=== PATIENT | female | born 1940 | race Caucasian/White ===

== ENCOUNTER 2016-05-24 09:59 | Inpatient (IN) | payer BC, OTHER ==
[2016-05-24] MEDS ORDERED: ceFAZolin 2 GM/DEXTROSE 100 ML IV ONE (10:05)
--- NOTE | 2016-05-24 10:15 | EDPHY ---
H & P Constitutional: Initial Vital Signs Heart Rate 88 05/24/16 10:09 Respiratory Rate 14 05/24/16 10:09 Blood Pressure 112/68 05/24/16 10:09 O2 Sat (%) 92 05/24/16 10:09 Allergies/Adverse Reactions: No Known Allergies Allergy (Unverified 05/24/16 10:13) Home Medications: Medication Instructions Recorded Aspirin EC [Aspirin EC 81 mg (*)] 81 mg PO DAILY 05/24/16 Lisinopril [Zestril 5 mg (*)] 5 mg PO DAILY 05/24/16 METOPROLOL/HYDROCHLOROTHIAZIDE 1 each PO DAILY 05/24/16 [METOPROLOL-HCTZ 100-25 MG TAB] Multivitamins [Multivitamin (*)] 1 each PO DAILY 05/24/16 Pravastatin Sodium 20 mg PO HS 05/24/16 Medical Decision Making ED Course/Re-evaluation: CHIEF COMPLAINT: Bilateral leg swelling and redness HISTORY OF PRESENT ILLNESS: 75-year-old female who is visiting from [place] for the holidays. She states that her legs began swelling several weeks ago and they turned red several weeks ago also but she cannot specify the exact timing. She ignored them because she was anxious to travel here to [place] to see her family for the holidays. She denies any shortness of breath. She denies any chest pain chest pressure. She states that she takes blood pressure medicine and another type medicine for cholesterol but she cannot remember what. She has not had this problem in the past according to her. REVIEW OF SYSTEMS: A 10 point review of systems was performed and is negative with the exception of the elements mentioned in the history of present illness. PHYSICAL EXAM: HR, BP, O2 Sat, RR. Temp noted General Appearance: Alert, well hydrated, appropriate, and non-toxic appearing. Head: Atraumatic without scalp tenderness or obvious injury Eyes: Pupils equal, round, reactive to light and accommodation, EOMI, no trauma , no injection. Ears: Clear bilaterally, no perforation, normal landmarks Nose: Atraumatic, no rhinorrhea, clear. Throat: There is no erythema or exudates, no lesions, normal tonsils, mucus membranes moist. Neck: Supple, 2+ carotid upstroke, nontender, no lymphadenopathy. Respiratory: No retractions, no distress, no wheezes, and no accessory muscle use. Lungs are clear to auscultation bilaterally. Cardiovascular: Regular rate and rhythm, no murmurs, rubs, or gallops. Bilateral carotid, radial, dorsalis pedis, and posterior tibial pulses intact. Good capillary refill all extremities. Gastrointestinal: Abdomen is soft, nontender, non-distended, no masses, no rebound, no guarding, no peritoneal signs. Musculoskeletal: Normal active ROM of all extremities, atraumatic. Neurological: Alert, appropriate, and interactive. The patient has normal DTRs and non-focal cranial nerves, motor, sensory, and cerebellar exam. Skin: Bilateral lower extremities that are extremely swollen which began before she traveled here by plane from [place]. They are significantly erythematous with weeping ulcerations and blisters. No rashes, good turgor, no nodules on palpation. Past medical history: Hypertension, hypercholesterolemia Past surgical history: Noncontributory Family history: Noncontributory Social history: , retired, does not abuse tobacco drugs or alcohol traveled here from [place] for the holidays DIAGNOSTICS/PROCEDURES/CRITICAL CARE TIME: Study: Ultrasound of the: Indication: Bilateral leg swelling and cellulitis Results: US scan of the body parts was obtained. The results of the study are no evidence of DVT. The study was read by the radiologist, Dr. Yunier Hurley. The lower extremity ultrasound is unremarkable . I viewed the images myself on the PACS system. DIFFERENTIAL DIAGNOSIS: The differential diagnosis for the patient's leg swelling included but was not limited to hypoalbuminemia, congestive heart failure, cor pulmonale, venous stasis, cellulitis, trauma, and DVT. MEDICAL DECISION MAKING: This patient has severe cellulitis with weeping and blisters of both lower extremities below the knees. This started weeks ago according to her and has been on treated. I have drawn laboratory studies and blood cultures. I do not believe this is Staph this looks like a strep cellulitis and therefore I am giving her 2 g of Ancef to start. I have discussed the case with the hospitalist who will admit the patient. I will also obtain bilateral lower extremity ultrasound. The ultrasound is unremarkable. - Data Points Laboratory Results: Laboratory Results 05/24/16 10:08 05/24/16 10:08 05/24/16 10:08 WBC 10.60 H 10^3/uL (3.80-9.50) RBC 3.59 L 10^6/uL (4.18-5.33) Hgb 10.5 L g/dL (12.6-16.3) Hct 32.1 L % (38.0-47.0) MCV 89.4 fL (81.5-99.8) MCH 29.2 pg (27.9-34.1) MCHC 32.7 g/dL (32.4-36.7) RDW 13.7 % (11.5-15.2) Plt Count 278 10^3/uL (150-400) MPV 9.7 fL (8.7-11.7) Neut % (Auto) 81.0 H % (39.3-74.2) Lymph % (Auto) 13.6 L % (15.0-45.0) [place] % (Auto) 4.3 L % (4.5-13.0) Eos % (Auto) 0.4 L % (0.6-7.6) Baso % (Auto) 0.3 % (0.3-1.7) Nucleat RBC Rel Count 0.0 % (0.0-0.2) Absolute Neuts (auto) 8.59 H 10^3/uL (1.70-6.50) Absolute Lymphs (auto) 1.44 10^3/uL (1.00-3.00) Absolute Monos (auto) 0.46 10^3/uL (0.30-0.80) Absolute Eos (auto) 0.04 10^3/uL (0.03-0.40) Absolute Basos (auto) 0.03 10^3/uL (0.02-0.10) Absolute Nucleated RBC 0.00 10^3/uL (0-0.01) Immature Gran % 0.4 % (0.0-1.1) Immature Gran # 0.04 10^3/uL (0.00-0.10) PT 13.6 SEC (12.0-15.0) INR 1.05 (0.83-1.16) APTT 41.8 H SEC (23.0-38.0) VBG Lactic Acid 0.8 mmol/L (0.7-2.1) Sodium 135 mEq/L (134-144) Potassium 3.3 L mEq/L (3.5-5.2) Chloride 97 mEq/L (97-110) Carbon Dioxide 27 mEq/l (22-31) Anion Gap 11 mEq/L (8-16) BUN 49 H mg/dL (7-23) Creatinine 1.2 H mg/dL (0.6-1.0) Estimated GFR 44 Glucose 96 mg/dL (70-100) Calcium 9.0 mg/dL (8.5-10.4) Total Bilirubin 0.5 mg/dL (0.1-1.4) Medications Given: Discontinued Medications Hydromorphone HCl (Dilaudid) 0.5 mg IVP EDNOW ONE Stop: 05/24/16 11:03 Last Admin: 05/24/16 11:10 Dose: 0.5 mg Cefazolin Sodium/Dextrose (Ancef 2 Gm (Premix)) 100 mls @ 200 mls/hr IV EDNOW ONE PRN Reason: Protocol Stop: 05/24/16 10:34 Last Admin: 05/24/16 10:25 Dose: 100 mls Departure - Departure Disposition: [facility] Acute Condition: Fair
[2016-05-24 10:27] LABS: % IMMATURE GRANULYOCYTES 0.4 % (0.0-1.1); ABSOLUTE IMMATURE GRANULOCYTES 0.04 10^3/uL (0.00-0.10); ADD DIFF? NO; ADD MORPH? NO; ADD SCAN? NO; ATYPICAL LYMPHOCYTE FLAG 10 (0-99); FRAGMENT RBC FLAG 0 (0-99); HEMATOCRIT 32.1 % (38.0-47.0); HEMOGLOBIN 10.5 g/dL (12.6-16.3); LEFT SHIFT FLG 40 (0-99); LIPEMIA HEMOLYSIS FLAG 80 (0-99); MEAN CELL HEMOGLOBIN 29.2 pg (27.9-34.1); MEAN CELL HEMOGLOBIN CONCENTR. 32.7 g/dL (32.4-36.7); MEAN CELL VOLUME 89.4 fL (81.5-99.8); MEAN PLATELET VOLUME 9.7 fL (8.7-11.7); PLATELET CLUMPS FLAG 0 (0-99); PLATELET COUNT 278 10^3/uL (150-400); RED BLOOD CELL COUNT 3.59 10^6/uL (4.18-5.33); RED CELL DISTRIBUTION WIDTH 13.7 % (11.5-15.2)
[2016-05-24 10:31] LABS: INR 1.05 (0.83-1.16); PROTIME(PATIENT) 13.6 SEC (12.0-15.0)
[2016-05-24 10:32] LABS: APTT 41.8 SEC (23.0-38.0)
[2016-05-24 10:37] LABS: ANION GAP 11 mEq/L (8-16); BILIRUBIN,TOTAL 0.5 mg/dL (0.1-1.4); CARBON DIOXIDE 27 mEq/l (22-31); CHLORIDE 97 mEq/L (97-110); CREATININE 1.2 mg/dL (0.6-1.0); GLOMERULAR FILTRATION RATE 44; GLUCOSE 96 mg/dL (70-100); POTASSIUM 3.3 mEq/L (3.5-5.2); SODIUM 135 mEq/L (134-144)
[2016-05-24] MEDS ORDERED: HYDROmorphONE/DILAUDID 1 MG/ML SYR IVP ONE (11:02)
[2016-05-24] MEDS ORDERED: PROTOCOL MAGNESIUM 1 DOSE IV PRN (11:37)
[2016-05-24] MEDS ORDERED: ONDANSETRON 4 MG/2 ML VIAL IVP PRN (11:37)
[2016-05-24] MEDS ORDERED: PROTOCOL POTASSIUM 1 DOSE MISC PRN (11:37)
[2016-05-24] MEDS ORDERED: ONDANSETRON DISINTEGRATING 4 MG TAB PO PRN (11:37)
[2016-05-24] MEDS ORDERED: PROMETHAZINE HCL 25 MG/ML VIAL IVP PRN (11:37)
--- NOTE | 2016-05-24 11:39 | US ---
Bilateral Lower Extremity Venous Doppler Study Clinical Indications: Bilateral leg pain. Bilateral oozing sores. Rule out DVT. Technique: High-frequency transducer was used for compression imaging and Doppler study of the deep veins of both legs from the upper calves to the groins. Pulsed Doppler and color Doppler were utilize d, along with various maneuvers to assess flow in the deep veins. Findings: Right Leg: The deep veins of the groin, proximal thigh, and popliteal region are well displayed and normally compressible. There is suboptimal visualization of the distal femoral vein and calf veins bi laterally although the visualized portions all appear to be normal without thrombus. Doppler flow pa tterns are unremarkable. There is no evidence of deep venous thrombosis. Left Leg: The deep veins of the groin, proximal thigh, and popliteal region are well displayed and n ormally compressible. There is suboptimal visualization of the distal femoral vein and calf veins aracelis aterally although the visualized portions all appear to be normal without thrombus. Doppler flow pat terns are unremarkable. There is no evidence of deep venous thrombosis. There is normal compression of the greater saphenous veins without superficial thrombosis on the left and proximally on the right. Impression: 1. No evidence of DVT both lower extremities. 2. Suboptimal visualization of a portion of the distal femoral vein bilaterally as well as calf veins secondary to the patient's underlying medical condition and tenderness. These findings were discussed by telephone with Dr. Omlan Laguerre at 1137 hrs.
[2016-05-24] MEDS ORDERED: POTASSIUM CL 10 MEQ TAB PO ONE ×2 (12:00→20:04)
[2016-05-24] MEDS: NS 1,000 ML IV SCH ×2 (12:03→18:01)
--- NOTE | 2016-05-24 12:51 | WOCRNPDOC ---
TRI Advanced Assessment Note - Skin Integrity Problem, Advanced Assess Right Heel Dressing Type: Open to Air Dressing Description: Clean/Dry, Intact Exudate Amount: None Integumentary Issue Intervention: Dressing Applied Denise Wound Tissue: Macerated, Calloused Wound Bed Color: Black Wound Bed Constitution: Unstable Eschar Wound Edges: Scarred, Thick Site Odor: Strong, Foul Site Measurement - Head-to-Toe Length X Width X Depth (cm): 3x4x1 Pressure Injury Stage: Unstageable Pressure Injury Present on Admit: Yes Skin Integrity Problem Comment: Loose unstable eschar. May be from pressure. Patient denies diabetic history and glucose was 96 today on admission. No A1C drawn. Per patient report she sits for extensive periods of time in a recliner but was unaware she has any wounds on her feet/heels. The tissue surrounding this long standing wound is compromised as well. Soaked wound in Vashe solution moist to dry. Will ask for surgical consultation yessica. Toe nails need trimming and patient would greatly benefit from podiatry consultation as well. Discussed plan of care at length with Maureen MOSS. Also discussed with Dr. Whiting who is in accord with wound RN managing wounds. Gisela Wound RN will round Friday 05/25 to assess heel wounds post debridment. Right Lower Leg Venous Stasis Ulcer Dressing Type: Open to Air Exudate Amount: Minimal Exudate Characteristic(s): Serosanguinous Integumentary Issue Intervention: Dressing Applied Denise Wound Tissue: Erythema, Venous Dermatitis Denise Wound Swelling: Mild Wound Bed Color: Red, Yellow Wound Bed Constitution: Granulation Tissue, Adhered Slough, Loose Slough (80% slough) Wound Edges: Irregular Site Odor: Strong, Foul, Pungent Site Measurement - Head-to-Toe Length X Width X Depth (cm): 18x25.5x0.5 Pulse Location & Description: Could not palpate DP today. Extremity Temperature: Warm Skin Integrity Problem Comment: Consistent with venous stasis ulcers. Wounds soaked in Vashe solution moist to dry. Left Heel Pressure Injury Dressing Type: Open to Air Exudate Amount: None Integumentary Issue Intervention: Dressing Applied Site Odor: Moderate, Pungent Site Measurement - Head-to-Toe Length X Width X Depth (cm): 2.5x2.3x1 Pressure Injury Stage: Unstageable Pulse Location & Description: 1+ DP Extremity Temperature: Warm Skin Integrity Problem Comment: Mirror image wound to the left heel. This wound is somewhat smaller but also consists of unstable eschar. Surgical consultation requested with Dr. Vang. Left Lower Leg Venous Stasis Ulcer Dressing Type: Open to Air Exudate Amount: Minimal Exudate Characteristic(s): Serosanguinous Integumentary Issue Intervention: Dressing Applied Denise Wound Tissue: Erythema, Venous Dermatitis Wound Bed Color: Red, Yellow Wound Bed Constitution: Granulation Tissue (20%), Adhered Slough, Loose Slough Wound Edges: Irregular, Thick Site Measurement - Head-to-Toe Length X Width X Depth (cm): 14h73x2.5 Skin Integrity Problem Comment: Long standing venous stasis wounds. Vashe soaked moist to dry gauze dressings applied. Bilateral Groin Moisture Associated Dermatitis Dressing Type: Open to Air Skin Integrity Problem Comment: Open parital thickness slits in bilateral groin folds. Small area of satellite lesions noted. Interdry sheets will be provided. Sacral Skin Integrity Problem Comment: Scarred areas from previous breakdown. Currently intact and non erythematic.
--- NOTE | 2016-05-24 13:02 | PDGENHP ---
History and Physical - Chief Complaint lower extremity swelling/drainage - History of Present Illness 75 yo F with PMH of CAD currently visiting from [place] presenting with lower extremity swelling/drainage and pain. Her family who accompanies her are not sure how long this has been going on but they suspect much longer than they realized. Patient herself really cannot say how long her legs have looked like this, she says initially "days" but then admits it may be longer. She says otherwise she has felt well recently. Her son noticed that she really was unable to walk and seemed more somnolent than usual and became concerned when he saw her legs. He thought initially it was due to altitude sickness. She has not had fever or chills that she is aware of. She denies any chest pain or sob. History Information - Allergies/Home Medication List Allergies/Adverse Reactions: No Known Allergies Allergy (Unverified 05/24/16 10:13) Home Medications: Aspirin EC [Aspirin EC 81 mg (*)] 81 mg PO DAILY 05/24/16 [Last Taken 05/23/16] Lisinopril [Zestril 5 mg (*)] 5 mg PO DAILY 05/24/16 [Last Taken 05/23/16] METOPROLOL/HYDROCHLOROTHIAZIDE [METOPROLOL-HCTZ 100-25 MG TAB] 1 each PO DAILY 05/24/16 [Last Taken 05/23/16] Multivitamins [Multivitamin (*)] 1 each PO DAILY 05/24/16 [Last Taken 05/23/16] Pravastatin Sodium 20 mg PO HS 05/24/16 [Last Taken 05/23/16] I have personally reviewed and updated: family history, medical history, social history, surgical history - Past Medical History coronary artery disease, hypertension, hyperlipidemia, myocardial infarction - Surgical History Additional surgical history: tubal ligation - Family History Positive for: non-pertinent - Social History Smoking Status: Current every day smoker (60+ pack year smoking hx) Alcohol Use: Rarely Drug Use: None Additional social history: , 2 children both accompany her here, lives in [place] Review of Systems ROS: 10pt was reviewed & negative except for what was stated in HPI & below Physical Exam Temp Pulse Resp BP Pulse Ox 35.5 C L 71 16 92/48 L 94 05/24/16 11:42 05/24/16 11:42 05/24/16 11:42 05/24/16 11:42 05/24/16 11:42 O2 (L/minute) 2 Constitutional: no apparent distress, appears nourished Eyes: PERRL, anicteric sclera Ears, Nose, Mouth, Throat: moist mucous membranes, hearing normal Cardiovascular: regular rate and rhythym, systolic murmur, edema Respiratory: no respiratory distress, no rales or rhonchi Gastrointestinal: normoactive bowel sounds, soft, non-tender abdomen Genitourinary: no bladder tenderness Skin: warm, erythema, other (weeping wounds) Musculoskeletal: full muscle strength, asymmetric calves Neurologic: AAOx3, sensation intact bilaterally Lab Data & Imaging Review 05/24/16 10:08 05/24/16 10:08 WBC 10.60 10^3/uL (3.80-9.50) H 05/24/16 10:08 RBC 3.59 10^6/uL (4.18-5.33) L 05/24/16 10:08 Hgb 10.5 g/dL (12.6-16.3) L 05/24/16 10:08 Hct 32.1 % (38.0-47.0) L 05/24/16 10:08 MCV 89.4 fL (81.5-99.8) 05/24/16 10:08 MCH 29.2 pg (27.9-34.1) 05/24/16 10:08 MCHC 32.7 g/dL (32.4-36.7) 05/24/16 10:08 RDW 13.7 % (11.5-15.2) 05/24/16 10:08 Plt Count 278 10^3/uL (150-400) 05/24/16 10:08 MPV 9.7 fL (8.7-11.7) 05/24/16 10:08 Neut % (Auto) 81.0 % (39.3-74.2) H 05/24/16 10:08 Lymph % (Auto) 13.6 % (15.0-45.0) L 05/24/16 10:08 [place] % (Auto) 4.3 % (4.5-13.0) L 05/24/16 10:08 Eos % (Auto) 0.4 % (0.6-7.6) L 05/24/16 10:08 Baso % (Auto) 0.3 % (0.3-1.7) 05/24/16 10:08 Nucleat RBC Rel Count 0.0 % (0.0-0.2) 05/24/16 10:08 Absolute Neuts (auto) 8.59 10^3/uL (1.70-6.50) H 05/24/16 10:08 Absolute Lymphs (auto) 1.44 10^3/uL (1.00-3.00) 05/24/16 10:08 Absolute Monos (auto) 0.46 10^3/uL (0.30-0.80) 05/24/16 10:08 Absolute Eos (auto) 0.04 10^3/uL (0.03-0.40) 05/24/16 10:08 Absolute Basos (auto) 0.03 10^3/uL (0.02-0.10) 05/24/16 10:08 Absolute Nucleated RBC 0.00 10^3/uL (0-0.01) 05/24/16 10:08 Immature Gran % 0.4 % (0.0-1.1) 05/24/16 10:08 Immature Gran # 0.04 10^3/uL (0.00-0.10) 05/24/16 10:08 PT 13.6 SEC (12.0-15.0) 05/24/16 10:08 INR 1.05 (0.83-1.16) 05/24/16 10:08 APTT 41.8 SEC (23.0-38.0) H 05/24/16 10:08 VBG Lactic Acid 0.8 mmol/L (0.7-2.1) 05/24/16 10:08 Sodium 135 mEq/L (134-144) 05/24/16 10:08 Potassium 3.3 mEq/L (3.5-5.2) L 05/24/16 10:08 Chloride 97 mEq/L (97-110) 05/24/16 10:08 Carbon Dioxide 27 mEq/l (22-31) 05/24/16 10:08 Anion Gap 11 mEq/L (8-16) 05/24/16 10:08 BUN 49 mg/dL (7-23) H 05/24/16 10:08 Creatinine 1.2 mg/dL (0.6-1.0) H 05/24/16 10:08 Estimated GFR 44 05/24/16 10:08 Glucose 96 mg/dL (70-100) 05/24/16 10:08 Calcium 9.0 mg/dL (8.5-10.4) 05/24/16 10:08 Magnesium 2.5 mg/dL (1.6-2.3) H 05/24/16 10:08 Total Bilirubin 0.5 mg/dL (0.1-1.4) 05/24/16 10:08 Visualized and Interpreted imaging results: Yes Interpretation: BLE US: no dvt Assessment & Plan Assessment: 75 yo F with hx of CAD and longstanding tobacco use admitted with ble venous stasis wounds # venous stasis wounds with surrounding cellulitis: wound care consulted, appear to be longstanding with associated cellulitis. Have asked for surgical evaluation, will continue abx with vanc/zosyn for now and ask for ID to evaluate. Blood cultures pending. Does not appear septic currently. # virgil: unknown baseline renal function, will get UA, urine na/creat to calculate Fena and run IVF overnight. Will hold lisinopril/hctz # CAD: without issues for > 10 years per her report, continue op medications # COPD: undiagnosed but with wheezing on exam and 60+ pack year smoking history undoubtedly present. Will start nebs and get CXR. Does not seem severely decompensated and O2 sats have been good so far. # Htn: currently bp a bit on the low end, again holding lisinopril/hctz for now and will monitor # DNR: discussed with patient, her children would be her decision maker if she could not make decisions # dispo: IP status, will need > 48 hours for eval/mgmt of above Patient new to my care. Care plan reviewed with wound care nurse, general surgeon. Further hx obtained from patients son/daughter present at bedside.
[2016-05-24] MEDS ORDERED: ALBUTEROL 3 ML DEYVIAL IH PRN (13:06)
[2016-05-24] MEDS ORDERED: NICOTINE POLACRILEX 2 MG GUM B PRN (13:07)
[2016-05-24] MEDS ORDERED: NICOTINE 21 MG/24 HR PATCH TD ONE (13:07)
[2016-05-24] MEDS ORDERED: LIDOCAINE 1% 30 ML SDV MISC ONE (13:30)
[2016-05-24] MEDS: oxyCODONE IR 5 MG TAB PO PRN ×2 (14:17→18:36)
[2016-05-24] MEDS: VANCOMYCIN HCL/NORMAL SALINE 250 ML IV SCH (14:19)
--- NOTE | 2016-05-24 14:54 | DX ---
Portable chest x-ray 1318 hours. History: Wheezing. Possible pneumonia. Findings: Heart size is mildly enlarged. Pulmonary vasculature is not significant engorged. There is prominence of the aortic arch with tortuosity of the descending thoracic aorta and arteriosclerotic c alcifications. The lungs are relatively clear without consolidation, effusion, or pneumothorax. [place] us structures appear to be intact. Impression: 1. Mild cardiomegaly. 2. Mild prominence of the aortic arch with moderate tortuosity of the descending thoracic aorta.
--- NOTE | 2016-05-24 15:16 | GCON ---
[f rep st] CONSULTATION REQUESTING PHYSICIAN: Tim Rayo MD HISTORY OF PRESENT ILLNESS: The patient is a 75-year-old woman with a history of coronary artery dis ease, who is here visiting her family from [place], who presented to the emergency department wi th lower extremity swelling and pain preventing her from standing. She is unsure about how long this has been going on. On arrival to the emergency department, she was found to have pressure ulcers of bilateral heels with necrotic eschar, associated with superficial ulceration of bilateral lower legs , associated with cellulitis. On presentation, her white blood cell count was 11 with a left shift t o 81% neutrophils. On bilateral Doppler ultrasound, she was noted to have no evidence of DVT. She w as admitted to the hospitalist service for soft tissue infection and edema of bilateral lower extremi ties. PAST MEDICAL HISTORY: Coronary artery disease, hypercholesterolemia, hypertension, history of myocar dial infarction. PAST SURGICAL HISTORY: She has had a tubal ligation. MEDICATIONS: She takes a multivitamin, metoprolol hydrochlorothiazide 100/25 mg daily, aspirin 81 mg daily, pravastatin 20 mg nightly, and lisinopril 5 mg daily. ALLERGIES: She has no known drug allergies. SOCIAL HISTORY: She is here from [place], visiting her son, and is accompanied by her daughter. She has a 60+ pack-year history of smoking tobacco. REVIEW OF SYSTEMS: She denied chest pain, shortness of breath. She complained of pain and swelling in bilateral lower extremities but is unable to articulate how long this has been going on. PHYSICAL EXAM: VITAL SIGNS: Her temperature is 35.5, pulse 71, blood pressure 92/48. Respiratory r ate is 16. She is satting 94% on 2 L per nasal cannula. GENERAL: She is alert, in no acute distres s, nonjaundiced appearing. LUNGS: Have diffuse wheezes bilaterally. HEART: Has a regular rate and rhythm. EXTREMITIES: There 3-4 cm in diameter pressure ulcers of bilateral heels with eschars. Th ere are multiple superficial ulcerations of bilateral lower extremities to the proximal lower leg, an d there is cellulitis to the proximal lower legs bilaterally. There is sloughing skin, and fibrinous over the intact skin of the lower leg and sloughing fibrinous exudate over the superficial ulceratio ns. LABS: Again, on labs the white count is 11 with a left shift to 81% neutrophils, hematocrit 32, plat elets 278. INR is 1.1. Creatinine is 1.2. ASSESSMENT AND PLAN: Chronic wounds of the bilateral lower extremities, of unknown etiology, now ass ociated with wet gangrene of bilateral heel heals, and cellulitis to the proximal lower leg. PLAN: She has been admitted to the medicine service. Antibiotic therapy will be begun. Necrotic ti ssue on bilateral heels, as well as fibrinous exudate from superficial ulcerations of bilateral legs will be debrided at the bedside. She may require further debridement in the future. She also will b e seen by the wound care team. /[id number]/MODL
[2016-05-24] MEDS ORDERED: IPRATROPIUM/ALBUTEROL 3 ML DEYVIAL ONE (15:52)
[2016-05-24] MEDS: IPRATROPIUM/ALBUTEROL 3 ML DEYVIAL IH SCH ×2 (15:57→22:08)
[2016-05-24] MEDS ORDERED: NS 500 ML IV ONE (16:33)
--- NOTE | 2016-05-24 17:07 | GOP ---
[f rep st] OPERATIVE REPORT DATE OF OPERATION: SURGEON: Bushra Whiting MD PREOPERATIVE DIAGNOSIS: Wet gangrene of bilateral heels with superficial ulcerations and cellulitis of bilateral lower legs. POSTOPERATIVE DIAGNOSIS: Wet gangrene of bilateral heels with superficial ulcerations and cellulitis of bilateral lower legs. PROCEDURE PERFORMED: Incision and drainage of bilateral heels and bilateral lower legs. FINDINGS: Necrotic eschar and necrotic tissue bilateral heels, sloughing, fibrinous exudate overlyin g many of the superficial ulcerations of bilateral lower legs and associated cellulitis to the proxim al lower legs bilaterally. SPECIMENS: Necrotic tissue sent for Gram stain and culture. ESTIMATED BLOOD LOSS: 100 mL. INDICATIONS: The patient is a 75-year-old woman with chronic wounds of bilateral lower extremities c omplicated by wet gangrene of bilateral heels and superficial ulcerations of bilateral lower legs wit h cellulitis to the proximal lower legs bilaterally. She presented to the emergency department unabl e to walk due to pain and swelling, and was found to have an elevated white blood cell count with lef t shift and evidence of wet gangrene of bilateral heels. DESCRIPTION OF PROCEDURE: Sharp debridement of necrotic tissue from bilateral heels was performed us ing local anesthetic at the bedside. Sloughing, fibrinous exudate overlying superficial ulcers were removed sharply as well. The bilateral heels were packed with gauze and bilateral lower legs were wr apped with Kerlix and Tay wraps to provide pressure dressing for hemostasis. /[id number]/MODL
[2016-05-24] MEDS: PIPERACILLIN/TAZO 3.375 GM/DEX 50 ML IV SCH (18:04)
[2016-05-24 18:28] LABS: COLOR YELLOW; LEUKOCYTE ESTERASE,URINE 2+ (NEGATIVE); NITRITE,URINE POSITIVE (NEGATIVE)
[2016-05-24 18:44] LABS: BACTERIA 3+ /hpf (NONE SEEN); MUCUS TRACE /lpf (NONE-1+); WBC,URINE 50-182 /hpf (0-3)
[2016-05-24 18:52] LABS: POTASSIUM 3.1 mEq/L (3.5-5.2)
[2016-05-24] MEDS: PRAVASTATIN SODIUM 20 MG TAB PO SCH (19:57)
[2016-05-24] MEDS: METOPROLOL TARTRATE 50 MG TAB PO SCH (22:37)
[2016-05-25] MEDS: oxyCODONE IR 5 MG TAB PO PRN ×3 (00:13→20:32)
[2016-05-25] MEDS: PIPERACILLIN/TAZO 3.375 GM/DEX 50 ML IV SCH ×3 (00:30→11:30)
[2016-05-25 04:01] LABS: HEMOGLOBIN A1C 6.3 % (4.0-6.0)
[2016-05-25] MEDS: NS 1,000 ML IV SCH ×2 (05:44→18:22)
[2016-05-25] MEDS: ACETAMINOPHEN 325 MG TAB PO PRN ×2 (05:50→16:13)
[2016-05-25] MEDS: IPRATROPIUM/ALBUTEROL 3 ML DEYVIAL IH SCH ×4 (06:20→22:16)
[2016-05-25] MEDS: ASPIRIN EC 81 MG TAB PO SCH (08:35)
[2016-05-25] MEDS: MULTIVITAMINS 1 EACH TAB PO SCH (08:35)
[2016-05-25] MEDS: ENOXAPARIN 40 MG/0.4 ML SYR SC SCH (08:35)
--- NOTE | 2016-05-25 09:07 | SOAPPROG ---
SOAP Progress Note Assessment/Plan: Assessment: s/p I&D of bilateral heel pressure ulcers Plan: clinically improving, continue broad spectrum antibiotics await culture results to tailor antibiotics 05/25/16 09:04 Subjective: some confusion overnight Objective: Vital Signs Temp Pulse Resp BP Pulse Ox 36.3 C 107 H 20 95/53 L 93 05/25/16 03:12 05/25/16 03:12 05/25/16 03:12 05/25/16 03:12 05/25/16 03:12 Microbiology 05/24/16 14:00 Gram Stain - Final Foot - Tissue Laboratory Results 05/24/16 18:31 05/24/16 05/25/16 05/26/16 05:59 05:59 05:59 Intake Total 3000 Output Total 1400 Balance 1600 PT 13.6 SEC (12.0-15.0) 05/24/16 10:08 INR 1.05 (0.83-1.16) 05/24/16 10:08 Physical Exam - Physical Exam Extremities: other (markedly decreased edema and mildly increased erythema of BLE, heel wounds clean based and hemostatic) ICD10 Worksheet Patient Problems: Problems Problem Status Diagnosed Venous stasis dermatitis of both lower extremities Acute
[2016-05-25 09:24] LABS: % IMMATURE GRANULYOCYTES 0.5 % (0.0-1.1); ABSOLUTE IMMATURE GRANULOCYTES 0.04 10^3/uL (0.00-0.10); ADD DIFF? NO; ADD MORPH? NO; ADD SCAN? NO; ATYPICAL LYMPHOCYTE FLAG 20 (0-99); FRAGMENT RBC FLAG 0 (0-99); HEMATOCRIT 26.8 % (38.0-47.0); HEMOGLOBIN 8.9 g/dL (12.6-16.3); LEFT SHIFT FLG 20 (0-99); LIPEMIA HEMOLYSIS FLAG 80 (0-99); MEAN CELL HEMOGLOBIN 29.3 pg (27.9-34.1); MEAN CELL HEMOGLOBIN CONCENTR. 33.2 g/dL (32.4-36.7); MEAN CELL VOLUME 88.2 fL (81.5-99.8); MEAN PLATELET VOLUME 9.5 fL (8.7-11.7); PLATELET CLUMPS FLAG 0 (0-99); PLATELET COUNT 216 10^3/uL (150-400); RED BLOOD CELL COUNT 3.04 10^6/uL (4.18-5.33); RED CELL DISTRIBUTION WIDTH 13.9 % (11.5-15.2)
[2016-05-25 09:50] LABS: ALANINE AMINOTRANSFERASE 54 IU/L (9-52); ALBUMIN 2.3 g/dL (3.5-5.0); ALKALINE PHOSPHATASE 114 IU/L (38-126); ANION GAP 6 mEq/L (8-16); ASPARTATE AMINOTRANSFERASE 118 IU/L (14-46); BILIRUBIN,TOTAL 0.4 mg/dL (0.1-1.4); BILIRUBIN-CONJUGATED 0.3 mg/dL (0.0-0.5); BILIRUBIN-UNCONJUGATED 0.1 mg/dL (0.0-1.1); CALCIUM 8.1 mg/dL (8.5-10.4); CARBON DIOXIDE 25 mEq/l (22-31); CHLORIDE 104 mEq/L (97-110); CREATININE 0.9 mg/dL (0.6-1.0); GLOMERULAR FILTRATION RATE > 60; GLUCOSE 87 mg/dL (70-100); MAGNESIUM 1.9 mg/dL (1.6-2.3); POTASSIUM 3.6 mEq/L (3.5-5.2); SODIUM 135 mEq/L (134-144); TOTAL PROTEIN 5.3 g/dL (6.3-8.2)
[2016-05-25] MEDS: METOPROLOL TARTRATE 50 MG TAB PO SCH ×2 (10:16→20:32)
[2016-05-25 10:24] LABS: C-REACTIVE PROTEIN 139.3 mg/L (<10.0)
[2016-05-25] MEDS ORDERED: POTASSIUM CL 10 MEQ TAB PO ONE ×3 (11:18→20:15)
--- NOTE | 2016-05-25 11:30 | WOCRNPDOC ---
TRI Advanced Assessment Note - Skin Integrity Problem, Advanced Assess Right Heel Dressing Type: Gauze, Kerlix Dressing Description: Saturated Exudate Amount: Moderate Exudate Color: Red Exudate Characteristic(s): Bloody, Serosanguinous Integumentary Issue Intervention: Dressing Applied Denise Wound Tissue: Calloused Denise Wound Swelling: Mild Wound Bed Color: Red Wound Bed Constitution: Smooth Tissue, Bone Wound Edges: Well Defined Site Odor: None Site Measurement - Head-to-Toe Length X Width X Depth (cm): 3.7ppo7soq6.8cm Pressure Injury Stage: Stage 4 Pressure Injury Present on Admit: Yes Skin Integrity Problem Comment: This wound is a pressure injury, previous eschar -filled and unstageable. Dr. Whiting debrided wound yesterday, and now the wound appearance is consistent w/ a stage IV pressure injury. There is exposed, palpable bone in the distal aspect of the wound, w/ the remainder of the wound copious, bloody smooth tissue. Denise-wound tissue is calloused, w/ mild swelling. Wound vac applied, w/ 1 piece of white foam covering the wound bed, followed by 1 piece of black foam bridged to the distal dorsum of R foot. Vac set at 125mmHg, low, continuous suction. neurological physiotherapist Shiela present and assisting. Right Lower Leg Venous Stasis Ulcer Dressing Type: Kerlix Dressing Description: Saturated Exudate Amount: Excessive Exudate Color: Reddish/Yellow Exudate Characteristic(s): Serosanguinous Integumentary Issue Intervention: Dressing Changed, Lotion/Cream Applied, Silver Gel Applied Denise Wound Tissue: Erythema, Raw, Weeping, Venous Dermatitis Denise Wound Swelling: Moderate Wound Bed Color: Red, Yellow Wound Bed Constitution: Smooth Tissue, Mixed Loose & Adhered Slough/Eschar Site Odor: Strong, Foul Site Measurement - Head-to-Toe Length X Width X Depth (cm): 54wjs60.5cmx0.5cm Skin Integrity Problem Comment: Extensive wounds throughout RLE, consistent in appearance w/ venous stasis. Assessed wound w/ ID physician Dr. Carrera, and agree that the erythema is consistent w/ this diagnosis. Wound has irregular margins, w/ a mixture of loose/adhered slougna nd smooth tissue throughout. ManukaHD Lite absorbent honey dressing applied to slough-filled, exudative areas, and Silvasorb wound gel applied to dry areas. Covered w/ Mepilex Transfer to help manage exudate and pull it to the secondary ABD/Kerlix dressing. Patient was in a significant amount of pain during wound care, despite the administration of IV pain meds. Will discuss pain management w/ hospitalist. Ongoing this patient wound benefit from compression therapy to heal these wounds. Left Heel Pressure Injury Dressing Type: Gauze, Kerlix Dressing Description: Saturated Exudate Amount: Moderate Exudate Color: Red Exudate Characteristic(s): Bloody Integumentary Issue Intervention: Dressing Applied Denise Wound Tissue: Calloused Denise Wound Swelling: Mild Wound Bed Color: Black (eschar along wound margins, and scattered throughout.), Red Wound Bed Constitution: Smooth Tissue, Mixed Loose & Adhered Slough/Eschar Wound Edges: Well Defined Site Odor: None Site Measurement - Head-to-Toe Length X Width X Depth (cm): 2.5cmx2.3cmx0.4cm Pressure Injury Stage: Unstageable Pressure Injury Present on Admit: Yes Skin Integrity Problem Comment: This wound was debrided yesterday by Dr. Whiting. Presently there remain areas of adhered eschar along the margins, as well as a small area medially. As a result, it remains an unstageable pressure injury until all the necrotic tissue is removed and the depth of the wound can be fully assessed. Denise-wound tissue is calloused and mildly swollen. Placed piece of Iodofoam into wound bed to facilitate debridement, secured w/ steri- strip, followed by an Allevyn Life dressing. neurological physiotherapistAJAY Kuo present and assisting. Left Lower Leg Venous Stasis Ulcer Dressing Type: Kerlix Dressing Description: Saturated Exudate Amount: Excessive Exudate Color: Reddish/Yellow Exudate Characteristic(s): Serosanguinous Integumentary Issue Intervention: Dressing Applied, Lotion/Cream Applied, Silver Gel Applied Denise Wound Tissue: Erythema, Raw, Swollen, Venous Dermatitis Denise Wound Swelling: Moderate Wound Bed Color: Red, Yellow Wound Bed Constitution: Smooth Tissue, Mixed Loose & Adhered Slough/Eschar Wound Edges: Irregular Site Odor: Strong, Foul Site Measurement - Head-to-Toe Length X Width X Depth (cm): 11.5lbp16xhc1.4cm Skin Integrity Problem Comment: Extensive venous stasis wounds to LLE, w/ slough -filled areas noted. Wounds are highly exudative, and outer dressing was saturated. Applied ManukaHD honey sheet to slough-filled areas to help enzymatically debride necrotic tissue and manage exudate, and Silvasorb gel to dry areas. Covered w/ Mepilex Transfer, ABD, and Kerlix. Patient wound benefit from compression therapy ongoing after DC.
--- NOTE | 2016-05-25 11:43 | GCON ---
[f rep st] CONSULTATION INFECTIOUS DISEASE CONSULTATION DATE OF CONSULTATION: 05/25/2016 REFERRING PHYSICIAN: Tim Rayo MD REASON FOR CONSULTATION: Lower extremity necrotic wounds, with wet gangrene and cellulitis, for furt her evaluation and management. CHIEF COMPLAINT: Painful legs. HISTORY OF PRESENT ILLNESS: This is a 75-year-old female with a past medical history signi ficant for coronary artery disease, hypertension, dyslipidemia and myocardial infarction who was visi ting her family from [place]. She had been here for a couple of days but on jeffery was n oted by her family to be dizzy and more disoriented, and then they noticed that her wounds were prese nt and they were weeping. This brought her in yesterday. According to the patient, she did not know how long her legs had looked like this, although she is intermittently confused at this point. Acco rding to her family, she is normally pretty oriented. Her legs are quite sensitive to even mild touc h. Yesterday, Dr. Whiting evaluated her and debrided her bilateral necrotic heel wounds. Cultures we re taken and those are pending. She was in the ER. She had blood cultures sent down and those are p ending as well. She was placed on vancomycin and Zosyn empirically. Currently evaluating the wounds with wound care as well as hospitalist team this morning. Apparently, she had redness extending up to her knees yesterday but those have markedly improved, and now it mostly looks like venous stasis-l shadi changes. She has deep wound to the right heel, which probes to bone. The left heel also has wou nd that has been debrided, with mild residual necrotic changes but it is not as deep as the right wou nd and does not probe to bone. She has extensive venous stasis changes, with some superficial breakd own with sloughing overlying, especially in the posterior aspects of her legs, and these are quite we epy. REVIEW OF SYSTEMS: The patient is a poor historian. At present, she is intermittently going in and out of sleep but otherwise denies headaches, fevers, chills, shortness of breath, cough or sputum pro duction, abdominal pain, diarrhea, dysuria, back pain. The rest of 10-point review of systems essentially negative except for above. PAST MEDICAL HISTORY: Significant for coronary artery disease, [place], hypertension, dyslipidemia. PAST SURGICAL HISTORY: Significant for tubal ligation. ALLERGIES: No known drug allergies. SOCIAL HISTORY: She is a current smoker, 60 pack year, uses alcohol occasionally. She is . She lives in [place]. She is visiting her family, her son and daughter, here in [place]. FAMILY HISTORY: Could not be obtained at this time. PHYSICAL EXAMINATION: VITAL SIGNS: Temperature current 36.3, pulse 107, blood pressure 195/53, resp iratory rate is 20, saturation is 92% on 3 L O2 nasal cannula. GENERAL: The patient is resting in b ed, in no acute respiratory distress, drifts in and out of her sleep. At this point in time, she is somewhat disoriented when awakened and she does not really give a real accurate history at this time. HEENT: Head is normocephalic, atraumatic. Pupils are equal, round and reactive to light. There i s no conjunctival injection or petechiae noted. Oropharynx not well visualized but no obvious oral l esions. CARDIOVASCULAR: S1 and S2 regular rate and rhythm. RESPIRATORY: Clear to auscultation ant eriorly. No rhonchi appreciated. This is a limited exam. ABDOMEN: Bowel sounds in all 4 quadrants . Soft, nontender, nondistended. No obvious organomegaly. EXTREMITIES: Lower extremity swelling b ut this appears to be markedly improved from yesterday as there is significant wrinkling on the bilat eral lower extremities. MUSCULOSKELETAL: No obvious joint effusions. SKIN: Venous stasis changes bilateral lower extremities. She has superficial breakdown, especially on the posterior aspects of h er legs, with slough and weepy drainage. She has bilateral heel wounds, the right is deeper than the left. The right wound probes to bone. There are some minimal residual necrotic changes on the left heel wound. Minimal, if any, residual cellulitis at this point. LABORATORY DATA: No labs today so labs from yesterday: White blood cell count 10.6, hemoglobin 10.5 , platelets 278. Neutrophil count is 81%. INR 1.0. Venous lactic acid 0.8. Sodium 145, potassium 3.3, chloride 97, bicarb 27, BUN 49, creatinine 1.2. Glucose 96, hemoglobin A1c 6.3. Urinalysis: 2+ blood, positive nitrites, 2+ leukocyte esterase, WBC 50-182. Urine bacteria 3+. Blood cultures x2 sets done yesterday are pending. Foot culture from yesterday: 4+ gram-positive co cci, 4+ gram-negative coccobacillus, rare polys. Cultures pending. She had an ultrasound of the lower extremities done which showed no evidence of DVT in the bilateral lower extremities. Chest x-ray done yesterday showed some mild cardiomegaly but no consolidation, ef fusions or pneumothorax. ASSESSMENT: 1. Bilateral necrotic heel wounds of wet gangrene and overlying cellulitis. 2. Pyuria, evaluate for urinary tract infection. PLAN: The patient is currently on vancomycin and Zosyn therapy. Recheck labs today to ensure that d osing is appropriate. Wound cultures have been done and are pending. Blood cultures x2 sets have al ready been done and are pending. Will add a urine culture to further evaluate as well. I appreciate wound care nurse's assistance as well as surgery, Dr. Whiting's assistance in the debridement and anders oing wound care for this patient. Likely to have a wound VAC to the right heel wound and other wound dressings for the left heel as well as the venous stasis breakdown on the bilateral lower extremitie s. Given right heel wound probes to bone, she has likely underlying osteomyelitis. Will add LFT and CRP to today's labs as well. She may need further imaging at some point but probably will likely re quire prolonged course of antibiotics. Care was coordinated with the nurse, the hospitalist team, the wound care nurse as well as Dr. Whtiing today. Plan of care was discussed with the family and lab results and culture results were reviewed with them as well. I thank you very much for providing me with this opportunity to care for your patient in consultation . /[id number]/MODL
[2016-05-25] MEDS: VANCOMYCIN HCL/NORMAL SALINE 250 ML IV SCH (14:39)
--- NOTE | 2016-05-25 15:37 | HOSPPROG ---
Hospitalist Progress Note Assessment/Plan: 75 yo F pw ble ulcers/wet gangrene/cellulitis # wet gangrene/cellultitis/osteomyelitis/venous stasis ulcers: s/p surgical debridement, right heel wound probes to bone. Currently on vanc/zosyn with cultures pending. Wound care involved and plans for wound vac on right heel, as well as mild compression wraps. # virgil: improved, holding bradley/hctz # CAD: without issues for > 10 years per her report, continue op medications # COPD: undiagnosed but with wheezing on exam and 60+ pack year smoking history undoubtedly present. Will start nebs and get CXR. Does not seem severely decompensated and O2 sats have been good so far. # Htn: currently bp a bit on the low end, again holding lisinopril/hctz for now and will monitor # DNR: discussed with patient, her children would be her decision maker if she could not make decisions Reviewed care plan with ID, gen surg, wound care and patients children present at bedside. Subjective: this am patient having pain related to changing her dressings Objective: Vital Signs Temp Pulse Resp BP Pulse Ox 36.6 C 107 H 16 112/64 93 05/25/16 15:32 05/25/16 15:32 05/25/16 15:32 05/25/16 15:32 05/25/16 15:32 Microbiology 05/24/16 14:00 Gram Stain - Final Foot - Tissue Laboratory Results 05/25/16 09:10 05/25/16 09:10 05/24/16 05/25/16 05/26/16 05:59 05:59 05:59 Intake Total 3000 Output Total 1400 Balance 1600 PT 13.6 SEC (12.0-15.0) 05/24/16 10:08 INR 1.05 (0.83-1.16) 05/24/16 10:08 awake alert in some pain anicteric op clear rrr no mrg cta b soft nt nd ble with hyperpigmentation, skin thickening, oozing wounds on posterior shins, bilateral heels with deep necrotic wounds, right probes to bone oriented and appropriate - Time Spent With Patient Time Spent with Patient: greater than 35 minutes Time Spent with Patient: Greater than 35 minutes spent on this patients care, greater than 50% of time spent counseling, educating, and coordinating care regarding the above mentioned plan. ICD10 Worksheet Patient Problems: Problems Problem Status Diagnosed Venous stasis dermatitis of both lower extremities Acute
[2016-05-25] MEDS: PIPERACILLIN/TAZO 4.5 GM/DEX 100 ML IV SCH ×2 (18:19→23:29)
[2016-05-25 19:08] LABS: POTASSIUM 3.8 mEq/L (3.5-5.2)
[2016-05-25] MEDS: PRAVASTATIN SODIUM 20 MG TAB PO SCH (20:32)
[2016-05-26] MEDS: VANCOMYCIN HCL/NORMAL SALINE 250 ML IV SCH ×2 (02:02→15:30)
[2016-05-26 05:32] LABS: % IMMATURE GRANULYOCYTES 0.9 % (0.0-1.1); ABSOLUTE IMMATURE GRANULOCYTES 0.08 10^3/uL (0.00-0.10); ADD DIFF? NO; ADD MORPH? NO; ADD SCAN? NO; ATYPICAL LYMPHOCYTE FLAG 0 (0-99); FRAGMENT RBC FLAG 0 (0-99); HEMOGLOBIN 8.5 g/dL (12.6-16.3); LEFT SHIFT FLG 10 (0-99); LIPEMIA HEMOLYSIS FLAG 80 (0-99); MEAN CELL HEMOGLOBIN 29.1 pg (27.9-34.1); MEAN CELL HEMOGLOBIN CONCENTR. 32.7 g/dL (32.4-36.7); MEAN PLATELET VOLUME 9.6 fL (8.7-11.7); PLATELET CLUMPS FLAG 0 (0-99); PLATELET COUNT 202 10^3/uL (150-400); RED BLOOD CELL COUNT 2.92 10^6/uL (4.18-5.33); RED CELL DISTRIBUTION WIDTH 14.1 % (11.5-15.2)
[2016-05-26 05:48] LABS: ANION GAP 7 mEq/L (8-16); CARBON DIOXIDE 24 mEq/l (22-31); CHLORIDE 102 mEq/L (97-110); CREATININE 0.9 mg/dL (0.6-1.0); GLOMERULAR FILTRATION RATE > 60; GLUCOSE 78 mg/dL (70-100); MAGNESIUM 1.7 mg/dL (1.6-2.3); POTASSIUM 3.8 mEq/L (3.5-5.2); SODIUM 133 mEq/L (134-144)
[2016-05-26] MEDS: PIPERACILLIN/TAZO 4.5 GM/DEX 100 ML IV SCH ×4 (05:53→23:28)
[2016-05-26] MEDS: IPRATROPIUM/ALBUTEROL 3 ML DEYVIAL IH SCH ×3 (06:21→17:55)
[2016-05-26] MEDS: oxyCODONE IR 5 MG TAB PO PRN ×2 (08:00→21:56)
[2016-05-26] MEDS: ACETAMINOPHEN 325 MG TAB PO PRN ×3 (08:00→17:39)
--- NOTE | 2016-05-26 08:18 | PCMIDPN ---
Assessment/Plan: Assessment/Plan: 1. Bilateral necrotic heels ulcers with Lower ext cellulitis - cellulitis component has improved. -Appreciate wound care and surgery's assistance -wound Cx thus far with Chaitanya. Await further maturation of cultures and then will consider tailoring down antibiotics - blood cx ngtd -On vanco and zosyn for now. -s/p another debridement of left heel today. -wounds evaluated with surgery today. care coordinated. -renal fx improved. - vanco trough for tomorrow tentatively scheduled. care coordinated with pharmacy meds vanco 1g q12- zosysn 4.5gm q6 Subjective: intermittent low grade temps. Still a bit confused. pain in LE when touched or moved. Objective: Vital Signs Temp Pulse Resp BP Pulse Ox 37.3 C 102 H 16 97/40 L 94 05/26/16 04:00 05/26/16 04:00 05/26/16 04:00 05/26/16 04:00 05/26/16 04:00 Microbiology 05/24/16 14:00 Gram Stain - Final Foot - Tissue Laboratory Results 05/26/16 04:55 05/26/16 04:55 05/25/16 05/26/16 05/27/16 05:59 05:59 05:59 Intake Total 3000 2325 Output Total 1400 1550 Balance 1600 775 C-Reactive Protein 139.3 mg/L (<10.0) H 05/25/16 09:10 - Physical Exam General Appearance: alert, no apparent distress Respiratory: lungs clear Cardiac/Chest: regular rate, rhythm Extremities: swelling Abdomen: normal bowel sounds, non-tender, soft, No distended Skin: other (b/l venous stasis dermatitis. fibrinous slough on bilateral legs. right heel with wound vac. left heel with minimal residual necrotic changes. swelling improved. ) ICD10 Worksheet Patient Problems: Problems Problem Status Diagnosed Venous stasis dermatitis of both lower extremities Acute
[2016-05-26] MEDS: MULTIVITAMINS 1 EACH TAB PO SCH (08:22)
[2016-05-26] MEDS: ASPIRIN EC 81 MG TAB PO SCH (08:22)
[2016-05-26] MEDS: ENOXAPARIN 40 MG/0.4 ML SYR SC SCH (08:22)
--- NOTE | 2016-05-26 08:25 | SOAPPROG ---
SOAP Progress Note Assessment/Plan: Assessment: s/p I&D of bilateral heel pressure ulcers Plan: debrided more necrotic tissue from left heal today sent tissue for gram stain and culture continue antibiotic therapy per ID wound care per wound RN (will change wound vac on right heal and place wound vac on left heal tomorrow) 05/26/16 08:22 Subjective: c/o left hip pain, particularly when LLE lifted for dressing changes Objective: Vital Signs Temp Pulse Resp BP Pulse Ox 37.3 C 102 H 16 97/40 L 94 05/26/16 04:00 05/26/16 04:00 05/26/16 04:00 05/26/16 04:00 05/26/16 04:00 Microbiology 05/24/16 14:00 Gram Stain - Final Foot - Tissue Laboratory Results 05/26/16 04:55 05/26/16 04:55 05/25/16 05/26/16 05/27/16 05:59 05:59 05:59 Intake Total 3000 2325 Output Total 1400 1550 Balance 1600 775 PT 13.6 SEC (12.0-15.0) 05/24/16 10:08 INR 1.05 (0.83-1.16) 05/24/16 10:08 Physical Exam - Physical Exam General Appearance: alert Extremities: other (necrotic tissue at base and circumference of left heal wound , fibrinous slough from left lower leg, new ecchymotic area of dorsum of right foot without purulent fluid on unroofing a small area) ICD10 Worksheet Patient Problems: Problems Problem Status Diagnosed Venous stasis dermatitis of both lower extremities Acute
[2016-05-26] MEDS: METOPROLOL TARTRATE 50 MG TAB PO SCH (09:12)
--- NOTE | 2016-05-26 09:12 | WOCRNPDOC ---
WOCRN Advanced Assessment Note - Skin Integrity Problem, Advanced Assess Left Heel Pressure Injury Dressing Type: Open to Air (Dr. Whiting debriding site when I arrived) Exudate Amount: Minimal Exudate Color: Red Exudate Characteristic(s): Bloody Integumentary Issue Intervention: Dressing Applied Denise Wound Tissue: Calloused Denise Wound Swelling: Mild Wound Bed Color: Red Wound Bed Constitution: Smooth Tissue Wound Edges: Well Defined Site Odor: None Site Measurement - Head-to-Toe Length X Width X Depth (cm): 5.1cmx3.9cmx0.6cm Skin Integrity Problem Comment: Site debrided by Dr. Whiting at the bedside. Necrotic tissue previously along the wound margins removed. This is a full- thickness wound with no palpable or visible bone. Orders written for Hydrofera Blue foam dressing and Allevyn. Brianda CWON will assess site tomorrow (05/27) to determine if wound vac should be placed.
[2016-05-26] MEDS ORDERED: POTASSIUM CL 10 MEQ TAB PO ONE (12:33)
[2016-05-26] MEDS ORDERED: LACTULOSE 20 GM/30 ML UDCUP PO PRN (12:49)
[2016-05-26] MEDS ORDERED: MAGNESIUM HYDROXIDE 30 ML UDCUP PO PRN (12:49)
[2016-05-26] MEDS ORDERED: POLYETHYLENE GLYCOL 3350 17 GM PKT PO PRN (12:49)
[2016-05-26] MEDS ORDERED: BISACODYL 10 MG SUPP PR PRN (12:49)
--- NOTE | 2016-05-26 13:08 | HOSPPROG ---
Hospitalist Progress Note Assessment/Plan: 75 yo F pw ble ulcers/wet gangrene/cellulitis # wet gangrene/cellultitis/osteomyelitis/venous stasis ulcers: s/p surgical debridement, right heel wound probes to bone. Currently on vanc/zosyn with cultures pending. Wound care involved and plans for wound vac on right heel, as well as mild compression wraps. -MRI today per ID -Cont Vanc/Zosyn, tailor as indicated per ID # virgil: improved, holding bradley/hctz # CAD: without issues for > 10 years per her report, continue op medications # COPD: undiagnosed but with wheezing on exam and 60+ pack year smoking history , COPD undoubtedly present. Cont nebs, O2. # Htn: currently bp a bit on the low end, again holding lisinopril/hctz for now and will monitor # Onychomycosis: discussed terbinafine tx with ID, but will defer given her elevated LFT's. could reconsider this as outpt when acute infectious issues improved. Also recommend outpt podiatry consultation. # DNR: discussed with patient, her children would be her decision maker if she could not make decisions Subjective: Pt doing ok. She has pain with any manipulation of her extremities. No fevers. Poor oral intake. Objective: Vital Signs Temp Pulse Resp BP Pulse Ox 37.9 C 94 14 97/40 L 92 05/26/16 08:00 05/26/16 12:15 05/26/16 12:15 05/26/16 09:12 05/26/16 12:15 Microbiology 05/24/16 14:00 Gram Stain - Final Foot - Tissue 05/26/16 08:35 Gram Stain - Final Foot - Tissue Laboratory Results 05/26/16 04:55 05/26/16 04:55 05/25/16 05/26/16 05/27/16 05:59 05:59 05:59 Intake Total 3000 2325 Output Total 1400 1550 Balance 1600 775 PT 13.6 SEC (12.0-15.0) 05/24/16 10:08 INR 1.05 (0.83-1.16) 05/24/16 10:08 - Physical Exam Constitutional: no apparent distress Eyes: PERRL Ears, Nose, Mouth, Throat: moist mucous membranes Cardiovascular: regular rate and rhythym Respiratory: no respiratory distress Gastrointestinal: normoactive bowel sounds Skin: warm Musculoskeletal: other (LE dressings c/d/i) Psychiatric: poor memory ICD10 Worksheet Patient Problems: Problems Problem Status Diagnosed Venous stasis dermatitis of both lower extremities Acute
[2016-05-26] MEDS ORDERED: NS 1,000 ML IV ONE (14:15)
[2016-05-26] MEDS: D5W NS W/ 20 KCl/L 1,000 ML IV SCH (14:30)
--- NOTE | 2016-05-26 16:41 | DX ---
Left hip 2 views History: Fall, left hip pain. Comparison: None available. Findings: No fracture is identified. Alignment is normal. Mild osteoarthritis is present in both hips . There is moderate degenerative change in the lumbar spine and mild degenerative change in the sacro iliac joints. Moderate atherosclerosis is noted. Soft tissue swelling is noted at the lateral aspect of the left hip. Impression: 1. Soft tissue swelling with no fracture identified. If pain persists and clinical suspicion warrants , consider CT or MRI. 2. Atherosclerosis. 3. Additional findings as above.
[2016-05-26] MEDS: SENNOSIDES/DOCUSATE SODIUM TAB PO SCH (21:56)
[2016-05-26] MEDS: PRAVASTATIN SODIUM 20 MG TAB PO SCH (21:56)
[2016-05-27] MEDS: IPRATROPIUM/ALBUTEROL 3 ML DEYVIAL IH SCH ×5 (00:27→23:51)
[2016-05-27] MEDS: VANCOMYCIN HCL/NORMAL SALINE 250 ML IV SCH ×2 (01:54→16:25)
[2016-05-27] MEDS: D5W NS W/ 20 KCl/L 1,000 ML IV SCH ×3 (01:57→23:47)
[2016-05-27] MEDS: PIPERACILLIN/TAZO 4.5 GM/DEX 100 ML IV SCH ×4 (05:25→23:47)
[2016-05-27 05:40] LABS: % IMMATURE GRANULYOCYTES 1.1 % (0.0-1.1); ADD DIFF? NO; ADD MORPH? NO; ADD SCAN? NO; ATYPICAL LYMPHOCYTE FLAG 0 (0-99); FRAGMENT RBC FLAG 0 (0-99); HEMATOCRIT 25.2 % (38.0-47.0); LEFT SHIFT FLG 50 (0-99); LIPEMIA HEMOLYSIS FLAG 80 (0-99); MEAN CELL HEMOGLOBIN 28.9 pg (27.9-34.1); MEAN CELL HEMOGLOBIN CONCENTR. 31.7 g/dL (32.4-36.7); MEAN PLATELET VOLUME 9.6 fL (8.7-11.7); PLATELET CLUMPS FLAG 0 (0-99); PLATELET COUNT 204 10^3/uL (150-400); RED BLOOD CELL COUNT 2.77 10^6/uL (4.18-5.33); RED CELL DISTRIBUTION WIDTH 14.2 % (11.5-15.2)
[2016-05-27 06:04] LABS: ALANINE AMINOTRANSFERASE 94 IU/L (9-52); ALBUMIN 1.9 g/dL (3.5-5.0); ALKALINE PHOSPHATASE 131 IU/L (38-126); ANION GAP 4 mEq/L (8-16); ASPARTATE AMINOTRANSFERASE 237 IU/L (14-46); BILIRUBIN,TOTAL 0.4 mg/dL (0.1-1.4); CALCIUM 7.8 mg/dL (8.5-10.4); CARBON DIOXIDE 25 mEq/l (22-31); CHLORIDE 105 mEq/L (97-110); CREATININE 0.8 mg/dL (0.6-1.0); GLOMERULAR FILTRATION RATE > 60; GLUCOSE 113 mg/dL (70-100); MAGNESIUM 1.6 mg/dL (1.6-2.3); SODIUM 134 mEq/L (134-144); TOTAL PROTEIN 4.7 g/dL (6.3-8.2)
[2016-05-27] MEDS: ASPIRIN EC 81 MG TAB PO SCH (09:44)
[2016-05-27] MEDS: ENOXAPARIN 40 MG/0.4 ML SYR SC SCH (09:44)
[2016-05-27] MEDS: SENNOSIDES/DOCUSATE SODIUM TAB PO SCH ×2 (09:44→19:44)
[2016-05-27] MEDS: ACETAMINOPHEN 325 MG TAB PO PRN (09:44)
[2016-05-27] MEDS: MULTIVITAMINS 1 EACH TAB PO SCH (09:44)
[2016-05-27] MEDS: oxyCODONE IR 5 MG TAB PO PRN ×3 (12:35→23:47)
--- NOTE | 2016-05-27 13:33 | SOAPPROG ---
SOAP Progress Note Assessment/Plan: Assessment: s/p I&D of bilateral heel pressure ulcers Plan: heel wounds clean based, wound vac will be placed bilaterally continue local wound care to superficial lower leg wounds bilaterally continue antibiotics per ID 05/27/16 13:31 Objective: Vital Signs Temp Pulse Resp BP Pulse Ox 37.6 C 104 H 16 91/46 L 94 05/27/16 12:00 05/27/16 12:00 05/27/16 12:00 05/27/16 12:00 05/27/16 12:00 Microbiology 05/24/16 14:00 Gram Stain - Final Foot - Tissue 05/26/16 08:35 Gram Stain - Final Foot - Tissue Laboratory Results 05/27/16 05:02 05/27/16 05:02 05/26/16 05/27/16 05/28/16 05:59 05:59 05:59 Intake Total 2325 2600 Output Total 1550 1150 Balance 775 1450 PT 13.6 SEC (12.0-15.0) 05/24/16 10:08 INR 1.05 (0.83-1.16) 05/24/16 10:08 Physical Exam - Physical Exam General Appearance: alert Extremities: other (wound bases clean bilateral heels, decreased erythema and edema of bilateral lower legs) ICD10 Worksheet Patient Problems: Problems Problem Status Diagnosed Venous stasis dermatitis of both lower extremities Acute
--- NOTE | 2016-05-27 13:41 | HOSPPROG ---
Hospitalist Progress Note Assessment/Plan: 75 yo F pw ble ulcers/wet gangrene/cellulitis # wet gangrene/cellulitis/osteomyelitis/venous stasis ulcers: s/p surgical debridement, right heel wound probes to bone. Currently on vanc/zosyn with multiple organisms on culture. Wound care involved and plans for wound vac on right heel, as well as mild compression wraps. Discussed case with ID and gen surg, who notes lots of bleeding with debridement, suggesting adequate arterial flow. -MRI ordered per ID -Cont Vanc/Zosyn, tailor as indicated per ID # virgil: improved, holding bradley/hctz # CAD: without issues for > 10 years per her report, continue op medications # COPD: undiagnosed but with wheezing on exam and 60+ pack year smoking history , COPD undoubtedly present. Cont nebs, O2. # Htn: currently bp a bit on the low end, again holding lisinopril/hctz and beta kalin for now and will monitor. She has poor oral intake and was started on maintenance IVF's yesterday. NS bolus today given for MAP <60, seems bolus responsive. # Onychomycosis: discussed terbinafine tx with ID, but will defer given her elevated LFT's. could reconsider this as outpt when acute infectious issues improved. Also recommend outpt podiatry consultation. # DNR: her children would be her decision maker if she could not make decisions Subjective: Pt having quite a bit of pain with wound care. Sounds like these heel wounds are long-term and chronic, though she just considered them to be "blisters". No fevers. Poor oral intake. Objective: Vital Signs Temp Pulse Resp BP Pulse Ox 37.6 C 104 H 16 91/46 L 94 05/27/16 12:00 05/27/16 12:00 05/27/16 12:00 05/27/16 12:00 05/27/16 12:00 Microbiology 05/24/16 14:00 Gram Stain - Final Foot - Tissue 05/26/16 08:35 Gram Stain - Final Foot - Tissue Laboratory Results 05/27/16 05:02 05/27/16 05:02 05/26/16 05/27/16 05/28/16 05:59 05:59 05:59 Intake Total 2325 2600 Output Total 1550 1150 Balance 775 1450 PT 13.6 SEC (12.0-15.0) 05/24/16 10:08 INR 1.05 (0.83-1.16) 05/24/16 10:08 - Physical Exam Constitutional: no apparent distress Eyes: PERRL Ears, Nose, Mouth, Throat: moist mucous membranes Cardiovascular: regular rate and rhythym Respiratory: no respiratory distress Skin: warm Musculoskeletal: other (b/l LE venous stasis with posterior ulcerations / denuded skin and b/l heel ulcers. LLE with 2+ DP, unable to palpate RLE pulses though extremities warm) Neurologic: AAOx3 Psychiatric: interacting appropriately ICD10 Worksheet Patient Problems: Problems Problem Status Diagnosed Venous stasis dermatitis of both lower extremities Acute
--- NOTE | 2016-05-27 14:34 | WOCRNPDOC ---
WOCRN Advanced Assessment Note - Skin Integrity Problem, Advanced Assess Right Heel Dressing Type: Black Vac Foam (x1), White Vac Foam (x1), Wound Vac Dressing Description: Clean/Dry, Intact Exudate Amount: Scant Exudate Characteristic(s): Serosanguinous Integumentary Issue Intervention: Dressing Changed Denise Wound Tissue: Macerated, Calloused Denise Wound Swelling: None Wound Bed Color: [place], Red, Yellow Wound Bed Constitution: Smooth Tissue, Bone (palpable at base), Subcutaneous Fat Wound Edges: Thick Site Odor: Strong, Pungent Pressure Injury Stage: Stage 4 Skin Integrity Problem Comment: Removed vac dressing and soaked wound in Vashe for 20 min. Skin prep and mastisol applied denise wound. One piece of white foam placed in wound bed and it was covered by a second piece of black foam. Denise wound skin was draped and bridged to distal dorsal foot. Vac restarted at -125 mm Hg continous suction with no leaks. Reinaldo WONG and Shiela RN in room for all care. Dr. Whiting, Dr. Zhu and Dr. Marquez all examined patient during dressing changes. Right Lower Leg Venous Stasis Ulcer Dressing Type: ABD Pad, Honey Gauze, Kerlix Dressing Description: Intact, Shadowed Exudate Amount: Moderate Exudate Color: Yellow Exudate Characteristic(s): Serous Integumentary Issue Intervention: Dressing Changed (outer ABD and kerlix. Honey was left intact. ), Visualized Under Dressing Denise Wound Tissue: Erythema, Venous Dermatitis Wound Bed Constitution: Granulation Tissue (80%), Loose Slough (20%) Wound Edges: Attached, Irregular Site Odor: Moderate, Pungent Skin Integrity Problem Comment: Large wounds on lateral and medial lower leg much improved wound since initial assessment on Wednesday. Removed slough manually with gauze. Re wrapped over mepilex transfer with ABD and shai. Dorsal foot necrosis superficial and partial thickness. Unable to extract any drainage. Left Lower Leg Venous Stasis Ulcer Dressing Type: ABD Pad, Honey Gauze, Kerlix Dressing Description: Intact, Shadowed Exudate Amount: Moderate Exudate Color: Yellow Integumentary Issue Intervention: Dressing Changed (outer ABD and kerlix), Visualized Under Dressing Denise Wound Tissue: Erythema, Venous Dermatitis Wound Bed Constitution: Granulation Tissue (90%) Site Odor: Moderate, Pungent Skin Integrity Problem Comment: Much improved wound since assessment on Wednesday. Removed loose slough manually with gauze. Re wrapped over mepilex transfer with ABD and shai. Left Heel Pressure Injury Dressing Type: Hydrofera Blue Ready Dressing Description: Clean/Dry, Intact Exudate Amount: Minimal Exudate Characteristic(s): Bloody Integumentary Issue Intervention: Dressing Changed Denise Wound Tissue: Macerated Wound Bed Constitution: Subcutaneous Fat Wound Edges: Attached Site Odor: Moderate, Pungent Site Measurement - Head-to-Toe Length X Width X Depth (cm): 3x4x1.2 Pressure Injury Stage: Stage 3 Skin Integrity Problem Comment: Removed hydrofera blue dressing and soaked wound in Vashe for 20 min. No bone palpable in wound bed. Small area of tissue under the skin at 2 oclock, approx 1.5x1, is discolored and may evolve. Will watch the area. Skin prep and mastisol applied denise wound. One piece of black foam in wound bed. Denise wound skin was draped and bridged to distal dorsal foot. Vac restarted at -125 mm Hg continous suction with no leaks. Reinaldo WONG and Shiela MOSS in room for all care.
[2016-05-27] MEDS ORDERED: MAGNESIUM SULF 1 GM/DEXTROSE 100 ML IV ONE (15:32)
--- NOTE | 2016-05-27 16:22 | PCMIDPN ---
Assessment/Plan: Assessment: Bilateral lower extremity wounds with lower extremity cellulitis and bilateral necrotic heel ulcers. At least 1 ulcer probes to bone at the calcaneus. Polymicrobial cultures from these wounds. Currently being managed on vancomycin and Zosyn. The blood cultures have remained negative. It is unclear from the patient whether she was aware of these wounds developing over time. She denies awareness of the situation prior to visiting her children here in [place]. The plan would be to treat her infections locally and perhaps investigate the venous system of both legs to find any superficial reflux and vessels that may be ablated. There does not appear to be any arterial insufficiency on examination. Plan: 1. Continue both vancomycin and Zosyn. 2. Follow the appearance of her lower extremities. 3. Continue wound care. Subjective: Patient is resting comfortably in her hospital bed. She has no particular complaint. The wounds on her posterior legs are painful when they are manipulated. Objective: Vancomycin #2 Zosyn #2 Vital Signs Temp Pulse Resp BP Pulse Ox 37.0 C 95 16 95/47 L 97 05/27/16 15:55 05/27/16 15:55 05/27/16 15:55 05/27/16 15:55 05/27/16 15:55 Microbiology 05/24/16 14:00 Gram Stain - Final Foot - Tissue 05/26/16 08:35 Gram Stain - Final Foot - Tissue Laboratory Results 05/27/16 05:02 05/27/16 05:02 05/26/16 05/27/16 05/28/16 05:59 05:59 05:59 Intake Total 2325 2600 250 Output Total 1550 1150 800 Balance 775 1450 -550 C-Reactive Protein 139.3 mg/L (<10.0) H 05/25/16 09:10 - Physical Exam General Appearance: WD/WN, alert, no apparent distress Respiratory: lungs clear, normal breath sounds, No respiratory distress Cardiac/Chest: regular rate, rhythm, No tachycardia Extremities: No non-tender, No normal inspection (Chronic ulcerations on the heels.) Skin: normal color, warm/dry, No rash Neuro/Psych: alert, normal mood/affect, oriented x 3 ICD10 Worksheet Patient Problems: Problems Problem Status Diagnosed Venous stasis dermatitis of both lower extremities Acute
[2016-05-27] MEDS ORDERED: ALTEPLASE 2 MG VIAL IVP PRN (16:58)
[2016-05-27] MEDS: PRAVASTATIN SODIUM 20 MG TAB PO SCH (19:44)
[2016-05-27 20:20] LABS: POTASSIUM 3.7 mEq/L (3.5-5.2)
[2016-05-27] MEDS ORDERED: POTASSIUM CL 10 MEQ TAB PO ONE (23:10)
[2016-05-28] MEDS: VANCOMYCIN HCL/NORMAL SALINE 250 ML IV SCH ×2 (03:00→14:37)
[2016-05-28 05:29] LABS: % IMMATURE GRANULYOCYTES 1.6 % (0.0-1.1); ABSOLUTE IMMATURE GRANULOCYTES 0.13 10^3/uL (0.00-0.10); ADD DIFF? NO; ADD MORPH? YES; ADD SCAN? NO; ATYPICAL LYMPHOCYTE FLAG 40 (0-99); FRAGMENT RBC FLAG 0 (0-99); HEMATOCRIT 21.1 % (38.0-47.0); LEFT SHIFT FLG 30 (0-99); LIPEMIA HEMOLYSIS FLAG 80 (0-99); MEAN CELL HEMOGLOBIN 29.7 pg (27.9-34.1); MEAN CELL HEMOGLOBIN CONCENTR. 32.7 g/dL (32.4-36.7); MEAN CELL VOLUME 90.9 fL (81.5-99.8); MEAN PLATELET VOLUME 9.3 fL (8.7-11.7); PLATELET CLUMPS FLAG 0 (0-99); PLATELET COUNT 193 10^3/uL (150-400); RED BLOOD CELL COUNT 2.32 10^6/uL (4.18-5.33); RED CELL DISTRIBUTION WIDTH 14.5 % (11.5-15.2)
[2016-05-28 05:35] LABS: HEMOGLOBIN 6.9 g/dL (12.6-16.3)
[2016-05-28] MEDS: IPRATROPIUM/ALBUTEROL 3 ML DEYVIAL IH SCH ×3 (05:56→17:26)
[2016-05-28 06:00] LABS: ALANINE AMINOTRANSFERASE 109 IU/L (9-52); ALBUMIN 1.7 g/dL (3.5-5.0); ALKALINE PHOSPHATASE 121 IU/L (38-126); ANION GAP 3 mEq/L (8-16); ASPARTATE AMINOTRANSFERASE 192 IU/L (14-46); BILIRUBIN,TOTAL 0.2 mg/dL (0.1-1.4); CALCIUM 7.4 mg/dL (8.5-10.4); CARBON DIOXIDE 26 mEq/l (22-31); CHLORIDE 108 mEq/L (97-110); CREATININE 0.7 mg/dL (0.6-1.0); GLOMERULAR FILTRATION RATE > 60; GLUCOSE 122 mg/dL (70-100); MAGNESIUM 1.8 mg/dL (1.6-2.3); POTASSIUM 4.3 mEq/L (3.5-5.2); SODIUM 137 mEq/L (134-144); TOTAL PROTEIN 4.2 g/dL (6.3-8.2)
[2016-05-28] MEDS: oxyCODONE IR 5 MG TAB PO PRN ×2 (06:04→08:49)
[2016-05-28] MEDS: PIPERACILLIN/TAZO 4.5 GM/DEX 100 ML IV SCH ×3 (06:06→17:20)
[2016-05-28 06:10] LABS: HYPOCHROMIA 1+; MACROCYTES 1+; PLATELET ESTIMATE ADEQUATE (ADEQ); POLYCHROMASIA 1+; ROULEAUX PRESENT
[2016-05-28] MEDS: ENOXAPARIN 40 MG/0.4 ML SYR SC SCH (08:39)
[2016-05-28] MEDS: MULTIVITAMINS 1 EACH TAB PO SCH (08:40)
[2016-05-28] MEDS: SENNOSIDES/DOCUSATE SODIUM TAB PO SCH ×2 (08:40→20:01)
[2016-05-28] MEDS: ASPIRIN EC 81 MG TAB PO SCH (08:40)
--- NOTE | 2016-05-28 12:29 | SOAPPROG ---
SOAP Progress Note Assessment/Plan: Assessment: s/p I&D of bilateral heel pressure ulcers Plan: continue wound vac therapy to bilateral heel wounds continue local wound care to superficial lower leg wounds bilaterally continue antibiotics per ID 05/28/16 12:28 Subjective: pain controlled with tylenol Objective: Vital Signs Temp Pulse Resp BP Pulse Ox 36.9 C 104 H 16 90/54 L 95 05/28/16 08:00 05/28/16 08:00 05/28/16 08:00 05/28/16 08:00 05/28/16 08:00 Microbiology 05/26/16 08:35 Gram Stain - Final Foot - Tissue 05/25/16 09:30 Urine Culture - Final Urine,Clean Catch Escherichia Coli Gram Neg Aristeo Lactose Electric Bath Attendant#2 05/24/16 14:00 Gram Stain - Final Foot - Tissue Laboratory Results 05/28/16 05:10 05/28/16 05:10 05/27/16 05/28/16 05/29/16 05:59 05:59 05:59 Intake Total 2600 900 1700 Output Total 1150 1750 Balance 1450 -850 1700 PT 13.6 SEC (12.0-15.0) 05/24/16 10:08 INR 1.05 (0.83-1.16) 05/24/16 10:08 Physical Exam - Physical Exam General Appearance: alert Extremities: other (wound vacs in place without leaks) ICD10 Worksheet Patient Problems: Problems Problem Status Diagnosed Venous stasis dermatitis of both lower extremities Acute
[2016-05-28] MEDS ORDERED: MAGNESIUM SULF 1 GM/DEXTROSE 100 ML IV ONE (14:20)
[2016-05-28 16:16] LABS: % IMMATURE GRANULYOCYTES 1.7 % (0.0-1.1); ABSOLUTE IMMATURE GRANULOCYTES 0.17 10^3/uL (0.00-0.10); ADD DIFF? NO; ADD MORPH? NO; ADD SCAN? NO; ATYPICAL LYMPHOCYTE FLAG 20 (0-99); FRAGMENT RBC FLAG 0 (0-99); HEMATOCRIT 23.9 % (38.0-47.0); HEMOGLOBIN 7.9 g/dL (12.6-16.3); LEFT SHIFT FLG 20 (0-99); LIPEMIA HEMOLYSIS FLAG 80 (0-99); MEAN CELL HEMOGLOBIN 30.3 pg (27.9-34.1); MEAN CELL HEMOGLOBIN CONCENTR. 33.1 g/dL (32.4-36.7); MEAN CELL VOLUME 91.6 fL (81.5-99.8); MEAN PLATELET VOLUME 9.2 fL (8.7-11.7); PLATELET CLUMPS FLAG 0 (0-99); PLATELET COUNT 202 10^3/uL (150-400); RED BLOOD CELL COUNT 2.61 10^6/uL (4.18-5.33); RED CELL DISTRIBUTION WIDTH 14.4 % (11.5-15.2)
--- NOTE | 2016-05-28 16:29 | HOSPPROG ---
Hospitalist Progress Note Assessment/Plan: 75 yo F pw ble ulcers/wet gangrene/cellulitis # wet gangrene/cellulitis/osteomyelitis/venous stasis ulcers: s/p surgical debridement, right heel wound probes to bone. Currently on vanc/zosyn with multiple organisms on culture. Wound care involved and plans for wound vac on right heel, as well as mild compression wraps. Discussed case with ID and gen surg, who notes lots of bleeding with debridement, suggesting adequate arterial flow. -MRI ordered per ID, plan to do tomorrow at time of wound vac exchange -tailor atbx today per ID # virgil: improved, holding bradley/hctz # anemia: hgb 6.9 this am, s/p 1 u prbc's, now hgb 7.9, follow. # CAD: without issues for > 10 years per her report, continue op medications # COPD: undiagnosed but with wheezing on exam and 60+ pack year smoking history , COPD undoubtedly present. Cont nebs, O2. # Htn: BP has been low, holding lisinopril/hctz and beta kalin for now. She has poor oral intake and has required NS boluses and received prbc's today. SBP now 100's. # Onychomycosis: discussed terbinafine tx with ID, but will defer given her elevated LFT's. could reconsider this as outpt when acute infectious issues improved. Also recommend outpt podiatry consultation. # DNR: her children would be her decision maker if she could not make decisions Subjective: Pt feels okay today, no complaints. Pain controlled. Appetite improving. Objective: Vital Signs Temp Pulse Resp BP Pulse Ox 36.9 C 106 H 16 102/63 97 05/28/16 12:00 05/28/16 12:00 05/28/16 12:00 05/28/16 12:00 05/28/16 12:00 Microbiology 05/24/16 14:00 Gram Stain - Final Foot - Tissue 05/26/16 08:35 Gram Stain - Final Foot - Tissue 05/25/16 09:30 Urine Culture - Final Urine,Clean Catch Escherichia Coli Gram Neg Aristeo Lactose Machine Operator Assistant#2 Laboratory Results 05/28/16 16:10 05/28/16 05:10 05/27/16 05/28/16 05/29/16 05:59 05:59 05:59 Intake Total 2600 900 1700 Output Total 1150 1750 Balance 1450 -850 1700 PT 13.6 SEC (12.0-15.0) 05/24/16 10:08 INR 1.05 (0.83-1.16) 05/24/16 10:08 - Physical Exam Constitutional: no apparent distress Eyes: PERRL Ears, Nose, Mouth, Throat: moist mucous membranes Cardiovascular: regular rate and rhythym Respiratory: no respiratory distress, clear to auscultation Gastrointestinal: normoactive bowel sounds, soft, non-tender abdomen Musculoskeletal: other (b/l LE heel and posterior distal LE ulcerations dressings with some saturation, wound vac in place) Neurologic: AAOx3 Psychiatric: interacting appropriately ICD10 Worksheet Patient Problems: Problems Problem Status Diagnosed Venous stasis dermatitis of both lower extremities Acute
[2016-05-28] MEDS ORDERED: FLU VACC TS 2016-17(65YR+)/PF 0.5 ML SYR (FLUZONE HIGH DOSE) IM ONE (16:51)
[2016-05-28] MEDS: ACETAMINOPHEN 325 MG TAB PO PRN (16:52)
--- NOTE | 2016-05-28 17:30 | DX ---
AP Portable Chest May 28, 2016 Indication: Bedside central line placement. Findings: Right-sided PICC terminates in SVC. Lungs remain clear. Heart and mediastinum are unchanged . There is a very small amount of pleural effusion on the left. Impression: Right-sided PICC in good position.
--- NOTE | 2016-05-28 17:47 | PCMIDPN ---
Assessment/Plan: B heal ulcers, combo of wet gangrene/cellulitis/osteomyelitis/venous stasis ulcers, s/p surgical debridement, right heel wound probes to bone. Polymicrobial cultures. Difficult to examine today as wound vacs are still in place. No obvious cellulitis on exposed skin. Obvious extensive drainage associated with right lower extremity --MRI tomorrow when wound vac off --likely need surgery re-oeval when imaging available --discontinue vancomycin and decrease dose of Zosyn based on culture results ( no MRSA or Pseudomonas) Microbiology 05/24/2016: Foot tissue: Morganella, Providencia and Bacteroides 05/24/2016 blood cultures 2 sets no growth 05/26/2016 foot tissue: Morganella Medication , antibiotic day 3 vancomycin 1 g IV Q 12 Zosyn 4.5 g IV Q 6 Plan of care was reviewed with patient, and her family at bedside. Coordination of care with Dr. Marquez Subjective: Patient denies diarrhea, significant pain in the right greater than left leg. No rash or itching Objective: Vital Signs Temp Pulse Resp BP Pulse Ox 37.1 C 95 20 101/73 96 05/28/16 16:00 05/28/16 17:27 05/28/16 17:27 05/28/16 16:00 05/28/16 17:27 Microbiology 05/24/16 14:00 Gram Stain - Final Foot - Tissue 05/26/16 08:35 Gram Stain - Final Foot - Tissue 05/25/16 09:30 Urine Culture - Final Urine,Clean Catch Escherichia Coli Gram Neg Aristeo Lactose Head Field Hockey Coach#2 Laboratory Results 05/28/16 16:10 05/28/16 05:10 05/27/16 05/28/16 05/29/16 05:59 05:59 05:59 Intake Total 2600 900 1700 Output Total 1150 1750 1000 Balance 1450 -850 700 C-Reactive Protein 139.3 mg/L (<10.0) H 05/25/16 09:10 - Physical Exam General Appearance: alert, no apparent distress, obese EENT: pale conjunctiva, dry mucous membranes, poor dentition Respiratory: lungs clear Neck: supple Cardiac/Chest: regular rate, rhythm Extremities: pedal edema (3 to 4+) Skin: other (Multiple skin lesions of the lower extremities difficult to characterize due to dressings in place), No rash Neuro/Psych: alert, normal mood/affect, oriented x 3 - Line/s RUE PICC Lines: No drainage, No erythema - Time Spent With Patient Time Spent with Patient: greater than 25 minutes Time Spent with Patient: Greater than 25 minutes spent on this patients care, greater than 50% of time spent counseling, educating, and coordinating care regarding the above mentioned plan. ICD10 Worksheet Patient Problems: Problems Problem Status Diagnosed Venous stasis dermatitis of both lower extremities Acute
--- NOTE | 2016-05-28 18:09 | IR ---
Imaging Guided Peripherally Inserted Central Catheter History: Suspected osteomyelitis. Prophylactic Antibiotic: Cefazolin was not ordered and administered for antimicrobial prophylaxis be cause it was not medically necessary for this procedure. VTE Prophylaxis: There is not an order for VTE prophylaxis to be given within 24 hours after procedu re end time because it was not medically necessary for this procedure. Crosscutting Measure: Patient's current list of medications including all known prescriptions, over- the-counters, herbals, and vitamin/mineral/dietary supplements are reviewed. Medications' name, dosa ge, frequency, and route of administration are confirmed. patient is a non-smoker. Technique: This procedure is performed at patient's bedside. No fluoroscopy was utilized. Following i nformed consent, the right arm was prepped and draped in sterile fashion. 1% Xylocaine was used for l ocal anesthetic. All elements of maximal sterile barrier technique including cap, mask, sterile yary n, sterile gloves, large sterile sheet, hand hygiene, and 2% chlorhexidine for cutaneous antisepsis, followed. Ultrasound evaluation of potential access site was performed. After successfully identifying a patent vessel, ultrasound guidance was used to puncture the vein. A permanent recording was created for the patient's record. Ultrasound transducer was placed in sterile sleeve and used for real-time imaging guidance over steri le gel to enter the basilic vein. 0.018 measuring wire was passed centrally. A skin neel with scalpel blade was followed by removing the access needle. A 5 Liberian peel-away sheath was followed by a 5 F rench double-lumen central catheter, trimmed to 41 cm length. The tip of the catheter was positioned centrally and the guidewire removed. The hub of the catheter was fixed to the skin using a sterile S tatLock adhesive device, and a sterile dressing was applied. The catheter was irrigated. Fluoroscopy: 0 min Dose: 0 mGy Exposures: 0 images Impression: 5 [place]ian double lumen peripherally inserted central catheter. Chest x-ray to follow to e valuate tip placement.
[2016-05-28 18:39] LABS: POTASSIUM 4.1 mEq/L (3.5-5.2)
[2016-05-28] MEDS: PRAVASTATIN SODIUM 20 MG TAB PO SCH (20:00)
[2016-05-29] MEDS: PIPERACILLIN/TAZO 3.375 GM/DEX 50 ML IV SCH ×4 (00:35→17:27)
[2016-05-29] MEDS: oxyCODONE IR 5 MG TAB PO PRN ×2 (00:40→15:12)
--- NOTE | 2016-05-29 01:31 | CPEKG ---
Heart Rate: 143 RR Interval: 420 P-R Interval: 132 QRSD Interval: 78 QT Interval: 276 QTC Interval: 426 P [place]: 59 QRS [place]: -41 T Wave [place]: 105 EKG Severity - ABNORMAL ECG - EKG Impression: SINUS TACHYCARDIA EKG Impression: LEFT AXIS DEVIATION EKG Impression: REPOLARIZATION ABNORMALITY, PROB RATE RELATED Preliminary Awaiting MD Review
[2016-05-29] MEDS: IPRATROPIUM/ALBUTEROL 3 ML DEYVIAL IH SCH ×5 (01:45→22:47)
[2016-05-29] MEDS ORDERED: DILTIAZEM 125 MG in D5W 125 ML IV SCH (02:00)
[2016-05-29 06:33] LABS: ADD DIFF? YES; ADD SCAN? NO; ATYPICAL LYMPHOCYTE FLAG 20 (0-99); FRAGMENT RBC FLAG 0 (0-99); LEFT SHIFT FLG 40 (0-99); LIPEMIA HEMOLYSIS FLAG 80 (0-99); MEAN CELL HEMOGLOBIN 29.9 pg (27.9-34.1); MEAN CELL HEMOGLOBIN CONCENTR. 32.3 g/dL (32.4-36.7); MEAN CELL VOLUME 92.5 fL (81.5-99.8); MEAN PLATELET VOLUME 9.6 fL (8.7-11.7); PLATELET CLUMPS FLAG 10 (0-99); PLATELET COUNT 225 10^3/uL (150-400); RED BLOOD CELL COUNT 1.74 10^6/uL (4.18-5.33); RED CELL DISTRIBUTION WIDTH 14.5 % (11.5-15.2)
[2016-05-29 06:44] LABS: HEMOGLOBIN 5.2 g/dL (12.6-16.3)
[2016-05-29 06:45] LABS: ADD MORPH? NO; HEMATOCRIT 16.1 % (38.0-47.0)
[2016-05-29 07:12] LABS: PLATELET ESTIMATE ADEQUATE (ADEQ); POLYCHROMASIA 1+
[2016-05-29 07:13] LABS: ALANINE AMINOTRANSFERASE 103 IU/L (9-52); ALBUMIN 1.6 g/dL (3.5-5.0); ALKALINE PHOSPHATASE 118 IU/L (38-126); ANION GAP 5 mEq/L (8-16); ASPARTATE AMINOTRANSFERASE 142 IU/L (14-46); BILIRUBIN,TOTAL 0.3 mg/dL (0.1-1.4); CALCIUM 7.4 mg/dL (8.5-10.4); CARBON DIOXIDE 26 mEq/l (22-31); CHLORIDE 107 mEq/L (97-110); CREATININE 0.8 mg/dL (0.6-1.0); GIANT PLATELETS PRESENT; GLOMERULAR FILTRATION RATE > 60; GLUCOSE 126 mg/dL (70-100); MAGNESIUM 1.8 mg/dL (1.6-2.3); POTASSIUM 4.4 mEq/L (3.5-5.2); SODIUM 138 mEq/L (134-144); TOXIC GRANULATION PRESENT
[2016-05-29 07:22] LABS: % SATURATION 12 % (20-55); TOTAL IRON BINDING CAPACITY 179 ug/dL (260-490)
[2016-05-29] MEDS ORDERED: PANTOPRAZOLE SODIUM 40 MG in NS 100 ML IV SCH (07:30)
[2016-05-29] MEDS ORDERED: MAGNESIUM SULF 1 GM/DEXTROSE 100 ML IV ONE (07:54)
[2016-05-29] MEDS ORDERED: PANTOPRAZOLE SODIUM 80 MG in NS 100 ML IV SCH (08:00)
--- NOTE | 2016-05-29 09:01 | HOSPPROG ---
Hospitalist Progress Note Assessment/Plan: 75 yo F admitted with ble ulcers/wet gangrene/cellulitis developed GI bleed overnight with possible A flutter # wet gangrene/cellulitis/osteomyelitis/venous stasis ulcers: s/p surgical debridement, right heel wound probes to bone. Mult orgs on Cx, sensitive to Zosyn. Wound care involved and now has wound vac. Discussed case with ID and gen surg, who noted lots of bleeding with debridement, suggesting adequate arterial flow. -MRI ordered per ID, planned to do at time of wound vac exchange today, may need to defer today given below issues -cont zosyn, vanc d/c'd per ID # GI bleed - hgb dropped to 5.2, guaiac positive. Likely UGIB with elevated BUN and ?melena last night. She has received 1 u prbc's and will receive 2 more units. -NPO -q6h h&h -GI to scope today -hold asa, lovenox # acute blood loss anemia: transfusion as above # sinus tachycardia - possible flutter overnight, dilt drip started. Looks to be in sinus tac this am. -wean dilt drip to off -repeat EKG -needs volume expansion with blood products as above # virgil: improved, holding bradley/hctz # CAD: without issues for > 10 years per her report, continue op medications # COPD: undiagnosed but with wheezing on exam and 60+ pack year smoking history , COPD undoubtedly present. Cont nebs, O2. # Htn: BP has been low, holding lisinopril/hctz and beta kalin for now. She has poor oral intake and has required NS boluses and received prbc's today. SBP now 100's. # Onychomycosis: discussed terbinafine tx with ID, but will defer given her elevated LFT's. could reconsider this as outpt when acute infectious issues improved. Also recommend outpt podiatry consultation. # DNR: her children would be her decision maker if she could not make decisions # Dispo: cont inpt Subjective: Pt feels okay. Denies melanotic stools, N/V/D. No fevers/chills. No abdominal pain. Objective: Vital Signs Temp Pulse Resp BP Pulse Ox 36.9 C 113 H 22 H 100/52 L 96 12/30/16 08:00 05/29/16 08:00 05/29/16 08:00 05/29/16 08:00 05/29/16 08:00 Microbiology 05/24/16 14:00 Gram Stain - Final Foot - Tissue 05/26/16 08:35 Gram Stain - Final Foot - Tissue 05/25/16 09:30 Urine Culture - Final Urine,Clean Catch Escherichia Coli Gram Neg Aristeo Lactose Health Aide#2 Laboratory Results 05/29/16 06:15 05/29/16 06:15 05/28/16 05/29/16 05/30/16 05:59 05:59 05:59 Intake Total 900 2523.0 Output Total 1750 1550 Balance -850 973.0 PT 13.6 SEC (12.0-15.0) 05/24/16 10:08 INR 1.05 (0.83-1.16) 05/24/16 10:08 - Physical Exam Constitutional: no apparent distress Eyes: PERRL Ears, Nose, Mouth, Throat: moist mucous membranes Cardiovascular: tachycardia Respiratory: no respiratory distress Gastrointestinal: normoactive bowel sounds, other (mild epigastric tenderness without r/r/g) Skin: warm Neurologic: AAOx3 Psychiatric: interacting appropriately ICD10 Worksheet Patient Problems: Problems Problem Status Diagnosed Venous stasis dermatitis of both lower extremities Acute
--- NOTE | 2016-05-29 09:30 | CPEKG ---
Heart Rate: 105 RR Interval: 571 P-R Interval: 160 QRSD Interval: 80 QT Interval: 336 QTC Interval: 445 P [place]: 58 QRS [place]: -40 T Wave [place]: 84 EKG Severity - OTHERWISE NORMAL ECG - EKG Impression: SINUS TACHYCARDIA EKG Impression: LEFT AXIS DEVIATION Preliminary Awaiting MD Review
--- NOTE | 2016-05-29 09:55 | ECHO ---
[id number] + + [address] : : [place] [address] : : [phone] + + Adult Echocardiographic Report + ----+ :Name: Quang SINHAhi Date: 05/29/2016 07:32 AM : : Hospital Admission Number: [id number] Location: 245: :: 1940 Gender: Female Height: 67 in : :Age: 75 yrs Race: WH Weight: 160 lb : :Reason For Study: aflutter : : BSA: 1.8 meters2 : :History: No previous : + ----+ MMode/2D Measurements & Calculations IVSd: 1.4 cm RVDd: 2.9 cm EDV(Teich): LVOT diam: 1.9 cm LVPWd: 1.3 cm LVIDd: 3.4 cm 48.4 ml LVOT area: 2.8 cm2 LVLd ap4: 6.7 cm SV(MOD-sp4): EDV(MOD-sp4): 47.0 ml 68.0 ml LVLs ap4: 5.2 cm ESV(MOD-sp4): 21.0 ml EF(MOD-sp4): 69.1 % Normal Measurement Values: + + :LVIDd (3.5-5.7cm) IVSd (0.6-1.1cm) LVPWd (0.6-1.1cm) Aortic Root (2.0-3.7cm)Left Atrium (1.5-4.0cm): :LV Vol(d) (76-115ml) LV Vol(s) (29-48ml) Ejec Fraction (50-65%)PV Yifan (0.6- 1.2m/s) TV Yifan (0.4-1.0m/s) : :MV E Yifan (0.8-1.0m/s)MV A Yifan (0.3-1.0m/s)LVOT Yifan (0.7-1.2m/s) Asc Ao Yifan ( 0.9-1.8m/s) : + + Doppler Measurements & Calculations MV E max yifan: MV V2 max: Ao mean PG: AI max yifan: 84.9 cm/sec 128.6 cm/sec 8.7 mmHg 449.6 cm/sec MV A max yifan: MV max PG: Ao V2 mean: AI max P.8 mmHg 115.5 cm/sec 6.6 mmHg 134.2 cm/sec AI dec slope: MV E/A: 0.74 MV V2 mean: Ao V2 VTI: 34.4 cm MV dec time: 81.6 cm/sec 350.0 cm/sec2 0.16 sec MV mean PG: ADRIAN(I,D): 2.6 cm2 AI P1/2t: 376.3 msec 3.0 mmHg MV V2 VTI: 18.3 cm MVA(VTI): 4.9 cm2 LV V1 mean PG: SV(LVOT): 90.4 ml PA V2 max: TR max yifan: 6.6 mmHg 138.8 cm/sec 255.3 cm/sec LV V1 mean: PA max PG: TR max P.1 mmHg 118.0 cm/sec 7.7 mmHg LV V1 VTI: 31.8 cm Left Ventricle The left ventricle is normal in size. There is mild concentric left ventricular hypertrophy. Ejection Fraction = 70%. The left ventricle is hyperdynamic. There is Doppler evidence for diastolic dysfunction. No regional wall motion abnormalities noted. Right Ventricle The right ventricle is normal in size and function. Atria The left atrial size is normal. Right atrial size is normal. Lipomatous Hypertrophy of intra atrial septum. The interatrial septum is intact with no evidence for an atrial septal defect. Mitral Valve There is mild mitral annular calcification. There is no mitral valve stenosis. There is trace to mild mitral regurgitation. Tricuspid Valve The tricuspid valve is normal in structure and function. There is no tricuspid stenosis. There is trace tricuspid regurgitation. Right ventricular systolic pressure is normal. Aortic Valve The aortic valve is not well visualized. Mild Aortic Valve Calcification. There is no aortic stenosis. Mild to moderate aortic regurgitation. Pulmonic Valve The pulmonic valve is not well visualized. There is no pulmonic valvular stenosis. There is no pulmonic valvular regurgitation. Great Vessels The aortic root is not well visualized. Pericardium/Pleural There is a fat pad seen. trivial pericardial effusion. Conclusion A complete two-dimensional transthoracic echocardiogram was performed (2D, M-mode, Doppler and color flow Doppler). The study was technically difficult. Patient supine for duration of exam. The left ventricle is normal in size. There is mild concentric left ventricular hypertrophy. Ejection Fraction = 70%. The left ventricle is hyperdynamic. There is Doppler evidence for diastolic dysfunction. There is mild mitral annular calcification. There is trace to mild mitral regurgitation. There is trace tricuspid regurgitation. The aortic valve is not well visualized. Mild Aortic Valve Calcification Mild to moderate aortic regurgitation. The aortic root is not well visualized. Right ventricular systolic pressure is normal. trivial pericardial effusion. Lipomatous Hypertrophy of intra atrial septum Final Reading Physician: Cesilia Velasco signed on 05/29/2016 09:54 AM Ordering Physician: León Alfred Performed By: Kimberlyn Balderrama
--- NOTE | 2016-05-29 11:38 | SOAPPROG ---
SOAP Progress Note Assessment/Plan: Assessment: s/p I&D of bilateral heel pressure ulcers Plan: continue wound vacs to heels and local wound care to bilateral lower extremities 05/29/16 11:37 Subjective: pain with dressing changes, otherwise no pain thirsty Objective: Vital Signs Temp Pulse Resp BP Pulse Ox 36.9 C 113 H 22 H 100/52 L 96 05/29/16 08:00 05/29/16 08:00 05/29/16 08:00 05/29/16 08:00 05/29/16 08:00 Microbiology 05/24/16 10:25 Blood Culture - Final Blood 05/24/16 10:15 Blood Culture - Final Blood 05/26/16 08:35 Gram Stain - Final Foot - Tissue 05/24/16 14:00 Gram Stain - Final Foot - Tissue 05/25/16 09:30 Urine Culture - Final Urine,Clean Catch Escherichia Coli Gram Neg Aristeo Lactose Certified Alcohol Counselor#2 Laboratory Results 05/29/16 06:15 05/29/16 06:15 05/28/16 05/29/16 05/30/16 05:59 05:59 05:59 Intake Total 900 2523.0 Output Total 1750 1550 Balance -850 973.0 PT 13.6 SEC (12.0-15.0) 05/24/16 10:08 INR 1.05 (0.83-1.16) 05/24/16 10:08 Physical Exam - Physical Exam General Appearance: alert Respiratory: lungs clear Cardiac/Chest: regular rate, rhythm Extremities: other (wound vacs in place without leaking) ICD10 Worksheet Patient Problems: Problems Problem Status Diagnosed Venous stasis dermatitis of both lower extremities Acute
[2016-05-29 11:43] LABS: HEMATOCRIT 24.3 % (38.0-47.0); HEMOGLOBIN 8.3 g/dL (12.6-16.3)
--- NOTE | 2016-05-29 11:49 | PCMIDPN ---
Assessment/Plan: Assessment: Bilateral lower extremity wounds with lower extremity cellulitis and bilateral necrotic heel ulcers. At least 1 ulcer probes to bone at the calcaneus. Polymicrobial cultures from these wounds. Currently being managed on Zosyn. The blood cultures have remained negative. Plan: 1. Continue Zosyn. 2. Follow the appearance of her lower extremities. 3. Continue wound care. 05/29/16 22:43 05/29/16 22:44 Subjective: Patient resting in bed. No significant change in complaint from two days ago. No fevers. Objective: Zosyn #4 Vital Signs Temp Pulse Resp BP Pulse Ox 36.8 C 102 H 22 H 102/48 L 97 05/29/16 11:35 05/29/16 11:35 05/29/16 11:35 05/29/16 11:35 05/29/16 11:35 Microbiology 05/24/16 10:25 Blood Culture - Final Blood 05/24/16 10:15 Blood Culture - Final Blood 05/26/16 08:35 Gram Stain - Final Foot - Tissue 05/24/16 14:00 Gram Stain - Final Foot - Tissue 05/25/16 09:30 Urine Culture - Final Urine,Clean Catch Escherichia Coli Gram Neg Aristeo Lactose Whiskey Regauger#2 Laboratory Results 05/29/16 11:34 05/29/16 06:15 05/28/16 05/29/16 05/30/16 05:59 05:59 05:59 Intake Total 900 2523.0 Output Total 1750 1550 Balance -850 973.0 C-Reactive Protein 139.3 mg/L (<10.0) H 05/25/16 09:10 - Physical Exam General Appearance: WD/WN, alert, no apparent distress, non-toxic Respiratory: lungs clear, normal breath sounds, No respiratory distress Cardiac/Chest: regular rate, rhythm, No tachycardia Extremities: No non-tender, No normal inspection Skin: normal color, warm/dry, No rash ICD10 Worksheet Patient Problems: Problems Problem Status Diagnosed Venous stasis dermatitis of both lower extremities Acute
[2016-05-29] MEDS: SENNOSIDES/DOCUSATE SODIUM TAB PO SCH ×2 (11:57→19:13)
[2016-05-29] MEDS: MULTIVITAMINS 1 EACH TAB PO SCH (11:57)
[2016-05-29] MEDS ORDERED: PROPOFOL 200 MG/20 ML VIAL ONE ×3 (12:58→13:29)
--- NOTE | 2016-05-29 13:46 | SOAPPROG ---
SOAP Progress Note Assessment/Plan: Assessment: Plan: 05/29/16 13:44 GI note S/p EGD with biopsy. + duodenal ulcers x 2. Clean based and suspect cause of bleed. + Melanotic material in fundus s/p suction. + esophagitis and gastritis. Biopsies taken to r/o H. pylori and Barretts. Recommend full dose PPI BID and monitor H/H. No NSAIDs. Dr. Mojica is taking over the service tomorrow. Please call him if needed. GI will sign off. Thank you for the consultation! Objective: Vital Signs Temp Pulse Resp BP Pulse Ox 36.8 C 102 H 22 H 102/48 L 97 05/29/16 11:35 05/29/16 11:35 05/29/16 11:35 05/29/16 11:35 05/29/16 11:35 Microbiology 05/26/16 08:35 Gram Stain - Final Foot - Tissue 05/24/16 14:00 Gram Stain - Final Foot - Tissue 05/24/16 10:25 Blood Culture - Final Blood 05/24/16 10:15 Blood Culture - Final Blood 05/25/16 09:30 Urine Culture - Final Urine,Clean Catch Escherichia Coli Gram Neg Aristeo Lactose [employer] Pilot#2 Laboratory Results 05/29/16 11:34 05/29/16 06:15 05/28/16 05/29/16 05/30/16 05:59 05:59 05:59 Intake Total 900 2523.0 Output Total 1750 1550 Balance -850 973.0 PT 13.6 SEC (12.0-15.0) 05/24/16 10:08 INR 1.05 (0.83-1.16) 05/24/16 10:08 ICD10 Worksheet Patient Problems: Problems Problem Status Diagnosed Venous stasis dermatitis of both lower extremities Acute
--- NOTE | 2016-05-29 14:06 | GPN ---
[f rep st] PROCEDURE NOTE DATE OF PROCEDURE: 05/29/2016 PROCEDURE: Esophagogastroduodenoscopy with biopsy. INDICATION: The patient is a 75-year-old female with multiple comorbidities who on blood work was noted to have progressive iron deficiency anemia. According to nursing staff, she had a melanotic bowel movement today. She was referred for further evaluation. CONSENT: Risks, benefits, and alternatives of the procedure were discussed in great detail with the patient. Risk of infection, bleeding, perforation, and sedation were discussed. All questions answered. Informed obtained. MEDICATIONS: Propofol. Please see Anesthesia record for details. ESTIMATED BLOOD LOSS: Insignificant. ESOPHAGOGASTRODUODENOSCOPY EXAMINATION: The Olympus upper endoscope was introduced into the mouth and advanced to esophagus. The proximal, mid, and distal esophagus were normal in appearance. In the distal esophagus, several tongues of columnar-appearing epithelium extending at least 1 cm into the tubular esophagus were visualized. Biopsies were taken. The stomach was entered and closely examined, including retroflexed views of angularis, cardia, and fundus. The patient was noted to have a hiatal hernia. In the fundus of the stomach, some melanotic material was noted and was washed and suctioned. No mass lesion or ulcer was seen. The mucosa on the whole exam of the stomach was mildly erythematous in a patchy distribution. Biopsies were taken. The duodenal bulb was entered, and at the junction of the duodenal bulb and second portion of the duodenum, two ulcers of approximately 9 mm and 7 mm were seen. They were clean based with no visible vessel or adherent clot seen. IMPRESSION: 1. Duodenal ulcers- suspected source of anemia/melanotic stools. 2. Gastritis, status post biopsies. 3. 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 RECOMMENDATIONS: 1. Follow up on biopsy results. 2. Full-dose PPI twice a day. 3. Monitor H and H. 4 GI will sign off. Thank you for the consultation! /[id number]/MODL MTDD
[2016-05-29] MEDS ORDERED: fentaNYL 100 MCG/2 ML INJ ONE (14:13)
--- NOTE | 2016-05-29 14:31 | GCON ---
[f rep st] CONSULTATION DATE OF CONSULTATION: 05/29/2016 REFERRING PHYSICIAN: León Alfred MD REASON FOR CONSULTATION: Melanotic stools. CHIEF COMPLAINT: Melanotic stools. HISTORY OF PRESENT ILLNESS: The patient is a 75-year-old female with a history of coronary artery disease, hypertension, hyperlipidemia, who presented to [facility] on 05/24/2016 with lower extremity swelling/drainage. She was found to have bilateral heel ulcers with wet gangrene/cellulitis/ osteomyelitis. She underwent surgical debridement and has been on significant antibiotics during her stay. On presentation, she was noted to have a hematocrit of 32.5 and hemoglobin of 10.5. Over the last several days, this has decreased significantly and her last hemoglobin was 5.2 with hematocrit of 16.1. According to the nurse, she had a melanotic stool. The patient denies having any prior episodes of GI bleeding. She denies having a recent upper endoscopy. She has had complaints of heartburn intermittently. She believes her heartburn is exacerbated by eating with no alleviating factors. She does take a 81mg aspirin daily. I am being asked by Dr. Alfred to see Rachel in consultation regarding her melanotic stools with decrease in hemoglobin.. PAST MEDICAL HISTORY: Coronary artery disease, COPD, hypertension, hyperlipidemia, myocardial infarction. PAST SURGICAL HISTORY: Tubal ligation. MEDICATIONS: Aspirin 81 mg a day, lisinopril 5 mg a day, metoprolol/ hydrochlorothiazide, multivitamin, pravastatin 20 mg a day. ALLERGIES: NKDA. SOCIAL HISTORY: Sixty pack year history of smoking. No significant alcohol use. FAMILY HISTORY: No history of colon cancer. REVIEW OF SYSTEMS: A 14-point comprehensive review of systems was asked. Pertinent positives and negative per HPI. PHYSICAL EXAM: VITAL SIGNS: Blood pressure 102/48, pulse 102, respiratory rate 16, temperature 36.8. GENERAL: Awake, alert, and oriented x3. No distress. HEENT: Moist mucosa. NECK: No JVD. CARDIOVASCULAR: Regular rate and rhythm. Positive S1, S2. No gallops appreciated. LUNGS: Clear to auscultation bilaterally. No rales, rhonchi. ABDOMEN: Soft, nontender, nondistended. Positive bowel sounds. No guarding. No rebound. EXTREMITIES: Positive edema. SKIN: Multiple positive dressings. NEURO: 2 through 12 grossly intact. PSYCH: Normal affect. MUSCULOSKELETAL: No obvious muscle deficits. No joint effusions noted. LYMPH: No lymphadenopathy. LABORATORY DATA: Blood work: WBC is 12.58, hemoglobin 5.2, hematocrit 16.1. INR 1.05. Sodium 138, potassium 4.4, chloride 107, bicarb 26, BUN 30, creatinine 0.8. Iron 22, TIBC 179, iron saturation 12. AST 142, ALT 103. ASSESSMENT/PLAN: 1. Anemia- progressive. Iron deficient. She was on aspirin products previously. According to the nurse, may have had a melanotic stool. At this time, I recommend to proceed with upper endoscopy to delineate the cause of her symptoms. The risks, benefits, and alternatives of the procedure were discussed in great detail with the patient. The risks of infection, bleeding, perforation, and sedation were discussed. Due to her multiple comorbidities, including chronic obstructive pulmonary disease seen on imaging, as well as coronary artery disease, she is at increased risk of sedation. This was discussed with her. Due to this, we will consult anesthesiology for support. 2. History of chronic obstructive pulmonary disease. 3. History of coronary artery disease. 4. History of hypertension. Thank you very much for this consultation. /[id number]/MODL MTDD
--- NOTE | 2016-05-29 16:12 | WOCRNPDOC ---
WOCRN Advanced Assessment Note - Skin Integrity Problem, Advanced Assess Right Heel Dressing Type: Black Vac Foam, White Vac Foam, Wound Vac Dressing Description: Intact Exudate Amount: Scant Exudate Color: Reddish/Yellow Exudate Characteristic(s): Serosanguinous Integumentary Issue Intervention: Dressing Changed Fran Wound Tissue: Macerated, Calloused Fran Wound Swelling: Mild Wound Bed Color: Red Wound Bed Constitution: Granulation Tissue, Smooth Tissue, Bone (palpable in distal aspect of wound bed.) Wound Edges: Well Defined Site Odor: Slight, Musky Pressure Injury Stage: Stage 4 Pressure Injury Present on Admit: Yes Skin Integrity Problem Comment: Wound bed continues to have palpable bone along distal aspect, remaining wound bed a mix of smooth tissues (80%), w/ some granulation scattered throughout. Fran-wound tissue severely macerated, possibly r/t edematous lower extremities. No leak noted in vac alarm history. Applied Mastisol fran-wound to facilitate more cohesive seal to protect fran- wound skin. Placed 1 piece of white foam in wound bed, followed by 1 piece of black foam bridged to dorsum of R foot. Set at 125mmHg, low, continuous, no leaks. rail signal designerAJAY Walls present and assisting. Wound care considering placing an Amniofill graft in wound bed on Wednesday after MRI studies completed. Left Heel Pressure Injury Dressing Type: Black Vac Foam, Wound Vac Dressing Description: Intact Exudate Amount: Scant Exudate Color: Reddish/Yellow Exudate Characteristic(s): Serosanguinous Integumentary Issue Intervention: Dressing Changed Fran Wound Tissue: Macerated, Calloused Fran Wound Swelling: Mild Wound Bed Color: Red Wound Bed Constitution: Smooth Tissue (90%), Adhered Slough (10%) Wound Edges: Well Defined Site Odor: Slight, Musky Pressure Injury Stage: Stage 3 Skin Integrity Problem Comment: Full-thickness wound on L heel, predominantly smooth tissue w/ scattered adhered slough noted. Fran-wound tissue is mildly macerated. Applied Mastisol fran-wound to facilitate better adherence of vac drape. Applied 1 piece of black foam to wound bed, and bridged to dorsum of L foot. Vac settings continue at 125mmHg, low continuous suction. No leak detected. rail signal designerAJAY Walls present and assisting.
--- NOTE | 2016-05-29 16:40 | WOCRNPDOC ---
WOCRN Advanced Assessment Note - Skin Integrity Problem, Advanced Assess Left Sacrum Pressure Injury Dressing Type: Allevyn Life, Interdry Dressing Description: Soiled Exudate Amount: None Exudate Characteristic(s): None Integumentary Issue Intervention: Dressing Changed Fran Wound Tissue: Blanching, Erythema Fran Wound Swelling: Mild Wound Bed Color: Purple Site Measurement - Head-to-Toe Length X Width X Depth (cm): [id number] Pressure Injury Stage: Deep Tissue Injury (DTI) Pressure Injury Present on Admit: No Skin Integrity Problem Comment: Small area of dark, purple ecchymosis-like tissue noted to L sacrum/upper buttock, consistent in appearance w/ a suspected deep tissue injury. Erythema noted throughout fran-wound tissue, skin presently intact. Sacral dressing applied and patient repositioned on her L side using pillows. Coccyx Pressure Injury Dressing Type: Allevyn Life Dressing Description: Soiled Exudate Amount: None Exudate Characteristic(s): None Integumentary Issue Intervention: Dressing Changed Fran Wound Tissue: Blanching, Erythema Fran Wound Swelling: Mild Wound Bed Color: Purple Site Measurement - Head-to-Toe Length X Width X Depth (cm): 0.9cmx0.7mgg9xm Pressure Injury Stage: Deep Tissue Injury (DTI) Pressure Injury Present on Admit: No Skin Integrity Problem Comment: Small area of ecchymotic tissue noted directly over coccyx, consistent in appearance w/ suspected deep tissue injury. Erythema noted throughout fran-wound tissue, presently intact. Allevyn Life Sacral dressing applied, and patient positioned on L side.
--- NOTE | 2016-05-29 16:52 | WOCRNPDOC ---
WOCRN Advanced Assessment Note - Skin Integrity Problem, Advanced Assess Right Buttock Pressure Injury Dressing Type: Allevyn Life Dressing Description: Intact Exudate Amount: None Exudate Characteristic(s): None Integumentary Issue Intervention: Dressing Changed Denise Wound Tissue: Blanching Denise Wound Swelling: None Wound Bed Color: Red Site Odor: None Site Measurement - Head-to-Toe Length X Width X Depth (cm): Distal: [id number]; proximal: 0.4cmx0.0xyi6jp Pressure Injury Stage: Stage 1 Pressure Injury Present on Admit: No Skin Integrity Problem Comment: Two small, discrete areas of non-blanching erythema noted on R buttock, consistent in appearance w/ stage I pressure injury. Denise-wound skin presently intact and blanching. Allevyn Life dressing applied, and patient repositioned on L side, off-loading sacrum.
[2016-05-29 18:01] LABS: HEMATOCRIT 22.7 % (38.0-47.0); HEMOGLOBIN 7.7 g/dL (12.6-16.3)
[2016-05-29 18:15] LABS: POTASSIUM 3.9 mEq/L (3.5-5.2)
[2016-05-29] MEDS ORDERED: POTASSIUM Cl (KCl) 50 ML IV ONE (18:22)
[2016-05-29] MEDS: PRAVASTATIN SODIUM 20 MG TAB PO SCH (19:12)
[2016-05-29] MEDS: PANTOPRAZOLE SODIUM 40 MG in NS 100 ML IV SCH (20:09)
[2016-05-30] MEDS: PIPERACILLIN/TAZO 3.375 GM/DEX 50 ML IV SCH ×5 (00:11→23:48)
[2016-05-30 00:56] LABS: HEMATOCRIT 21.4 % (38.0-47.0); HEMOGLOBIN 7.3 g/dL (12.6-16.3)
[2016-05-30 06:34] LABS: ABSOLUTE NRBC COUNT 0.06 10^3/uL (0-0.01); ADD DIFF? YES; ADD SCAN? NO; ATYPICAL LYMPHOCYTE FLAG 30 (0-99); FRAGMENT RBC FLAG 0 (0-99); HEMATOCRIT 18.5 % (38.0-47.0); LEFT SHIFT FLG 40 (0-99); LIPEMIA HEMOLYSIS FLAG 80 (0-99); MEAN CELL HEMOGLOBIN 30.8 pg (27.9-34.1); MEAN CELL HEMOGLOBIN CONCENTR. 33.5 g/dL (32.4-36.7); MEAN PLATELET VOLUME 9.6 fL (8.7-11.7); NRBC-AUTO% 0.5 % (0.0-0.2); PLATELET CLUMPS FLAG 0 (0-99); PLATELET COUNT 220 10^3/uL (150-400); RED BLOOD CELL COUNT 2.01 10^6/uL (4.18-5.33); RED CELL DISTRIBUTION WIDTH 14.6 % (11.5-15.2)
[2016-05-30] MEDS: IPRATROPIUM/ALBUTEROL 3 ML DEYVIAL IH SCH ×4 (06:38→21:49)
[2016-05-30 06:43] LABS: ADD MORPH? NO; HEMOGLOBIN 6.2 g/dL (12.6-16.3)
[2016-05-30 06:51] LABS: ALANINE AMINOTRANSFERASE 112 IU/L (9-52); ALBUMIN 1.6 g/dL (3.5-5.0); ALKALINE PHOSPHATASE 103 IU/L (38-126); ANION GAP 5 mEq/L (8-16); ASPARTATE AMINOTRANSFERASE 140 IU/L (14-46); BILIRUBIN,TOTAL 0.5 mg/dL (0.1-1.4); CALCIUM 7.2 mg/dL (8.5-10.4); CARBON DIOXIDE 26 mEq/l (22-31); CHLORIDE 106 mEq/L (97-110); CREATININE 0.8 mg/dL (0.6-1.0); GLOMERULAR FILTRATION RATE > 60; GLUCOSE 111 mg/dL (70-100); MAGNESIUM 1.7 mg/dL (1.6-2.3); POTASSIUM 4.7 mEq/L (3.5-5.2); SODIUM 137 mEq/L (134-144); TOTAL PROTEIN 3.8 g/dL (6.3-8.2)
[2016-05-30 07:37] LABS: MACROCYTES 1+; PLATELET ESTIMATE ADEQUATE (ADEQ); TOXIC GRANULATION PRESENT
[2016-05-30] MEDS ORDERED: MAGNESIUM SULF 1 GM/DEXTROSE 100 ML IV ONE (08:48)
[2016-05-30] MEDS: PANTOPRAZOLE SODIUM 40 MG in NS 100 ML IV SCH (08:56)
--- NOTE | 2016-05-30 09:39 | HOSPPROG ---
Hospitalist Progress Note Assessment/Plan: 75 yo F admitted with ble ulcers/wet gangrene/cellulitis developed GI bleed overnight with possible A flutter # wet gangrene of b/l heel ulcers with associated cellulitis, presumed osteomyelitis and chronic venous stasis ulcers: s/p surgical debridement, right heel wound probes to bone. Mult orgs on Cx, sensitive to Zosyn. Wound care involved and now has wound vac. Discussed case with ID and gen surg, who noted lots of bleeding with debridement, suggesting adequate arterial flow. -MRI ordered per ID, planned to do at time of wound vac exchange, cont to defer for now given below issue -cont zosyn, vanc d/c'd per ID # GI bleed - hgb dropped to 5.2 05/29, received 3 units prbc's. hgb down again to 6.2 this am with ongoing ?melena vs BRBPR, unclear hx. Receiving another 2 u prbc's this am. GI notified of e/o ongoing bleeding. Will re-consult today. -clear liquids -q6h h&h -Protonix drip -hold asa, lovenox -may need re-scope if e/o persistent bleeding or h&h continue to trend down # acute blood loss anemia: transfusion as above # sinus tachycardia - possible flutter 05/29, dilt drip started briefly, but d/c 'd when rhythm appeared more c/w sinus tachycardia, which improved with transfusion. -volume expansion with blood products as above, to which she is responding # virgil: improved, holding bradley/hctz. Azotemia likely secondary to UGIB. # CAD: without issues for > 10 years per her report, continue op medications # COPD: undiagnosed but with wheezing on exam and 60+ pack year smoking history , COPD undoubtedly present. Cont nebs, O2. # Htn: BP has been low, holding lisinopril/hctz and beta kalin for now. She has poor oral intake and has required NS boluses and received prbc's today. SBP now 100's. # Onychomycosis: discussed terbinafine tx with ID, but will defer given her elevated LFT's. could reconsider this as outpt when acute infectious issues improved. Also recommend outpt podiatry consultation. # DNR: her children would be her decision maker if she could not make decisions # Dispo: cont inpt Subjective: PT feels very tired. She wants to "cool it", wishes to avoid further procedures today, appears to be wearing down, frustrated with ongoing hospitalization and interventions. No fevers/chills. No CP or SOB. No abdominal pain, N/V. SHe is not sure if she is having melena or BRBPR. A bit detached from symptoms. Objective: Vital Signs Temp Pulse Resp BP Pulse Ox 36.6 C 108 H 20 112/47 L 97 05/30/16 08:00 05/30/16 08:00 05/30/16 08:00 05/30/16 08:00 05/30/16 08:00 Microbiology 05/26/16 08:35 Gram Stain - Final Foot - Tissue 05/24/16 14:00 Gram Stain - Final Foot - Tissue 05/24/16 10:25 Blood Culture - Final Blood 05/24/16 10:15 Blood Culture - Final Blood Laboratory Results 05/30/16 06:05 05/30/16 06:05 05/29/16 05/30/16 05/31/16 05:59 05:59 05:59 Intake Total 2523.0 1004 Output Total 1550 1725 Balance 973.0 -721 PT 13.6 SEC (12.0-15.0) 05/24/16 10:08 INR 1.05 (0.83-1.16) 05/24/16 10:08 - Physical Exam Constitutional: no apparent distress Eyes: PERRL Ears, Nose, Mouth, Throat: moist mucous membranes Cardiovascular: regular rate and rhythym Respiratory: no respiratory distress Gastrointestinal: normoactive bowel sounds, soft, non-tender abdomen Skin: warm Musculoskeletal: other (b/l LE ulcers dressed with prevalon boots, extremities warm) Neurologic: AAOx3 ICD10 Worksheet Patient Problems: Problems Problem Status Diagnosed Venous stasis dermatitis of both lower extremities Acute
[2016-05-30] MEDS: SENNOSIDES/DOCUSATE SODIUM TAB PO SCH ×2 (09:41→20:04)
[2016-05-30] MEDS: MULTIVITAMINS 1 EACH TAB PO SCH (09:42)
[2016-05-30] MEDS: PANTOPRAZOLE SODIUM 80 MG in NS 100 ML IV SCH ×2 (10:40→19:51)
--- NOTE | 2016-05-30 11:15 | SOAPPROG ---
SOAP Progress Note Assessment/Plan: Assessment: 1. Melena 2. Anemia secondary to blood loss 3. Duodenal ulceration Plan: 1. I would continue medical management for bleeding at this time. 2. Continue IV PPI 3. If ongoing melena then EGD/Colonoscopy 4. Monitor H/H q 6 5. Clears only for now 05/30/16 10:59 Subjective: CC: melena Feels week. 1 large melena with some reports of more fresh blood in stool today. No further. No abdominal pain. No N/V. Hct lower this AM. Getting transfusion. Objective: Vital Signs Temp Pulse Resp BP Pulse Ox 36.6 C 108 H 20 112/47 L 97 05/30/16 08:00 05/30/16 08:00 05/30/16 08:00 05/30/16 08:00 05/30/16 08:00 Microbiology 05/26/16 08:35 Gram Stain - Final Foot - Tissue 05/24/16 14:00 Gram Stain - Final Foot - Tissue 05/24/16 10:25 Blood Culture - Final Blood 05/24/16 10:15 Blood Culture - Final Blood Laboratory Results 05/30/16 06:05 05/30/16 06:05 05/29/16 05/30/16 05/31/16 05:59 05:59 05:59 Intake Total 2523.0 1004 Output Total 1550 1725 Balance 973.0 -721 PT 13.6 SEC (12.0-15.0) 05/24/16 10:08 INR 1.05 (0.83-1.16) 05/24/16 10:08 Physical Exam - Physical Exam General Appearance: no apparent distress EENT: normal ENT inspection Neck: supple Respiratory: decreased breath sounds Cardiac/Chest: regular rate, rhythm Abdomen: normal bowel sounds, non-tender, soft, No distended, No guarding, No rebound Rectal: deferred ICD10 Worksheet Patient Problems: Problems Problem Status Diagnosed Venous stasis dermatitis of both lower extremities Acute
--- NOTE | 2016-05-30 13:53 | GCON ---
[f rep st] CONSULTATION CRITICAL CARE CONSULTATION DATE OF CONSULTATION: 05/30/2016 REFERRING PHYSICIAN: Tim Rayo MD CHIEF COMPLAINT: GI bleed. HISTORY OF PRESENT ILLNESS: This 75-year-old female has a past history of coronary artery disease. She developed swelling and pain in her legs with redness of her legs and was admitted on May 24. She was found to have bilateral heel ulcers, and these were debrided by Dr. Whiting, and she has bee n followed by the wound nurse for those. She has significant edema in both legs but is a very poor h istorian, and I cannot tell how long that edema has been present. There is a history of coronary art eren disease, and congestive heart failure. An echocardiogram here, however, showed a normal EF. The re has been no chest pain. She denies shortness of breath but has been not moving very well. While she was here having her heels worked on, she had a decrease in her hematocrit, but then it became a s udden decrease. She was seen in GI consultation by Dr. Sommer, and upper endoscopy was done which show ed duodenal ulcers. She has been treated for that. At this point, she denies chest pain or any abdo calvin pain. She has apparently still been having small melanotic stools. There has been no hematoch ezia. She denies hematemesis. PAST MEDICAL HISTORY: 1. Coronary artery disease. 2. Hypertension. 3. Hyperlipidemia. 4. Remote history of myocardial infarction. SURGICAL HISTORY: She had a bilateral tubal ligation. FAMILY HISTORY: Without diabetes mellitus or early arteriosclerotic vascular disease. SOCIAL HISTORY: She continues to smoke and has a [id number] history of smoking tobacco. The patie nt rarely uses alcohol and has no drug use. The patient is and has 2 children. She lives in [place], [place], and was traveling here. REVIEW OF SYSTEMS: Review of systems x10 points is otherwise noncontributory except as included abov e. PHYSICAL EXAMINATION: GENERAL: She is quite sleepy and possibly slightly confused. VITAL SIGNS: B lood pressure is 115/53 with a pulse of 89, respiratory rate of 19, oxygen saturation of 97% on 1 L. She is afebrile. SKIN: Normal. HEAD: Without external evidence of trauma. EYES: Fundi not visu alized. EARS: Canals clear. NOSE: Without septal deviation or polyps. MOUTH AND PHARYNX: Clear without lesions. NECK: Supple without adenopathy. CHEST: Decreased breath sounds without rales, w heezes, rhonchi, or rubs. HEART: PMI 5th intercostal space, midclavicular line. S1 and S2 normal. There is no S3, S4, or murmur. ABDOMEN: Soft. There is no tenderness. The abdomen is obese. Medina el sounds are present. EXTREMITIES: There is very significant 3+ edema present in both lower extrem ities with some areas of redness. Her heels are bandaged. DATABASE: The white blood count is 12,230 with the last hematocrit 18 at 0600 this morning. INR is normal. Chemistry panel shows normal electrolytes and renal function but with slightly high liver fu nction tests with an AST of 140. IMPRESSION: 1. Gastrointestinal bleed, probably secondary to duodenal ulcers. Lower gastrointestinal lesion jorje l be ruled out if the patient continues to bleed. 2. Lower extremity cellulitis and heel ulcerations that are severe. 3. Significant edema. This may be contributing to her skin problems of her lower extremities. PLAN: GI is seeing the patient and will decide whether to do a colonoscopy. She is presently on Pro tonix 80 mg. She is on updraft nebulizers for her chronic obstructive pulmonary disease. Aspirin 81 mg is being given each day, and enoxaparin 40 mg subcutaneously has been given daily for DVT prophyl axis. I will speak with her doctors and ask them whether they think diuretics would be appropriate a t this point to try and decrease the significant edema in her legs and therefore the cellulitis. I w ill also ask them about the current use of Lovenox in the setting of an acute GI bleed as the patient is also on aspirin. /[id number]/MODL
[2016-05-30] MEDS ORDERED: FUROSEMIDE 20 MG/2 ML VIAL IVP ONE (17:00)
[2016-05-30] MEDS: PRAVASTATIN SODIUM 20 MG TAB PO SCH (19:43)
[2016-05-30 21:14] LABS: HEMATOCRIT 23.5 % (38.0-47.0); HEMOGLOBIN 7.9 g/dL (12.6-16.3)
[2016-05-31] MEDS ORDERED: NS 500 ML IV ONE (00:13)
[2016-05-31 02:02] LABS: HEMATOCRIT 19.8 % (38.0-47.0)
[2016-05-31 02:05] LABS: HEMOGLOBIN 6.9 g/dL (12.6-16.3)
[2016-05-31] MEDS: PANTOPRAZOLE SODIUM 80 MG in NS 100 ML IV SCH (05:13)
[2016-05-31] MEDS: PIPERACILLIN/TAZO 3.375 GM/DEX 50 ML IV SCH ×4 (05:13→23:06)
[2016-05-31 05:21] LABS: ABSOLUTE NRBC COUNT 0.07 10^3/uL (0-0.01); ADD DIFF? YES; ADD MORPH? NO; ADD SCAN? NO; ATYPICAL LYMPHOCYTE FLAG 20 (0-99); FRAGMENT RBC FLAG 0 (0-99); HEMOGLOBIN 7.8 g/dL (12.6-16.3); LEFT SHIFT FLG 30 (0-99); LIPEMIA HEMOLYSIS FLAG 90 (0-99); MEAN CELL HEMOGLOBIN 30.6 pg (27.9-34.1); MEAN CELL HEMOGLOBIN CONCENTR. 33.9 g/dL (32.4-36.7); MEAN CELL VOLUME 90.2 fL (81.5-99.8); MEAN PLATELET VOLUME 9.4 fL (8.7-11.7); NRBC-AUTO% 0.6 % (0.0-0.2); PLATELET CLUMPS FLAG 0 (0-99); PLATELET COUNT 185 10^3/uL (150-400); RED BLOOD CELL COUNT 2.55 10^6/uL (4.18-5.33); RED CELL DISTRIBUTION WIDTH 14.8 % (11.5-15.2)
[2016-05-31 05:34] LABS: MAGNESIUM 1.8 mg/dL (1.6-2.3); POTASSIUM 3.7 mEq/L (3.5-5.2)
[2016-05-31] MEDS ORDERED: POTASSIUM Cl (KCl) 50 ML IV ONE (05:40)
[2016-05-31] MEDS: IPRATROPIUM/ALBUTEROL 3 ML DEYVIAL IH SCH ×3 (06:07→17:23)
[2016-05-31 06:40] LABS: PLATELET ESTIMATE ADEQUATE (ADEQ)
[2016-05-31 06:41] LABS: TOXIC GRANULATION PRESENT
[2016-05-31 06:42] LABS: POLYCHROMASIA 1+
[2016-05-31 06:43] LABS: HYPOCHROMIA 1+
--- NOTE | 2016-05-31 08:25 | HOSPPROG ---
Hospitalist Progress Note Assessment/Plan: #acute blood loss anemia: 2/2 #Duodenal ulcer -conservative management per GI -IV PPI, serial H/H. Endoscopy if further bleeding #Bilateral heel wet gangrene/cellulitis/suspected osteo -s/p debridement. Right heel ulcer probes to bone -multiple organisms on culture. Cont IV Zosyn #CIERRA: resolved #CAD: cont statin. Hold BB, ACEI, ASA with GIB #COPD: no signs of exacerbation #Hypotension: -due to GIB. Resolved #Sinus tachycardia -briefly on dilt gtt. Due to blood loss; resolved with IVFs, blood #Deconditioning: per daughter, pt ambulating on own day prior to admission. She uses cane in parking lots. Daughter states pt very private and never spoke of wounds on heels or other issues -PT/OT #Diet: clears #goals: I spoke with daughter today. Her brother that lives here is looking into SNFs already; one of interest is [facility]. Daughter plans to go back to [place] later this week Disp: warrants inpatient admission with concern of GIB, serial H/H, blood PRN Subjective: leg cramps Objective: Vital Signs Temp Pulse Resp BP Pulse Ox 36.6 C 87 16 87/41 L 97 05/31/16 03:56 05/31/16 06:07 05/31/16 06:07 05/31/16 03:56 05/31/16 06:07 Microbiology 05/26/16 08:35 Gram Stain - Final Foot - Tissue Laboratory Results 05/31/16 05:00 05/31/16 05:00 05/30/16 05/31/16 06/01/16 05:59 05:59 05:59 Intake Total 1004 785 Output Total 1725 2800 Balance -72 PT 13.6 SEC (12.0-15.0) 05/24/16 10:08 INR 1.05 (0.83-1.16) 05/24/16 10:08 - Physical Exam Constitutional: chronically ill appearing, obese Eyes: PERRL, pale conjunctiva Ears, Nose, Mouth, Throat: moist mucous membranes, hearing normal Cardiovascular: regular rate and rhythym, edema (+2-3 LE edema. Anasarca of UEs L>R) Respiratory: no respiratory distress Gastrointestinal: normoactive bowel sounds, other (melanic stool in bed) Genitourinary: walls in urethra Skin: warm Musculoskeletal: other (bilateral wound vacs on feet. Very sensitive to touch over LEs) Neurologic: AAOx3 Psychiatric: interacting appropriately ICD10 Worksheet Patient Problems: Problems Problem Status Diagnosed Venous stasis dermatitis of both lower extremities Acute
[2016-05-31] MEDS: MULTIVITAMINS 1 EACH TAB PO SCH (09:35)
[2016-05-31] MEDS: SENNOSIDES/DOCUSATE SODIUM TAB PO SCH ×2 (11:48→19:46)
--- NOTE | 2016-05-31 12:06 | SOAPPROG ---
SOAP Progress Note Assessment/Plan: Assessment: 1. Melena 2. Anemia secondary to blood loss 3. Duodenal ulceration Plan: 1. I would continue medical management for bleeding at this time. 2. Ok to advance diet today. 3. Monitor Hct q8hr 4. Type and hold PRBCs in case further bleeding and need for transfusion 5. Switch to BID PO PPI and add carafate qAC/HS 05/31/16 12:03 Subjective: CC: One small bowel movement today with what patient reports is "a little blood " but much improved from yesterday. No recurrent large volume melena or hematochezia. Hct improved to 24 after transfusion. No abdominal pain or N/V. Reports lower leg cramps. Objective: Vital Signs Temp Pulse Resp BP Pulse Ox 36.7 C 83 12 91/38 L 95 05/31/16 08:00 05/31/16 11:14 05/31/16 11:14 05/31/16 08:00 05/31/16 11:14 Microbiology 05/26/16 08:35 Gram Stain - Final Foot - Tissue Tissue Culture - Final Myroides Odoratus/Odoratimimus Morganella Morganii#2 Laboratory Results 05/31/16 05:00 05/31/16 05:00 05/30/16 05/31/16 06/01/16 05:59 05:59 05:59 Intake Total 1004 785 Output Total 1725 2800 Balance -72 -2014 PT 13.6 SEC (12.0-15.0) 05/24/16 10:08 INR 1.05 (0.83-1.16) 05/24/16 10:08 Physical Exam - Physical Exam General Appearance: WD/WN, no apparent distress EENT: normal ENT inspection Neck: supple Respiratory: lungs clear Cardiac/Chest: tachycardia, systolic murmur Abdomen: normal bowel sounds, non-tender, soft, No distended, No guarding, No rebound, No ascites ICD10 Worksheet Patient Problems: Problems Problem Status Diagnosed Venous stasis dermatitis of both lower extremities Acute
[2016-05-31] MEDS: oxyCODONE IR 5 MG TAB PO PRN (12:30)
[2016-05-31] MEDS ORDERED: FUROSEMIDE 20 MG/2 ML VIAL IVP ONE (13:03)
--- NOTE | 2016-05-31 13:10 | PDINTPN ---
Hydrator Operator Progress Note Assessment/Plan: Assessment: #Cellulitis and heel ulcers with possible osteomyelitis #Fluid overload #CIERRA resolved #CAD #COPD #GIB due to duodenal ulcer Plan: She had a transfusion Dose of lasix PPI and repeat HCT's 05/31/16 13:09 Objective: Vital Signs Temp Pulse Resp BP Pulse Ox 36.8 C 85 15 92/45 L 97 05/31/16 12:00 05/31/16 12:00 05/31/16 12:00 05/31/16 12:00 05/31/16 12:00 Microbiology 05/24/16 14:00 Gram Stain - Final Foot - Tissue Anaerobic Culture - Final Morganella Morganii Providencia Rettgeri Bacteroides Fragilis 05/26/16 08:35 Gram Stain - Final Foot - Tissue Tissue Culture - Final Myroides Odoratus/Odoratimimus Morganella Morganii#2 Laboratory Results 05/31/16 05:00 05/31/16 05:00 05/30/16 05/31/16 06/01/16 05:59 05:59 05:59 Intake Total 1004 785 Output Total 1725 2800 Balance -721 -2014 PT 13.6 SEC (12.0-15.0) 05/24/16 10:08 INR 1.05 (0.83-1.16) 05/24/16 10:08 Physical Exam - Physical Exam General Appearance: alert, no apparent distress EENT: normal ENT inspection Neck: non-tender Respiratory: lungs clear Cardiac/Chest: regular rate, rhythm Abdomen: non-tender, soft Back: Normal inspection Skin: warm/dry Lymphatic: no adenopathy Extremities: non-tender, pedal edema Neuro/Psych: alert ICD10 Worksheet Patient Problems: Problems Problem Status Diagnosed Venous stasis dermatitis of both lower extremities Acute
[2016-05-31] MEDS ORDERED: MAGNESIUM SULF 1 GM/DEXTROSE 100 ML IV ONE (14:41)
--- NOTE | 2016-05-31 16:28 | PCMIDPN ---
Assessment/Plan: Assessment: Bilateral lower extremity wounds with lower extremity cellulitis and bilateral necrotic heel ulcers. At least 1 ulcer probes to bone at the calcaneus. Polymicrobial cultures from these wounds. Currently being managed on Zosyn. The blood cultures have remained negative. Patient is currently dealing with persistent gastrointestinal bleed. This workup and management is taking priority at present. Plan: 1. Continue Zosyn. 2. Follow the appearance of her lower extremities. 3. Continue wound care. Subjective: Patient is resting comfortably in her hospital bed. She is in good spirits. No particular complaints. Had 1 unit of packed red cell transfusion this morning due to low hematocrit from gastrointestinal bleed. Objective: Zosyn # 6 Vital Signs Temp Pulse Resp BP Pulse Ox 36.8 C 85 15 92/45 L 97 05/31/16 12:00 05/31/16 12:00 05/31/16 12:00 05/31/16 12:00 05/31/16 12:00 Microbiology 05/24/16 14:00 Gram Stain - Final Foot - Tissue Anaerobic Culture - Final Morganella Morganii Providencia Rettgeri Bacteroides Fragilis 05/26/16 08:35 Gram Stain - Final Foot - Tissue Tissue Culture - Final Myroides Odoratus/Odoratimimus Morganella Morganii#2 Laboratory Results 05/31/16 05:00 05/31/16 05:00 05/30/16 05/31/16 06/01/16 05:59 05:59 05:59 Intake Total 1004 785 Output Total 1725 2800 -72 C-Reactive Protein 139.3 mg/L (<10.0) H 05/25/16 09:10 - Physical Exam General Appearance: WD/WN, alert, no apparent distress, non-toxic Respiratory: lungs clear, normal breath sounds, No respiratory distress Cardiac/Chest: regular rate, rhythm, No tachycardia Extremities: No non-tender, No normal inspection (Multiple small skin ulcerations bilateral lower extremities. Deep calcaneal ulcerations bilaterally.) Skin: normal color, warm/dry, No rash Neuro/Psych: alert, normal mood/affect, oriented x 3 ICD10 Worksheet Patient Problems: Problems Problem Status Diagnosed Venous stasis dermatitis of both lower extremities Acute
[2016-05-31] MEDS: SUCRALFATE 1 GM TAB PO SCH ×2 (18:45→19:44)
[2016-05-31 19:36] LABS: HEMATOCRIT 23.6 % (38.0-47.0); HEMOGLOBIN 7.9 g/dL (12.6-16.3)
[2016-05-31] MEDS: PRAVASTATIN SODIUM 20 MG TAB PO SCH (19:44)
[2016-05-31] MEDS: PANTOPRAZOLE SODIUM 40 MG TAB PO SCH (19:44)
[2016-05-31 19:51] LABS: POTASSIUM 3.3 mEq/L (3.5-5.2)
[2016-05-31] MEDS ORDERED: POTASSIUM CL 10 MEQ TAB PO ONE ×2 (20:10→20:30)
[2016-06-01] MEDS: IPRATROPIUM/ALBUTEROL 3 ML DEYVIAL IH SCH ×4 (00:04→16:05)
[2016-06-01] MEDS: oxyCODONE IR 5 MG TAB PO PRN ×2 (00:47→21:56)
[2016-06-01 01:37] LABS: HEMATOCRIT 22.5 % (38.0-47.0); HEMOGLOBIN 7.5 g/dL (12.6-16.3)
[2016-06-01 05:14] LABS: ANION GAP 4 mEq/L (8-16); CALCIUM 7.5 mg/dL (8.5-10.4); CARBON DIOXIDE 28 mEq/l (22-31); CHLORIDE 103 mEq/L (97-110); CREATININE 0.8 mg/dL (0.6-1.0); GLOMERULAR FILTRATION RATE > 60; GLUCOSE 80 mg/dL (70-100); MAGNESIUM 1.8 mg/dL (1.6-2.3); POTASSIUM 3.8 mEq/L (3.5-5.2); SODIUM 135 mEq/L (134-144)
[2016-06-01] MEDS ORDERED: POTASSIUM CL 10 MEQ TAB PO ONE (05:31)
[2016-06-01] MEDS: PIPERACILLIN/TAZO 3.375 GM/DEX 50 ML IV SCH ×4 (06:15→23:12)
[2016-06-01] MEDS: SUCRALFATE 1 GM TAB PO SCH ×4 (08:08→20:26)
[2016-06-01 08:37] LABS: HEMATOCRIT 22.8 % (38.0-47.0); HEMOGLOBIN 7.6 g/dL (12.6-16.3)
[2016-06-01] MEDS: SENNOSIDES/DOCUSATE SODIUM TAB PO SCH (10:06)
[2016-06-01] MEDS: PANTOPRAZOLE SODIUM 40 MG TAB PO SCH ×2 (10:06→20:26)
[2016-06-01] MEDS: MULTIVITAMINS 1 EACH TAB PO SCH (10:06)
--- NOTE | 2016-06-01 10:48 | SOAPPROG ---
SOAP Progress Note Assessment/Plan: Assessment: 1. Melena 2. Anemia secondary to blood loss 3. Duodenal ulceration Plan: 1. I would continue medical management for bleeding at this time. 2. Ok to advance diet today. 3. Switched to BID PO PPI and add carafate qAC/HS which I would continue for 4 wks. Then ok to stop carafate and lower to daily PPI fdc 4. Minimize NSAIDs 5. Will sign off for now. Please call if more evidence of ongoing GI bleeding. 06/01/16 10:46 Subjective: CC: diarrhea. Patient unaware of any ongoing melena or hematochezia. Some loose BMs. No abdominal pain. Hct low but stable and BUN improving. tolerating po intake. Objective: Vital Signs Temp Pulse Resp BP Pulse Ox 36.6 C 77 14 95/38 L 100 06/01/16 07:27 06/01/16 07:27 06/01/16 07:27 06/01/16 07:27 06/01/16 07:27 Microbiology 05/24/16 14:00 Gram Stain - Final Foot - Tissue Anaerobic Culture - Final Morganella Morganii Providencia Rettgeri Bacteroides Fragilis 05/26/16 08:35 Gram Stain - Final Foot - Tissue Tissue Culture - Final Myroides Odoratus/Odoratimimus Morganella Morganii#2 Laboratory Results 06/01/16 08:15 06/01/16 04:50 05/31/16 06/01/16 06/02/16 05:59 05:59 05:59 Intake Total 785 350 Output Total 2800 2750 Balance -2014 -2399 PT 13.6 SEC (12.0-15.0) 05/24/16 10:08 INR 1.05 (0.83-1.16) 05/24/16 10:08 Physical Exam - Physical Exam General Appearance: no apparent distress EENT: normal ENT inspection Neck: supple Respiratory: decreased breath sounds, No rales, No rhonchi, No stridor Cardiac/Chest: regular rate, rhythm, systolic murmur Abdomen: non-tender, soft, No distended, No guarding, No rebound, No ascites ICD10 Worksheet Patient Problems: Problems Problem Status Diagnosed Venous stasis dermatitis of both lower extremities Acute
--- NOTE | 2016-06-01 14:39 | HOSPPROG ---
Hospitalist Progress Note Assessment/Plan: Assessment: 75-year-old female presents with suspected osteomyelitis and polymicrobial gangrene in the setting of acute upper gastrointestinal hemorrhage and acute blood loss anemia Plan: #Acute blood loss anemia: 2/2 upper gastrointestinal hemorrhage, evidenced by hemoglobin level less than 8 with positive fecal occult blood #Duodenal ulcer: Resulting in acute upper gastrointestinal hemorrhage, hold on EGD -discussed with Dr. 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 LTAC -will likely need LTAC for intense wound care -get A1c -get ABIs to screen for PAD #CIERRA: Most likely secondary to hypovolemia, resolved status post IV fluids #CAD. Cont statin. Hold ASA with GIB -given relative hypotension, continue to hold beta-kalin and DEMETRIO-inhibitor #COPD. Chronic, no signs of exacerbation #Deconditioning: per daughter, pt ambulating on own day prior to admission. She uses cane in parking lots. Daughter states pt very private and never spoke of wounds on heels or other issues -PT/OT Diet: Regular Prophylaxis: High risk patient, Lovenox 40 Code: Do not resuscitate Despite: Anticipated discharge uncertain, pending stabilization of above, discussed with case management on team rounds today, LTAC versus group home facility Subjective: Ongoing pain in her heels, having ongoing diarrhea, once Sierra catheter remain in place Objective: Vital Signs Temp Pulse Resp BP Pulse Ox 36.6 C 96 18 98/44 L 95 06/01/16 11:40 06/01/16 11:40 06/01/16 11:40 06/01/16 11:40 06/01/16 11:40 Microbiology 05/24/16 14:00 Gram Stain - Final Foot - Tissue Anaerobic Culture - Final Morganella Morganii Providencia Rettgeri Bacteroides Fragilis 05/26/16 08:35 Gram Stain - Final Foot - Tissue Tissue Culture - Final Myroides Odoratus/Odoratimimus Morganella Morganii#2 Laboratory Results 06/01/16 08:15 06/01/16 04:50 0106/01/16 06/02/16 05:59 05:59 05:59 Intake Total 785 350 Output Total 2800 2750 Balance -2014 -240 PT 13.6 SEC (12.0-15.0) 05/24/16 10:08 INR 1.05 (0.83-1.16) 05/24/16 10:08 - Time Spent With Patient Time Spent with Patient: greater than 35 minutes Time Spent with Patient: Greater than 35 minutes spent on this patients care, greater than 50% of time spent counseling, educating, and coordinating care regarding the above mentioned plan. - Physical Exam Constitutional: chronically ill appearing, obese, uncomfortable Cardiovascular: systolic murmur (2/6 at apex), edema (1+ bilateral), No tachycardia Respiratory: reduced air movement (On inspiration and expiration, worse in bilateral bases), No expiratory wheeze, No inspiratory crackles, No bronchial breath sounds Gastrointestinal: normoactive bowel sounds, soft, non-tender abdomen, no palpable masses Skin: other (Bilateral lower extremities dressed) Neurologic: AAOx3, sensation intact bilaterally Psychiatric: interacting appropriately, not anxious, not encephalopathic, thought process linear, flat affect ICD10 Worksheet Patient Problems: Problems Problem Status Diagnosed Venous stasis dermatitis of both lower extremities Acute
[2016-06-01] MEDS ORDERED: FUROSEMIDE 20 MG/2 ML VIAL IVP ONE (15:07)
--- NOTE | 2016-06-01 15:07 | PDINTPN ---
Academic Support Coordinator Progress Note Assessment/Plan: Assessment: #Cellulitis and heel ulcers with possible osteomyelitis #Fluid overload better by exam and with - I/O #CIERRA resolved #CAD #COPD #GIB due to duodenal ulcer Plan: She had a transfusion Dose of lasix PPI and repeat HCT's 06/01/16 15:05 Subjective: the boots on her legs are causing some pain Objective: Vital Signs Temp Pulse Resp BP Pulse Ox 36.6 C 96 18 98/44 L 95 06/01/16 11:40 06/01/16 11:40 06/01/16 11:40 06/01/16 11:40 06/01/16 11:40 Microbiology 05/24/16 14:00 Gram Stain - Final Foot - Tissue Anaerobic Culture - Final Morganella Morganii Providencia Rettgeri Bacteroides Fragilis 05/26/16 08:35 Gram Stain - Final Foot - Tissue Tissue Culture - Final Myroides Odoratus/Odoratimimus Morganella Morganii#2 Laboratory Results 06/01/16 08:15 06/01/16 04:50 05/31/16 06/01/16 06/02/16 05:59 05:59 05:59 Intake Total 785 350 Output Total 2800 2750 Balance -2015 -2400 PT 13.6 SEC (12.0-15.0) 05/24/16 10:08 INR 1.05 (0.83-1.16) 05/24/16 10:08 Physical Exam - Physical Exam General Appearance: mild distress EENT: normal ENT inspection Neck: non-tender Respiratory: lungs clear Cardiac/Chest: regular rate, rhythm Abdomen: non-tender, soft Back: Normal inspection Skin: warm/dry Lymphatic: no adenopathy Extremities: non-tender, pedal edema Neuro/Psych: alert ICD10 Worksheet Patient Problems: Problems Problem Status Diagnosed Venous stasis dermatitis of both lower extremities Acute
[2016-06-01] MEDS: DIAZEPAM 2 MG TAB PO PRN (16:25)
--- NOTE | 2016-06-01 16:50 | WOCRNPDOC ---
TRI Advanced Assessment Note - Skin Integrity Problem, Advanced Assess Right Heel Dressing Type: Black Vac Foam (x1), White Vac Foam (x1), Wound Vac Dressing Description: Clean/Dry, Intact Exudate Amount: Scant Exudate Characteristic(s): Bloody Integumentary Issue Intervention: Dressing Changed Fran Wound Tissue: Macerated (to 1 cm circumferential; skin from 1-2 oclock sloughed off revealing a partial thickness wound) Fran Wound Swelling: None Wound Bed Color: Brown, Yellow Wound Bed Constitution: Smooth Tissue (10%), Undermining (4-9 oclock 1 cm), Mixed Loose & Adhered Slough/Eschar (90%) Wound Edges: Well Defined, Thick Site Odor: Strong, Pungent Site Measurement - Head-to-Toe Length X Width X Depth (cm): 3x3.5x1.5 Pressure Injury Stage: Stage 4 Pressure Injury Present on Admit: Yes Skin Integrity Problem Comment: Wound bed without signs of improvement. Was unable to palpate bone so white foam was D/C'd. Cleaned and soaked wound with vashe. Fran wound was draped with hydrocolloid after applying mastisol. One piece of small black foam to wound bed. Drape extended over dorsal foot and vac restarted at - 125 mm Hg continous suction with no leaks. Heel boots replaced. Reported to Dr. Carrera and Dr. Whiting. Right Lower Leg Venous Stasis Ulcer Dressing Type: ABD Pad, Adaptic Touch, Honey Sheet, Kerlix Dressing Description: Intact, Shadowed Exudate Amount: Minimal Exudate Characteristic(s): Bloody, Serosanguinous Integumentary Issue Intervention: Dressing Changed Fran Wound Tissue: Erythema Wound Bed Color: Brown, Red, Yellow Wound Bed Constitution: Granulation Tissue (75%), Mixed Loose & Adhered Slough/ Eschar (only at posterior wound measuring 4.5x5. ) Wound Edges: Epithelizing, Attached Site Odor: Moderate, Pungent Site Measurement - Head-to-Toe Length X Width X Depth (cm): [id number] Skin Integrity Problem Comment: Changed dressing orders as the majority of the wound is no longer necrotic. Cleaned with vashe. Will continue to honey on the posterior area of necrosis which was crosshatched with a sterile forceps today. The remainder of the wound was coated with silvasorb and covered with Aquacel dressings. Please leave these dressings in place unless completely saturated until ordered. Change outer dressings prn. Right dorsal foot superficial necrosis evolving. Now hard crust present. Will benefit from moisture but due to the proximity to the vac drape will leave dry for now. Left Heel Pressure Injury Dressing Type: Black Vac Foam (x1) Dressing Description: Clean/Dry, Intact Exudate Amount: Minimal Exudate Characteristic(s): Bloody (silver nitrate applied for hemostais; good control acheived prior to vac application.) Integumentary Issue Intervention: Dressing Changed Fran Wound Tissue: Macerated (severe maceration fran wound. large area of epidermis sloughed off around 9-11 oclock revealing a partial thickness wound. ) Fran Wound Swelling: None Wound Bed Color: Red, Yellow Wound Bed Constitution: Granulation Tissue (30%), Smooth Tissue (70%) Wound Edges: Not Attached, Thick Site Odor: Strong, Pungent (2.8x4x1.2) Pressure Injury Stage: Stage 3 Pressure Injury Present on Admit: Yes Skin Integrity Problem Comment: Wound stable. Cleaned with vashe. Fran wound was draped with hydrocolloid after applying mastisol. Drape extended over dorsal foot, one piece of small black foam applied to wound bed, and vac restarted at - 125 mm Hg continous suction with no leaks. Heel boots replaced. Reported to Dr. Carrera and Dr. Whiting. Left Lower Leg Venous Stasis Ulcer Dressing Type: ABD Pad, Adaptic, Honey Sheet Dressing Description: Clean/Dry, Intact Exudate Amount: Minimal Exudate Characteristic(s): Bloody Integumentary Issue Intervention: Dressing Changed Fran Wound Tissue: Erythema Wound Bed Color: Red Wound Bed Constitution: Granulation Tissue Wound Edges: Epithelizing Site Measurement - Head-to-Toe Length X Width X Depth (cm): [id number] Skin Integrity Problem Comment: No necrosis remaining. Cleaned with vashe. Silvasorb applied to wound bed and covered with aquacel foam. Secured with kerlix. Left Sacrum Pressure Injury Dressing Type: Allevyn Life Dressing Description: Clean/Dry, Intact Exudate Amount: Scant Exudate Characteristic(s): Serosanguinous Integumentary Issue Intervention: Visualized Under Dressing Site Measurement - Head-to-Toe Length X Width X Depth (cm): 2x1x0 Pressure Injury Stage: Deep Tissue Injury (DTI) Skin Integrity Problem Comment: Small partial thickness opeining 0.5x0.5x0.1 in wound bed. Otherwise no change. Continue side to side turns. Pt on sport bed. Right Buttock Pressure Injury Dressing Type: Allevyn Life Integumentary Issue Intervention: Visualized Under Dressing Wound Bed Color: [place] Wound Bed Constitution: Smooth Tissue Wound Edges: Attached Site Measurement - Head-to-Toe Length X Width X Depth (cm): 0.5x0.5x0.1 (x2) Pressure Injury Stage: Stage 2 Skin Integrity Problem Comment: Two very small and shallow partial thickness wounds without surrounding erythema. Posterior Heel and Achilles Dressing Type: Open to Air Site Measurement - Head-to-Toe Length X Width X Depth (cm): 8x2.3x0 Pressure Injury Stage: Deep Tissue Injury (DTI) Pressure Injury Present on Admit: No Skin Integrity Problem Comment: Large area of deep tissue injury posterior to present stage 4 pressure injury. New wound mixed in with an older wound. Total wound extends superiorly 8 cm from the posterior heel and includes the achilles. The area over the achilles does to appear to be part of an older wound as it has a small amount of evolving eschar at 12 oclock. The heel however (distal 5 cm of the measurement) is an intact Deep Tissue Injury that is very recent and has not yet evolved. Reiterated the need for offloading and keeping the patient's heels in offloading boots at all times. Left Posterior Heel Pressure Injury Dressing Type: Open to Air Site Measurement - Head-to-Toe Length X Width X Depth (cm): 2x2x0 Pressure Injury Stage: Stage 1 Pressure Injury Present on Admit: No Skin Integrity Problem Comment: A dark stage 1 pressure injury that may be evolving to a deep tissue injury. Mirrors location of the new pressure injury on the right heel. Offloading boots to bilateral heels at all times. Right Dorsal Hand Dressing Type: Open to Air Exudate Amount: None Site Measurement - Head-to-Toe Length X Width X Depth (cm): [id number] Skin Integrity Problem Comment: Distinct area of necrosis of the epidermis with blistering. Unclear etiology. Per patient report present for "a couple of days ". No drainage at this time. May cover the area with mepilex transfer and netting for protection.
--- NOTE | 2016-06-01 17:27 | PCMIDPN ---
Assessment/Plan: Assessment/Plan: 1. Bilateral necrotic heels ulcers with LE cellulitis - right heel wound did probe to bone initially.--concerning for possible osteomyelitis. - cellulitis component has improved. -Appreciate wound care and surgery's assistance -wound Cx :polymicrobial - blood cx ngtd -On zosyn for now. -wound vacs to b/l heels. wounds examined with WO - meds zosyn 3.375gm q6 s/p vanco 1g q12- Subjective: afebrile. in icu due to GI bleeds. c/o pain when legs are moved. denies sob. more oriented today comparatively. denies abd pain. Objective: Vital Signs Temp Pulse Resp BP Pulse Ox 36.6 C 86 18 98/44 L 96 06/01/16 11:40 06/01/16 16:08 06/01/16 16:08 06/01/16 11:40 06/01/16 16:08 Microbiology 05/24/16 14:00 Gram Stain - Final Foot - Tissue Anaerobic Culture - Final Morganella Morganii Providencia Rettgeri Bacteroides Fragilis Laboratory Results 06/01/16 08:15 06/01/16 04:50 05/31/16 06/01/16 06/02/16 05:59 05:59 05:59 Intake Total 785 350 Output Total 2800 2750 Balance -2014 C-Reactive Protein 139.3 mg/L (<10.0) H 05/25/16 09:10 - Physical Exam General Appearance: alert, no apparent distress Respiratory: lungs clear Cardiac/Chest: regular rate, rhythm Extremities: swelling Abdomen: normal bowel sounds, non-tender, soft, No distended Skin: other (wounds examined with wound care nurse. legs less weeping involving the superficial ulcerstaions. Both heels wit necrosis noted. wound vac replaced today. new pressure sore developing at back of right lower leg/ achillis region. ) ICD10 Worksheet Patient Problems: Problems Problem Status Diagnosed Venous stasis dermatitis of both lower extremities Acute
[2016-06-01] MEDS: PRAVASTATIN SODIUM 20 MG TAB PO SCH (20:26)
[2016-06-02] MEDS: IPRATROPIUM/ALBUTEROL 3 ML DEYVIAL IH SCH ×5 (00:27→20:54)
[2016-06-02] MEDS: PIPERACILLIN/TAZO 3.375 GM/DEX 50 ML IV SCH ×3 (05:21→17:37)
[2016-06-02] MEDS: oxyCODONE IR 5 MG TAB PO PRN (05:26)
[2016-06-02 05:55] LABS: % IMMATURE GRANULYOCYTES 1.1 % (0.0-1.1); ADD DIFF? NO; ADD MORPH? NO; ADD SCAN? NO; ATYPICAL LYMPHOCYTE FLAG 20 (0-99); FRAGMENT RBC FLAG 0 (0-99); HEMOGLOBIN 7.4 g/dL (12.6-16.3); LEFT SHIFT FLG 10 (0-99); LIPEMIA HEMOLYSIS FLAG 80 (0-99); MEAN CELL HEMOGLOBIN 30.8 pg (27.9-34.1); MEAN CELL HEMOGLOBIN CONCENTR. 33.6 g/dL (32.4-36.7); MEAN CELL VOLUME 91.7 fL (81.5-99.8); MEAN PLATELET VOLUME 9.5 fL (8.7-11.7); PLATELET CLUMPS FLAG 0 (0-99); PLATELET COUNT 301 10^3/uL (150-400); RED CELL DISTRIBUTION WIDTH 14.8 % (11.5-15.2)
[2016-06-02 06:19] LABS: ANION GAP 3 mEq/L (8-16); CALCIUM 7.5 mg/dL (8.5-10.4); CARBON DIOXIDE 30 mEq/l (22-31); CHLORIDE 102 mEq/L (97-110); CREATININE 0.7 mg/dL (0.6-1.0); GLOMERULAR FILTRATION RATE > 60; GLUCOSE 90 mg/dL (70-100); POTASSIUM 3.5 mEq/L (3.5-5.2); SODIUM 135 mEq/L (134-144)
[2016-06-02] MEDS: MULTIVITAMINS 1 EACH TAB PO SCH (09:09)
[2016-06-02] MEDS: PANTOPRAZOLE SODIUM 40 MG TAB PO SCH ×2 (09:09→20:09)
[2016-06-02] MEDS: SUCRALFATE 1 GM TAB PO SCH ×4 (09:09→20:09)
[2016-06-02] MEDS: DIAZEPAM 2 MG TAB PO PRN (13:04)
[2016-06-02] MEDS ORDERED: POTASSIUM CL 20 MEQ TAB PO ONE (13:13)
--- NOTE | 2016-06-02 13:17 | HOSPPROG ---
Hospitalist Progress Note Assessment/Plan: Assessment: 75-year-old female presents with suspected osteomyelitis and polymicrobial gangrene in the setting of acute upper gastrointestinal hemorrhage and acute blood loss anemia Plan: #Acute blood loss anemia: 2/2 upper gastrointestinal hemorrhage, evidenced by hemoglobin level less than 8 with positive fecal occult blood #Duodenal ulcer: Resulting in acute upper gastrointestinal hemorrhage, hold on EGD -discussed with Dr. 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 LTAC -will likely need LTAC for intense wound care -A1c 6.3% -ABIs unobtainable 2/2 edema and leg discomfort, hold on CT angio given that any further intervention would require stenting/antiplatelet Rx, and w/ her bleed above, that would be medically contraindicated #CIERRA: Most likely secondary to hypovolemia, resolved status post IV fluids #CAD. Cont statin. Hold ASA with GIB -given relative hypotension, continue to hold beta-kalin and DEMETRIO-inhibitor -given degree of LE edema, initiate lasix/K daily and monitor lytes #COPD. Chronic, no signs of exacerbation #Deconditioning: per daughter, pt ambulating on own day prior to admission. She uses cane in parking lots. Daughter states pt very private and never spoke of wounds on heels or other issues -PT/OT Diet: Regular Prophylaxis: High risk patient, Lovenox 40 Code: Do not resuscitate Despite: Anticipated discharge uncertain, pending stabilization of above, discussed with case management on team rounds today, LTAC versus custodial facility Subjective: Reports ongoing significant discomfort in her legs secondary to spasms, alleviated with Valium, patient continues to request indwelling Sierra catheter Objective: Vital Signs Temp Pulse Resp BP Pulse Ox 36.3 C 102 H 18 113/53 L 96 06/02/16 11:47 06/02/16 11:47 06/02/16 11:47 06/02/16 11:47 06/02/16 12:27 Laboratory Results 06/02/16 05:38 06/02/16 05:38 01/07/1706/02/16 06/03/16 05:59 05:59 05:59 Intake Total 350 1260 Output Total 2750 1600 Balance -2400 -340 PT 13.6 SEC (12.0-15.0) 05/24/16 10:08 INR 1.05 (0.83-1.16) 05/24/16 10:08 - Physical Exam Constitutional: no apparent distress, chronically ill appearing, obese, uncomfortable Cardiovascular: systolic murmur (106 sternal), edema (Bilateral lower extremity 2+ edema), No irregularly irregular, No tachycardia Respiratory: reduced air movement (Bilateral bases), inspiratory crackles ( Bilateral bases), No expiratory wheeze, No bronchial breath sounds, No respiratory distress Gastrointestinal: normoactive bowel sounds, soft, non-tender abdomen, no palpable masses, distension (Obese and mildly) Skin: other (Lower extremity wounds are wrapped, VAC is in place bilateral) Neurologic: AAOx3, sensation intact bilaterally, No facial droop Psychiatric: interacting appropriately, not anxious, not encephalopathic, thought process linear ICD10 Worksheet Patient Problems: Problems Problem Status Diagnosed Venous stasis dermatitis of both lower extremities Acute
[2016-06-02] MEDS ORDERED: FUROSEMIDE 20 MG TAB PO SCH (13:30)
[2016-06-02] MEDS: PRAVASTATIN SODIUM 20 MG TAB PO SCH (20:09)
[2016-06-03] MEDS: PIPERACILLIN/TAZO 3.375 GM/DEX 50 ML IV SCH ×5 (01:06→23:08)
[2016-06-03] MEDS: DIAZEPAM 2 MG TAB PO PRN ×3 (02:13→23:07)
[2016-06-03] MEDS: oxyCODONE IR 5 MG TAB PO PRN ×3 (02:13→23:07)
[2016-06-03] MEDS: IPRATROPIUM/ALBUTEROL 3 ML DEYVIAL IH SCH ×2 (05:47→11:04)
[2016-06-03] MEDS ORDERED: ALTEPLASE 2 MG VIAL IVP ONE (06:00)
[2016-06-03 06:22] LABS: % IMMATURE GRANULYOCYTES 1.1 % (0.0-1.1); ADD DIFF? NO; ADD MORPH? NO; ADD SCAN? NO; ATYPICAL LYMPHOCYTE FLAG 40 (0-99); FRAGMENT RBC FLAG 0 (0-99); HEMATOCRIT 24.7 % (38.0-47.0); HEMOGLOBIN 8.1 g/dL (12.6-16.3); LEFT SHIFT FLG 10 (0-99); LIPEMIA HEMOLYSIS FLAG 80 (0-99); MEAN CELL HEMOGLOBIN CONCENTR. 32.8 g/dL (32.4-36.7); MEAN CELL VOLUME 91.5 fL (81.5-99.8); MEAN PLATELET VOLUME 9.1 fL (8.7-11.7); PLATELET CLUMPS FLAG 0 (0-99); PLATELET COUNT 338 10^3/uL (150-400)
[2016-06-03 06:44] LABS: ANION GAP 2 mEq/L (8-16); CALCIUM 7.6 mg/dL (8.5-10.4); CARBON DIOXIDE 32 mEq/l (22-31); CHLORIDE 101 mEq/L (97-110); CREATININE 0.7 mg/dL (0.6-1.0); GLOMERULAR FILTRATION RATE > 60; GLUCOSE 96 mg/dL (70-100); MAGNESIUM 1.5 mg/dL (1.6-2.3); POTASSIUM 3.7 mEq/L (3.5-5.2); SODIUM 135 mEq/L (134-144)
[2016-06-03] MEDS ORDERED: MAGNESIUM SULF 1 GM/DEXTROSE 100 ML IV ONE (08:27)
[2016-06-03] MEDS: MULTIVITAMINS 1 EACH TAB PO SCH (08:32)
[2016-06-03] MEDS: SUCRALFATE 1 GM TAB PO SCH ×4 (08:32→19:45)
[2016-06-03] MEDS: PANTOPRAZOLE SODIUM 40 MG TAB PO SCH ×2 (08:32→19:45)
[2016-06-03] MEDS: FUROSEMIDE 20 MG/2 ML VIAL IVP SCH ×2 (08:35→15:39)
[2016-06-03] MEDS: POTASSIUM CL 20 MEQ TAB PO SCH (08:35)
[2016-06-03] MEDS ORDERED: IPRATROPIUM/ALBUTEROL 3 ML DEYVIAL IH PRN (11:22)
[2016-06-03] MEDS ORDERED: BUPIVACAINE 0.5% 30 ML SDV ONE (11:37)
[2016-06-03] MEDS ORDERED: POLYMYXIN B SULFATE 500,000 UNIT/10 ML SYR IRR ONE (11:37)
[2016-06-03] MEDS ORDERED: BACITRACIN 50,000 UNITS/10 ML SYR IRR ONE (11:37)
[2016-06-03] MEDS ORDERED: MIDAZOLAM 2 MG/2 ML VIAL ONE (12:21)
[2016-06-03] MEDS ORDERED: fentaNYL 100 MCG/2 ML INJ ONE ×2 (12:25→12:53)
[2016-06-03] MEDS ORDERED: PROPOFOL 200 MG/20 ML VIAL ONE (12:25)
[2016-06-03] MEDS ORDERED: LIDOCAINE 2% 100 MG/5 ML SYR IVP ONE (12:26)
--- NOTE | 2016-06-03 14:15 | GOP ---
[f rep st] OPERATIVE REPORT DATE OF OPERATION: SURGEON: Bushra Whiting MD PREOPERATIVE DIAGNOSIS: Bilateral heel pressure ulceration to the plantar fascia, superficial ulcera tion of bilateral lower legs. POSTOPERATIVE DIAGNOSIS: Bilateral heel pressure ulceration to the plantar fascia, superficial ulcer ation of bilateral lower legs. PROCEDURE PERFORMED: Incision and debridement with wound VAC placement of bilateral heels and bilate ral lower legs. FINDINGS: SPECIMENS: Necrotic tissue from bilateral heels and bilateral lower legs sent for Gram stain and cul ture. ESTIMATED BLOOD LOSS: 100 mL. INDICATIONS: The patient is a 75-year-old woman with bilateral pressure ulcers of her heels and bila teral superficial ulceration of bilateral lower legs. She has been debrided twice at the bedside, bu t was noted to have additional necrotic tissue of bilateral heels. She opted for I and D in the oper ating room as well as wound VAC placement in the operating room. DESCRIPTION OF PROCEDURE: After informed consent was obtained and therapeutic antibiotics were vimal nued, the patient was taken to the operating room, placed in a supine position. General anesthesia w as administered. She was prepped and draped in a sterile fashion. After an appropriate surgical jcarlos se, necrotic tissue at the base of the left heel ulcer was debrided sharply using a scalpel. The esc janey of the left leg was also debrided using a scalpel. We then proceeded with debridement of the rig ht heel and right lower leg eschar sharply with a scalpel. Hemostasis was obtained using Surgicel an d electrocautery. Hydrofera Blue was placed to bilateral lower leg ulcers. Wound VAC was placed. S ponge was placed on bilateral heel ulcers, and sponge attached to negative pressure therapy, noting n o leak. The lower legs and heels were then wrapped with 4-inch Kerlix gauze. Once she has been awak ened from general anesthesia, she will be extubated and taken to the post anesthesia recovery unit. /[id number]/MODL
--- NOTE | 2016-06-03 17:18 | HOSPPROG ---
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 LTAC -will likely need LTAC for intense wound care -A1c 6.3% -ABIs unobtainable 2/2 edema and leg discomfort, hold on CT angio given that any further intervention would require stenting/antiplatelet Rx, and w/ her bleed above, that would be medically contraindicated -d/w Dr. Whiting, going to OR today for tissue debridement and will reassess evolution of wound margins over the next 48hrs to determine if she is experiencing recurrent tissue necrosis #CIERRA: Most likely secondary to hypovolemia, resolved status post IV fluids #CAD. Cont statin. Hold ASA with GIB -given relative hypotension, continue to hold beta-kalin and DEMETRIO-inhibitor -given degree of LE edema, initiated lasix/K daily and monitor lytes, increase to bid dosing #COPD. Chronic, no signs of exacerbation #Deconditioning: per daughter, pt ambulating on own day prior to admission. She uses cane in parking lots. Daughter states pt very private and never spoke of wounds on heels or other issues -PT/OT #Leg pain: Bilat, 2/2 wounds w/ suspected neuropathic component, responding to valium/oxy IR -will start gabapentin 300mg HS -temporarily use requip brenda -PRN valium/oxy IR Diet: Regular Prophylaxis: High risk patient, Lovenox 40 Code: Do not resuscitate Despite: Anticipated discharge uncertain, pending stabilization of above, discussed with case management on team rounds today, LTAC Subjective: ongoing bilateral lower extremity pain, response to Valium and oxycodone, moving bowels Objective: Vital Signs Temp Pulse Resp BP Pulse Ox 36.7 C 80 21 H 124/56 H 99 01/04/17 14:46 06/03/16 16:00 06/03/16 16:00 06/03/16 16:00 06/03/16 16:00 Laboratory Results 06/03/16 06:10 06/03/16 06:10 06/02/16 06/03/16 06/04/16 05:59 05:59 05:59 Intake Total 1260 1820 430 Output Total 1600 1625 1970 Balance -340 195 -1540 PT 13.6 SEC (12.0-15.0) 05/24/16 10:08 INR 1.05 (0.83-1.16) 05/24/16 10:08 - Time Spent With Patient Time Spent with Patient: greater than 35 minutes Time Spent with Patient: Greater than 35 minutes spent on this patients care, greater than 50% of time spent counseling, educating, and coordinating care regarding the above mentioned plan. - Physical Exam Constitutional: chronically ill appearing, obese, uncomfortable Cardiovascular: regular rate and rhythym, no murmur, rub, or gallop Respiratory: no respiratory distress, reduced air movement, inspiratory crackles Gastrointestinal: normoactive bowel sounds, soft, non-tender abdomen, no palpable masses Neurologic: AAOx3, sensation intact bilaterally Psychiatric: interacting appropriately, not anxious, not encephalopathic, thought process linear ICD10 Worksheet Patient Problems: Problems Problem Status Diagnosed Venous stasis dermatitis of both lower extremities Acute
--- NOTE | 2016-06-03 17:33 | PCMIDPN ---
Assessment/Plan: Assessment: Bilateral lower extremity wounds with lower extremity cellulitis and bilateral necrotic heel ulcers. At least 1 ulcer probes to bone at the calcaneus. Polymicrobial cultures from these wounds. Currently being managed on Zosyn. GI bleed seems to be stabilized. At this point the patient is looking to go to an LTAC. Would continue to manage on Zosyn for a grand total of 2 weeks. Plan: 1. Continue Zosyn for a period of 14 days from antibiotic start. 2. Follow the appearance of her lower extremities. 3. Continue wound care. Subjective: Patient is resting in bed. No significant new complaint. Tolerating antibiotic without issue. Objective: Zosyn # 9 Vital Signs Temp Pulse Resp BP Pulse Ox 36.7 C 80 21 H 124/56 H 99 06/03/16 14:46 06/03/16 16:00 06/03/16 16:00 06/03/16 16:00 06/03/16 16:00 Laboratory Results 06/03/16 06:10 06/03/16 06:10 06/02/16 06/03/16 06/04/16 05:59 05:59 05:59 Intake Total 1260 1820 430 Output Total 1600 1625 1970 Balance -340 195 -1540 C-Reactive Protein 139.3 mg/L (<10.0) H 05/25/16 09:10 - Physical Exam General Appearance: WD/WN, alert, no apparent distress, non-toxic Respiratory: lungs clear, normal breath sounds, No respiratory distress Cardiac/Chest: regular rate, rhythm, No tachycardia Extremities: non-tender, No normal inspection, No inflammation, No necrosis Skin: normal color, warm/dry, No rash Neuro/Psych: alert, normal mood/affect, oriented x 3 ICD10 Worksheet Patient Problems: Problems Problem Status Diagnosed Venous stasis dermatitis of both lower extremities Acute
[2016-06-03] MEDS: GABAPENTIN 300 MG CAP PO SCH (19:45)
[2016-06-03] MEDS: PRAVASTATIN SODIUM 20 MG TAB PO SCH (19:45)
[2016-06-04] MEDS: oxyCODONE IR 5 MG TAB PO PRN ×2 (05:15→23:25)
[2016-06-04] MEDS: PIPERACILLIN/TAZO 3.375 GM/DEX 50 ML IV SCH ×4 (05:19→23:25)
[2016-06-04 05:56] LABS: % IMMATURE GRANULYOCYTES 0.8 % (0.0-1.1); ABSOLUTE IMMATURE GRANULOCYTES 0.07 10^3/uL (0.00-0.10); ADD DIFF? NO; ADD MORPH? NO; ADD SCAN? NO; ATYPICAL LYMPHOCYTE FLAG 30 (0-99); FRAGMENT RBC FLAG 0 (0-99); HEMATOCRIT 24.9 % (38.0-47.0); HEMOGLOBIN 8.2 g/dL (12.6-16.3); LEFT SHIFT FLG 0 (0-99); LIPEMIA HEMOLYSIS FLAG 80 (0-99); MEAN CELL HEMOGLOBIN 29.7 pg (27.9-34.1); MEAN CELL HEMOGLOBIN CONCENTR. 32.9 g/dL (32.4-36.7); MEAN CELL VOLUME 90.2 fL (81.5-99.8); MEAN PLATELET VOLUME 8.7 fL (8.7-11.7); PLATELET CLUMPS FLAG 0 (0-99); PLATELET COUNT 358 10^3/uL (150-400); RED BLOOD CELL COUNT 2.76 10^6/uL (4.18-5.33); RED CELL DISTRIBUTION WIDTH 15.9 % (11.5-15.2)
[2016-06-04 07:23] LABS: ANION GAP 2 mEq/L (8-16); CALCIUM 7.8 mg/dL (8.5-10.4); CARBON DIOXIDE 34 mEq/l (22-31); CHLORIDE 97 mEq/L (97-110); CREATININE 0.7 mg/dL (0.6-1.0); GLOMERULAR FILTRATION RATE > 60; GLUCOSE 95 mg/dL (70-100); MAGNESIUM 1.6 mg/dL (1.6-2.3); POTASSIUM 3.4 mEq/L (3.5-5.2); SODIUM 133 mEq/L (134-144)
[2016-06-04] MEDS ORDERED: POTASSIUM CL 20 MEQ TAB PO ONE (08:26)
[2016-06-04] MEDS ORDERED: MAGNESIUM SULF 1 GM/DEXTROSE 100 ML IV ONE (08:26)
[2016-06-04] MEDS: FUROSEMIDE 20 MG TAB PO SCH ×2 (09:08→16:17)
[2016-06-04] MEDS: MULTIVITAMINS 1 EACH TAB PO SCH (09:08)
[2016-06-04] MEDS: PANTOPRAZOLE SODIUM 40 MG TAB PO SCH ×2 (09:08→20:25)
[2016-06-04] MEDS: SUCRALFATE 1 GM TAB PO SCH ×4 (09:08→20:25)
[2016-06-04] MEDS: POTASSIUM CL 20 MEQ TAB PO SCH (09:09)
--- NOTE | 2016-06-04 12:34 | HOSPPROG ---
Hospitalist Progress Note Assessment/Plan: INTERVAL SUMMARY & DAILY PROGRESS NOTE DATE OF ADMISSION: 05/24/2016 INTERVAL DIAGNOSES 1. Suspected osteomyelitis 2. Polymicrobial gangrene 3. Acute blood loss anemia 4. Acute duodenal ulcer with acute upper gastrointestinal hemorrhage 5. Next acute kidney injury 6. Suspected neuropathy 7. Chronic coronary artery disease 8. COPD 9. Severe deconditioning CONSULTATIONS General surgery by Dr. Whiting, infectious Disease, Pulmonary Critical Care, Wound Care PROCEDURES / IMAGING 05/24/2016 debridement and wound VAC placement by Dr. Whiting, 06/03/2016 debridement and wound VAC reassessment by Dr. Whiting, 05/29/[address] Sommer CHIEF COMPLAINT Acute leg pain SUBJECTIVE Patient reports that her leg pain is currently stable, had a bowel movement which was dark but not black HOSPITAL COURSE BY PROBLEM Patient presented with leg pain secondary to polymicrobial gangrene and deep ulcers suspicious for osteomyelitis with visible bone on debridement. Patient was initiated on Zosyn and this is covering her multiple organisms. She also experiencing acute GI hemorrhage secondary to a duodenal ulcer which was intervened upon by Dr. Sommer. The patient's GI bleed as stabilized, and we have been focusing the last 48 hours of our care on her bilateral leg pain as well as her leg infections. Dr. Whiting performed debridement of the necrotic margins on 06/03/16 and she is advised that we monitor these wound areas for approximately 48-72 hours post debridement to determine whether they will require further debridement over the patient is safe for discharge to an LTAC with wound vacs and regular surgical reassessment. 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 Whiting, recommends 48-72hrs of wound monitoring post-debridement on 06/03 to ensure that the fresh margins are not becoming necrotic -if the margins are looking stable (daily wound care reassessments), then patient can discharge to LTAC and have regular f/u Dr. Whiting as outpt #Suspected neuropathy. We suspect that she had underlying neuropathy in the setting of these chronic, evolving ulcers -A1c 6.3% -ABIs unobtainable 2/2 edema and leg discomfort, hold on CT angio given that any further intervention would require stenting/antiplatelet Rx, and w/ her bleed above, that would be medically contraindicated, patient currently deferring -Dr. Whiting noted good bleeding at wound sites, making stenosis less likely -initiated gabapentin 300mg HS 06/03, uptitrate q3 days, placed on scheduled ropinarol 0.5mg tid w/ breakthrough oxy IR/valium #CIERRA: Most likely secondary to hypovolemia, resolved status post IV fluids #CAD. Cont statin. Hold ASA with GIB -given relative hypotension, continue to hold beta-kalin and DEMETRIO-inhibitor -given degree of LE edema, cont PO lasix/K daily and monitor lytes #COPD. Chronic, no signs of exacerbation #Deconditioning: per daughter, pt ambulating on own day prior to admission. She uses cane in parking lots. Daughter states pt very private and never spoke of wounds on heels or other issues -PT/OT Diet: Regular Prophylaxis: High risk patient, Lovenox 40 Code: Do not resuscitate Despite: Anticipated discharge uncertain, pending stabilization of wound margins over next 48hrs, LTAC Subjective: Patient reports dark but not melanotic bowel movement overnight, continues to use oxycodone and Valium for pain control of legs Objective: Vital Signs Temp Pulse Resp BP Pulse Ox 36.9 C 86 23 H 96/39 L 94 06/04/16 07:50 06/04/16 07:50 06/04/16 07:50 06/04/16 07:50 06/04/16 07:50 Microbiology 06/03/16 13:02 Gram Stain - Final Foot - Tissue 06/03/16 13:02 Gram Stain - Final Foot - Tissue Laboratory Results 06/04/16 05:45 06/04/16 05:45 06/03/16 06/04/16 06/05/16 05:59 05:59 05:59 Intake Total 1820 1969 Output Total 1628 4280 Balance 195 -2100 PT 13.6 SEC (12.0-15.0) 05/24/16 10:08 INR 1.05 (0.83-1.16) 05/24/16 10:08 - Time Spent With Patient Time Spent with Patient: greater than 35 minutes Time Spent with Patient: Greater than 35 minutes spent on this patients care, greater than 50% of time spent counseling, educating, and coordinating care regarding the above mentioned plan. - Physical Exam Constitutional: no apparent distress, chronically ill appearing, obese, uncomfortable Cardiovascular: systolic murmur (2/6 at this time), edema (2+ bilateral lower extremity), No irregularly irregular, No tachycardia Respiratory: reduced air movement (Bilateral bases), No expiratory wheeze, No inspiratory crackles, No bronchial breath sounds Gastrointestinal: normoactive bowel sounds, soft, non-tender abdomen, no palpable masses Skin: other (Bilateral lower extremities are bandaged, poor nails on the bilateral toes) Neurologic: AAOx3, weakness (Bilateral hip flexors), other (Reduced sensation on the toes bilaterally) Psychiatric: interacting appropriately, not anxious, not encephalopathic, thought process linear ICD10 Worksheet Patient Problems: Problems Problem Status Diagnosed Venous stasis dermatitis of both lower extremities Acute
--- NOTE | 2016-06-04 15:18 | PCMIDPN ---
Assessment/Plan: Assessment: Bilateral lower extremity wounds with lower extremity cellulitis and bilateral necrotic heel ulcers. At least 1 ulcer probes to bone at the calcaneus. Polymicrobial cultures from these wounds. Currently being managed on Zosyn. GI bleed seems to be stabilized. At this point the patient is looking to go to an LTAC. Would continue to manage on Zosyn for a grand total of 2 weeks. Continue wound vacs to bilateral heel ulcers. Plan: 1. Continue Zosyn for a period of 14 days from antibiotic start. 2. Follow the appearance of her lower extremities. 3. Continue wound care. 06/04/16 15:16 Subjective: Patient is resting comfortably in her hospital bed no new events. No complaints. No fever. Objective: Zosyn # 10 Vital Signs Temp Pulse Resp BP Pulse Ox 36.9 C 86 23 H 96/39 L 94 06/04/16 07:50 06/04/16 07:50 06/04/16 07:50 06/04/16 07:50 06/04/16 07:50 Microbiology 06/03/16 13:02 Gram Stain - Final Foot - Tissue 06/03/16 13:02 Gram Stain - Final Foot - Tissue Laboratory Results 06/04/16 05:45 06/04/16 05:45 06/03/16 06/04/16 06/05/16 05:59 05:59 05:59 Intake Total 1820 1970 Output Total 1625 4070 Balance 195 -2100 C-Reactive Protein 139.3 mg/L (<10.0) H 05/25/16 09:10 - Physical Exam General Appearance: WD/WN, alert, no apparent distress, non-toxic Respiratory: lungs clear, normal breath sounds, No respiratory distress Cardiac/Chest: regular rate, rhythm, No tachycardia Extremities: No non-tender, No normal inspection (Bilateral lower extremity edema with foot and heel ulcerations. Heel ulcers with wound vacs bilaterally. Both lower legs and feet are exquisitely tender.) Skin: normal color, warm/dry, No rash Neuro/Psych: alert, normal mood/affect, oriented x 3 ICD10 Worksheet Patient Problems: Problems Problem Status Diagnosed Venous stasis dermatitis of both lower extremities Acute
[2016-06-04] MEDS: PRAVASTATIN SODIUM 20 MG TAB PO SCH (20:25)
[2016-06-04] MEDS: GABAPENTIN 300 MG CAP PO SCH (20:25)
[2016-06-04] MEDS: DIAZEPAM 2 MG TAB PO PRN (23:25)
[2016-06-05] MEDS: PIPERACILLIN/TAZO 3.375 GM/DEX 50 ML IV SCH ×4 (05:53→23:30)
[2016-06-05 06:11] LABS: HEMATOCRIT 24.2 % (38.0-47.0); HEMOGLOBIN 7.8 g/dL (12.6-16.3); MEAN CELL HEMOGLOBIN 29.5 pg (27.9-34.1); MEAN CELL HEMOGLOBIN CONCENTR. 32.2 g/dL (32.4-36.7); MEAN CELL VOLUME 91.7 fL (81.5-99.8); RED BLOOD CELL COUNT 2.64 10^6/uL (4.18-5.33); RED CELL DISTRIBUTION WIDTH 15.4 % (11.5-15.2)
[2016-06-05 06:30] LABS: ANION GAP 3 mEq/L (8-16); CALCIUM 7.6 mg/dL (8.5-10.4); CARBON DIOXIDE 35 mEq/l (22-31); CHLORIDE 97 mEq/L (97-110); CREATININE 0.7 mg/dL (0.6-1.0); GLOMERULAR FILTRATION RATE > 60; GLUCOSE 114 mg/dL (70-100); MAGNESIUM 1.5 mg/dL (1.6-2.3); POTASSIUM 3.8 mEq/L (3.5-5.2); SODIUM 135 mEq/L (134-144)
[2016-06-05] MEDS: MULTIVITAMINS 1 EACH TAB PO SCH (09:27)
[2016-06-05] MEDS: PANTOPRAZOLE SODIUM 40 MG TAB PO SCH ×2 (09:27→21:35)
[2016-06-05] MEDS: POTASSIUM CL 20 MEQ TAB PO SCH (09:27)
[2016-06-05] MEDS: SUCRALFATE 1 GM TAB PO SCH ×4 (09:27→21:36)
[2016-06-05] MEDS: ACETAMINOPHEN 325 MG TAB PO PRN (09:28)
[2016-06-05] MEDS: FUROSEMIDE 20 MG TAB PO SCH ×2 (09:30→14:35)
--- NOTE | 2016-06-05 10:54 | HOSPPROG ---
Hospitalist Progress Note Assessment/Plan: INTERVAL DIAGNOSES 1. Suspected osteomyelitis 2. Polymicrobial gangrene 3. Acute blood loss anemia 4. Acute duodenal ulcer with acute upper gastrointestinal hemorrhage 5. Next acute kidney injury 6. Suspected neuropathy 7. Chronic coronary artery disease 8. COPD 9. 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 Whiting, recommends 48-72hrs of wound monitoring post-debridement on 06/03 to ensure that the fresh margins are not becoming necrotic -if the margins are looking stable (daily wound care reassessments), then patient can discharge to LTAC and have regular f/u Dr. Whiting as outpt #Suspected neuropathy. We suspect that she had underlying neuropathy in the setting of these chronic, evolving ulcers -A1c 6.3% -ABIs unobtainable 2/2 edema and leg discomfort, hold on CT angio given that any further intervention would require stenting/antiplatelet Rx, and w/ her bleed above, that would be medically contraindicated, patient currently deferring -Dr. Whiting noted good bleeding at wound sites, making stenosis less likely -continue gabapentin 300mg HS (started 06/03/16), uptitrate q3 days, placed on scheduled ropinarol 0.5mg tid w/ breakthrough oxy IR/valium #CIERRA (resolved) #CAD. Cont statin. Hold ASA with GIB -given relative hypotension, continue to hold beta-kalin and DEMETRIO-inhibitor -given degree of LE edema, cont PO lasix/K daily and monitor lytes #COPD. Chronic, no signs of exacerbation #Deconditioning: per daughter, pt ambulating on own day prior to admission. She uses cane in parking lots. Daughter states pt very private and never spoke of wounds on heels or other issues -PT/OT Diet: Regular Prophylaxis: High risk patient, Lovenox 40 Code: Do not resuscitate Despite: Anticipated discharge uncertain, pending stabilization of wound margins over next 48hrs, LTAC once h/h stable Subjective: no new complaints. denies any obvious active bleeding. pain controlled Objective: Vital Signs Temp Pulse Resp BP Pulse Ox 37.3 C 89 24 H 92/42 L 96 06/05/16 07:31 06/05/16 07:31 06/05/16 07:31 06/05/16 07:31 06/05/16 07:31 Microbiology 06/03/16 13:02 Gram Stain - Final Foot - Tissue 06/03/16 13:02 Gram Stain - Final Foot - Tissue Laboratory Results 06/05/16 05:55 06/05/16 05:55 06/04/16 06/05/16 06/06/16 05:59 05:59 05:59 Intake Total 1970 1635 Output Total 4070 2100 Balance -2100 -465 PT 13.6 SEC (12.0-15.0) 05/24/16 10:08 INR 1.05 (0.83-1.16) 05/24/16 10:08 - Physical Exam Constitutional: no apparent distress, appears nourished, not in pain Cardiovascular: regular rate and rhythym, no murmur, rub, or gallop Respiratory: no respiratory distress, no rales or rhonchi, clear to auscultation Gastrointestinal: normoactive bowel sounds, soft, non-tender abdomen, no palpable masses Skin: other (clean dry dressings in place over lower legs) Neurologic: AAOx3, CN II-XII Intact, No facial droop ICD10 Worksheet Patient Problems: Problems Problem Status Diagnosed Venous stasis dermatitis of both lower extremities Acute
[2016-06-05] MEDS ORDERED: PROTOCOL MAGNESIUM 1 DOSE IV PRN (10:59)
--- NOTE | 2016-06-05 12:17 | PCMIDPN ---
Assessment/Plan: # B heal ulcers, exact cause is unclear, possible component of infection, pressure and venous stasis ulcers, multiple surgical debridements. NO active cellulitis or purulence on exam today but palpable bone on right heal ulcer. Multiple resistant organisms identified on tissue cultures but has had some clinical improvement without coverage of Steno or myroides, therefore the significance of these organisms is not clear, they could be colonizers --continue to follow clinically, no antibiotic changes for now --plan to obtain MRI on Wednesday when the wound vacs are off and if no evidence of osteo on MRI then may be able to stop antibiotics altogether. Alternatively , if osteo present may need to consider debridement --discussed case with surgery, they plan to follow peripherally over the weekend if needed call Dr. Galvan over the weekend Microbiology 05/24/2016: Foot tissue: Morganella, Providencia and Bacteroides 05/24/2016 blood cultures 2 sets no growth 05/26/2016 foot tissue: Morganella, myroides 06/03/2016 Foot tissue: Stenotrophomonas, rare SA Medication , antibiotic day 11 Zosyn 3.375 g IV Q 6 Subjective: fatigued from working with PT Objective: Vital Signs Temp Pulse Resp BP Pulse Ox 36.6 C 100 18 98/40 L 95 06/05/16 11:52 06/05/16 11:52 06/05/16 11:52 06/05/16 11:52 06/05/16 11:52 Microbiology 06/03/16 13:02 Gram Stain - Final Foot - Tissue 06/03/16 13:02 Gram Stain - Final Foot - Tissue Laboratory Results 06/05/16 05:55 06/05/16 05:55 06/04/16 06/05/16 06/06/16 05:59 05:59 05:59 Intake Total 1970 1635 Output Total 4070 2100 Balance -2100 -465 C-Reactive Protein 139.3 mg/L (<10.0) H 05/25/16 09:10 - Physical Exam General Appearance: alert, no apparent distress EENT: pale conjunctiva Respiratory: lungs clear Cardiac/Chest: regular rate, rhythm, systolic murmur Extremities: other (Multiple wounds of the lower extremities please see documentation by wound care nurse. I examined patient with wound RN and agree with her documentation of the wounds. She has stage III pressure ulcers of the bilateral heels with palpable bone on the right. Tissue on the left heel is somewhat spongy or boggy. All tissues bleed very easily) Abdomen: normal bowel sounds, non-tender, soft Skin: No rash Neuro/Psych: alert, normal mood/affect, oriented x 3 - Line/s RUE PICC Lines: No drainage, No erythema ICD10 Worksheet Patient Problems: Problems Problem Status Diagnosed Venous stasis dermatitis of both lower extremities Acute
[2016-06-05] MEDS: oxyCODONE IR 5 MG TAB PO PRN ×2 (12:40→21:40)
[2016-06-05] MEDS ORDERED: MAGNESIUM SULF 1 GM/DEXTROSE 100 ML IV ONE (14:22)
--- NOTE | 2016-06-05 15:37 | WOCRNPDOC ---
TRI Advanced Assessment Note - Skin Integrity Problem, Advanced Assess Right Heel Dressing Type: Black Vac Foam, Wound Vac Dressing Description: Intact Exudate Amount: Scant Exudate Color: Red Exudate Characteristic(s): Bloody (not noted in canister, but immediately after vac dressing was removed.) Integumentary Issue Intervention: Dressing Changed, Silver Nitrate Application ( to distal aspect, hemostasis achieved) Fran Wound Tissue: Ecchymotic, Calloused (now peeling) Fran Wound Swelling: Mild Wound Bed Color: Red, Yellow Wound Bed Constitution: Granulation Tissue (50%), Smooth Tissue (40%), Mixed Loose & Adhered Slough/Eschar (10%) Site Odor: Slight Pressure Injury Stage: Stage 4 Pressure Injury Present on Admit: Yes Skin Integrity Problem Comment: Wound was surgically debrided by Dr. Whiting in OR on 06/03. Presently, wound is full-thickness w/ bone palpable at 11 o'clock, but presently covered by a thin layer of smooth tissue. Wound bed is a mix of predominantly smooth and granulating tissues, w/ adhered slough scattered trhoughout. Fran-wound tissue mildly macerated at margins, with area of ecchymosis extending proximally. Previously calloused tissue now sloughing off, w/ partial-thickness tissue loss noted fran-wound from 6-11 o'clock. I assessed site w/ Dr. Buckley, who ordered an MRI of both lower extremities for Thursday 06/08 , to r/o osteomyelitis. Placed 1 piece of white foam over site where tissue covering bone, and placed 1 piece of black vac foam over wound bed and bridged along lateral aspect of R foot to dorsum. Vac set at 125mmHg, low, continuous suction w/ no leaks. Right Lower Leg Venous Stasis Ulcer Dressing Type: Hydrofera Blue Ready, Kerlix Dressing Description: Saturated, Shadowed Exudate Amount: Moderate Exudate Color: Reddish/Yellow Exudate Characteristic(s): Serosanguinous Integumentary Issue Intervention: Dressing Changed, Lotion/Cream Applied, Silver Gel Applied Fran Wound Tissue: Raw, Swollen, Scaly, Venous Dermatitis Fran Wound Swelling: Moderate Wound Bed Color: Black, Red, Yellow Wound Bed Constitution: Smooth Tissue, Mixed Loose & Adhered Slough/Eschar Site Odor: Slight Skin Integrity Problem Comment: Dorsal aspect of R foot, which had Hydrofera Blue Ready foam dressing covered by vac drape from R heel vac, was wet and covered by a large, gelatinous blood clot. This tissue was loose, so I removed w / gauze. There was a small area proximally that continued to bleed, so silver nitrate was applied and hemostasis achieved. Posteriorly, there is a 4.6x4.4 area of attached eschar/slough. Remainder of wounds on this extremity are smooth tissue-filled. Applied foam dressing to dorsal aspect of R foot, and ensured drape from R heel vac was only on intact skin. Re-applied Therahoney sheet to area of necrosis on posterior aspect, and applied Silvasorb gel and Adpatic touch to remaining wound beds, followed by ABD and Kerlix. account executive metalworking Zach present and assisting for all dressing changes. Left Heel Pressure Injury Dressing Type: Black Vac Foam, White Vac Foam Dressing Description: Intact Exudate Amount: Scant Exudate Color: Red Integumentary Issue Intervention: Dressing Changed Fran Wound Tissue: Macerated, Raw, Swollen Fran Wound Swelling: Mild Wound Bed Color: Red, Yellow Wound Bed Constitution: Granulation Tissue (20%), Smooth Tissue (70%), Adhered Slough (10%) Site Odor: Slight Pressure Injury Stage: Stage 3 Skin Integrity Problem Comment: Full-thickness wound, predomninatly smooth tissue, w/ scattered adhered slough. Fran-wound tissue, previously significantly macerated, is now peeling and extending out from the wound bed w/ partial-thickness tissue loss noted. Assessed site w/ Dr. Buckley, who has ordered MRIs for both R and L extremity. Two applications of skin prep fran- wound to help protect skin. 1 piece of black vac foam placed into wound bed and bridged across lateral L foot and onto dorsum. Vac set at 125mmHg low, continuous suction, no leaks. Left Lower Leg Venous Stasis Ulcer Dressing Type: Hydrofera Blue Ready, Kerlix Dressing Description: Saturated Exudate Amount: Moderate Exudate Color: Reddish/Yellow Exudate Characteristic(s): Serosanguinous Integumentary Issue Intervention: Dressing Changed, Lotion/Cream Applied, Silver Gel Applied Fran Wound Tissue: Raw, Swollen, Venous Dermatitis Fran Wound Swelling: Moderate Wound Bed Color: [place], Red Wound Bed Constitution: Smooth Tissue (90%), Adhered Slough (10%) Site Odor: None Skin Integrity Problem Comment: Hydrofera Blue Ready saturated and slick, Kelrix dried and adhered to areas not covered by foam. This extremity continues to be a challenge as far as moisture management, w/ both exudative and dry areas. Small area of adhered slough anteriorly, w/ remaining wound bed smooth tissue-filled. Copious amounts of Silvasorb applied to dry areas, while wet areas covered w/ Adaptic Touch contact layer. ABD and Kerlix to secure. account executive metalworking Zach assisting.
[2016-06-05 16:37] LABS: HEMATOCRIT 26.9 % (38.0-47.0); HEMOGLOBIN 8.8 g/dL (12.6-16.3)
[2016-06-05] MEDS: GABAPENTIN 300 MG CAP PO SCH (21:36)
[2016-06-05] MEDS: PRAVASTATIN SODIUM 20 MG TAB PO SCH (21:36)
[2016-06-06 05:18] LABS: HEMOGLOBIN 7.9 g/dL (12.6-16.3); MEAN CELL HEMOGLOBIN 29.8 pg (27.9-34.1); MEAN CELL HEMOGLOBIN CONCENTR. 31.6 g/dL (32.4-36.7); MEAN CELL VOLUME 94.3 fL (81.5-99.8); RED BLOOD CELL COUNT 2.65 10^6/uL (4.18-5.33); RED CELL DISTRIBUTION WIDTH 15.2 % (11.5-15.2)
[2016-06-06] MEDS: PIPERACILLIN/TAZO 3.375 GM/DEX 50 ML IV SCH ×4 (05:22→23:34)
[2016-06-06] MEDS: oxyCODONE IR 5 MG TAB PO PRN ×2 (05:23→22:48)
[2016-06-06 05:41] LABS: ANION GAP 5 mEq/L (8-16); CALCIUM 7.9 mg/dL (8.5-10.4); CARBON DIOXIDE 35 mEq/l (22-31); CHLORIDE 97 mEq/L (97-110); CREATININE 0.7 mg/dL (0.6-1.0); GLOMERULAR FILTRATION RATE > 60; GLUCOSE 96 mg/dL (70-100); MAGNESIUM 1.7 mg/dL (1.6-2.3); POTASSIUM 3.6 mEq/L (3.5-5.2); SODIUM 137 mEq/L (134-144)
[2016-06-06] MEDS ORDERED: MAGNESIUM SULF 1 GM/DEXTROSE 100 ML IV ONE (06:44)
[2016-06-06] MEDS: SUCRALFATE 1 GM TAB PO SCH ×4 (09:22→22:41)
[2016-06-06] MEDS: PANTOPRAZOLE SODIUM 40 MG TAB PO SCH ×2 (09:30→22:41)
[2016-06-06] MEDS: FUROSEMIDE 20 MG TAB PO SCH (09:30)
[2016-06-06] MEDS: POTASSIUM CL 20 MEQ TAB PO SCH (09:30)
[2016-06-06] MEDS: MULTIVITAMINS 1 EACH TAB PO SCH (09:30)
--- NOTE | 2016-06-06 10:44 | HOSPPROG ---
Hospitalist Progress Note Assessment/Plan: 75 yo F admitted with ble ulcers/wet gangrene/cellulitis developed GI bleed overnight with possible A flutter # wet gangrene of b/l heel ulcers with associated cellulitis, presumed osteomyelitis and chronic venous stasis ulcers: s/p surgical debridement again , right heel wound probes to bone. Mult orgs on Cx, sensitive to Zosyn. Now has wound vac. ID following, gen surg noted lots of bleeding with debridement, suggesting adequate arterial flow. -MRI planned for Wednesday -cont zosyn, potential stop date 06/11 -possible transfer to LTAC if no evidence of necrosis after 06/03 debridement, cont wound care, await MRI result # GI bleed secondary to duodenal ulcer - s/p 7 u prbc's. hgb stable, ~8. Cont BID PPI. Monitor H&H and for signs of bleeding. # acute blood loss anemia: transfusion as above # sinus tachycardia - resolved, possible flutter 05/29, dilt drip started briefly, but d/c'd when rhythm appeared more c/w sinus tachycardia, which improved with transfusion. # LUE edema - check us to r/o DVT # neuropathy - likely contributing factor to ulcers, cont gabapentin # lower extremity edema - hold lasix this afternoon given mild hypotension and rising serum bicarb. # virgil: improved, holding bradley/hctz. # CAD: without issues for > 10 years per her report, continue op medications # COPD: undiagnosed but with wheezing on exam and 60+ pack year smoking history , COPD undoubtedly present. Cont nebs, O2. # Htn: BP has been low, holding lisinopril/hctz and beta kalin for now. She has poor oral intake and has required NS boluses at times. # Onychomycosis: discussed terbinafine tx with ID, but will defer given her elevated LFT's. could reconsider this as outpt when acute infectious issues improved. Also recommend outpt podiatry consultation. # DNR: her children would be her decision maker if she could not make decisions # Dispo: cont inpt Subjective: Pt feels better today. No pain. No CP or SOB. Appetite good. SOme reports by RN of dark stools, but pt denies. Objective: Vital Signs Temp Pulse Resp BP Pulse Ox 36.9 C 90 18 88/42 L 93 06/06/16 07:40 06/06/16 07:40 06/06/16 07:40 06/06/16 07:40 06/06/16 07:40 Microbiology 06/03/16 13:02 Gram Stain - Final Foot - Tissue 06/03/16 13:02 Gram Stain - Final Foot - Tissue Laboratory Results 06/06/16 05:10 06/06/16 05:10 06/05/16 06/06/16 06/07/16 05:59 05:59 05:59 Intake Total 1635 750 Output Total 2100 1900 Balance -465 -1150 PT 13.6 SEC (12.0-15.0) 05/24/16 10:08 INR 1.05 (0.83-1.16) 05/24/16 10:08 - Physical Exam Constitutional: no apparent distress Eyes: PERRL Ears, Nose, Mouth, Throat: moist mucous membranes Cardiovascular: regular rate and rhythym Respiratory: no respiratory distress, clear to auscultation Gastrointestinal: normoactive bowel sounds, soft, non-tender abdomen Skin: warm Musculoskeletal: other (b/l LE's in prevalon boots, dressings c/d/i) Neurologic: AAOx3 Psychiatric: interacting appropriately ICD10 Worksheet Patient Problems: Problems Problem Status Diagnosed Venous stasis dermatitis of both lower extremities Acute
--- NOTE | 2016-06-06 14:14 | US ---
Left Upper Extremity Duplex Venous Ultrasound June 06, 2016 Indication: Left upper extremity swelling Technique: The left upper extremity deep venous system was interrogated with palmer-scale, color, and D oppler imaging. Findings: The internal jugular, axillary, basilic, brachial, cephalic, radial, and ulnar veins all no rmally compress on palmer-scale imaging and have appropriate flow and waveforms on spectral Doppler love ging. The subclavian vein and innominate vein have normal flow and phasicity. No fluid collection or mass. Impression: Negative. No deep venous thrombosis.
[2016-06-06] MEDS: GABAPENTIN 300 MG CAP PO SCH (22:41)
[2016-06-06] MEDS: PRAVASTATIN SODIUM 20 MG TAB PO SCH (22:42)
[2016-06-07] MEDS: oxyCODONE IR 5 MG TAB PO PRN ×2 (05:10→18:23)
[2016-06-07 05:11] LABS: HEMATOCRIT 24.5 % (38.0-47.0); HEMOGLOBIN 7.8 g/dL (12.6-16.3); LIPEMIA HEMOLYSIS FLAG 80 (0-99); MEAN CELL HEMOGLOBIN 29.7 pg (27.9-34.1); MEAN CELL HEMOGLOBIN CONCENTR. 31.8 g/dL (32.4-36.7); MEAN CELL VOLUME 93.2 fL (81.5-99.8); PLATELET COUNT 426 10^3/uL (150-400); RED BLOOD CELL COUNT 2.63 10^6/uL (4.18-5.33); RED CELL DISTRIBUTION WIDTH 14.9 % (11.5-15.2)
[2016-06-07] MEDS: PIPERACILLIN/TAZO 3.375 GM/DEX 50 ML IV SCH ×4 (05:11→23:25)
[2016-06-07 05:31] LABS: ANION GAP 5 mEq/L (8-16); CALCIUM 8.1 mg/dL (8.5-10.4); CARBON DIOXIDE 35 mEq/l (22-31); CHLORIDE 95 mEq/L (97-110); CREATININE 0.7 mg/dL (0.6-1.0); GLOMERULAR FILTRATION RATE > 60; GLUCOSE 101 mg/dL (70-100); MAGNESIUM 1.8 mg/dL (1.6-2.3); POTASSIUM 3.7 mEq/L (3.5-5.2); SODIUM 135 mEq/L (134-144)
--- NOTE | 2016-06-07 07:38 | SOAPPROG ---
SOAP Progress Note Assessment/Plan: Assessment: bilateral calcaneal pressure sores/venous stasis ulcers s/p debridement Right calcaneal wound vac removed due to bleeding debilitated patient with significant protein depletion/anemia/hx tobacco use Plan:leave wound vac off for now daily dressing change ordered discussed importance of increased protein/caloric intake 06/07/16 07:35 Subjective: awake and alert/reports significant pain with dressing changes Objective: Vital Signs Temp Pulse Resp BP Pulse Ox 36.9 C 91 20 109/68 95 06/07/16 04:00 06/07/16 04:00 06/07/16 04:00 06/07/16 04:00 06/07/16 04:00 Microbiology 06/03/16 13:02 Gram Stain - Final Foot - Tissue 06/03/16 13:02 Gram Stain - Final Foot - Tissue Laboratory Results 06/07/16 04:45 06/07/16 04:45 06/06/16 06/07/16 06/08/16 05:59 05:59 05:59 Intake Total 750 2025 Output Total 1900 1550 Balance -1150 475 PT 13.6 SEC (12.0-15.0) 05/24/16 10:08 INR 1.05 (0.83-1.16) 05/24/16 10:08 Physical Exam - Physical Exam General Appearance: alert, no apparent distress Respiratory: decreased breath sounds Cardiac/Chest: regular rate, rhythm Skin: other (bilateral lower extremity posterior air splints/left calcaneal wound vac intact/right dressing intact without bleeding) Extremities: other (distal sensation/motor function intact/good cap refill/ onychomycosis) ICD10 Worksheet Patient Problems: Problems Problem Status Diagnosed Venous stasis dermatitis of both lower extremities Acute
[2016-06-07] MEDS: SUCRALFATE 1 GM TAB PO SCH ×4 (08:08→20:46)
[2016-06-07] MEDS: MULTIVITAMINS 1 EACH TAB PO SCH (09:17)
[2016-06-07] MEDS: PANTOPRAZOLE SODIUM 40 MG TAB PO SCH ×2 (09:17→20:47)
[2016-06-07] MEDS: POTASSIUM CL 20 MEQ TAB PO SCH (09:17)
[2016-06-07] MEDS ORDERED: MAGNESIUM SULF 1 GM/DEXTROSE 100 ML IV ONE (09:24)
[2016-06-07] MEDS: LORazepam 2 MG/ML INJ IVP PRN (10:09)
--- NOTE | 2016-06-07 11:28 | HOSPPROG ---
Hospitalist Progress Note Assessment/Plan: 75 yo F admitted with ble ulcers/wet gangrene/cellulitis developed GI bleed overnight with possible A flutter # wet gangrene of b/l heel ulcers with associated cellulitis, presumed osteomyelitis and chronic venous stasis ulcers: s/p surgical debridement again , right heel wound probes to bone. Mult orgs on Cx, sensitive to Zosyn. Now has wound vac. ID following, gen surg noted lots of bleeding with debridement, suggesting adequate arterial flow. -MRI planned for Wednesday -cont zosyn, potential stop date 06/11 -possible transfer to LTAC if no evidence of osteo on MRI and no necrosis of wound edges after 06/03 debridement -wound vac off, cont wound care, await MRI result # GI bleed secondary to duodenal ulcer - s/p 7 u prbc's. hgb stable, ~8. Cont BID PPI. Monitor H&H and for signs of bleeding. # acute blood loss anemia: transfusion as above # sinus tachycardia - resolved, possible flutter 05/29, dilt drip started briefly, but d/c'd when rhythm appeared more c/w sinus tachycardia, which improved with transfusion. # LUE edema - U/S neg for DVT # neuropathy - likely contributing factor to ulcers, cont gabapentin # lower extremity edema - hold lasix this afternoon given mild hypotension and rising serum bicarb. # virgil: improved, holding bradley/hctz. # CAD: without issues for > 10 years per her report, continue op medications # COPD: undiagnosed but with wheezing on exam and 60+ pack year smoking history , COPD undoubtedly present. Cont nebs, O2. # Htn: BP has been low, holding lisinopril/hctz and beta kalin for now. She has poor oral intake and has required NS boluses at times. # Onychomycosis: discussed terbinafine tx with ID, but will defer given her elevated LFT's. could reconsider this as outpt when acute infectious issues improved. Also recommend outpt podiatry consultation. # DNR: her children would be her decision maker if she could not make decisions # Dispo: cont inpt Subjective: Pt sleepy, pre-medicated after dressing change today. No fevers. No CP or SOB. Pain is controlled. RN describes stool as dark brown, no obvious melena. Objective: Vital Signs Temp Pulse Resp BP Pulse Ox 36.8 C 92 17 106/65 94 06/07/16 07:41 06/07/16 07:41 06/07/16 07:41 06/07/16 07:41 06/07/16 07:41 Microbiology 06/03/16 13:02 Gram Stain - Final Foot - Tissue 06/03/16 13:02 Gram Stain - Final Foot - Tissue Laboratory Results 06/07/16 04:45 06/07/16 04:45 06/06/16 06/07/16 06/08/16 05:59 05:59 05:59 Intake Total 750 2025 Output Total 1900 1550 Balance -1150 475 PT 13.6 SEC (12.0-15.0) 05/24/16 10:08 INR 1.05 (0.83-1.16) 05/24/16 10:08 - Physical Exam Constitutional: no apparent distress Eyes: PERRL Ears, Nose, Mouth, Throat: moist mucous membranes Cardiovascular: regular rate and rhythym Respiratory: no respiratory distress Gastrointestinal: normoactive bowel sounds, soft, non-tender abdomen Skin: warm Musculoskeletal: other (b/l LE dressings c/d/i) Neurologic: AAOx3 Psychiatric: interacting appropriately ICD10 Worksheet Patient Problems: Problems Problem Status Diagnosed Venous stasis dermatitis of both lower extremities Acute
[2016-06-07] MEDS: GABAPENTIN 300 MG CAP PO SCH (20:47)
[2016-06-07] MEDS: PRAVASTATIN SODIUM 20 MG TAB PO SCH (20:47)
[2016-06-08] MEDS: PIPERACILLIN/TAZO 3.375 GM/DEX 50 ML IV SCH ×2 (05:50→12:41)
[2016-06-08] MEDS ORDERED: MAGNESIUM SULF 1 GM/DEXTROSE 100 ML IV ONE (08:22)
[2016-06-08] MEDS: SUCRALFATE 1 GM TAB PO SCH ×4 (08:24→20:27)
[2016-06-08] MEDS: MULTIVITAMINS 1 EACH TAB PO SCH (09:14)
[2016-06-08] MEDS: POTASSIUM CL 20 MEQ TAB PO SCH (09:14)
[2016-06-08] MEDS: PANTOPRAZOLE SODIUM 40 MG TAB PO SCH ×2 (09:14→20:27)
[2016-06-08] MEDS ORDERED: GADOBUTROL 10 ML VIAL IVP ONE (10:18)
[2016-06-08] MEDS: LORazepam 2 MG/ML INJ IVP PRN (10:55)
--- NOTE | 2016-06-08 13:41 | SOAPPROG ---
SOAP Progress Note Assessment/Plan: Assessment: s/p I&D of bilateral heel pressure ulcers immobility Plan: continue wound vacs to heels and local wound care to bilateral lower extremities In 3 debridements I have yet to palpate bone in either heel ulcers; during my last debridement on 06/03, I did reach plantar fascia on the right side 06/08/16 13:35 Subjective: sedated for wound vac changes Objective: Vital Signs Temp Pulse Resp BP Pulse Ox 36.4 C 100 26 H 112/59 L 92 06/08/16 12:00 06/08/16 12:00 06/08/16 12:00 06/08/16 12:00 06/08/16 12:00 Microbiology 06/03/16 13:02 Gram Stain - Final Foot - Tissue 06/03/16 13:02 Gram Stain - Final Foot - Tissue Laboratory Results 06/07/16 04:45 06/07/16 04:45 06/07/16 06/08/16 06/09/16 05:59 05:59 05:59 Intake Total 5 2455 600 Output Total 1550 1625 1150 Balance 475 830 -550 PT 13.6 SEC (12.0-15.0) 05/24/16 10:08 INR 1.05 (0.83-1.16) 05/24/16 10:08 Physical Exam - Physical Exam Extremities: other (nice granulation tissue of bilateral heel wounds with minimal superficial fat necrosis on the right side, new eschar development of the skin overlying the right Achilles region, superficial lower leg wounds ) ICD10 Worksheet Patient Problems: Problems Problem Status Diagnosed Venous stasis dermatitis of both lower extremities Acute
--- NOTE | 2016-06-08 13:59 | PCMIDPN ---
Assessment/Plan: Assessment/Plan: * Bilateral heel ulcerations post debridement: Polymicrobial cultures with current antibiotic therapy not targeting all organisms but given that soft tissue findings felt to be improved will not modify therapy at this point. Await MRI to assess for osteomyelitis. No palpable or visible bone on exam today. If no evidence of osteomyelitis on MRI will discontinue antibiotic therapy given has received 2 weeks at this point in time. Wound vacs to be replaced today. Other primary issue is pressure offloading. 06/08/16 13:56 Subjective: Patient without specific complaints. No diarrhea with antibiotic therapy. Objective: Vital Signs Temp Pulse Resp BP Pulse Ox 36.4 C 100 26 H 112/59 L 92 06/08/16 12:00 06/08/16 12:00 06/08/16 12:00 06/08/16 12:00 06/08/16 12:00 Microbiology 06/03/16 13:02 Gram Stain - Final Foot - Tissue 06/03/16 13:02 Gram Stain - Final Foot - Tissue Laboratory Results 06/07/16 04:45 06/07/16 04:45 06/07/16 06/08/16 06/09/16 05:59 05:59 05:59 Intake Total 2025 2455 600 Output Total 1550 1625 1150 Balance 475 830 -550 C-Reactive Protein 139.3 mg/L (<10.0) H 05/25/16 09:10 Zosyn # 14 Polymicrobial cultures reviewed MRI pending - Physical Exam General Appearance: alert, no apparent distress EENT: pharynx normal, No scleral icterus Cardiac/Chest: regular rate, rhythm Extremities: inflammation (Bilateral calcaneal ulcerations without significant necrotic tissue present; no purulence or visible/palpable bone; necrotic pressure ulcerations over posterior calf and Achilles region on right), other ( Left upper extremity edema present) Abdomen: non-tender, No distended ICD10 Worksheet Patient Problems: Problems Problem Status Diagnosed Venous stasis dermatitis of both lower extremities Acute
--- NOTE | 2016-06-08 15:16 | WOCRNPDOC ---
TRI Advanced Assessment Note - Skin Integrity Problem, Advanced Assess Right Sacrum Pressure Injury Dressing Type: Allevyn Life Site Measurement - Head-to-Toe Length X Width X Depth (cm): 1x1x0.2 Pressure Injury Stage: Stage 2 Skin Integrity Problem Comment: No change. No concerns. Continue to offload and with current treatment plan. Left Sacrum Pressure Injury Dressing Type: Allevyn Life Skin Integrity Problem Comment: No wound. No erythema. Right Dorsal Hand Skin Integrity Problem Comment: Resolving. There is a reduction in fluid build up. Right Heel Dressing Type: ABD Pad, Gauze Dressing Description: Clean/Dry, Intact Exudate Amount: Minimal Exudate Characteristic(s): Bloody Integumentary Issue Intervention: Dressing Changed Wound Bed Constitution: Smooth Tissue, Subcutaneous Fat, Adhered Slough Wound Edges: Attached Site Odor: Moderate Site Measurement - Head-to-Toe Length X Width X Depth (cm): 4x4x1.3 Pressure Injury Stage: Stage 4 Skin Integrity Problem Comment: Cleaned with Vashe solution. Hernando applied fran wound. Then skin prep and drape. Wound bed with mixed fat and thin layer of slough. 50/50. One piece of small black foam to wound bed and bridged to dorsal foot over drape. Vac restarted at - 125 mm Hg continous suction. Susi Hubbard and Johanne observed all wounds. Right Lower Leg Venous Stasis Ulcer Dressing Type: ABD Pad, Adaptic, Honey Sheet, Non-Bordered Foam Dressing Description: Clean/Dry, Intact Exudate Amount: Scant Exudate Characteristic(s): Bloody Integumentary Issue Intervention: Dressing Changed Wound Bed Constitution: Granulation Tissue (100% in non necrotic patch in posterior wound(4x5 cm)), Stable Eschar (100% in 4x5 area in posterior aspect of wound) Wound Edges: Epithelizing Site Odor: Moderate Site Measurement - Head-to-Toe Length X Width X Depth (cm): [id number] Skin Integrity Problem Comment: Necrotic patch in posterior wound soaked in Vashe then all of wound was covered with silvasorb. The area that was not necrotic was covered with mepilex 4x4 non bordered foam and the small area of necrosis was covered with drape to facilitate autolytic debridement. All were secured with kerlix. Left Heel Pressure Injury Dressing Type: Gauze Dressing Description: Clean/Dry, Intact Integumentary Issue Intervention: Dressing Changed Wound Bed Constitution: Granulation Tissue (50%), Subcutaneous Fat (50%) Site Odor: Slight Site Measurement - Head-to-Toe Length X Width X Depth (cm): 3x3.9x1.2 Pressure Injury Stage: Stage 3 Pressure Injury Present on Admit: Yes Skin Integrity Problem Comment: Flushed and soaked with Vashe. Hernando fran wound. Skin prep and drape after . Application of Silver nitrate to 4 oclock wound bed to acheive hemostasis. Once acheived placed one piece of small simplace black foam to wound bed draped/bridged to dorsal foot. Vac started at -125 mm Hg continous suction with no leaks. Left Lower Leg Venous Stasis Ulcer Dressing Type: ABD Pad, Adaptic Dressing Description: Clean/Dry, Intact Exudate Amount: Scant Exudate Characteristic(s): Serosanguinous Integumentary Issue Intervention: Dressing Changed Wound Bed Constitution: Granulation Tissue Wound Edges: Irregular Site Odor: Slight Site Measurement - Head-to-Toe Length X Width X Depth (cm): 6x11x0.1 Skin Integrity Problem Comment: Cleaned with Vashe. Silvasorb to wound bed. Covered with mepilex foam and secured with kerlix. Left Posterior Heel and Achilles Dressing Type: Open to Air Site Measurement - Head-to-Toe Length X Width X Depth (cm): 3x3.2x0 Skin Integrity Problem Comment: Dark red area adjacent to and touching pre- existing heel pressure injury. Currently intact but compromised. Keep offloaded at all times. Right Proximal Heel and Achilles Dressing Type: Open to Air Exudate Amount: None Wound Bed Color: Black Wound Bed Constitution: Stable Eschar Site Measurement - Head-to-Toe Length X Width X Depth (cm): 5x3.5x0 Pressure Injury Stage: Unstageable Pressure Injury Present on Admit: No Skin Integrity Problem Comment: Painted with betadine. Keep area offloaded at all times. Right Dorsal Foot Dressing Type: Open to Air Exudate Amount: Minimal Exudate Characteristic(s): Bloody Integumentary Issue Intervention: Dressing Applied, Silver Gel Applied Wound Bed Constitution: Granulation Tissue (10%), Mixed Loose & Adhered Slough/ Eschar (90%) Site Measurement - Head-to-Toe Length X Width X Depth (cm): 9x10x0.3 Skin Integrity Problem Comment: Large area of dried necrosis. Moisted with silvasorb and covered with replicare. Wound care will round on pt MWF. eRinaldo WONG assisted with all wound care.
--- NOTE | 2016-06-08 17:37 | HOSPPROG ---
Hospitalist Progress Note Assessment/Plan: 75 yo F admitted with ble ulcers/wet gangrene/cellulitis developed GI bleed overnight with possible A flutter # wet gangrene of b/l heel ulcers with associated cellulitis, presumed osteomyelitis and chronic venous stasis ulcers: s/p surgical debridement again , right heel wound probes to bone. Mult orgs on Cx, sensitive to Zosyn. Now has wound vac. ID following, gen surg noted lots of bleeding with debridement, suggesting adequate arterial flow. -MRI prelim report no e/o osteo. Per ID, stop atbx -wound vac off, cont wound care -possible transfer to LTAC tomorrow # GI bleed secondary to duodenal ulcer - s/p 7 u prbc's. hgb stable, ~8. Cont BID PPI. Monitor H&H and for signs of bleeding. # acute blood loss anemia: transfusion as above # sinus tachycardia - resolved, possible flutter 05/29, dilt drip started briefly, but d/c'd when rhythm appeared more c/w sinus tachycardia, which improved with transfusion. # LUE edema - U/S neg for DVT # neuropathy - likely contributing factor to ulcers, cont gabapentin # lower extremity edema - hold lasix this afternoon given mild hypotension and rising serum bicarb. # virgil: improved, holding bradley/hctz. # CAD: without issues for > 10 years per her report, continue op medications # COPD: undiagnosed but with wheezing on exam and 60+ pack year smoking history , COPD undoubtedly present. Cont nebs, O2. # Htn: BP has been low, holding lisinopril/hctz and beta kalin for now. She has poor oral intake and has required NS boluses at times. # Onychomycosis: discussed terbinafine tx with ID, but will defer given her elevated LFT's. could reconsider this as outpt when acute infectious issues improved. Also recommend outpt podiatry consultation. # DNR: her children would be her decision maker if she could not make decisions # Dispo: cont inpt Subjective: Pt feels well, pain controlled. No CP or SOB. Appetite good. No fevers. She remains non-ambulatory. Objective: Vital Signs Temp Pulse Resp BP Pulse Ox 36.7 C 100 22 H 130/93 H 95 06/08/16 16:10 06/08/16 16:10 06/08/16 16:10 06/08/16 16:10 06/08/16 16:10 Microbiology 06/03/16 13:02 Gram Stain - Final Foot - Tissue 06/03/16 13:02 Gram Stain - Final Foot - Tissue Laboratory Results 06/07/16 04:45 06/07/16 04:45 06/07/16 06/08/16 06/09/16 05:59 05:59 05:59 Intake Total 5 2455 600 Output Total 1550 1625 1150 Balance 475 830 -550 PT 13.6 SEC (12.0-15.0) 05/24/16 10:08 INR 1.05 (0.83-1.16) 05/24/16 10:08 - Physical Exam Constitutional: no apparent distress Eyes: PERRL Ears, Nose, Mouth, Throat: moist mucous membranes Cardiovascular: regular rate and rhythym Respiratory: no respiratory distress Skin: warm Neurologic: AAOx3 ICD10 Worksheet Patient Problems: Problems Problem Status Diagnosed Venous stasis dermatitis of both lower extremities Acute
[2016-06-08] MEDS ORDERED: PIPERACILLIN SODIUM/TAZOBACTAM 3.375 GM in D5W 50 ML IV SCH (18:00)
[2016-06-08] MEDS: PRAVASTATIN SODIUM 20 MG TAB PO SCH (20:27)
[2016-06-08] MEDS: GABAPENTIN 300 MG CAP PO SCH (20:27)
[2016-06-08] MEDS: oxyCODONE IR 5 MG TAB PO PRN (23:20)
[2016-06-09 05:22] VITALS: PULSE 95
[2016-06-09] MEDS: oxyCODONE IR 5 MG TAB PO PRN ×2 (08:12→11:53)
[2016-06-09] MEDS: SUCRALFATE 1 GM TAB PO SCH ×2 (08:13→11:53)
[2016-06-09] MEDS ORDERED: MAGNESIUM SULF 1 GM/DEXTROSE 100 ML IV ONE (08:17)
[2016-06-09 08:31] VITALS: BP 94/58; RESP 20; TEMP 99.5; O2SAT 91
[2016-06-09] MEDS: MULTIVITAMINS 1 EACH TAB PO SCH (09:51)
[2016-06-09] MEDS: PANTOPRAZOLE SODIUM 40 MG TAB PO SCH (09:51)
[2016-06-09] MEDS: POTASSIUM CL 20 MEQ TAB PO SCH (09:51)
--- NOTE | 2016-06-09 11:28 | PDIAF ---
- Diagnosis Diagnosis: b/l heel ulcers Code Status: Do Not Resuscitate - Medication Management Discharge Medications: Medications to Continue on Transfer Aspirin EC [Aspirin EC 81 mg (*)] 81 mg PO DAILY 05/24/16 [Last Taken 05/23/16] Multivitamins [Multivitamin (*)] 1 each PO DAILY 05/24/16 [Last Taken 05/23/16] Pravastatin Sodium 20 mg PO HS 05/24/16 [Last Taken 05/23/16] Acetaminophen [Tylenol 325mg (*)] 650 mg PO Q4HRS PRN #90 tab 06/09/16 [Last Taken Unknown] Enoxaparin [Lovenox 40 MG (*)] 40 mg SC DAILY #30 syr 06/09/16 [Last Taken Unknown] Furosemide [Lasix 20 MG (*)] 20 mg PO BID@0900,1500 #60 tab 06/09/16 [Last Taken Unknown] Gabapentin [Neurontin 300 MG (*)] 300 mg PO HS #30 cap 06/09/16 [Last Taken Unknown] Nicotine Polacrilex [Nicorette gum (*)] 2 mg B PRN PRN #30 gum 06/09/16 [Last Taken Unknown] Pantoprazole Sodium [Protonix 40mg (*)] 40 mg PO BID #60 tab 06/09/16 [Last Taken Unknown] Potassium Cl [Klor-Con 20 meq (*)] 20 meq PO DAILY #30 tab 06/09/16 [Last Taken Unknown] Sucralfate [Carafate 1 GM (*)] 1 gm PO ACHS #120 tab 06/09/16 [Last Taken Unknown] oxyCODONE IR [Oxycodone Ir (*)] 5 mg PO Q4HRS PRN #30 tab 06/09/16 [Last Taken Unknown] rOPINIRole HCL [Requip 0.25mg (RX)] 0.5 mg PO TID #90 tab 06/09/16 [Last Taken Unknown] Discharge Medications: Refer to the Discharge Home Medication list for PRN reason. PICC Care - Routine: N/A - Orders Services needed: Registered Nurse, Certified Driver Operator, Physical Therapy, Occupational Therapy Diet Recommendation: no restrictions on diet Wound Care Instructions: Wound vac orders for bilateral heels. - 125 mm Hg continuous suction with black foam to right and left debrided heel wounds. Keep heels offloaded at all times. Bridge dressing to dorsal foot so trac pad doesn't apply undo pressure to heel wounds. - Labs/Radiology BMP Date: 06/11/16 CBC Date: 06/11/16 - Follow Up Care Current Providers and Referrals: Kim Buckley MD [Medical Doctor] - NONE *PRIMARY CARE P,. [Primary Care Provider] - Bushra Whiting MD [Medical Doctor] -
--- NOTE | 2016-06-09 11:40 | PDIAF ---
- Diagnosis Diagnosis: b/l heel ulcers Code Status: Do Not Resuscitate - Medication Management Discharge Medications: Medications to Continue on Transfer Multivitamins [Multivitamin (*)] 1 each PO DAILY 05/24/16 [Last Taken 05/23/16] Pravastatin Sodium 20 mg PO HS 05/24/16 [Last Taken 05/23/16] Acetaminophen [Tylenol 325mg (*)] 650 mg PO Q4HRS PRN #90 tab 06/09/16 [Last Taken Unknown] Furosemide [Lasix 20 MG (*)] 20 mg PO BID@0900,1500 #60 tab 06/09/16 [Last Taken Unknown] Gabapentin [Neurontin 300 MG (*)] 300 mg PO HS #30 cap 06/09/16 [Last Taken Unknown] Nicotine Polacrilex [Nicorette gum (*)] 2 mg B PRN PRN #30 gum 06/09/16 [Last Taken Unknown] Pantoprazole Sodium [Protonix 40mg (*)] 40 mg PO BID #60 tab 06/09/16 [Last Taken Unknown] Potassium Cl [Klor-Con 20 meq (*)] 20 meq PO DAILY #30 tab 06/09/16 [Last Taken Unknown] Sucralfate [Carafate 1 GM (*)] 1 gm PO ACHS #120 tab 06/09/16 [Last Taken Unknown] oxyCODONE IR [Oxycodone Ir (*)] 5 mg PO Q4HRS PRN #30 tab 06/09/16 [Last Taken Unknown] rOPINIRole HCL [Requip 0.25mg (RX)] 0.5 mg PO TID #90 tab 06/09/16 [Last Taken Unknown] Discharge Medications: Refer to the Discharge Home Medication list for PRN reason. PICC Care - Routine: N/A - Orders Services needed: Registered Nurse, Certified Automation Qa Tester, Physical Therapy, Occupational Therapy Diet Recommendation: no restrictions on diet Wound Care Instructions: Wound vac orders for bilateral heels. - 125 mm Hg continuous suction with black foam to right and left debrided heel wounds. Keep heels offloaded at all times. Bridge dressing to dorsal foot so trac pad doesn't apply undo pressure to heel wounds. - Labs/Radiology BMP Date: 06/11/16 CBC Date: 06/11/16 - Follow Up Care Current Providers and Referrals: Kim Buckley MD [Medical Doctor] - NONE *PRIMARY CARE P,. [Primary Care Provider] - Bushra Whiting MD [Medical Doctor] -
[2016-06-09 11:54] LABS: HEMATOCRIT 24.8 % (38.0-47.0); HEMOGLOBIN 7.7 g/dL (12.6-16.3)
--- NOTE | 2016-06-09 12:39 | MR ---
MRI Right Ankle Without and With Contrast History: Plantar calcaneal ulcer, evaluate for osteomyelitis. Technique: Precontrast axial, sagittal, and coronal MR sequences of the right ankle were obtained. Af ter intravenous administration of 9 mL of Gadavist, postcontrast enhanced imaging was obtained in thr ee planes. Findings: There is a 2 cm subcutaneous ulcer over the plantar aspect of the calcaneus, superficial t o the plantar fascia. The plantar fascia appears intact and unremarkable. No evidence of abnormal bon e marrow edema or enhancement to suggest underlying osteomyelitis. Achilles tendon is intact. There is mild enhancement and synovitis within the ankle and subtalar join ts, nonspecific in features, without evidence of joint effusion or chondral disease. Peroneal tendons are intact. Flexor tendons are intact. The anterior and posterior syndesmotic ligaments are intact a s are the anterior and posterior talofibular ligaments. Impression: 2 cm subcutaneous ulcer involving the plantar aspect of the right calcaneus, without abs cess or osteomyelitis.
--- NOTE | 2016-06-09 19:29 | GDS ---
[f rep st] DISCHARGE SUMMARY DISCHARGE DIAGNOSES: 1. Bilateral heel ulcers, presenting with evidence of wet gangrene and associated cellulitis. 2. Chronic venous stasis ulcers. 3. Upper gastrointestinal bleed, secondary to duodenal ulcer, status post 7 units of packed red blo od cells. 4. Acute blood loss anemia, hemoglobin stable at 7.7 at discharge. 5. Left upper extremity edema with ultrasound negative for deep venous thrombosis. 6. Peripheral neuropathy. 7. Acute kidney injury, resolved. 8. Coronary artery disease, stable. 9. History of hypertension with lisinopril/HCTZ and beta-kalin on hold due to hypotension and norm otension during hospitalization. 10. Onychomycosis. 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 CONSULTANTS: 1. Dr. Bushra Whiting, General Surgery. 2. Dr. Diane Carrera, Infectious Disease. 3. Dr. Lalo Sommer, Gastroenterology. 4. Dr. Neil Hampton, Pulmonology. HISTORY: For details, please see dictated history and physical dated May 19, [address] Tim Rayo. In brief, Ms. Ferrell is a 75-year-old female with a history of hypertension and coronary artery disease, who is visiting from [place] and presented to the emergency department with low er extremity swelling and drainage from ulcerations with increased pain. Her wounds were found to be cellulitic with concern for wet gangrene. She was admitted to the hospital for further management. HOSPITAL COURSE: The patient was admitted to inpatient status. A surgical consult was obtained. Humble gatica was started on broad-spectrum antibiotics with vancomycin, Zosyn, and Infectious Disease consults w ere also obtained. She did not present with septic physiology; however, she did present with acute k idney injury, which has resolved at the time of discharge. Patient underwent immediate incision and drainage of bilateral heels and bilateral lower legs by Dr. Bushra Whiting due to wet gangrene. Her i nitial foot tissue culture grew Morganella, Providencia, and Bacteroides organisms. She required sev eral debridements and ultimately a wound VAC was placed, and she was followed closely by Wound Care, as well as Infectious Disease. Her antibiotics were tailored to the Zosyn. Repeat cultures grew a v ariety of different organisms, some of which were thought to be possible colonizers she received a t otal of 2 weeks of antibiotics, at which time she underwent an MRI of her bilateral feet. This was n egative for osteomyelitis and at the recommendation of Infectious Disease, antibiotics were discontin ued. Her hospitalization was also complicated by a GI bleed, which presented with melenic stools and a dr op in her hemoglobin down to 5.2. She required a total of 7 units of packed red blood cells. Gastro enterology consult was obtained and upper endoscopy was performed, which revealed duodenal ulcers and gastritis with an irregular Z-line suspicious for Calderon's esophagus. Gastric biopsies were taken which were negative for Helicobacter pylori and also negative for gastritis, intestinal metaplasia, o r dysplasia. The fundic mucosa was within normal limits. Esophageal biopsy revealed squamocolumnar junctional mucosa with intestinal metaplasia compatible with Calderon's esophagus. She was treated wi th a Protonix drip and transitioned to twice daily Protonix, which was continued at discharge. Her hemoglobin stabilized. Patient will need followup with Gastroenterology for ongoing surveillance of her Calderon's esophagus. She will continue on PPI therapy. The patient remained nonambulatory throughout her hospitalization. She was followed by PT/OT, and sh e will need ongoing rehab at her long-term acute care facility. She will also require close attentio n to her wounds and wound care orders are provided in her transfer of care summary. Her aspirin was held at the time of discharge and should she continue to remain stable from a GI bleeding standpoint, it could be considered to resume aspirin in 1-2 weeks. DISPOSITION: Patient was discharged to long-term acute care facility in stable condition. FOLLOWUP: 1. Dr. Bushra Whiting, General Surgery. 2. Dr. Kim Buckley, Infectious Disease. 3. Dr. Lalo Sommer, Gastroenterology. DISCHARGE MEDICATIONS: Please see [employer] for complete updated outpatient medication list. New med ications on discharge include: 1. Oxycodone 5 mg p.o. q.4 hours p.r.n., #30, no refills. 2. Tylenol 650 mg p.o. q.4 hours p.r.n., #90, no refills. 3. Carafate 1 g p.o. a.c. and h.s., #120, no refills. 4. Lasix 20 mg p.o. b.i.d., #60, no refills. 5. Potassium 20 mEq p.o. daily, #30, no refills. 6. Gabapentin 300 mg p.o. q.h.s., #30, no refills. 7. Nicorette gum 2 mg p.r.n., #30, no refills. 8. Protonix 40 mg p.o. b.i.d., #60 no refills. 9. Requip 0.5 mg p.o. t.i.d., #90, no refills. 10. Aspirin is held. /[id number]/MODL
--- NOTE | 2016-06-12 11:58 | PQFORM ---
PHYSICIAN QUERY FORM Needs Your Response This query form is being sent to you to assure this patient record is coded properly. Please respond to the question below: DISPATCH MANAGER QUESTION: Dear Dr. Whiting, For coding purposes (there is a different code choice for excisional versus non excisional debridement), please clarify if the debridement done on the 24 May 2016 was: __x____ Excisional Non Excisional Other Thank you MARIAH Flood HIM/Coding Dept INSTRUCTIONS FOR RESPONSE: Answer question by clicking on the "Edit Document" button. Move cursor to area below the stars. When complete, hit "Save." Click on the "Sign" button, then click "Sign" again. Type in your PIN and hit "Enter." MTDD
--- NOTE | 2016-06-12 12:00 | PQFORM ---
PHYSICIAN QUERY FORM Needs Your Response This query form is being sent to you to assure this patient record is coded properly. Please respond to the question below: RETAIL MERCHANDISING MANAGER QUESTION: Dear Dr. Whiting, For coding purposes (there is a different code choice for excisional versus non excisional debridement)- please clarify if the debridement done on 03 June 2016 was: __x_~ Excisional ___~ Non Excisional ___~ Other Thank You Rabia Zaragoza, MARIAH HIM/Coding Dept INSTRUCTIONS FOR RESPONSE: Answer question by clicking on the "Edit Document" button. Move cursor to area below the stars. When complete, hit "Save." Click on the "Sign" button, then click "Sign" again. Type in your PIN and hit "Enter." MTDD
== END 2016-06-09 15:12 | DRG 570 ==
LOC: F3N 11:31 → F2N 05-29 02:12 → F2W 06-05 14:52
PROVIDERS: ADMIT Internal Medicine; ATTEND Internal Medicine
PROC: 0JBR0ZZ Excision of Left Foot Subcutaneous Tissue and Fascia, Open Approach (ICD-10-PCS; 2016-05-24)
PROC: 0JBQ0ZZ Excision of Right Foot Subcutaneous Tissue and Fascia, Open Approach (ICD-10-PCS; 2016-05-24)
PROC: 02HV33Z Insertion of Infusion Device into Superior Vena Cava, Percutaneous Approach (ICD-10-PCS; 2016-05-28)
PROC: 30233N1 Transfusion of Nonautologous Red Blood Cells into Peripheral Vein, Percutaneous Approach (ICD-10-PCS; 2016-05-28)
PROC: 0DB68ZX Excision of Stomach, Via Natural or Artificial Opening Endoscopic, Diagnostic (ICD-10-PCS; 2016-05-29)
PROC: 0DB58ZX Excision of Esophagus, Via Natural or Artificial Opening Endoscopic, Diagnostic (ICD-10-PCS; 2016-05-29)
PROC: 0JBR0ZZ Excision of Left Foot Subcutaneous Tissue and Fascia, Open Approach (ICD-10-PCS; principal; 2016-06-03 13:30)
PROC: 0JBQ0ZZ Excision of Right Foot Subcutaneous Tissue and Fascia, Open Approach (ICD-10-PCS; principal; 2016-06-03 13:30)
DX: L89.614 Pressure ulcer of right heel, stage 4 (principal); K26.4 Chronic or unspecified duodenal ulcer with hemorrhage; I96 Gangrene, not elsewhere classified; L03.115 Cellulitis of right lower limb; L03.116 Cellulitis of left lower limb; D62 Acute posthemorrhagic anemia; N17.9 Acute kidney failure, unspecified; I83.018 Varicose veins of right lower extremity with ulcer other part of lower leg; I83.028 Varicose veins of left lower extremity with ulcer other part of lower leg; L89.610 Pressure ulcer of right heel, unstageable; L89.620 Pressure ulcer of left heel, unstageable; L89.623 Pressure ulcer of left heel, stage 3; L89.621 Pressure ulcer of left heel, stage 1; L89.312 Pressure ulcer of right buttock, stage 2; L89.152 Pressure ulcer of sacral region, stage 2; L30.9 Dermatitis, unspecified; G62.9 Polyneuropathy, unspecified; I25.10 Atherosclerotic heart disease of native coronary artery without angina pectoris; I10 Essential (primary) hypertension; B35.1 Tinea unguium; K22.70 Barrett's esophagus without dysplasia; E78.00 Pure hypercholesterolemia, unspecified; I25.2 Old myocardial infarction; J44.9 Chronic obstructive pulmonary disease, unspecified; D50.9 Iron deficiency anemia, unspecified; K29.70 Gastritis, unspecified, without bleeding; Z66 Do not resuscitate; Z72.0 Tobacco use
CPT/HCPCS: 96365; 97001-GP; 97003-GO; 97530-GO; 97530-GP; 97535-GO; A9585; C1751; G0008; G8981-GP-CM; G8982-GP-CL; J0690; J1170; J1650; J2001; J2250; J2543; J2704; J2997; J3010; J3370; J3475; P9016; P9021

== ENCOUNTER 2017-09-30 00:40 | Inpatient (IN) | payer OTHER ==
[2017-09-30] MEDS ORDERED: NS 1,000 ML IV ONE (00:47)
--- NOTE | 2017-09-30 00:53 | EDPHY ---
H & P Time Seen by Provider: 09/30/17 00:49 HPI/ROS: HPI CHIEF COMPLAINT: Gastrointestinal bleed. HISTORY OF PRESENT ILLNESS: Patient is 77-year-old female, very pleasant, history of hypertension and coronary artery disease, additionally history of heel ulcers with gangrene, and hospitalization was complicated by a GI bleed from peptic ulcer disease, she presents emergency room by ambulance 1 o'clock in the morning for concern of GI bleed. She resides at the [facility]. Patient denies any chest pain or shortness of breath. Denies generalized weakness. She states she feels fine. Past Medical History: Hypertension, coronary artery disease, previous GI bleed with peptic ulcer disease requiring blood transfusion, debility, neuropathy, chronic indwelling Sierra Past Surgical History: No recent surgery. Social History: Denies daily use of drugs alcohol tobacco. Resides at the [facility]. Family History: Noncontributory ROS REVIEW OF SYSTEMS: A comprehensive 10 point review of systems is otherwise negative aside from elements mentioned in the history of present illness. Exam Constitutional appears well nontoxic, triage nursing summary reviewed, vital signs reviewed, awake/alert. Eyes normal conjunctivae and sclera, EOMI, PERRLA. HENT normal inspection, atraumatic, moist mucus membranes, no epistaxis, neck supple/ no meningismus, no raccoon eyes. Respiratory clear to auscultation bilaterally, normal breath sounds, no respiratory distress, no wheezing. Cardiovascular rate normal, regular rhythm, no murmur, no edema, distal pulses normal. Gastrointestinal protuberant soft abdomen, soft, non-tender, no rebound, no guarding, normal bowel sounds, no distension, no pulsatile mass. Genitourinary no CVA tenderness. Musculoskeletal bilateral lower extremity edema, in lower extremity wraps, no midline vertebral tenderness, full range of motion, no calf swelling, no tenderness of extremities, no meningismus, good pulses, neurovascularly intact. Skin pink, warm, & dry, no rash, skin atraumatic. Neurologic awake, alert and oriented x 3, AAOx3, moves all 4 extremities equally, motor intact, sensory intact, CN II-XII intact, normal cerebellar, normal vision, normal speech. Psychiatric normal mood/affect. Heme/Lymph/Immune no lymphadenopathy. Differential Diagnosis: Includes but is not limited to in a particular order electrolyte disturbance, dehydration, anemia from blood loss, acute GI bleed, peptic ulcer disease Medical Decision Making: Plan for this patient IV establishment with blood draw , type and screen, check H&H, check electrolytes, gentle IV hydration, 2 IVs rectal exam for blood. Re-evaluation: 0102AM: [facility], states they sent the patient over to the emergency room as she has been having increasing fecal incontinence with dark black stool. She is on iron they are concerned that she may have a GI bleed. Additionally they report she has had a fever unclear how high over the last couple days. Some increased confusion and elevated heart rate they sent her here for further evaluation of these concerns. Rectal exam performed: Katia MOSS at bedside: Shows Black Tarry Stool. 0126AM: Review of patient's blood work HENT low. She has black tarry stool on exam. Occult positive. Patient be started on Protonix bolus and Protonix drip. Given her history peptic ulcer disease. This most likely the cause of her GI bleed is peptic ulcer disease. She is not on any anticoagulation except for Plavix. I have consented the patient as well as her son at bedside for blood transfusion. I have ordered her 2 units of blood. She is not hypotensive however her H&H are low. 0127: At this time this patient is hemodynamically stable no acute distress. She verbally consents for blood transfusion. Patient need to be admitted to the step-down unit. Reason for admission acute blood loss anemia in the setting of GI bleed. I will consult the hospitalist service for admission. I will consult Gastroenterology as well. 0132AM: Spoke with GI, Dr. Quintanilla, request patient be NPO. Agrees with current treatment plan of Protonix bolus Protonix drip as well as 2 units of blood. Patient remains hemodynamically stable. Admitted to step-down unit. GI will consult most likely plan on scoping. ED x-ray chest one view cardiomegaly present. No focal pneumonia. Enlarged aortic knob. X-ray is rotated. X-ray is very similar to previous x-ray dated 05/28/2016. Chest x-ray is performed for possible fever rule out pneumonia. She has no chest pain or shortness of breath. Source: Patient, EMS - Medical/Surgical History Hx Asthma: No Hx Chronic Respiratory Disease: No Hx Diabetes: No Hx Cardiac Disease: Yes Hx Renal Disease: No Hx Cirrhosis: No Hx Alcoholism: No Hx HIV/AIDS: No Hx Splenectomy or Spleen Trauma: No Other PMH: HTN, high cholesterol, heart attack x 9 yrs ago, - Social History Smoking Status: Current every day smoker Constitutional: Initial Vital Signs Temperature (C) 36.7 C 09/30/17 00:46 Heart Rate 111 H 09/30/17 00:46 Respiratory Rate 18 09/30/17 00:46 Blood Pressure 101/63 09/30/17 00:46 O2 Sat (%) 91 L 09/30/17 00:46 O2 Delivery Mode Room Air Allergies/Adverse Reactions: No Known Allergies Allergy (Verified 09/30/17 00:52) Home Medications: Medication Instructions Recorded Acetaminophen [Tylenol 325mg (*)] 650 mg PO Q4H PRN 09/30/17 Aspirin [Aspirin 81mg (*)] 81 mg PO DAILY 09/30/17 Bisacodyl [Dulcolax] 10 mg RC DAILY PRN 09/30/17 Clopidogrel Bisulfate [Plavix (*)] 75 mg PO DAILY 09/30/17 Escitalopram Oxalate [Lexapro] 10 mg PO HS 09/30/17 Ferrous Sulfate [Ferrous Sulf 325 325 mg PO HS 09/30/17 MG (*)] Furosemide [Lasix 20 MG (*)] 20 mg PO DAILY@1730 09/30/17 Furosemide [Lasix 40 MG (*)] 40 mg PO DAILY 09/30/17 Herbals/Supplements -Info Only 1 ea PO DAILY 09/30/17 Ipratropium/Albuterol [Duoneb (*)] 3 ml IH Q4H PRN 09/30/17 Melatonin [Melatonin 3 MG (*)] 3 mg PO HS 09/30/17 Pantoprazole Sodium [Protonix 40mg 40 mg PO DAILY 09/30/17 (*)] Polyethylene Glycol 3350 [Miralax 17 gm PO DAILY PRN 09/30/17 17 gm (*)] Potassium Cl [Klor-Con 20 meq (*)] 30 meq PO DAILY 09/30/17 Pravastatin Sodium 20 mg PO HS 09/30/17 Sennosides/Docusate Sodium 1 each PO BID PRN 09/30/17 [Senna-Docusate Sodium Tablet] guaiFENesin/DEXTROMETHORPHAN 15 ml PO Q4H PRN 09/30/17 [Robitussin Dm Oral Liquid (*)] rOPINIRole HCL [Requip 1mg (*)] 0.5 mg PO TID 09/30/17 Medical Decision Making - Data Points Laboratory Results: Laboratory Results 09/30/17 00:45 09/30/17 00:45 Microbiology Results: MICROBIOLOGY 09/30/17 01:23 Blood Blood Culture - Final Medications Given: Acetaminophen (Tylenol) 650 mg PO Q4HRS PRN PRN Reason: Pain, Mild/Fever, Can Take PO Stop: 03/29/18 01:50 Last Admin: 10/02/17 01:48 Dose: 650 mg Albuterol/Ipratropium (Duoneb) 3 ml IH Q4H PRN PRN Reason: Short of Breath/Dyspnea Stop: 03/29/18 10:40 Last Admin: 10/03/17 08:48 Dose: 3 ml Clopidogrel Bisulfate (Plavix) 75 mg PO DAILY [facility]ITESH Stop: 04/02/18 11:14 Last Admin: 10/05/17 08:46 Dose: 75 mg Escitalopram Oxalate (Lexapro) 10 mg PO HS [facility] Stop: 03/29/18 20:59 Last Admin: 10/04/17 20:44 Dose: 10 mg Ferrous Sulfate (Ferrous Sulfate) 325 mg PO HS [facility] Stop: 03/29/18 20:59 Last Admin: 10/04/17 20:44 Dose: 325 mg Furosemide (Lasix) 20 mg PO DAILY@1730 [facility]ITESH Stop: 03/31/18 17:29 Last Admin: 10/05/17 16:58 Dose: 20 mg Furosemide (Lasix) 40 mg PO DAILY [facility]IT[facility] Stop: 04/01/18 08:59 Last Admin: 10/05/17 08:46 Dose: 40 mg Melatonin (Melatonin) 3 mg PO HS [facility] Stop: 03/29/18 20:59 Last Admin: 10/04/17 20:44 Dose: 3 mg Metoprolol Succinate (Toprol Xl) 25 mg PO DAILY [facility]ITESH Stop: 04/03/18 13:29 Last Admin: 10/05/17 14:13 Dose: 25 mg Pantoprazole Sodium (Protonix) 40 mg PO BID [facility]ITESH Stop: 03/29/18 20:59 Last Admin: 10/05/17 08:46 Dose: 40 mg Potassium Chloride (Klor-Con) 30 meq PO DAILY HITESH Stop: 04/01/18 08:59 Last Admin: 10/05/17 08:45 Dose: 30 meq Pravastatin Sodium (Pravachol) 20 mg PO HS [facility] Stop: 03/29/18 20:59 Last Admin: 10/04/17 20:44 Dose: 20 mg Ropinirole HCl (Requip) 0.5 mg PO TID [facility]ITESH Stop: 03/29/18 15:59 Last Admin: 10/05/17 16:59 Dose: 0.5 mg Discontinued Medications Albumin Human (Alburx 5) Confirm Administered Dose 250 ml IV .STK-MED ONE Stop: 09/30/17 08:38 Last Admin: 09/30/17 10:14 Dose: Not Given Furosemide (Lasix Injection) 20 mg IVP ONCE ONE Stop: 10/01/17 10:29 Last Admin: 10/01/17 10:52 Dose: 20 mg Furosemide (Lasix Injection) 40 mg IVP ONCE ONE Stop: 10/03/17 08:46 Last Admin: 10/03/17 09:08 Dose: 40 mg Furosemide (Lasix Injection) 40 mg IVP ONCE ONE Stop: 10/04/17 09:02 Last Admin: 10/04/17 09:21 Dose: 40 mg Furosemide (Lasix Injection) 40 mg IVP ONCE ONE Stop: 10/04/17 16:01 Last Admin: 10/04/17 15:49 Dose: 40 mg Sodium Chloride (Ns) 1,000 mls @ 0 mls/hr IV EDNOW ONE; Wide Open PRN Reason: Protocol Stop: 09/30/17 00:48 Last Admin: 09/30/17 01:01 Dose: 1,000 mls Sodium Chloride (Ns) 1,000 mls @ 125 mls/hr IV CONT HITESH Stop: 03/29/18 01:59 Last Admin: 10/01/17 07:54 Dose: 1,000 mls Lactated Ringer's (Lr) 1,000 mls @ 0 mls/hr IV ONCE ONE; TKO PRN Reason: Protocol Stop: 09/30/17 08:02 Last Admin: 09/30/17 10:14 Dose: Not Given Lactated Ringer's (Lr) 1,000 mls @ 0 mls/hr IV ONCE ONE PRN Reason: As Directed Stop: 09/30/17 08:23 Last Admin: 09/30/17 08:39 Dose: 1,000 mls Potassium Chloride/Sodium Chloride (Ns W/ 20 Kcl/L) 1,000 mls @ 100 mls/hr IV CONT HITESH Stop: 03/30/18 10:29 Last Admin: 10/02/17 01:58 Dose: 1,000 mls Magnesium Sulfate (Magnesium Sulf 2 Gm (Premix)) 50 mls @ 50 mls/hr IV ONCE ONE Stop: 10/01/17 11:19 Last Admin: 10/01/17 19:32 Dose: Not Given Potassium Chloride (Potassium Cl 10 Meq (Premix)) 100 mls @ 100 mls/hr IV Q1H HITESH Stop: 10/01/17 14:29 Last Admin: 10/02/17 03:18 Dose: Not Given Magnesium Sulfate/Dextrose (Magnesium Sulf 1 Gm (Premix)) 100 mls @ 100 mls/hr IV ONCE ONE Stop: 10/01/17 11:27 Last Admin: 10/01/17 18:19 Dose: 100 mls Lactated Ringer's (Lr) 1,000 mls @ 0 mls/hr IV ONCE ONE PRN Reason: Per Protocol Stop: 10/01/17 12:57 Last Admin: 10/01/17 15:00 Dose: Not Given Magnesium Sulfate/Dextrose (Magnesium Sulf 1 Gm (Premix)) 100 mls @ 100 mls/hr IV ONCE ONE Stop: 10/02/17 08:32 Last Admin: 10/02/17 07:51 Dose: 100 mls Magnesium Sulfate/Dextrose (Magnesium Sulf 1 Gm (Premix)) 100 mls @ 100 mls/hr IV ONCE ONE Stop: 10/03/17 08:28 Last Admin: 10/03/17 08:20 Dose: 100 mls Magnesium Sulfate/Dextrose (Magnesium Sulf 1 Gm (Premix)) 100 mls @ 100 mls/hr IV ONCE ONE Stop: 10/04/17 09:03 Last Admin: 10/04/17 08:51 Dose: 100 mls Magnesium Sulfate/Dextrose (Magnesium Sulf 1 Gm (Premix)) 100 mls @ 100 mls/hr IV ONCE ONE Stop: 10/05/17 07:56 Last Admin: 10/05/17 08:40 Dose: 100 mls Lorazepam (Ativan Injection) 1 mg IVP ONCE ONE Stop: 10/03/17 08:45 Last Admin: 10/03/17 09:07 Dose: 1 mg Pantoprazole Sodium (Protonix) 40 mg IVP EDNOW ONE Stop: 09/30/17 01:20 Last Admin: 09/30/17 01:27 Dose: 40 mg Pantoprazole Sodium (Protonix) 40 mg IVP EDNOW ONE Stop: 09/30/17 01:31 Last Admin: 09/30/17 01:48 Dose: 40 mg Pantoprazole Sodium (Protonix) 40 mg IVP Q6H HITESH Stop: 03/29/18 07:59 Last Admin: 09/30/17 07:51 Dose: 40 mg Pantoprazole Sodium (Protonix) 40 mg PO DAILY HITESH Stop: 03/29/18 10:44 Last Admin: 09/30/17 11:59 Dose: Not Given Polyethylene Glycol/Electrolytes (Gavilyte - G) 4,000 ml PO ONCE ONE Stop: 09/30/17 09:13 Last Admin: 09/30/17 15:49 Dose: Not Given Polyethylene Glycol/Electrolytes (Gavilyte - G) 4,000 ml PO ONCE ONE Stop: 09/30/17 16:01 Last Admin: 09/30/17 15:51 Dose: 4,000 ml Potassium Chloride (Klor-Con) 20 meq PO ONCE ONE PRN Reason: Protocol Stop: 10/01/17 20:49 Last Admin: 10/01/17 21:04 Dose: 20 meq Potassium Chloride (Klor-Con) 40 meq PO ONCE ONE PRN Reason: Protocol Stop: 10/02/17 07:33 Last Admin: 10/02/17 07:52 Dose: 40 meq Potassium Chloride (Klor-Con) 10 meq PO ONCE ONE PRN Reason: Protocol Stop: 10/03/17 07:29 Last Admin: 10/03/17 08:21 Dose: 10 meq Potassium Chloride (Klor-Con) 10 - 40 meq PO ONCE ONE PRN Reason: Protocol Stop: 10/04/17 08:04 Last Admin: 10/04/17 08:52 Dose: 20 meq Potassium Chloride (Klor-Con) 10 - 40 meq PO ONCE ONE PRN Reason: Protocol Stop: 10/04/17 20:05 Last Admin: 10/04/17 20:45 Dose: 30 meq Potassium Chloride (Klor-Con) 10 - 40 meq PO ONCE ONE PRN Reason: Protocol Stop: 10/05/17 06:58 Last Admin: 10/05/17 09:10 Dose: Not Given Departure - Departure Disposition: [facility] Inpatient Acute Clinical Impression: GI bleed Qualifiers: GI bleed type/associated pathology: melena Qualified Code(s): K92.1 - Melena Condition: Serious
[2017-09-30 01:13] LABS: PLATELET COUNT 241 10^3/uL (150-400)
[2017-09-30] MEDS ORDERED: PANTOPRAZOLE SODIUM 40 MG VIAL IVP ONE ×2 (01:19→01:30)
[2017-09-30 01:23] LABS: INR 1.18 (0.83-1.16); PROTIME(PATIENT) 15.2 SEC (12.0-15.0)
[2017-09-30] MEDS ORDERED: ONDANSETRON 4 MG/2 ML VIAL IVP PRN (01:51)
[2017-09-30] MEDS ORDERED: ONDANSETRON DISINTEGRATING 4 MG TAB PO PRN (01:51)
[2017-09-30] MEDS ORDERED: ACETAMINOPHEN 650 MG SUPP PR PRN (01:51)
[2017-09-30] MEDS ORDERED: HYDROmorphONE/DILAUDID 2 MG/ML INJ IVP PRN (01:51)
[2017-09-30] MEDS ORDERED: ACETAMINOPHEN 325 MG TAB PO PRN (01:51)
--- NOTE | 2017-09-30 04:55 | GHP ---
[f rep st] HISTORY AND PHYSICAL DATE OF ADMISSION: 09/30/2017 SOURCE: Patient able to provide some of the history. Her son is at bedside and supplements most of details. EMR was reviewed and case discussed with ED provider. Patient's accompanying paper chart from [facility] was also reviewed. CHIEF COMPLAINT: Anemia and melena. HISTORY OF PRESENT ILLNESS: This is a pleasant 77-year-old female with past medical history significant for coronary artery disease with history NE, peripheral vascular disease status post stenting with chronic heel ulcers, peptic ulcer disease, GERD, hyperlipidemia, history of iron deficiency anemia due to chronic blood loss, constipation, hypertension, COPD, who presents to the emergency department today from [facility] for anemia and history of melena in the last several days. Patient has been having increasing fatigue as well as some low-grade temperatures at [facility]. Son reports that patient initially started with a temperature 100.3, which escalated to 103.3 without any obvious source of infection. Blood work from [facility] revealed the patient had a notable anemia far from her baseline. She subsequently had observed melenic stools. Patient denies any nausea, vomiting, abdominal pain or distention. She denies any tenesmus or bam rectal bleeding. Patient is on Plavix for history of stents. She has had some increasing fatigue. Additionally, associated with fevers, son reports the patient has been having episodes of confusion. But no focal deficits. Patient does have history of admission for her chronic heel wounds in 2017. She, also during that stay, had an episode of upper GI bleeding related to her history of peptic ulcer disease. 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 Patient was placed on PPI therapy. There was no evidence of active bleeding at that time. Surgical specimens were negative for H pylori or dysplasia. 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 The patient has not had any requirement for further transfusions until today. REVIEW OF SYSTEMS: GENERAL: Positive for some fevers, chills in the last 2 days. Some fatigue and malaise. SKIN: No rashes, sores, except for slowly healing heel ulcers. ENT: No sinus congestion, sore throat. EYES: No acute changes in vision, ocular pain. CV: The patient denies any chest pain, palpitations. RESPIRATORY: Patient denies any cough, shortness of breath or wheezing. GI: No nausea, vomiting, abdominal pain. Melena, as noted per HPI. : Patient has a chronic indwelling [place] catheter in place. Denies any bladder spasms or flank pain. MUSCULOSKELETAL: Patient denies any myalgias or joint pain. NEURO: Patient denies any numbness, tingling or headache. Remainder of review of systems negative except as noted above. ALLERGIES: No known drug allergies. HOME MEDICATIONS: As per accompanying [facility] paperwork: Ropinirole 0.5 mg p.o. daily t.i.d.; potassium ER 20 mEq 1.5 tabs p.o. daily; Lasix 40 mg p.o. daily in the morning, 20 mg p.o. at h.s.; albuterol nebulizer q.4 hours p.r.n.; aspirin 81 mg p.o. daily; Protonix 40 mg p.o. daily; ferrous sulfate 325 mg p.o. at h.s.; pravastatin 20 mg p.o. daily; Tylenol 650 mg p.o. q.4 hours p.r.n. for pain; Ultra Tuss syrup 15 mL p.o. q.4 hours p.r.n. for cough; Cran Ex 30 mL p.o. daily; melatonin 30 mg p.o. at h.s.; Plavix 75 mg p.o. daily; Lexapro 10 mg p.o. at h.s.; senna 1 mg p.o. b.i.d. p.r.n.; dulcolax suppository p.r.n.; MiraLAX powder p.r.n. daily. PAST MEDICAL HISTORY: Significant for coronary artery disease with history NE and stenting, HTN, RLS, constipation, iron deficiency anemia, HLD, GERD, PUD with history of GI bleeding and transfusion 2017 as per HPI, bilateral heel ulcers slow healing, COPD without oxygen dependence, polyneuropathy. PAST SURGICAL HISTORY: Significant for BTL, peripheral vascular disease with stenting in the right in August 2016. FAMILY HISTORY: Significant for father with history of GERD, peptic ulcer disease. No family history of CAD, hypertension, or diabetes. SOCIAL HISTORY: Patient is . She resides [facility]. Son here in town provides excellent support. Patient does have a 52 pack-year history of smoking. She quit a year ago. She does not use any illicit drugs, and has only rare alcohol consumption of wine for special occasions. CODE STATUS: Full. PHYSICAL EXAMINATION: VITAL SIGNS: Upon arrival to the ER, blood pressure is 101/63, heart rate 111, respiratory rate 18, O2 sat 91% on room air with temperature 36.7. Vitals currently available: Blood pressure 112/57, heart rate is 106, respiratory rate 18, O2 sat is 91% on room air, temperature 37.1. GENERAL: No acute distress. Pleasant, elderly-appearing female who is lying quietly in bed, awake. Her son is at bedside. HEAD: Normocephalic, atraumatic. EYES: Extraocular muscles are intact. Pupils equal, round, slightly decreased reactivity to light bilaterally, but symmetric. No scleral icterus or conjunctival injection. ENT: Mucous membranes appear dry. No oropharyngeal erythema or exudates . NECK: Supple. Trachea midline. CV: Tachycardic, low 100s, with regular rhythm. No murmurs, rubs, or gallops appreciated. RESPIRATORY: Lungs clear to auscultation bilaterally. No wheezes , rales, or rhonchi appreciated. Patient does show some evidence of slightly increased work of breathing, but she denies any shortness of breath or complaints in her respiratory status. ABDOMEN: Obese, soft, nontender to palpation. No rebound, guarding, or masses appreciated. Positive bowel sounds. : No suprapubic tenderness to palpation. Catheter is in place. MUSCULOSKELETAL: Patient moves all extremities. Strength grossly intact. NEURO: Cranial nerves 2-12 intact, symmetric bilaterally. No facial drooping. No focal deficits. PSYCH: Affect slightly flat but patient pleasant, cooperative. She does appear to have some memory deficits that the son quickly supplements. LABORATORY STUDIES: WBC 10.49, H and H of 6.2 and 21.3, MCV of 91.8, platelet count is 241, no bands. PT is 15.2, INR is 1.18, PTT is 31.6. VBG lactic acid 1.3. Sodium is 136, potassium 4.0, chloride is 99, CO2 is 24, anion gap 13, BUN is 41 , creatinine 0.8, GFR greater than 60, glucose 128, calcium is 8.2, total bili 0.5, conjugated 0.5, ALT 17, AST is 15, alk phos is 97, total protein 6.1, albumin is 2.9, lipase is 44. Stool occult blood is positive. Blood cultures x2 are pending. Chest x-ray: Image reviewed myself, report is still pending, showing a slightly rotated image with enlarged aortic knob and tortuous aorta which appears to be unchanged. Some cardiomegaly is also present. 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 1. Melena, likely suspect a bleeding gastric or duodenal ulcer as per previous esophagogastroduodenoscopies. Will plan to continue patient on appropriate proton-pump inhibitor bolus dosing as drips are not used on formulary. Patient did receive an 80 mg bolus dose now. Will continue with every 6 hour 40 mg dosing. Patient without any further episodes of melena since arrival to the emergency department. She denies any abdominal pain. Appears comfortable and Gastroenterology was consulted from the emergency department with plans for further evaluation in the morning. Holding patient's Plavix and aspirin at this time. She is not on any additional anticoagulation. 2. Acute blood loss anemia. Patient is receiving 2 units of transfused packed red blood cells. Will plan to repeat H and H shortly. Gastrointestinal evaluation as noted above. 3. Confusion. Patient's mentation appeared to be improved. Likely related to patient's acute illness, fevers, and less likely an infectious source. Also anemia without any evidence of hypoxia or respiratory compromise. Mentation at this time is improved. Will continue to monitor. 4. Hypoalbuminemia. Likely decreased in setting of patient's chronic and acute illnesses. 5. Chronic medical issues: a. History of coronary artery disease. Holding off on aspirin, Plavix in setting of acute bleeding. Patient will be nothing by mouth. Patient's home medication list does not include beta kalin or angiotensin converting enzyme at this time. I am unsure of when patient's myocardial infarction occurred. b. Restless legs syndrome. Resume ropinirole. Diet advanced. c. History of constipation. Bowel regimen as necessary. d. Hyperlipidemia. Holding statin while nothing by mouth. e. Gastroesophageal reflux disease, on proton-pump inhibitor bolus dosing. f. Chronic heel ulcers present on admission. Wound Care will be consulted to assist and evaluate for any further recommendations. g. Chronic obstructive pulmonary disease. Patient is not oxygen dependent at this point. Will try to avoid over-correction of patient's oxygenation. h. Neuropathy. Continue patient's Lyrica. 6. Fluid, electrolyte, nutrition: Intravenous fluids with transfusion as noted above. Electrolyte monitoring replacement if needed. Patient will be nothing by mouth until evaluated by Gastroenterology. 7. Prophylaxis. Sequential compression devices. Holding anticoagulation. Is contraindicated in acute bleeding. 8. Cor status is full. Patient has the Medical Orders for Life Sustaining Treatment form filled out in chart. DISPOSITION: Patient has been admitted to inpatient status given severity of her anemia, increased risk for recurrent bleeding, and need to monitor to ensure that her H and H have stabilized. Anticipate greater than 2-midnight stay. Patient has been admitted to SDU for close monitoring. /[id number]/MODL MTDD
[2017-09-30] MEDS: NS 1,000 ML IV SCH (07:51)
[2017-09-30] MEDS ORDERED: PANTOPRAZOLE SODIUM 40 MG VIAL IVP SCH (08:00)
[2017-09-30] MEDS ORDERED: LR 1,000 ML IV ONE ×2 (08:01→08:22)
[2017-09-30] MEDS ORDERED: EPINEPHrine 1 MG/ML INJ ONE (08:31)
[2017-09-30] MEDS ORDERED: ALBUTEROL 3 ML DEYVIAL ONE (08:35)
[2017-09-30] MEDS ORDERED: ALBUMIN 5% 250 ML BOTTLE IV ONE (08:37)
[2017-09-30] MEDS ORDERED: LIDOCAINE 2% 5 ML SDV ONE (08:40)
[2017-09-30] MEDS ORDERED: CALCIUM CHLORIDE 1 GM/10 ML INJ ONE (08:40)
[2017-09-30] MEDS ORDERED: PHENYLEPHRINE HCL 100 MCG/ML SYR ONE (08:40)
[2017-09-30] MEDS ORDERED: PROPOFOL 200 MG/20 ML VIAL ONE (08:40)
[2017-09-30] MEDS ORDERED: LR 500 ML IV PRN (08:55)
[2017-09-30] MEDS ORDERED: ALBUTEROL 3 ML DEYVIAL IH PRN (08:55)
[2017-09-30] MEDS ORDERED: NALOXONE HCL 0.4 MG/ML INJ IVP PRN (08:55)
--- NOTE | 2017-09-30 08:55 | PDANEPAE ---
ANE Past Medical History - Pulmonary History Hx Oxygen in Use at Home: No Hx Sleep Apnea: Yes Sleep Apnea Screening Result - Last Documented: Positive - Endocrine History Hx Diabetes: No - Chronic Pain History Chronic Pain: No ANE Review of Systems Review of Systems: ANE Patient History - Allergies Allergies/Adverse Reactions: No Known Allergies Allergy (Verified 09/30/17 00:52) - Home Medications Home Medications: Acetaminophen [Tylenol 325mg (*)] 650 mg PO Q4H PRN 09/30/17 [Last Taken Unknown ] Aspirin [Aspirin 81mg (*)] 81 mg PO DAILY 09/30/17 [Last Taken Unknown] Bisacodyl [Dulcolax] 10 mg RC DAILY PRN 09/30/17 [Last Taken Unknown] Clopidogrel Bisulfate [Plavix (*)] 75 mg PO DAILY 09/30/17 [Last Taken Unknown] Escitalopram Oxalate [Lexapro] 10 mg PO HS 09/30/17 [Last Taken Unknown] Ferrous Sulfate [Ferrous Sulf 325 MG (*)] 325 mg PO HS 09/30/17 [Last Taken Unknown] Furosemide [Lasix 20 MG (*)] 20 mg PO DAILY@1730 09/30/17 [Last Taken Unknown] Furosemide [Lasix 40 MG (*)] 40 mg PO DAILY 09/30/17 [Last Taken Unknown] Herbals/Supplements -Info Only 1 ea PO DAILY 09/30/17 [Last Taken Unknown] Ipratropium/Albuterol [Duoneb (*)] 3 ml IH Q4H PRN 09/30/17 [Last Taken Unknown] Melatonin [Melatonin 3 MG (*)] 3 mg PO HS 09/30/17 [Last Taken Unknown] Pantoprazole Sodium [Protonix 40mg (*)] 40 mg PO DAILY 09/30/17 [Last Taken Unknown] Polyethylene Glycol 3350 [Miralax 17 gm (*)] 17 gm PO DAILY PRN 09/30/17 [Last Taken Unknown] Potassium Cl [Klor-Con 20 meq (*)] 30 meq PO DAILY 09/30/17 [Last Taken Unknown] Pravastatin Sodium 20 mg PO HS 09/30/17 [Last Taken Unknown] Sennosides/Docusate Sodium [Senna-Docusate Sodium Tablet] 1 each PO BID PRN 08/15 [Last Taken Unknown] guaiFENesin/DEXTROMETHORPHAN [Robitussin Dm Oral Liquid (*)] 15 ml PO Q4H PRN [Last Taken Unknown] rOPINIRole HCL [Requip 1mg (*)] 0.5 mg PO TID 09/30/17 [Last Taken Unknown] - NPO status NPO Since - Liquids (Date): 09/29/17 NPO Since - Liquids (Time): 23:59 NPO Since - Solids (Date): 09/29/17 NPO Since - Solids (Time): 18:00 - Smoking Hx Smoking Status: Former smoker ANE Labs/Vital Signs - Labs Result Diagrams: 09/30/17 00:45 09/30/17 00:45 - Vital Signs Blood Pressure: 118/67 Heart Rate: 98 Respiratory Rate: 22 O2 Sat (%): 91 Height: 170.18 cm Weight: 90.7 kg ANE Physical Exam - Airway Neck exam: decreased ROM Mallampati Score: Class 2 Mouth exam: dentures - Pulmonary Pulmonary: reduced air movement, expiratory wheeze - Cardiovascular Cardiovascular: regular rate and rhythym, no murmur, rub, or gallop - ASA Status ASA Status: IV, E ANE Anesthesia Plan Anesthesia Plan: MAC
--- NOTE | 2017-09-30 09:08 | GIREPORT ---
[facility] Surgical Services - Endoscopy Department Patient Name: Rachel Ferrell Procedure Date: 09/30/2017 8:30 AM Patient Type: Inpatient Attending MD/ ER Physician: Liliana Quintanilla MD Procedure: Upper GI endoscopy Indications: Acute post hemorrhagic anemia, Melena Providers: Liliana Quintanilla MD Medicines: Sedation Administered by an Anesthesia Professional Complications: No immediate complications. Description of Procedure: After obtaining informed consent, the endoscope was passed under direct vision. Throughout the procedure, the patient's blood pressure, pulse, and oxygen saturations were monitored continuously. The Endoscope was intro duced through the mouth, and advanced to the third part of duodenum. The uppe r GI endoscopy was accomplished without difficulty. The patient tolerated th e procedure well. Findings: The Z-line was irregular and was found in the lower third of the esopha jarrett. Diffuse mild inflammation characterized by congestion (edema), erosions and erythema was found in the entire examined stomach. The examined duodenum was normal. Estimated Blood Loss: Estimated blood loss: none. Post Op Diagnosis: - Z-line irregular, in the lower third of the esophagus. - Gastritis. - Normal examined duodenum. - No specimens collected. Recommendation: - Return patient to [facility] for [facility] care. - Use a proton pump inhibitor PO BID. - While gastritis and small erosions noted, it is not clear that these findings would explain her precipitous Hgb drop and melena. - Recommend additional work-up to resolve other sources of bleeding. Wi ll plan colonoscopy tomorrow, and if that is negatrive consider capsule endoscopy. - Observe patient's clinical course. Attending Participation: I personally performed the entire procedure. Liliana Quintanilla MD Liliana Quintanilla MD 09/30/2017 9:08:45 AM This report has been signed electronicallyDaus Socorro MD Number of Addenda: 0 Note Initiated On: 09/30/2017 8:30 AM [email or web address]
[2017-09-30] MEDS ORDERED: PEG 3350/NA SULF,BICARB,CL/KCL (GAVILYTE-G) 4000 ML BTL PO ONE ×2 (09:12→16:00)
--- NOTE | 2017-09-30 09:15 | GCON ---
[f rep st] CONSULTATION INPATIENT CONSULTATION NOTE REQUESTING PHYSICIAN: Sarah Arias MD. REASON FOR CONSULTATION: Melena and anemia. CHIEF COMPLAINT: Black stool. HISTORY OF PRESENT ILLNESS: Briefly, the patient is a pleasant elderly female with a past medical hi story significant for heart disease and peripheral vascular disease as well as peptic ulcer disease, who presents to the emergency room from [facility] for the evaluation of melena. She r eports she is having some increasing fatigue as well as low-grade temperatures. Blood work was done to evaluate her symptoms and she was noted to have an anemia worse than her baseline. Given the cristin k stool, worsened anemia, and fatigue symptoms, she was sent to the emergency room for evaluation. Of note, she takes Plavix due to a history of cardiac stents, but is on no other blood thinning agent s. 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 She may have had evidence of bleeding on a prior admission. She has been on a proton pump inhibitor therapy. She reports stable appetite. She has had no abdominal pain. Her bowel movements were normal until a pproximately 3 days ago. ALLERGIES: None. HOME MEDICATIONS: Ropinirole, potassium, Lasix, albuterol, aspirin, Protonix, iron, pravastatin, Tyl enol, cough syrup, melatonin, Plavix, Lexapro, Senokot, Dulcolax, and MiraLAX. It is not clear from the patient if she is using a proton pump inhibitor. FAMILY HISTORY: Negative for colon cancer, but is positive for history of heartburn. SOCIAL HISTORY: She is . She lives at [facility]. She has a 52 pack-year smoking history. She quit 1 year ago. She does not use drugs. She consumes rare alcohol. PAST MEDICAL HISTORY: Includes coronary disease, [place] and stenting, hypertension, restless legs syndro me, iron deficiency anemia, heartburn, peptic ulcer disease, heel ulcers, COPD with oxygen dependence and neuropathy. REVIEW OF SYSTEMS: A complete 14-point review was undertaken with the patient and pertinent positive s and negatives are detailed in the history of present illness of present illness. PHYSICAL EXAM: GENERAL: This is an elderly obese female in no apparent distress. HEENT: Her pupil s are equal, round, reactive to light and accommodation. Her sclerae are nonicteric. Oropharynx is clear. NECK: Supple without lymphadenopathy. HEART: Regular without murmur. ABDOMEN: Soft, nont radha, with normoactive bowel sounds. EXTREMITIES: Free of cyanosis, clubbing, and edema. NEURO: Grossly nonfocal. LABORATORY TESTING: Reveals a white count of 10.49, hemoglobin of 6.6, hematocrit of 21.3. INR 1.18 . Sodium of 136, potassium of 4.0, chloride of 99, bicarb of 24, BUN of 41, creatinine of 0.8. Tota l bilirubin and liver function tests are normal. IMPRESSION AND RECOMMENDATIONS: The patient is admitted to the hospital with melena and worsened ane tracee. In the setting of an elevated BUN and creatinine ratio and a prior history of peptic disease, I am concerned about recurrent peptic ulcer bleeding. As such, we will leave her n.p.o., place her on proton pump inhibitor and plan upper endoscopy. Due to her obesity, oxygen dependence, heart diseas e, etc., she has increased risk of conscious sedation. We will have Anesthesia help with her sedatio n. Pending the results of endoscopy, we can consider additional workup. /[id number]/MODL
--- NOTE | 2017-09-30 09:17 | SUROPNOTE ---
[facility] Operative Report - Surgery BRIEF EGD NOTE INDICATION: melena/anemia COMPLICATIONS: none MEDICATIONS: per anesthesia FINDINGS: 1. esophagus: irregular z-line, c/w prior dx cook's 2. erosive gastritis 3. normal duodenum IMPRESSION/RECS: 1. Melena/Anemia - erosive gastritis noted, but not severe enough to lead to significant anemia/ melena - clear today - dc IV PPI - start BID PPI PO - colonoscopy tomorrow to r/o colonic source of blood loss - pending the above, would consider capsule endoscopy to w/u further - will follow, call with questions
--- NOTE | 2017-09-30 09:22 | PDMN ---
Medical Necessity Medical necessity: Patient meets inpatient criteria per physician note and MCG M -180 GI Bleeding, Upper (presents with melena, confusion, increasing fatigue, low-grade fevers; H and H 6.6/21.3; receiving 2 units PRBC for acute blood loss anemia; ongoing ST after initial fluid bolus; hx of CAD w/[place], PUD, PVD w/ stenting; HTN, GERD, COPD, iron deficiency anemia, chronic heel wounds, Calderon' s esophagus; anticipated LOS > 2 midnights d/t increased risk of recurrent bleeding, following of serial H/H's, IV hydration.)
--- NOTE | 2017-09-30 09:23 | POSTANESTH ---
Post Anesthetic Evaluation Cardiovascular Status: Normal, Stable, Similar to Pre-Op Cond Respiratory Status: Normal, Stable Level of Consciousness/Mental Status: Can Participate in Eval Pain Control: Adequate, Prn Tx Ordered Nausea/Vomiting Control: Adequate, Prn Tx Ordered Complications Possibly Related to Anesthesia: None Noted
--- NOTE | 2017-09-30 09:39 | ASMTCASEMG ---
Living Arrangements What is your living Answers: Alone arrangement? Who do you live with? Type Of Residence What kind of residence do Answers: Assisted Living you live in? Discharge Plan Comments Coordination Status Comments Notes: Patient is a 77yo female who lives at [facility] and was admitted for an acute GI bleed, acute blood loss anemia, confusion, and hypoalbuminemia. Patient has a hx of CAD,restless legs syndrome, hyperlipidemia, gastroesophageal reflux disease, chronic heel ulcers, chronic obstructive pulmonary disease, neuropathy. No therapies have been ordered to date. Patient has a son, Yunier who lives in town and provides excellent support. Most likely patient will return to [facility] at D/C. D/C plan TBD. CM will follow. Date Signed: 09/30/2017 09:39 AM Electronically Signed By:Tatiana Vergara LCSW
[2017-09-30] MEDS ORDERED: GUAIFENESIN/DM 10 ML UDCUP PO PRN (10:41)
[2017-09-30] MEDS ORDERED: IPRATROPIUM/ALBUTEROL 3 ML DEYVIAL IH PRN (10:41)
[2017-09-30] MEDS ORDERED: PANTOPRAZOLE SODIUM 40 MG TAB PO SCH (10:45)
--- NOTE | 2017-09-30 16:38 | HOSPPROG ---
Hospitalist Progress Note Assessment/Plan: 77 yo F w dark stool and blood loss anemia ABLA: attributable to GI bleed repeat hct soon as lower than expected bump from 2 units GI bleed: gastritis seen on egd this can be source of bleeding in pt on dual antiplatelet therapy colonoscopy in AM elevated bun suggestive of upper source cad w stents: stents > 1 year ago ok to hold asa/plavix for 48 hours proph: scd's dispo: inpt Subjective: case d/w dr anna, dr tomas. no further bleeding Objective: Vital Signs Temp Pulse Resp BP Pulse Ox 36.6 C 84 17 116/45 L 100 09/30/17 15:46 09/30/17 15:46 09/30/17 15:46 09/30/17 15:46 09/30/17 15:46 Laboratory Results 09/30/17 12:28 09/29/17 09/30/17 10/01/17 05:59 05:59 05:59 Intake Total 1000 1803 Output Total 850 Balance 150 1803 PT 15.2 SEC (12.0-15.0) H 09/30/17 01:00 INR 1.18 (0.83-1.16) H 09/30/17 01:00 - Physical Exam Constitutional: no apparent distress, appears nourished Eyes: PERRL, anicteric sclera Ears, Nose, Mouth, Throat: moist mucous membranes, hearing normal Cardiovascular: regular rate and rhythym, no murmur, rub, or gallop Respiratory: no respiratory distress, no rales or rhonchi Gastrointestinal: normoactive bowel sounds, soft, non-tender abdomen Genitourinary: no bladder fullness, No walls in urethra Skin: warm, normal color Musculoskeletal: full muscle strength, no muscle tenderness Neurologic: AAOx3 Psychiatric: interacting appropriately ICD10 Worksheet Patient Problems: Problems Problem Status Onset GI bleed Acute Venous stasis dermatitis of both lower extremities Acute
[2017-09-30 18:06] LABS: PLATELET COUNT 140 10^3/uL (150-400)
[2017-09-30] MEDS: PANTOPRAZOLE SODIUM 40 MG TAB PO SCH (21:16)
[2017-09-30] MEDS: FERROUS SULFATE 325 MG TAB PO SCH (21:16)
[2017-09-30] MEDS: PRAVASTATIN SODIUM 20 MG TAB PO SCH (21:16)
[2017-09-30] MEDS: ESCITALOPRAM OXALATE 10 MG TAB PO SCH (21:16)
[2017-09-30] MEDS: MELATONIN 3 MG TAB PO SCH (21:16)
[2017-10-01 05:07] LABS: PLATELET COUNT 153 10^3/uL (150-400)
[2017-10-01] MEDS: NS 1,000 ML IV SCH (07:54)
[2017-10-01] MEDS ORDERED: Herbals/Supplements -Info Only PO SCH (09:00)
[2017-10-01] MEDS ORDERED: PROTOCOL POTASSIUM 1 DOSE MISC PRN (10:17)
[2017-10-01] MEDS ORDERED: PROTOCOL MAGNESIUM 1 DOSE IV PRN (10:17)
[2017-10-01] MEDS ORDERED: MAGNESIUM SULF 2 GM/WATER 50 ML IV ONE (10:20)
--- NOTE | 2017-10-01 10:26 | HOSPPROG ---
Hospitalist Progress Note Assessment/Plan: #ABLA due to GIB -Further drop in Hgb overnight -Hemodynamically stable #GIB/Melena -Endoscopy shows gastritis, but likely not the source of the bleed -Awaiting Colonoscopy today -Cont PPI orally #CAD with stents over one year ago -Holding dual antiplatelet -Likely does not need both once she is stable #Hx of Pedal Edema, ?CHF -Holding Diuretics -She is 4 kg up #Hypokalemia, will replace #Hypomagnesemia, will replace #Thoracic Aortic Aneurysm -She reports that this is chronic. She has been seen by a Cardiothoracic surgeon here in [place], but she cannot recall his name. The plan is surveillance until she is able to walk and is stronger. For now I will hold off on consultation with IR, but once more stable and GIB resolves, could consider consult. #Deconditioning, chronic, mostly wheel chair bound. -PT Plan: She appears hemodynamically stable, but Hgb has drooped. Will transfuse 1 unit, although she will likely need a second one. She has already received 2 units on 09/30. She will get Lasix after this unit. cont Inpatient Subjective: drinking bowel prep. Scheduled for colonoscopy today. No Cp or SOB. Objective: Vital Signs Temp Pulse Resp BP Pulse Ox 36.4 C 86 14 131/63 H 99 10/01/17 07:28 10/01/17 07:28 10/01/17 07:28 10/01/17 07:28 10/01/17 07:28 Laboratory Results 10/01/17 09:28 10/01/17 04:30 09/30/17 10/01/17 10/02/17 05:59 05:59 05:59 Intake Total 1000 4356 Output Total 850 800 Balance 150 3556 PT 15.2 SEC (12.0-15.0) H 09/30/17 01:00 INR 1.18 (0.83-1.16) H 09/30/17 01:00 - Physical Exam Constitutional: no apparent distress Eyes: PERRL, EOMI Ears, Nose, Mouth, Throat: moist mucous membranes, hearing normal Cardiovascular: regular rate and rhythym, edema Respiratory: no respiratory distress Gastrointestinal: normoactive bowel sounds, soft, non-tender abdomen Skin: warm Musculoskeletal: generalized weakness Neurologic: AAOx3 Psychiatric: interacting appropriately, not anxious, not encephalopathic Lymph, Heme, Immunologic: No petechiae ICD10 Worksheet Patient Problems: Problems Problem Status Onset GI bleed Acute Venous stasis dermatitis of both lower extremities Acute
[2017-10-01] MEDS ORDERED: MAGNESIUM SULF 1 GM/DEXTROSE 100 ML IV ONE (10:28)
[2017-10-01] MEDS ORDERED: FUROSEMIDE 20 MG/2 ML VIAL IVP ONE (10:28)
[2017-10-01] MEDS: POTASSIUM Cl (KCl) 100 ML IV SCH ×2 (10:51→15:52)
[2017-10-01] MEDS: NS W/ 20 KCl/L 1,000 ML IV SCH (10:51)
[2017-10-01] MEDS: PANTOPRAZOLE SODIUM 40 MG TAB PO SCH ×2 (10:52→20:34)
[2017-10-01] MEDS ORDERED: PROPOFOL 200 MG/20 ML VIAL ONE ×2 (12:53→13:30)
[2017-10-01] MEDS ORDERED: LR 1,000 ML IV ONE (12:56)
[2017-10-01] MEDS ORDERED: EPINEPHrine 1 MG/ML INJ ONE (13:05)
--- NOTE | 2017-10-01 13:18 | PDANEPAE ---
ANE Past Medical History - Pulmonary History Hx Oxygen in Use at Home: No Hx Sleep Apnea: Yes Sleep Apnea Screening Result - Last Documented: Positive - Endocrine History Hx Diabetes: No - Chronic Pain History Chronic Pain: No ANE Review of Systems Review of Systems: ANE Patient History - Allergies Allergies/Adverse Reactions: No Known Allergies Allergy (Verified 09/30/17 00:52) - Home Medications Home Medications: Acetaminophen [Tylenol 325mg (*)] 650 mg PO Q4H PRN 09/30/17 [Last Taken Unknown ] Aspirin [Aspirin 81mg (*)] 81 mg PO DAILY 09/30/17 [Last Taken Unknown] Bisacodyl [Dulcolax] 10 mg RC DAILY PRN 09/30/17 [Last Taken Unknown] Clopidogrel Bisulfate [Plavix (*)] 75 mg PO DAILY 09/30/17 [Last Taken Unknown] Escitalopram Oxalate [Lexapro] 10 mg PO HS 09/30/17 [Last Taken Unknown] Ferrous Sulfate [Ferrous Sulf 325 MG (*)] 325 mg PO HS 09/30/17 [Last Taken Unknown] Furosemide [Lasix 20 MG (*)] 20 mg PO DAILY@1730 09/30/17 [Last Taken Unknown] Furosemide [Lasix 40 MG (*)] 40 mg PO DAILY 09/30/17 [Last Taken Unknown] Herbals/Supplements -Info Only 1 ea PO DAILY 09/30/17 [Last Taken Unknown] Ipratropium/Albuterol [Duoneb (*)] 3 ml IH Q4H PRN 09/30/17 [Last Taken Unknown] Melatonin [Melatonin 3 MG (*)] 3 mg PO HS 09/30/17 [Last Taken Unknown] Pantoprazole Sodium [Protonix 40mg (*)] 40 mg PO DAILY 09/30/17 [Last Taken Unknown] Polyethylene Glycol 3350 [Miralax 17 gm (*)] 17 gm PO DAILY PRN 09/30/17 [Last Taken Unknown] Potassium Cl [Klor-Con 20 meq (*)] 30 meq PO DAILY 09/30/17 [Last Taken Unknown] Pravastatin Sodium 20 mg PO HS 09/30/17 [Last Taken Unknown] Sennosides/Docusate Sodium [Senna-Docusate Sodium Tablet] 1 each PO BID PRN 08/15 [Last Taken Unknown] guaiFENesin/DEXTROMETHORPHAN [Robitussin Dm Oral Liquid (*)] 15 ml PO Q4H PRN [Last Taken Unknown] rOPINIRole HCL [Requip 1mg (*)] 0.5 mg PO TID 09/30/17 [Last Taken Unknown] - NPO status NPO Since - Liquids (Date): 10/01/17 NPO Since - Liquids (Time): 23:59 NPO Since - Solids (Date): 09/30/17 NPO Since - Solids (Time): 18:00 - Smoking Hx Smoking Status: Current every day smoker ANE Labs/Vital Signs - Labs Result Diagrams: 10/01/17 09:28 10/01/17 04:30 - Vital Signs Blood Pressure: 92/44 Heart Rate: 92 Respiratory Rate: 18 O2 Sat (%): 100 Height: 170.18 cm Weight: 98.1 kg ANE Physical Exam - Airway Neck exam: decreased ROM Mallampati Score: Class 2 Mouth exam: dentures, small mouth opening - Pulmonary Pulmonary: reduced air movement, expiratory wheeze, respiratory distress - Cardiovascular Cardiovascular: regular rate and rhythym, no murmur, rub, or gallop - ASA Status ASA Status: IV ANE Anesthesia Plan Anesthesia Plan: MAC
[2017-10-01] MEDS ORDERED: NALOXONE HCL 0.4 MG/ML INJ IVP PRN (13:19)
[2017-10-01] MEDS ORDERED: ALBUTEROL 3 ML DEYVIAL IH PRN (13:19)
--- NOTE | 2017-10-01 13:49 | GIREPORT ---
[facility] Surgical Services - Endoscopy Department Patient Name: Rachel Ferrell Procedure Date: 10/01/2017 12:46 PM Patient Type: Inpatient Attending MD/ ER Physician: Liliana Quintanilla MD Procedure: Colonoscopy Indications: Hematochezia, Acute post hemorrhagic anemia Providers: Liliana Quintanilla MD Medicines: Sedation Administered by an Anesthesia Professional Complications: No immediate complications. Description of Procedure: After obtaining informed consent, the scope was passed under direct vis ion. Throughout the procedure, the patient's blood pressure, pulse, and oxyg en saturations were monitored continuously. The Colonoscope was introduced through the anus and advanced to the cecum, identified by appendiceal orifice and ileocecal valve. The colonoscopy was technically difficult and complex due to significant looping, a tortuous colon and the patient's body habitus. Successful completion of the procedure was aided by increasing the dose of sedation medication, using manual pressure, straightening and shortening the scope to obtain bowel loop reduction and using scope tor anabell. The patient tolerated the procedure well. The quality of the bowel preparation was adequate to identify polyps. Findings: Multiple diverticula were found in the sigmoid colon. A 10 mm polyp was found in the cecum. The polyp was semi-sessile. The p olyp was removed with a hot snare. Polyp resection was incomplete. The resec evi tissue was retrieved. A few sessile polyps were found in the ascending colon. The polyps were 5 to 8 mm in size. Estimated Blood Loss: Estimated blood loss: none. Post Op Diagnosis: - Diverticulosis in the sigmoid colon. - One 10 mm polyp in the cecum, removed with a hot snare. Incomplete resection. Resected tissue retrieved. Given the difficulty in reaching the cecum, attempts at hot snare cautery removal of the polyp were made. Th e polyp, likely, as incompletely resected. - A few 5 to 8 mm polyps in the ascending colon. Given the need for rep eat colonoscopy to remove the cecal polyp, and a desire not to confuse the current bleeding work up with the possibility of post-polypectomy bleed ing complications, these polyps were left in situ. Recommendation: - Return patient to [facility] for ongoing care. - Await pathology results. - Repeat colonoscopy in 6 months for retreatment. - No source of bleeding or anemia noted at colonoscopy. Suspect small b owel source.\ - To visualize the small bowel, perform video capsule endoscopy. Attending Participation: I personally performed the entire procedure. Liliana Quintanilla MD Liliana Quintanilla MD 10/01/2017 1:48:40 PM This report has been signed electronicallyLiliana Quintanilla MD Number of Addenda: 0 Note Initiated On: 10/01/2017 12:46 PM Total Procedure Duration Time 0 hours 32 minutes 30 seconds [email or web address]
--- NOTE | 2017-10-01 13:52 | SUROPNOTE ---
[facility] Operative Report - Surgery BRIEF COLONOSCOPY NOTE INDICATION: melena, anemia MEDICATION: per anesthesia COMPLICATIONS: none acutely FINDINGS: 1. Sigmoid Diverticula 2. multiple ascending colon polyps 5-8mm in size 3. 1cm cecal polyp, semi-sessile, incompletely resected with hot snare 4. black, coffee ground, effluent throughout IMPRESSION: 1. No source of bleeding noted 2. Colon polyps, one incompletely resected, others left in situ RECS: 1. Plan outpt capsule endoscopy 2. advance diet 3. consider dc home once H/h stable and diet is tolerated 4. will unfortunately need repeat colonoscopy with polypectomy (to completely remove cecal lesion, and to address polyps that were not removed) - will follow, dr. christina to assume GI service today at 5p
--- NOTE | 2017-10-01 14:00 | POSTANESTH ---
Post Anesthetic Evaluation Cardiovascular Status: Similar to Pre-Op Cond Respiratory Status: Similar to Pre-op Cond. Level of Consciousness/Mental Status: Can Participate in Eval Pain Control: Adequate, Prn Tx Ordered Nausea/Vomiting Control: Adequate, Prn Tx Ordered Complications Possibly Related to Anesthesia: None Noted
--- NOTE | 2017-10-01 14:00 | ASMTCMCOM ---
CM Note CM Note Notes: Pt. is a 77-year-old woman admitted w/ anemia and melena. Hx. VT, CAD, stenting, heel ulcers, peptic ulcer disease, HTN, and COPD (does not use home O2 as of yet). Reportedly, Pt. is mostly wheelchair bound and has experienced deconditioning. SWer called and confirmed that Pt. lives in [facility]. Pt. having a colonoscopy today. PT ordered to assist with d/c planning. Pt. has [facility] Medicare should Pt. need SNF placement. Son Yunier is involved. CM to follow for d/c POC. TBD. Date Signed: 10/01/2017 01:59 PM Electronically Signed By:Aminata Alberts LCSW
--- NOTE | 2017-10-01 15:43 | WOCRNPDOC ---
[facility] Advanced Assessment Note - Skin Integrity Problem, Advanced Assess Bilateral Lower Leg Dressing Type: Open to Air Exudate Color: Yellow, Brown Exudate Characteristic(s): Dried Denise Wound Tissue: Scaly, Venous Dermatitis, Dry, Painful/Tender Denise Wound Swelling: Mild Wound Bed Color: Red Wound Bed Constitution: Red/[place] - Non Granular Tissue Site Odor: None Site Measurement - Head-to-Toe Length X Width X Depth (cm): LLE (medial): 1.5cmx1.6cmx0.1cm. RLE posterior (proximal): 1.5cmx1.8cmx0.1cm. RLE posterior (medial): 2cmx1.9cmx0.1cm. RLE posterior (distal): 2.9qqo0rsv5.1cm Peripheral Edema Location & Description: +1 bilaterally, non-pitting Skin Integrity Problem Comment: Patient well-known to wound care from a previous admission. Long-standing venous stasis ulcers, significantly improved since this author last visualized. Intensely dry, scaly skin throughout BLE, w/ areas of adhered,dried exudate along gaiter region. There are 4 discrete wounds : one on her LLE medial aspect, and three on her RLE posterior aspect. All wounds have friable margins, w/ non-granulating tissue, and no necrosis evident. Patient resides at [place], and reports having Cetaphil lotion and soft , cotton wraps applied to her lower legs. She also says she cannot tolerate compression, despite being an ideal candidate for it. Will have nursing apply Atrac-tain cream to intact skin on both lower legs, to help rapidly exfoliate areas of venous dermatitis. Order written for foam dressings over wounds, Kelix and rollod-on Coban to cover. Wound care will follow up with patient next Sunday 10/08 if she remains inpatient.
[2017-10-01] MEDS: PRAVASTATIN SODIUM 20 MG TAB PO SCH (20:34)
[2017-10-01] MEDS: MELATONIN 3 MG TAB PO SCH (20:34)
[2017-10-01] MEDS: FERROUS SULFATE 325 MG TAB PO SCH (20:34)
[2017-10-01] MEDS: ESCITALOPRAM OXALATE 10 MG TAB PO SCH (20:35)
[2017-10-01] MEDS ORDERED: POTASSIUM CL 10 MEQ TAB PO ONE (20:48)
[2017-10-02] MEDS: NS W/ 20 KCl/L 1,000 ML IV SCH (01:58)
[2017-10-02] MEDS: POTASSIUM Cl (KCl) 100 ML IV SCH ×2 (03:17→03:18)
[2017-10-02 05:07] LABS: PLATELET COUNT 173 10^3/uL (150-400)
[2017-10-02] MEDS ORDERED: POTASSIUM CL 10 MEQ TAB PO ONE (07:32)
[2017-10-02] MEDS ORDERED: MAGNESIUM SULF 1 GM/DEXTROSE 100 ML IV ONE (07:33)
[2017-10-02] MEDS: PANTOPRAZOLE SODIUM 40 MG TAB PO SCH ×2 (07:51→20:22)
--- NOTE | 2017-10-02 11:13 | SOAPPROG ---
SOAP Progress Note Assessment/Plan: Assessment: No acute signs of GI bleeding. No clear source for patients anemia and reported melena. EGD with erosions otherwise no significant bleeding source identified. Colonoscope with multiple polyps in the right colon. Difficult exam with large cecal polyp that was incompletely excised. Plan: 1. Diet as tolerated 2. Patient to be transfused PRBC today 3. Serial H and H 4. Capsule study as outpatieont 5. Repeat outpatient colonoscopy in six months (with anesthesia assistance) in six months. 10/02/17 11:09 Subjective: CC: Melena, GI bleed Patient without signs or symptoms of bleeding. Objective: Vital Signs Temp Pulse Resp BP Pulse Ox 36.7 C 80 18 117/59 L 99 10/02/17 08:00 10/02/17 08:00 10/02/17 08:00 10/02/17 08:00 10/02/17 08:00 Laboratory Results 10/02/17 04:27 10/02/17 04:27 10/01/17 10/02/17 10/03/17 05:59 05:59 05:59 Intake Total 4356 2240 Output Total 800 1750 Balance 3556 490 PT 15.2 SEC (12.0-15.0) H 09/30/17 01:00 INR 1.18 (0.83-1.16) H 09/30/17 01:00 Generic Name Dose Route Start Last Admin Trade Name Freq PRN Reason Stop Dose Admin Acetaminophen 650 mg 09/30/17 01:51 10/02/17 01:48 Tylenol PO 03/29/18 01:50 650 mg Q4HRS PRN Administration Pain, Mild/Fever, Can Take PO Acetaminophen 650 mg 09/30/17 01:51 Tylenol Rectal NH 03/29/18 01:50 Q4HRS PRN Pain, Mild/Fever,Can't Take PO Albuterol/Ipratropium 3 ml 09/30/17 10:41 Duoneb IH 03/29/18 10:40 Q4H PRN Short of Breath/Dyspnea Escitalopram Oxalate 10 mg 09/30/17 21:00 10/01/17 20:35 Lexapro PO 03/29/18 20:59 10 mg HS HITESH Administration Ferrous Sulfate 325 mg 09/30/17 21:00 10/01/17 20:34 Ferrous Sulfate PO 03/29/18 20:59 325 mg HS HITESH Administration Guaifenesin/Dextromethorphan 15 ml 09/30/17 10:41 Robitussin Dm Oral Liquid PO 03/29/18 10:40 Q4H PRN Cough, Mild Hydromorphone HCl 0.5 - 1 mg 09/30/17 01:51 Dilaudid IVP 10/10/17 01:50 Q4HRS PRN Pain, Severe Potassium Chloride/Sodium Chloride 1,000 mls @ 100 mls/hr 10/01/17 10:30 10/15 01:58 Ns W/ 20 Kcl/L IV 03/30/18 10:29 1,000 mls CONT HITESH Administration Magnesium Sulfate 1 dose 10/01/17 10:17 Protocol Magnesium IV 03/30/18 10:16 AD PRN Pt on Electrolyte Protocol Protocol Melatonin 3 mg 09/30/17 21:00 10/01/17 20:34 Melatonin PO 03/29/18 20:59 3 mg HS HITESH Administration Ondansetron HCl 4 mg 09/30/17 01:51 Zofran IVP 03/29/18 01:50 Q4HRS PRN Nausea/Vomiting, Can't Take PO Ondansetron HCl 4 mg 09/30/17 01:51 Zofran Odt PO 03/29/18 01:50 Q4HRS PRN Nausea/Vomiting, Use 1st Pantoprazole Sodium 40 mg 09/30/17 21:00 10/02/17 07:51 Protonix PO 03/29/18 20:59 40 mg BID HITESH Administration Potassium Chloride 1 dose 10/01/17 10:17 Protocol Potassium MISC 03/30/18 10:16 AD PRN Pt on Electrolyte Protocol Protocol Pravastatin Sodium 20 mg 09/30/17 21:00 10/01/17 20:34 Pravachol PO 03/29/18 20:59 20 mg HS HITESH Administration Ropinirole HCl 0.5 mg 09/30/17 16:00 10/02/17 07:51 Requip PO 03/29/18 15:59 0.5 mg TID HITESH Administration Senna/Docusate Sodium 1 tab 09/30/17 10:41 Senokot-S PO 03/29/18 10:40 BID PRN Constipation Discontinued Medications Generic Name Dose Route Start Last Admin Trade Name Freq PRN Reason Stop Dose Admin Albumin Human Confirm 09/30/17 08:37 09/30/17 10:14 Alburx 5 Administered 09/30/17 08:38 Not Given Dose 250 ml IV .STK-MED ONE Albuterol Confirm 09/30/17 08:35 Proventil Neb Administered 09/30/17 08:36 Dose 3 ml .ROUTE .STK-MED ONE Albuterol 3 ml 09/30/17 08:55 Proventil Neb IH 09/30/17 09:55 Q10M PRN PACU, Wheezing Albuterol 3 ml 10/01/17 13:19 Proventil Neb IH 10/01/17 14:19 Q10M PRN PACU, Wheezing Calcium Chloride Confirm 09/30/17 08:40 Calcium Chloride Administered 09/30/17 08:41 Dose 1 gm .ROUTE .STK-MED ONE Epinephrine HCl Confirm 09/30/17 08:31 Epinephrine Administered 09/30/17 08:32 Dose 1 mg .ROUTE .STK-MED ONE Epinephrine HCl Confirm 10/01/17 13:05 Epinephrine Administered 10/01/17 13:06 Dose 1 mg .ROUTE .STK-MED ONE Furosemide 20 mg 10/01/17 10:28 10/01/17 10:52 Lasix Injection IVP 10/01/17 10:29 20 mg ONCE ONE Administration Sodium Chloride 1,000 mls @ 0 mls/hr 09/30/17 00:47 09/30/17 01:01 Ns IV 09/30/17 00:48 1,000 mls EDNOW ONE Administration Protocol Wide Open Sodium Chloride 1,000 mls @ 125 mls/hr 09/30/17 02:00 10/01/17 07:54 Ns IV 03/29/18 01:59 1,000 mls CONT HITESH Administration Lactated Ringer's 1,000 mls @ 0 mls/hr 09/30/17 08:01 09/30/17 10:14 Lr IV 09/30/17 08:02 Not Given ONCE ONE Protocol TKO Lactated Ringer's 1,000 mls @ 0 mls/hr 09/30/17 08:22 09/30/17 08:39 Lr IV 09/30/17 08:23 1,000 mls ONCE ONE Administration As Directed Lactated Ringer's 500 mls @ 0 mls/hr 09/30/17 08:55 Lr IV 09/30/17 09:55 PRN PRN PACU, Nausea/Vomiting Post-Op Wide Open Magnesium Sulfate 50 mls @ 50 mls/hr 10/01/17 10:20 10/01/17 19:32 Magnesium Sulf 2 Gm (Premix) IV 10/01/17 11:19 Not Given ONCE ONE Potassium Chloride 100 mls @ 100 mls/hr 10/01/17 10:30 10/02/17 03:18 Potassium Cl 10 Meq (Premix) IV 10/01/17 14:29 Not Given Q1H HITESH Magnesium Sulfate/Dextrose 100 mls @ 100 mls/hr 10/01/17 10:28 10/01/17 18:19 Magnesium Sulf 1 Gm (Premix) IV 10/01/17 11:27 100 mls ONCE ONE Administration Lactated Ringer's 1,000 mls @ 0 mls/hr 10/01/17 12:56 10/01/17 15:00 Lr IV 10/01/17 12:57 Not Given ONCE ONE Per Protocol Magnesium Sulfate/Dextrose 100 mls @ 100 mls/hr 10/02/17 07:33 10/02/17 07:51 Magnesium Sulf 1 Gm (Premix) IV 10/02/17 08:32 100 mls ONCE ONE Administration Lidocaine HCl Confirm 09/30/17 08:40 Xylocaine-Mpf 2% Vial Administered 09/30/17 08:41 Dose 5 ml .ROUTE .STK-MED ONE Miscellaneous Medication 1 each 10/01/17 09:00 Herbals/Supplements -Info Only PO 03/30/18 08:59 DAILY HITESH Naloxone HCl 0.1 mg 09/30/17 08:55 Narcan IVP 09/30/17 09:55 Q2M PRN PACU Resp Rate <10/min Naloxone HCl 0.1 mg 10/01/17 13:19 Narcan IVP 10/01/17 14:19 Q2M PRN PACU Resp Rate <10/min Pantoprazole Sodium 40 mg 09/30/17 01:19 09/30/17 01:27 Protonix IVP 09/30/17 01:20 40 mg EDNOW ONE Administration Pantoprazole Sodium 40 mg 09/30/17 01:30 09/30/17 01:48 Protonix IVP 09/30/17 01:31 40 mg EDNOW ONE Administration Pantoprazole Sodium 40 mg 09/30/17 08:00 09/30/17 07:51 Protonix IVP 03/29/18 07:59 40 mg Q6H HITESH Administration Pantoprazole Sodium 40 mg 09/30/17 10:45 09/30/17 11:59 Protonix PO 03/29/18 10:44 Not Given DAILY HITESH Phenylephrine HCl Confirm 09/30/17 08:40 Neosynephrine Administered 09/30/17 08:41 Dose 1,000 mcg .ROUTE .STK-MED ONE Polyethylene Glycol/Electrolytes 4,000 ml 09/30/17 09:12 09/30/17 15:49 Gavilyte - G PO 09/30/17 09:13 Not Given ONCE ONE Polyethylene Glycol/Electrolytes 4,000 ml 09/30/17 16:00 09/30/17 15:51 Gavilyte - G PO 09/30/17 16:01 4,000 ml ONCE ONE Administration Potassium Chloride 20 meq 10/01/17 20:48 10/01/17 21:04 Klor-Con PO 10/01/17 20:49 20 meq ONCE ONE Administration Protocol Potassium Chloride 40 meq 10/02/17 07:32 10/02/17 07:52 Klor-Con PO 10/02/17 07:33 40 meq ONCE ONE Administration Protocol Propofol Confirm 09/30/17 08:40 Diprivan Administered 09/30/17 08:41 Dose 200 mg .ROUTE .STK-MED ONE Propofol Confirm 10/01/17 12:53 Diprivan Administered 10/01/17 12:54 Dose 200 mg .ROUTE .STK-MED ONE Propofol Confirm 10/01/17 13:30 Diprivan Administered 10/01/17 13:31 Dose 200 mg .ROUTE .STK-MED ONE Physical Exam - Physical Exam General Appearance: alert, no apparent distress EENT: PERRL/EOMI Respiratory: lungs clear, normal breath sounds Cardiac/Chest: regular rate, rhythm Abdomen: normal bowel sounds, non-tender, soft Neuro/Psych: alert, normal mood/affect, oriented x 3 ICD10 Worksheet Patient Problems: Problems Problem Status Onset GI bleed Acute Venous stasis dermatitis of both lower extremities Acute
--- NOTE | 2017-10-02 12:15 | HOSPPROG ---
Hospitalist Progress Note Assessment/Plan: 77y female with weakness. First encounter, chart reviewed. D/W Dr Mcleod. #ABLA due to GIB -no further drop in Hgb overnight -Hemodynamically stable -transfuse 1 unit today -check labs in a m #GIB/Melena -Endoscopy shows gastritis, but likely not the source of the bleed -Colonoscopy no source of bleeding -Cont PPI orally -needs outpt capsule study -repeat colon 6 months with anesthesia #CAD with stents over one year ago -Holding dual antiplatelet -Likely does not need both once she is stable #Hx of Pedal Edema, ?CHF -Holding Diuretics, restart today -She is 4 kg u #Hypokalemia, -will replace #Hypomagnesemia, -will replace #Thoracic Aortic Aneurysm -She reports that this is chronic. She has been seen by a Cardiothoracic surgeon here in [place], but she cannot recall his name. The plan is surveillance until she is able to walk and is stronger. -For now I will hold off on consultation with IR, but once more stable and GIB resolves, could consider consult. #Deconditioning, chronic, mostly wheel chair bound. -PT #BLE wounds -chronic -cont wound care Plan: She appears hemodynamically stable Will transfuse 1 unit, check labs in am may need a second unit She has already received 2 units on 09/30. She will get Lasix after this unit. cont Inpatient Subjective: Up in the chair. Feeling tired. Didn't get enough sleep. No pain. Objective: Vital Signs Temp Pulse Resp BP Pulse Ox 36.5 C 84 20 101/48 L 97 10/02/17 11:30 10/02/17 11:30 10/02/17 11:30 10/02/17 11:30 10/02/17 11:30 Laboratory Results 10/02/17 04:27 10/02/17 04:27 10/01/17 10/02/17 10/03/17 05:59 05:59 05:59 Intake Total 4356 2240 Output Total 800 1750 Balance 3556 490 PT 15.2 SEC (12.0-15.0) H 09/30/17 01:00 INR 1.18 (0.83-1.16) H 09/30/17 01:00 - Physical Exam Constitutional: appears nourished, chronically ill appearing, obese Eyes: PERRL, anicteric sclera, EOMI Ears, Nose, Mouth, Throat: moist mucous membranes, hearing normal, ears appear normal Cardiovascular: edema, No JVD, No tachycardia Respiratory: no respiratory distress, no rales or rhonchi, clear to auscultation Gastrointestinal: normoactive bowel sounds, No tenderness, No ascites Skin: warm, normal color, induration Musculoskeletal: no joint effusions, muscular tenderness, generalized weakness Neurologic: AAOx3 Psychiatric: interacting appropriately, not anxious, not encephalopathic, thought process linear ICD10 Worksheet Patient Problems: Problems Problem Status Onset Venous stasis dermatitis of both lower extremities Acute GI bleed Acute
[2017-10-02] MEDS: FUROSEMIDE 20 MG TAB PO SCH (17:21)
[2017-10-02] MEDS: ESCITALOPRAM OXALATE 10 MG TAB PO SCH (20:22)
[2017-10-02] MEDS: PRAVASTATIN SODIUM 20 MG TAB PO SCH (20:22)
[2017-10-02] MEDS: MELATONIN 3 MG TAB PO SCH (20:22)
[2017-10-02] MEDS: FERROUS SULFATE 325 MG TAB PO SCH (20:22)
[2017-10-03] MEDS ORDERED: POTASSIUM CL 10 MEQ TAB PO ONE (07:28)
[2017-10-03] MEDS ORDERED: MAGNESIUM SULF 1 GM/DEXTROSE 100 ML IV ONE (07:29)
[2017-10-03] MEDS: POTASSIUM CL 20 MEQ TAB PO SCH (08:20)
[2017-10-03] MEDS: PANTOPRAZOLE SODIUM 40 MG TAB PO SCH ×2 (08:22→21:51)
[2017-10-03] MEDS: FUROSEMIDE 40 MG TAB PO SCH ×2 (08:22→08:53)
[2017-10-03] MEDS ORDERED: LORazepam 2 MG/ML INJ IVP ONE (08:44)
[2017-10-03] MEDS ORDERED: FUROSEMIDE 40 MG/4 ML VIAL IVP ONE (08:45)
--- NOTE | 2017-10-03 13:53 | HOSPPROG ---
Hospitalist Progress Note Assessment/Plan: 77y female with weakness. #ABLA due to GIB -no further drop in Hgb overnight -Hemodynamically stable -no transfusion today -check labs in am #GIB/Melena -Endoscopy shows gastritis, but likely not the source of the bleed -Colonoscopy no source of bleeding -Cont PPI orally -needs outpt capsule study -repeat colon 6 months with anesthesia #CAD with stents over one year ago -Holding dual antiplatelet -hope to restart in am if H/H stable -Likely does not need both once she is stable #Hx of Pedal Edema, ?CHF -Diuretics, restarted -She is 4 kg u -consider further lasix #Hypokalemia, -will replace #Hypomagnesemia, -will replace #Thoracic Aortic Aneurysm -She reports that this is chronic. She has been seen by a Cardiothoracic surgeon here in [place], but she cannot recall his name. The plan is surveillance until she is able to walk and is stronger. -For now I will hold off on consultation with IR, but once more stable and GIB resolves, could consider consult. #Deconditioning, chronic, mostly wheel chair bound. -PT #Skin breakdown -refusing turns #BLE wounds -chronic -cont wound care Plan: She appears hemodynamically stable lasix today check labs in am She has already received 3 units total cont Inpatient can return to [place] when stable 1-2 days Subjective: Anxious and sob. Worked with therapy. Objective: Vital Signs Temp Pulse Resp BP Pulse Ox 36.6 C 98 20 116/63 94 10/03/17 12:00 10/03/17 12:00 10/03/17 12:00 10/03/17 12:00 10/03/17 12:00 Laboratory Results 10/03/17 04:30 10/03/17 04:30 10/02/17 10/03/17 10/04/17 05:59 05:59 05:59 Intake Total 2240 400 Output Total 1750 850 100 Balance 490 -850 300 PT 15.2 SEC (12.0-15.0) H 09/30/17 01:00 INR 1.18 (0.83-1.16) H 09/30/17 01:00 - Physical Exam Constitutional: not in pain, chronically ill appearing, obese Eyes: PERRL, anicteric sclera, EOMI Ears, Nose, Mouth, Throat: moist mucous membranes, hearing normal, ears appear normal Cardiovascular: tachycardia, edema, No JVD Respiratory: expiratory wheeze, respiratory distress, rhonchi Gastrointestinal: normoactive bowel sounds, No tenderness, No ascites Skin: warm, normal color, pressure ulcer Musculoskeletal: normal joint ROM, no joint effusions, generalized weakness Neurologic: AAOx3 Psychiatric: not encephalopathic, thought process linear, anxious, poor insight , poor judgement ICD10 Worksheet Patient Problems: Problems Problem Status Onset Venous stasis dermatitis of both lower extremities Acute GI bleed Acute
--- NOTE | 2017-10-03 14:46 | ASMTCMCOM ---
CM Note CM Note Notes: CM spoke with hospitalist, patient is presenting with heightened anxiety and is working with nurses to address anxiety. There is consideration to for IR consult when pt is more stable. PT consult 5/6 rec is SNF Rehab. Possible discharge plan would be for patient to discharge back to [facility] within the next few days. CM available for any CM support needs. D/C Plan: TBD, likely early next week. Date Signed: 10/03/2017 02:45 PM Electronically Signed By:Uyen Price
[2017-10-03] MEDS: FUROSEMIDE 20 MG TAB PO SCH (17:15)
[2017-10-03] MEDS: ESCITALOPRAM OXALATE 10 MG TAB PO SCH (21:51)
[2017-10-03] MEDS: PRAVASTATIN SODIUM 20 MG TAB PO SCH (21:51)
[2017-10-03] MEDS: MELATONIN 3 MG TAB PO SCH (21:51)
[2017-10-03] MEDS: FERROUS SULFATE 325 MG TAB PO SCH (21:51)
[2017-10-04] MEDS ORDERED: POTASSIUM CL 10 MEQ TAB PO ONE ×2 (08:03→20:04)
[2017-10-04] MEDS ORDERED: MAGNESIUM SULF 1 GM/DEXTROSE 100 ML IV ONE (08:04)
--- NOTE | 2017-10-04 08:43 | HOSPPROG ---
Hospitalist Progress Note Assessment/Plan: Patient is a 77-year-old female with a past medical history of coronary artery disease, peripheral vascular disease and chronic heel ulcers, peptic ulcer disease GERD and iron deficiency anemia. She was admitted for having increased fatigue as well as some low-grade temperatures without any obvious source of infection. Today is my 1st encounter with the patient. Chart reviewed. #ABLA due to GIB -no further drop in Hgb overnight -status post colonoscopy which showed a large cecal polyp -she has received a total of 3 units of packed red blood cells #GIB/Melena -Endoscopy shows gastritis, but likely not the source of the bleed -Colonoscopy no source of bleeding -Cont PPI orally -needs outpt capsule study -repeat colon 6 months with anesthesia #CAD with stents over one year ago -Gi is ok for these to be resumed -ask cardiology if she needs both #Hx of Pedal Edema, ?CHF -Diuretics, restarted # hypoxemia -patient has underlying COPD but is not on oxygen at baseline -will do a room air challenge and get a chest x-ray -concern she is in heart failure with multiple transfusions -will give her a dose of iv lasix now and resume home dosing #Hypokalemia, -will replace #Hypomagnesemia, -will replace #Thoracic Aortic Aneurysm -per patient is chronic -has been seen by cardiac thoracic surgeon but unclear of who it is #Deconditioning, chronic, mostly wheel chair bound. -PT #Skin breakdown -refusing turns #BLE wounds -chronic -cont wound care Plan: -will give the patient IV Lasix this morning and see if she improves; in addition will get an echocardiogram to further evaluate if she is in heart failure. Will also check a BNP, asked cardiology to confirm her date of stents , etc. Have restarted Plavix today. Subjective: Rachel doesn't want to get OOB, says she is too tired. Objective: Vital Signs Temp Pulse Resp BP Pulse Ox 36.4 C 94 20 115/63 97 10/04/17 08:00 10/04/17 08:00 10/04/17 08:00 10/04/17 08:00 10/04/17 08:00 Laboratory Results 10/04/17 04:16 10/04/17 04:16 10/03/17 10/04/17 10/05/17 05:59 05:59 05:59 Intake Total 1500 Output Total 850 1300 Balance -850 200 PT 15.2 SEC (12.0-15.0) H 09/30/17 01:00 INR 1.18 (0.83-1.16) H 09/30/17 01:00 - Physical Exam Constitutional: chronically ill appearing, uncomfortable Eyes: PERRL Ears, Nose, Mouth, Throat: hearing normal Cardiovascular: regular rate and rhythym, JVD Respiratory: No no respiratory distress (increase wob while talking, poor inspiratory and expiratory effort. Has a few scattered wheezes) Gastrointestinal: normoactive bowel sounds Skin: warm, No normal color (pale) Musculoskeletal: generalized weakness Neurologic: other (alert but not very talkative) Psychiatric: interacting appropriately ICD10 Worksheet Patient Problems: Problems Problem Status Onset GI bleed Acute Venous stasis dermatitis of both lower extremities Acute
[2017-10-04] MEDS: POTASSIUM CL 20 MEQ TAB PO SCH (08:51)
[2017-10-04] MEDS: PANTOPRAZOLE SODIUM 40 MG TAB PO SCH ×2 (08:52→20:45)
[2017-10-04] MEDS ORDERED: FUROSEMIDE 40 MG/4 ML VIAL IVP ONE ×2 (09:01→16:00)
--- NOTE | 2017-10-04 11:29 | ASMTCMCOM ---
CM Note CM Note Notes: CM spoke w/ Kerry, RN regarding d/c POC. CM met w/ pt for dispo planning. Pt would like to return back to [facility]. Pt reports that she is in the [facility] the building. Pt reports that a nurse dispenses her medications and she receives PT/OT 3x a week. CM and pt spoke briefly about her depression and anxiety. Pt reports that he sees a therapist once a week for an hour. CM spoke w/ pts son Earnest regarding d/c POC. Earnest reports that the plan is for pt to return to [facility]. Earnest reports that pt had a panic attack here at the hospital. Earnest reports that she is on Lexapro to help w/ her depression/anxiety. Earnest reports that he is working w/ his sister to get pt back to [place], where pt is from [facility]. CM spoke w/ Rabia at [facility] and confirms that pt is residing at the [facility] part of the facility. CM to follow. Plan: [facility] Date Signed: 10/04/2017 11:28 AM Electronically Signed By:ROBERTO Christine
[2017-10-04] MEDS: CLOPIDOGREL BISULFATE 75 MG TAB PO SCH (12:22)
--- NOTE | 2017-10-04 14:39 | WOCRNPDOC ---
WOCRN Advanced Assessment Note - Skin Integrity Problem, Advanced Assess Left Upper Medial Thigh Dressing Type: Allevyn Life Dressing Description: Soiled Exudate Amount: None Integumentary Issue Intervention: Dressing Removed Denise Wound Tissue: Blanching, Erythema Wound Bed Constitution: Scab Site Measurement - Head-to-Toe Length X Width X Depth (cm): 0.5x1.3x0.1 Skin Integrity Problem Comment: Small laceration/abrasion. Use either dimethicione or calazime. Wound care will not follow. AJAY Payne in room for all care. Right Buttock Dressing Type: Allevyn Life Dressing Description: Clean/Dry, Intact Exudate Amount: Scant Exudate Characteristic(s): Serosanguinous Integumentary Issue Intervention: Dressing Removed Denise Wound Tissue: Blanching, Erythema Wound Bed Constitution: Red/[place] - Non Granular Tissue Site Measurement - Head-to-Toe Length X Width X Depth (cm): 1.5x1.8x0.1 Skin Integrity Problem Comment: Small partial thickness friction injury. Not pressure related. May treat with cream as patient is incontinent and dressing will get soiled frequently. Wound care will sign off. Right Heel Pressure Injury Dressing Type: Open to Air Denise Wound Tissue: Scarred Wound Bed Constitution: Scab, Healed Pressure Injury Present on Admit: Yes Skin Integrity Problem Comment: Very old large full thickness pressure injury on lateral heel that is 95% healed with a small scab remaining. Unknown previous stage. Offload aggressively. Wound care will not follow. Left Heel Pressure Injury Dressing Type: Open to Air Denise Wound Tissue: Scarred Pressure Injury Present on Admit: Yes Skin Integrity Problem Comment: 100% healed full thickness pressure injury of unknown stage. Offload. Wound care will sign off. Coccyx Pressure Injury Dressing Type: Open to Air Site Measurement - Head-to-Toe Length X Width X Depth (cm): 2x2x0 Pressure Injury Stage: Stage 1 Pressure Injury Present on Admit: No Skin Integrity Problem Comment: Please reconsult if wound gets worse or fails to improve.
--- NOTE | 2017-10-04 17:28 | ECHO ---
[email or web address] [address] [address] Main: [phone] Fax: [email or web address] Echocardiogram Name: MIGUELITO SINHA MR#: [id number] Study Date: 10/04/2017 Study Time: 09:33 AM Date of : 1940 Age: 77 year(s) Height: 170.2 cm (67 in.) Weight: 93.89 kg (207 lb.) BSA: 2.05 m2 Gender: Female Examination: Echo Indication: chf Image Quality: Contrast: Requested by: Radha Terry BP: 115 mmHg/63 mmHg Heart Rate: Rhythm: Indication: chf Procedure Staff [employer] Mechanic: Sara Hinse [facility] Reading Physician: Jeannine Edward MD Requesting Provider: Conclusions: Normal size left ventricle. Mild concentric LV hypertrophy. Mildly reduced systolic LV function. EF is 43 %. Grade 1 diastolic dysfunction (abnormal relaxation). Elevated left ventricular filling pressures.. Mild global hypokinesis. Normal size right ventricle. Normal RV function. The left atrium is mildly dilated. The right atrium is mildly dilated. Mild mitral valve regurgitation is present. Mild calcific aortic valve stenosis. Moderate to severe aortic regurgitation. The aortic valve is not well seen. Mild tricuspid regurgitation is present. Estimated PA systolic pressure is 41mmHg. Dilated ascending aorta measuring 4.7 cm. Compared with 05/29/2016 LV systolic function is now mildly reduced and aortic valve dysfunction has progressed. Ascending aorta is now dilated. Measurements: Chambers Valvular Assessment AV/MV Valvular Assessment TV/PV Normal Normal Normal Name Value Range Name Value Range Name Value Range Ao Megan (2D): 3.2 cm (1.4 cm-2.6 AV meanP mmHg ( - ) TR Vmax: 3.00 mm/s ( - ) cm) ADRIAN (VTI): 2.2 cm ( - ) TR PGmax: 36 mmHg ( - ) IVSd (2D): 1.2 cm (0.6 cm-1.1 AR (PHT): 178 ms ( - ) syst. PAP: 41 mmHg ( - ) cm) MV E Vmax: 0.78 m/s ( - ) PV Vmax: 1.09 m/s (0.6 m/s-0.9 LVDd (2D): 4.6 cm (3.9 cm-5.3 MV A Vmax: 1.32 m/s ( - ) m/s) cm) Patient: MIGUELITO SINHA Study Date: 10/04/2017 Page 1 of 3 09:33 AM LVDs (2D): 3.5 cm (2.1 cm-4 MV E/A: 0.59 ( - ) PV PGmax: 5 mmHg ( - ) cm) MV meanP mmHg ( - ) LVPWd (2D): 1.1 cm ( - ) MV PHT: 0.046 s ( - ) LVOTd 2.1 cm 2.1 cm mm MVA (Vmax): 3.3 m/s ( - ) LVEF (BP): 43 % (>=55 %) MVA (PHT): 4.8 s ( - ) RVDd(2D): 3.1 cm (1.9 cm-3.8 cmmm) Continued Measurements: Chambers Valvular Assessment AV/MV Valvular Assessment TV/PV Name Value Name Value Name Value LADs: 2.8 cm MV DecTime: 173 m/s CVP (est.): 5 mmHg LADs Lon.0 cm MV E' Septal: 0.05 m/s LA Area: 25.5 cm2 MV E/E' Septal: 15.00 LA Volume: 73 ml MV E/E' Lateral: 8.90 LA Volume Index: 35.6 ml/m2 MV VTI: 29.30 cm RA Area: 20.3 cm2 AR Vmax: 4.45 cm/s Additional Vessels Name Value Ao Ascendin.7 cm Inferior Vena Cava: 1.6 cm Findings: Left Ventricle: Normal size left ventricle. Mild concentric LV hypertrophy. Mildly reduced systolic LV function. EF is 43 %. Grade 1 diastolic dysfunction (abnormal relaxation). Elevated left ventricular filling pressures.. Mild global hypokinesis. Right Ventricle: Normal size right ventricle. Normal RV function. Left Atrium: The left atrium is mildly dilated. Right Atrium: The right atrium is mildly dilated. Mitral Valve: The mitral valve is normal in appearance and function. Mild mitral valve regurgitation is present. No mitral stenosis is present. Aortic Valve: Aortic sclerosis is present. Mild calcific aortic valve stenosis. Moderate to severe aortic regurgitation. The aortic valve is not well seen. Tricuspid Valve: The tricuspid valve is normal in appearance and function. Mild tricuspid regurgitation is present. Estimated PA systolic pressure is 41mmHg. Pulmonic Valve: The pulmonic valve is normal in appearance and function. There is no pulmonic regurgitation seen. Aorta: The aorta is normal. Normal size aortic root measuring 3.2 cm. Dilated ascending aorta measuring 4.7 cm. IVC: The IVC is normal sized. Pericardium: No pericardial effusion. No pleural effusion. Exam Comments: Dilated ascending aorta measures 4.7 in parasternal and 4.9 in 5 chamber. Patient: MIGUELITO SINHA Study Date: 10/04/2017 Page 2 of 3 09:33 AM (No Signature Object) Patient: MIGUELITO SINHA Study Date: 10/04/2017 Page 3 of 3 09:33 AM [id number]
[2017-10-04] MEDS: ESCITALOPRAM OXALATE 10 MG TAB PO SCH (20:44)
[2017-10-04] MEDS: MELATONIN 3 MG TAB PO SCH (20:44)
[2017-10-04] MEDS: PRAVASTATIN SODIUM 20 MG TAB PO SCH (20:44)
[2017-10-04] MEDS: FERROUS SULFATE 325 MG TAB PO SCH (20:44)
[2017-10-05 05:47] LABS: PLATELET COUNT 266 10^3/uL (150-400)
[2017-10-05] MEDS ORDERED: MAGNESIUM SULF 1 GM/DEXTROSE 100 ML IV ONE (06:57)
[2017-10-05] MEDS ORDERED: POTASSIUM CL 10 MEQ TAB PO ONE (06:57)
[2017-10-05] MEDS: POTASSIUM CL 20 MEQ TAB PO SCH (08:45)
[2017-10-05] MEDS: CLOPIDOGREL BISULFATE 75 MG TAB PO SCH (08:46)
[2017-10-05] MEDS: FUROSEMIDE 40 MG TAB PO SCH (08:46)
[2017-10-05] MEDS: PANTOPRAZOLE SODIUM 40 MG TAB PO SCH ×2 (08:46→21:57)
--- NOTE | 2017-10-05 09:59 | HOSPPROG ---
Hospitalist Progress Note Assessment/Plan: Patient is a 77-year-old female with a past medical history of coronary artery disease, peripheral vascular disease and chronic heel ulcers, peptic ulcer disease GERD and iron deficiency anemia. She was admitted for having increased fatigue as well as some low-grade temperatures without any obvious source of infection. 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 -PT #Skin breakdown -refusing turns #BLE wounds -chronic -cont wound care Plan: cardiology to see, appreciate their involvement. Encouraged patient to get oob, but she refuses. She doesn't want any surgery, but is willing for us to optimize her medications.Wants CPR and full treatment if anything should happen. Subjective: Rachel said she is feeling better today, but says she will not get oob. Objective: Vital Signs Temp Pulse Resp BP Pulse Ox 36.5 C 91 20 121/74 H 96 10/05/17 07:18 10/05/17 07:18 10/05/17 07:18 10/05/17 07:18 10/05/17 07:18 Microbiology 09/30/17 01:42 Blood Culture - Final Blood Laboratory Results 10/05/17 04:25 10/05/17 04:25 10/04/17 10/05/17 10/06/17 05:59 05:59 05:59 Intake Total 1500 690 Output Total 1300 3200 Balance 200 -2510 PT 15.2 SEC (12.0-15.0) H 09/30/17 01:00 INR 1.18 (0.83-1.16) H 09/30/17 01:00 - Physical Exam Constitutional: appears nourished, not in pain, chronically ill appearing, obese Eyes: PERRL Ears, Nose, Mouth, Throat: hearing normal Cardiovascular: regular rate and rhythym, edema (better today in her lower extremities) Respiratory: no respiratory distress, reduced air movement, expiratory wheeze Skin: warm Musculoskeletal: generalized weakness Neurologic: AAOx3 Psychiatric: interacting appropriately ICD10 Worksheet Patient Problems: Problems Problem Status Onset GI bleed Acute Venous stasis dermatitis of both lower extremities Acute
--- NOTE | 2017-10-05 14:10 | CPEKG ---
Heart Rate: 100 RR Interval: 600 P-R Interval: 172 QRSD Interval: 90 QT Interval: 392 QTC Interval: 506 P [place]: 58 QRS [place]: -60 EKG Severity - ABNORMAL ECG - EKG Impression: SINUS TACHYCARDIA EKG Impression: LEFT ANTERIOR FASCICULAR BLOCK EKG Impression: PROBABLE ANTEROSEPTAL INFARCT, AGE INDETERM EKG Impression: BORDERLINE PROLONGED QT INTERVAL Electronically Signed By: Nasim Montana 06-Oct-2017 08:41:52
[2017-10-05] MEDS: METOPROLOL SUCCINATE XR 25 MG TAB PO SCH (14:13)
--- NOTE | 2017-10-05 14:21 | GCON ---
[f rep st] CONSULTATION CARDIOLOGY CONSULT DATE OF CONSULTATION: 10/05/2017 PRIMARY CARE: Reyna Felix DO. CHIEF COMPLAINT: Cardiomyopathy and aortic valve disease. HISTORY OF PRESENT ILLNESS: We were asked by Radha Terry NP, to visit with the patient. The eva melgoza is a 77-year-old female with peripheral vascular disease and a history of right lower extremity stenting at an outside institution. This was done for a nonhealing ulcer. She reports a history of myocardial infarction in the past, but denies having any coronary stents. She also has an ascending thoracic aortic aneurysm, for which she has apparently seen a cardiac surgeon, but has declined card iac surgery until she has increased functional capacity. Other history includes previous GI bleed re lated to peptic ulcer disease. She was admitted to the hospital on September 30 with fever, melena, and significant anemia. Her hematocrit was 21. She required 3 units of packed red blood cells. No infectious source for her fever has bee n identified. She did undergo upper and lower endoscopy with gastritis and colonic polyps, one of which is dysplast ic, and 1 polyp was unable to be resected. No obvious source of bleeding based on these studies. Ca psule endoscopy is planned for the outpatient setting. Over the past couple of days, she has had some lower extremity edema, and her chest x-ray appears to have mild heart failure. Therefore, she had an echocardiogram, which shows a decrement in ejection f raction from her previous study in 2016. Ejection fraction is now 43%, with moderate to severe aorti c regurgitation, which is also a new finding. Her ascending aorta is 4.6 cm on echo. The patient reports no chest pressure or dyspnea at present. She is not having any pain. She does u se a walker during physical therapy at [facility], but in general has been wheelchair bound related to c hronic lower extremity ulcers, which are overall improving, per her report. ALLERGIES: No known drug allergies. PAST MEDICAL HISTORY: 1. Coronary disease with patient reporting a history of ID, but denying cardiac stents. 2. Peripheral vascular disease, status post stenting in one of the vessels of her right leg. The eva melgoza is not sure which hospital this was performed at. She thinks it was within the past year. 3. Aortic valve disease with mild aortic stenosis and moderate to severe aortic regurgitation. 4. Ascending aortic aneurysm. 5. Cardiomyopathy, ejection fraction 42%. 6. Hypertension. 7. 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 8. GI bleed and peptic ulcer disease. 9. Neuropathy. 10. Chronic indwelling Sierra. 11. COPD. 12. Dysplastic colonic polyp. OUTPATIENT MEDICATIONS: Reviewed and not repeated here. SOCIAL HISTORY: The patient lives at [facility]. She is . She does have an involved son. She quit smoking a year ago after 52 pack years, rare alcohol consumption. FAMILY HISTORY: Not applicable to the current case. PHYSICAL EXAM: VITAL SIGNS: Blood pressure 127/66, heart rate 93, oxygen saturation 92% on 2 L nasa l cannula. She is currently afebrile. Respiratory rate is 20. GENERAL: Chronically ill-appearing older female in no acute distress. HEENT: Sclerae are clear and free of jaundice. Mucous membranes are moist. CARDIOVASCULAR: JVP is less than 10. Carotids equal and 2+ bilaterally, without bruit. Regular rate and rhythm, with soft early peaking systolic ejection murmur at the base and 1/4 early diastolic murmur at the left lower sternal border. ABDOMEN: Soft and nontender, without obvious ma sses. EXTREMITIES: Warm. Mild bilateral pedal edema. Both extremities are wrapped around the heel s. : She does have a Sierra to wall suction. LUNGS: Clear anteriorly and laterally. NEURO: Graciela rt and oriented x3, without gross focal neurological deficits. Appropriate mood and affect. LABORATORY DATA: White count 7.2, hematocrit 28.3, platelets 266. INR 1.18. Sodium 137, potassium 3.7, chloride 95, bicarb 34, BUN 6, creatinine 0.6, calcium 8.2, magnesium 1.6. BNP 10,500. LFTs no rmal. Lipase normal upon admission. Stool occult blood is positive. Urinalysis shows 2+ leuk jake ase and 15-25 white cells. EKG on admission and yesterday both reviewed by me. First shows clear lungs with tortuous and enlarg ed thoracic aorta. Chest x-ray yesterday shows mild heart failure. Echocardiogram reviewed by me and detailed above. EKG is pending. ASSESSMENT/PLAN: A 77-year-old female with peripheral vascular disease, likely coronary disease, aor tic valve disease and cardiomyopathy, as well as ascending aortic aneurysm. She was admitted on September 30 with significant anemia and melena, requiring 3 units of packed red cells. No obvious bleeding garcia rce on upper or lower endoscopy. Over the past couple of days, she has clinically been in mild heart failure, although today she denie s dyspnea. Her echo reveals depressed ejection fraction and moderate to severe aortic regurgitation. 1. Cardiomyopathy and aortic valve disease: It is possible that her mildly depressed ejection fract ion is related to aortic regurgitation versus coronary disease. Will obtain EKG. The patient is cur rently not having angina. She has been restarted on dual antiplatelet therapy, which she was previou sly on for peripheral arterial stenting. I will add low-dose beta blockers. The patient is adamant that she does not want any cardiac procedures, or specifically cardiac surgery, until she is stronger and ambulatory. Will not pursue coronary angiography at this time as she recently had significant b leeding, and we may need to stop 1 or both of antiplatelets in the near future. 2. Thoracic aortic aneurysm: This is 4.7 cm on echocardiogram and is quite enlarged on chest x-ray. The patient does agree to a CT angiography to further define the dimensions of her ascending aorta. She understands that aortic aneurysms are at risk for rupturing. Add low-dose beta kalin. 3. Mild heart failure: She is on oral Lasix, which I think is appropriate at this time. Will add l ow-dose beta-blockers as mentioned above for her cardiomyopathy. 4. Gastrointestinal bleed: Hematocrit is currently stable. She will have an outpatient capsule end oscopy and will require repeat colonoscopy in 6 months with anesthesia because of her persistent poly p. 5. Peripheral vascular disease: She has slow to heal lower extremity ulcers and previously had a hi story of lower extremity gangrene in 2016. Continue statin and aspirin. Would be ideal to obtain re cords from her peripheral stenting to understand whether she still is in the window of requiring dual antiplatelet therapy. Will ask nursing staff to call [facility] to see if these records are available. 6. Hypertension: Currently well controlled. Thank you for allowing us to participate in the patient's care. We will follow with you. /[id number]/MODL
[2017-10-05] MEDS ORDERED: IOPAMIDOL (ISOVUE 370) 100 ML BTL IV ONE ×2 (15:32→16:08)
[2017-10-05] MEDS: FUROSEMIDE 20 MG TAB PO SCH (16:58)
[2017-10-05] MEDS: ESCITALOPRAM OXALATE 10 MG TAB PO SCH (21:56)
[2017-10-05] MEDS: MELATONIN 3 MG TAB PO SCH (21:57)
[2017-10-05] MEDS: PRAVASTATIN SODIUM 20 MG TAB PO SCH (21:57)
[2017-10-05] MEDS: FERROUS SULFATE 325 MG TAB PO SCH (21:57)
[2017-10-06] MEDS ORDERED: MAGNESIUM SULF 1 GM/DEXTROSE 100 ML IV ONE (08:14)
[2017-10-06] MEDS: METOPROLOL SUCCINATE XR 25 MG TAB PO SCH (10:12)
[2017-10-06] MEDS: CLOPIDOGREL BISULFATE 75 MG TAB PO SCH (10:12)
[2017-10-06] MEDS: FUROSEMIDE 40 MG TAB PO SCH (10:12)
[2017-10-06] MEDS: PANTOPRAZOLE SODIUM 40 MG TAB PO SCH ×2 (10:12→21:18)
[2017-10-06] MEDS: POTASSIUM CL 20 MEQ TAB PO SCH (10:13)
[2017-10-06] MEDS: ASPIRIN 81 MG CHEWABLE TAB PO SCH (10:23)
--- NOTE | 2017-10-06 11:00 | HOSPPROG ---
Hospitalist Progress Note Assessment/Plan: Patient is a 77-year-old female with a past medical history of coronary artery disease, peripheral vascular disease and chronic heel ulcers, peptic ulcer disease GERD and iron deficiency anemia. She was admitted for having increased fatigue as well as some low-grade temperatures without any obvious source of infection. 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 -PT #Skin breakdown -refusing turns #BLE wounds -chronic -cont wound care #Plan: will get a stat h/h and if stable; will dc Subjective: Rachel is aware of her anuerysm, doesn't want anything done and says she wants to get stronger prior to doing anything. Reviewed w her she is at risk of rupture. Objective: Vital Signs Temp Pulse Resp BP Pulse Ox 36.6 C 90 18 137/69 H 93 10/06/17 07:26 10/06/17 07:26 10/06/17 07:26 10/06/17 07:26 10/06/17 07:26 Microbiology 09/30/17 01:42 Blood Culture - Final Blood Laboratory Results 10/05/17 04:25 10/05/17 18:51 10/05/17 10/06/17 10/07/17 05:59 05:59 05:59 Intake Total 690 500 Output Total 3200 1200 Balance -2510 -700 PT 15.2 SEC (12.0-15.0) H 09/30/17 01:00 INR 1.18 (0.83-1.16) H 09/30/17 01:00 - Physical Exam Constitutional: appears nourished, chronically ill appearing, obese Eyes: PERRL Ears, Nose, Mouth, Throat: hearing normal Cardiovascular: regular rate and rhythym, edema (better) Respiratory: no respiratory distress, reduced air movement Skin: warm Musculoskeletal: generalized weakness Neurologic: AAOx3 Psychiatric: interacting appropriately ICD10 Worksheet Patient Problems: Problems Problem Status Onset GI bleed Acute Venous stasis dermatitis of both lower extremities Acute
[2017-10-06] MEDS: SENNOSIDES/DOCUSATE SODIUM TAB PO PRN ×2 (11:37→21:31)
--- NOTE | 2017-10-06 12:04 | ASMTCMCOM ---
CM Note CM Note Notes: Spoke w/Kaykay from [facility], pt can discharge back to [facility] when medically stable, possibly in 1-2 days. DC Plan: [facility] Date Signed: 10/06/2017 12:04 PM Electronically Signed By:Diana Sandoval RN
--- NOTE | 2017-10-06 14:36 | PDCARPN ---
Cardiology Progress Note Assessment/Plan: Assessment/Plan: 77-year-old female with history of peripheral vascular disease , coronary disease based on calcifications seen on chest CT, thoracic aortic aneurysm, cardiomyopathy and moderate to severe aortic regurgitation. She was admitted on September 30 with GI bleed. She required 3 units of packed red blood cells. She had upper and lower endoscopy with gastritis but no active bleeding. She will require capsule endoscopy as an outpatient. Course was complicated by mild heart failure. She has responded well to oral diuretics. On echo she was found to have an ejection fraction of 43% and moderate to severe aortic regurgitation. She has thoracic aortic aneurysm with a dimension of 5.4 cm in the ascending aorta. 1. Ascending aortic aneurysm: This is at high risk of rupture. I explained this in detail to the patient. She does not wish to have surgical consultation at this time, as she recognizes that she is deconditioned and weak and is afraid she would not do well with open heart surgery. Beta-blockers were started this admission and should be continued. She will acquire close outpatient surveillance. 2. Peripheral vascular disease: She reports a history of right lower extremity stenting at an outside institution within the past several months. She is now back on dual antiplatelet therapy which is cardioprotective as well. Wound care per Internal Medicine. 3. Coronary artery disease. She reports a past history of DC but no history of coronary stenting. She does have extensive three-vessel coronary calcifications seen on chest CT this admission. She is on dual antiplatelet therapy, statin, and now beta-blockers. EKG is abnormal. She is not having angina. If she is amenable to surgical consultation regarding her ascending aortic aneurysm, she will require coronary angiography. As mention, she wishes no further invasive procedures at this time. 4. Anemia and melena: No obvious bleeding source on endoscopy this admission. She will car capsule endoscopy as an outpatient. 5. Aortic regurgitation that is moderate to severe: Mild heart failure that has improved. Outpatient surveillance. 6. Cardiomyopathy: She has been started on Toprol. I do think her cardiomyopathy is likely related to her aortic regurgitation with perhaps some contribution from coronary disease. Medical management for now. She is stable for discharge from a cardiac standpoint. Please have her follow up in our office in 4-6 weeks. 10/06/17 14:32 Subjective: Denies dyspnea or chest pain. Reviewed/Discussed With: hospitalist Objective: Vital Signs (8 Hrs) Temp Pulse Resp BP Pulse Ox 05/09/18 11:17 36.8 C 75 22 H 113/63 95 10/06/17 07:26 36.6 C 90 18 137/69 H 93 Intake/Output (24 Hrs) 10/05/17 10/06/17 10/07/17 05:59 05:59 05:59 Intake Total 690 500 Output Total 3200 1200 Balance -2510 -700 Intake: Oral (ml) 690 500 Output: Urine (ml) 3200 1200 Catheter 3200 1200 Other: Weight 90 kg 86.8 kg Intake Quantity Yes Sufficient Output Comment Catheter cannister changed Incontinence pad changed Number of Voids Incontinence 2 1 Number of Stools Catheter 0 No acute distress. Lying flat in bed. Regular rate and rhythm with 2/6 early peaking systolic ejection murmur at the base and 1/4 early diastolic murmur at the left sternal border. Lungs clear anteriorly and laterally. Extremities are wrapped. Minimal edema at the mid sauer. Result Diagrams: 10/05/17 04:25 10/05/17 18:51 EKG: Sinus rhythm with diffuse ST T wave abnormalities Telemetry: Sinus rhythm. 10 beat run of ventricular tachycardia on October 05 ICD10 Worksheet Patient Problems: Problems Problem Status Onset Venous stasis dermatitis of both lower extremities Acute GI bleed Acute
[2017-10-06] MEDS: FUROSEMIDE 20 MG TAB PO SCH (17:29)
[2017-10-06] MEDS: FERROUS SULFATE 325 MG TAB PO SCH (21:18)
[2017-10-06] MEDS: MELATONIN 3 MG TAB PO SCH (21:18)
[2017-10-06] MEDS: PRAVASTATIN SODIUM 20 MG TAB PO SCH (21:18)
[2017-10-06] MEDS: ESCITALOPRAM OXALATE 10 MG TAB PO SCH (21:18)
[2017-10-07] MEDS: ASPIRIN 81 MG CHEWABLE TAB PO SCH (09:54)
[2017-10-07] MEDS: PANTOPRAZOLE SODIUM 40 MG TAB PO SCH ×2 (09:58→22:18)
[2017-10-07] MEDS: POTASSIUM CL 20 MEQ TAB PO SCH (09:59)
[2017-10-07] MEDS: METOPROLOL SUCCINATE XR 25 MG TAB PO SCH (10:00)
[2017-10-07] MEDS: FUROSEMIDE 40 MG TAB PO SCH (10:01)
[2017-10-07] MEDS: CLOPIDOGREL BISULFATE 75 MG TAB PO SCH (10:15)
[2017-10-07] MEDS ORDERED: MAGNESIUM SULF 1 GM/DEXTROSE 100 ML IV ONE (11:52)
--- NOTE | 2017-10-07 12:53 | SOAPPROG ---
SOAP Progress Note Assessment/Plan: Assessment: Patient without recurrent rectal bleeding since this morning. Hemodynamically stable. Hct unchanged. Suspect bleeding from prior polypectomy in the setting of restarting Plavix and aspirin. Will observe for any recurrent or persistent signs of bleeding. Plan: 1. Serial H and H 2. Will observe for any recurrent or continued bleeding. 3. Capsule study as outpatient 10/07/17 12:43 Subjective: CC: GI bleed Patient had episode of maroon stool this morning. No further bleeding. No light headiness or dizziness. Objective: Vital Signs Temp Pulse Resp BP Pulse Ox 36.3 C 109 H 16 109/58 L 96 10/07/17 12:00 10/07/17 12:00 10/07/17 12:00 10/07/17 12:00 10/07/17 12:00 Laboratory Results 10/07/17 10:55 10/05/17 18:51 10/06/17 10/07/17 10/08/17 05:59 05:59 05:59 Intake Total 500 990 Output Total 1200 1300 Balance -700 -310 PT 15.2 SEC (12.0-15.0) H 09/30/17 01:00 INR 1.18 (0.83-1.16) H 09/30/17 01:00 Generic Name Dose Route Start Last Admin Trade Name Freq PRN Reason Stop Dose Admin Acetaminophen 650 mg 09/30/17 01:51 10/02/17 01:48 Tylenol PO 03/29/18 01:50 650 mg Q4HRS PRN Administration Pain, Mild/Fever, Can Take PO Acetaminophen 650 mg 09/30/17 01:51 Tylenol Rectal CO 03/29/18 01:50 Q4HRS PRN Pain, Mild/Fever,Can't Take PO Albuterol/Ipratropium 3 ml 09/30/17 10:41 10/03/17 08:48 Duoneb IH 03/29/18 10:40 3 ml Q4H PRN Administration Short of Breath/Dyspnea Aspirin 81 mg 10/06/17 09:15 10/07/17 09:54 Aspirin PO 04/04/18 09:14 Not Given DAILY [facility] Clopidogrel Bisulfate 75 mg 10/04/17 11:15 10/07/17 10:15 Plavix PO 04/02/18 11:14 Not Given DAILY H[facility] Escitalopram Oxalate 10 mg 09/30/17 21:00 10/06/17 21:18 Lexapro PO 03/29/18 20:59 10 mg HS HITESH Administration Ferrous Sulfate 325 mg 09/30/17 21:00 10/06/17 21:18 Ferrous Sulfate PO 03/29/18 20:59 325 mg HS HITESH Administration Furosemide 20 mg 10/02/17 17:30 10/06/17 17:29 Lasix PO 03/31/18 17:29 20 mg DAILY@1730 HITESH Administration Furosemide 40 mg 10/03/17 09:00 10/07/17 10:01 Lasix PO 04/01/18 08:59 40 mg DAILY HITESH Administration Guaifenesin/Dextromethorphan 15 ml 09/30/17 10:41 Robitussin Dm Oral Liquid PO 03/29/18 10:40 Q4H PRN Cough, Mild Hydromorphone HCl 0.5 - 1 mg 09/30/17 01:51 Dilaudid IVP 10/10/17 01:50 Q4HRS PRN Pain, Severe Magnesium Sulfate 1 dose 10/01/17 10:17 Protocol Magnesium IV 03/30/18 10:16 AD PRN Pt on Electrolyte Protocol Protocol Melatonin 3 mg 09/30/17 21:00 10/06/17 21:18 Melatonin PO 03/29/18 20:59 3 mg HS HITESH Administration Metoprolol Succinate 25 mg 10/05/17 13:30 10/07/17 10:00 Toprol Xl PO 04/03/18 13:29 Not Given DAILY [facility] Ondansetron HCl 4 mg 09/30/17 01:51 Zofran Odt PO 03/29/18 01:50 Q4HRS PRN Nausea/Vomiting, Use 1st Pantoprazole Sodium 40 mg 09/30/17 21:00 10/07/17 09:58 Protonix PO 03/29/18 20:59 40 mg BID HITESH Administration Potassium Chloride 30 meq 10/03/17 09:00 10/07/17 09:59 Klor-Con PO 04/01/18 08:59 30 meq DAILY HITESH Administration Pravastatin Sodium 20 mg 09/30/17 21:00 10/06/17 21:18 Pravachol PO 03/29/18 20:59 20 mg HS HITESH Administration Ropinirole HCl 0.5 mg 09/30/17 16:00 10/07/17 09:58 Requip PO 03/29/18 15:59 0.5 mg TID HITESH Administration Senna/Docusate Sodium 1 tab 09/30/17 10:41 10/06/17 21:31 Senokot-S PO 03/29/18 10:40 1 tab BID PRN Administration Constipation Discontinued Medications Generic Name Dose Route Start Last Admin Trade Name Ahmet PRN Reason Stop Dose Admin Albumin Human Confirm 09/30/17 08:37 09/30/17 10:14 Alburx 5 Administered 09/30/17 08:38 Not Given Dose 250 ml IV .STK-MED ONE Albuterol Confirm 09/30/17 08:35 Proventil Neb Administered 09/30/17 08:36 Dose 3 ml .ROUTE .STK-MED ONE Albuterol 3 ml 09/30/17 08:55 Proventil Neb IH 09/30/17 09:55 Q10M PRN PACU, Wheezing Albuterol 3 ml 10/01/17 13:19 Proventil Neb IH 10/01/17 14:19 Q10M PRN PACU, Wheezing Calcium Chloride Confirm 09/30/17 08:40 Calcium Chloride Administered 09/30/17 08:41 Dose 1 gm .ROUTE .STK-MED ONE Epinephrine HCl Confirm 09/30/17 08:31 Epinephrine Administered 09/30/17 08:32 Dose 1 mg .ROUTE .STK-MED ONE Epinephrine HCl Confirm 10/01/17 13:05 Epinephrine Administered 10/01/17 13:06 Dose 1 mg .ROUTE .STK-MED ONE Furosemide 20 mg 10/01/17 10:28 10/01/17 10:52 Lasix Injection IVP 10/01/17 10:29 20 mg ONCE ONE Administration Furosemide 40 mg 10/03/17 08:45 10/03/17 09:08 Lasix Injection IVP 10/03/17 08:46 40 mg ONCE ONE Administration Furosemide 40 mg 10/04/17 09:01 10/04/17 09:21 Lasix Injection IVP 10/04/17 09:02 40 mg ONCE ONE Administration Furosemide 40 mg 10/04/17 16:00 10/04/17 15:49 Lasix Injection IVP 10/04/17 16:01 40 mg ONCE ONE Administration Sodium Chloride 1,000 mls @ 0 mls/hr 09/30/17 00:47 09/30/17 01:01 Ns IV 09/30/17 00:48 1,000 mls EDNOW ONE Administration Protocol Wide Open Sodium Chloride 1,000 mls @ 125 mls/hr 09/30/17 02:00 10/01/17 07:54 Ns IV 03/29/18 01:59 1,000 mls CONT HITESH Administration Lactated Ringer's 1,000 mls @ 0 mls/hr 09/30/17 08:01 09/30/17 10:14 Lr IV 09/30/17 08:02 Not Given ONCE ONE Protocol TKO Lactated Ringer's 1,000 mls @ 0 mls/hr 09/30/17 08:22 09/30/17 08:39 Lr IV 09/30/17 08:23 1,000 mls ONCE ONE Administration As Directed Lactated Ringer's 500 mls @ 0 mls/hr 09/30/17 08:55 Lr IV 09/30/17 09:55 PRN PRN PACU, Nausea/Vomiting Post-Op Wide Open Potassium Chloride/Sodium Chloride 1,000 mls @ 100 mls/hr 10/01/17 10:30 10/15 01:58 Ns W/ 20 Kcl/L IV 03/30/18 10:29 1,000 mls CONT HITESH Administration Magnesium Sulfate 50 mls @ 50 mls/hr 10/01/17 10:20 10/01/17 19:32 Magnesium Sulf 2 Gm (Premix) IV 10/01/17 11:19 Not Given ONCE ONE Potassium Chloride 100 mls @ 100 mls/hr 10/01/17 10:30 10/02/17 03:18 Potassium Cl 10 Meq (Premix) IV 10/01/17 14:29 Not Given Q1H HITESH Magnesium Sulfate/Dextrose 100 mls @ 100 mls/hr 10/01/17 10:28 10/01/17 18:19 Magnesium Sulf 1 Gm (Premix) IV 10/01/17 11:27 100 mls ONCE ONE Administration Lactated Ringer's 1,000 mls @ 0 mls/hr 10/01/17 12:56 10/01/17 15:00 Lr IV 10/01/17 12:57 Not Given ONCE ONE Per Protocol Magnesium Sulfate/Dextrose 100 mls @ 100 mls/hr 10/02/17 07:33 10/02/17 07:51 Magnesium Sulf 1 Gm (Premix) IV 10/02/17 08:32 100 mls ONCE ONE Administration Magnesium Sulfate/Dextrose 100 mls @ 100 mls/hr 10/03/17 07:29 10/03/17 08:20 Magnesium Sulf 1 Gm (Premix) IV 10/03/17 08:28 100 mls ONCE ONE Administration Magnesium Sulfate/Dextrose 100 mls @ 100 mls/hr 10/04/17 08:04 10/04/17 08:51 Magnesium Sulf 1 Gm (Premix) IV 10/04/17 09:03 100 mls ONCE ONE Administration Magnesium Sulfate/Dextrose 100 mls @ 100 mls/hr 10/05/17 06:57 10/05/17 08:40 Magnesium Sulf 1 Gm (Premix) IV 10/05/17 07:56 100 mls ONCE ONE Administration Magnesium Sulfate/Dextrose 100 mls @ 100 mls/hr 10/06/17 08:14 10/06/17 10:08 Magnesium Sulf 1 Gm (Premix) IV 10/06/17 09:13 100 mls ONCE ONE Administration Magnesium Sulfate/Dextrose 100 mls @ 100 mls/hr 10/07/17 11:52 Magnesium Sulf 1 Gm (Premix) IV 10/07/17 12:51 ONCE ONE Iopamidol Confirm 10/05/17 15:32 Isovue-370 Administered 10/05/17 15:33 Dose 100 ml IV .STK-MED ONE Iopamidol Confirm 10/05/17 16:08 Isovue-370 Administered 10/05/17 16:09 Dose 100 ml IV .STK-MED ONE Lidocaine HCl Confirm 09/30/17 08:40 Xylocaine-Mpf 2% Vial Administered 09/30/17 08:41 Dose 5 ml .ROUTE .STK-MED ONE Lorazepam 1 mg 10/03/17 08:44 10/03/17 09:07 Ativan Injection IVP 10/03/17 08:45 1 mg ONCE ONE Administration Miscellaneous Medication 1 each 10/01/17 09:00 Herbals/Supplements -Info Only PO 03/30/18 08:59 DAILY HITESH Naloxone HCl 0.1 mg 09/30/17 08:55 Narcan IVP 09/30/17 09:55 Q2M PRN PACU Resp Rate <10/min Naloxone HCl 0.1 mg 10/01/17 13:19 Narcan IVP 10/01/17 14:19 Q2M PRN PACU Resp Rate <10/min Ondansetron HCl 4 mg 09/30/17 01:51 Zofran IVP 03/29/18 01:50 Q4HRS PRN Nausea/Vomiting, Can't Take PO Pantoprazole Sodium 40 mg 09/30/17 01:19 09/30/17 01:27 Protonix IVP 09/30/17 01:20 40 mg EDNOW ONE Administration Pantoprazole Sodium 40 mg 09/30/17 01:30 09/30/17 01:48 Protonix IVP 09/30/17 01:31 40 mg EDNOW ONE Administration Pantoprazole Sodium 40 mg 09/30/17 08:00 09/30/17 07:51 Protonix IVP 03/29/18 07:59 40 mg Q6H HITESH Administration Pantoprazole Sodium 40 mg 09/30/17 10:45 09/30/17 11:59 Protonix PO 03/29/18 10:44 Not Given DAILY [facility] Phenylephrine HCl Confirm 09/30/17 08:40 Neosynephrine Administered 09/30/17 08:41 Dose 1,000 mcg .ROUTE .STK-MED ONE Polyethylene Glycol/Electrolytes 4,000 ml 09/30/17 09:12 09/30/17 15:49 Gavilyte - G PO 09/30/17 09:13 Not Given ONCE ONE Polyethylene Glycol/Electrolytes 4,000 ml 09/30/17 16:00 09/30/17 15:51 Gavilyte - G PO 09/30/17 16:01 4,000 ml ONCE ONE Administration Potassium Chloride 1 dose 10/01/17 10:17 Protocol Potassium MISC 03/30/18 10:16 AD PRN Pt on Electrolyte Protocol Protocol Potassium Chloride 20 meq 10/01/17 20:48 10/01/17 21:04 Klor-Con PO 10/01/17 20:49 20 meq ONCE ONE Administration Protocol Potassium Chloride 40 meq 10/02/17 07:32 10/02/17 07:52 Klor-Con PO 10/02/17 07:33 40 meq ONCE ONE Administration Protocol Potassium Chloride 10 meq 10/03/17 07:28 10/03/17 08:21 Klor-Con PO 10/03/17 07:29 10 meq ONCE ONE Administration Protocol Potassium Chloride 10 - 40 meq 10/04/17 08:03 10/04/17 08:52 Klor-Con PO 10/04/17 08:04 20 meq ONCE ONE Administration Protocol Potassium Chloride 10 - 40 meq 10/04/17 20:04 10/04/17 20:45 Klor-Con PO 10/04/17 20:05 30 meq ONCE ONE Administration Protocol Potassium Chloride 10 - 40 meq 10/05/17 06:57 10/05/17 09:10 Klor-Con PO 10/05/17 06:58 Not Given ONCE ONE Protocol Propofol Confirm 09/30/17 08:40 Diprivan Administered 09/30/17 08:41 Dose 200 mg .ROUTE .STK-MED ONE Propofol Confirm 10/01/17 12:53 Diprivan Administered 10/01/17 12:54 Dose 200 mg .ROUTE .STK-MED ONE Propofol Confirm 10/01/17 13:30 Diprivan Administered 10/01/17 13:31 Dose 200 mg .ROUTE .STK-MED ONE Physical Exam - Physical Exam General Appearance: alert, no apparent distress Respiratory: lungs clear Cardiac/Chest: regular rate, rhythm Abdomen: normal bowel sounds, non-tender, soft Skin: normal color, warm/dry Neuro/Psych: alert, normal mood/affect, oriented x 3 ICD10 Worksheet Patient Problems: Problems Problem Status Onset GI bleed Acute Venous stasis dermatitis of both lower extremities Acute
--- NOTE | 2017-10-07 14:04 | HOSPPROG ---
Hospitalist Progress Note Assessment/Plan: Patient is a 77-year-old female with a past medical history of coronary artery disease, peripheral vascular disease and chronic heel ulcers, peptic ulcer disease GERD and iron deficiency anemia. She was admitted for having increased fatigue as well as some low-grade temperatures without any obvious source of infection. 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 -PT #Skin breakdown -refusing turns #BLE wounds -chronic -cont wound care #Urinary retention -replace walls today #Plan: cont to monitor H/H and any further bleeding Subjective: tearful, frustrated about situation. No pain. Objective: Vital Signs Temp Pulse Resp BP Pulse Ox 36.3 C 109 H 16 109/58 L 96 10/07/17 12:00 10/07/17 12:00 10/07/17 12:00 10/07/17 12:00 10/07/17 12:00 Laboratory Results 10/07/17 10:55 10/05/17 18:51 10/06/17 10/07/17 10/08/17 05:59 05:59 05:59 Intake Total 500 990 Output Total 1200 1300 Balance -700 -310 PT 15.2 SEC (12.0-15.0) H 09/30/17 01:00 INR 1.18 (0.83-1.16) H 09/30/17 01:00 - Physical Exam Constitutional: appears nourished, chronically ill appearing, obese Eyes: PERRL, anicteric sclera, EOMI Ears, Nose, Mouth, Throat: moist mucous membranes, hearing normal, ears appear normal Cardiovascular: No JVD, No tachycardia, No edema Respiratory: no respiratory distress, no rales or rhonchi, reduced air movement Gastrointestinal: normoactive bowel sounds, No tenderness, No ascites Skin: warm, normal color, No mottled Musculoskeletal: no joint effusions, pain with ROM, generalized weakness Neurologic: AAOx3 Psychiatric: thought process linear, anxious, poor insight, poor judgement ICD10 Worksheet Patient Problems: Problems Problem Status Onset Venous stasis dermatitis of both lower extremities Acute GI bleed Acute
[2017-10-07] MEDS ORDERED: MAGNESIUM SULF 1 GM/DEXTROSE 100 ML BAG IV ONE (14:56)
[2017-10-07] MEDS: FUROSEMIDE 20 MG TAB PO SCH (17:55)
[2017-10-07] MEDS: FERROUS SULFATE 325 MG TAB PO SCH (22:18)
[2017-10-07] MEDS: ESCITALOPRAM OXALATE 10 MG TAB PO SCH (22:18)
[2017-10-07] MEDS: MELATONIN 3 MG TAB PO SCH (22:18)
[2017-10-07] MEDS: PRAVASTATIN SODIUM 20 MG TAB PO SCH (22:18)
[2017-10-08] MEDS: FUROSEMIDE 40 MG TAB PO SCH (09:02)
[2017-10-08] MEDS: METOPROLOL SUCCINATE XR 25 MG TAB PO SCH (09:02)
[2017-10-08] MEDS: POTASSIUM CL 20 MEQ TAB PO SCH (09:03)
[2017-10-08] MEDS: PANTOPRAZOLE SODIUM 40 MG TAB PO SCH (09:03)
--- NOTE | 2017-10-08 09:03 | SOAPPROG ---
SOAP Progress Note Assessment/Plan: Assessment: No further bleeding. patient asymptomatic. No abdominal pain. Hct stable. Plan: 1. Repeat colonoscopy in six months as outpatient 2. Capsule study as outpatient 3. Will sign off, please call with further questions. 10/08/17 09:00 Subjective: CC: GI bleed Doing well this morning. No further signs or symptoms of bleeding. Objective: Vital Signs Temp Pulse Resp BP Pulse Ox 36.7 C 98 16 106/63 92 10/08/17 08:00 10/08/17 08:00 10/08/17 08:00 10/08/17 08:00 10/08/17 08:00 Laboratory Results 10/08/17 04:20 10/05/17 18:51 10/07/17 10/08/17 10/09/17 05:59 05:59 05:59 Intake Total 990 400 Output Total 1300 2000 Balance -310 -1600 PT 15.2 SEC (12.0-15.0) H 09/30/17 01:00 INR 1.18 (0.83-1.16) H 09/30/17 01:00 Generic Name Dose Route Start Last Admin Trade Name Freq PRN Reason Stop Dose Admin Acetaminophen 650 mg 09/30/17 01:51 10/02/17 01:48 Tylenol PO 03/29/18 01:50 650 mg Q4HRS PRN Administration Pain, Mild/Fever, Can Take PO Acetaminophen 650 mg 09/30/17 01:51 Tylenol Rectal KS 03/29/18 01:50 Q4HRS PRN Pain, Mild/Fever,Can't Take PO Albuterol/Ipratropium 3 ml 09/30/17 10:41 10/03/17 08:48 Duoneb IH 03/29/18 10:40 3 ml Q4H PRN Administration Short of Breath/Dyspnea Aspirin 81 mg 10/06/17 09:15 10/07/17 09:54 Aspirin PO 04/04/18 09:14 Not Given DAILY [facility] Clopidogrel Bisulfate 75 mg 10/04/17 11:15 10/07/17 10:15 Plavix PO 04/02/18 11:14 Not Given DAILY [facility] Escitalopram Oxalate 10 mg 09/30/17 21:00 10/07/17 22:18 Lexapro PO 03/29/18 20:59 10 mg HS HITESH Administration Ferrous Sulfate 325 mg 09/30/17 21:00 10/07/17 22:18 Ferrous Sulfate PO 03/29/18 20:59 325 mg HS HITESH Administration Furosemide 20 mg 10/02/17 17:30 10/07/17 17:55 Lasix PO 03/31/18 17:29 20 mg DAILY@1730 HITESH Administration Furosemide 40 mg 10/03/17 09:00 10/07/17 10:01 Lasix PO 04/01/18 08:59 40 mg DAILY HITESH Administration Guaifenesin/Dextromethorphan 15 ml 09/30/17 10:41 Robitussin Dm Oral Liquid PO 03/29/18 10:40 Q4H PRN Cough, Mild Hydromorphone HCl 0.5 - 1 mg 09/30/17 01:51 Dilaudid IVP 10/10/17 01:50 Q4HRS PRN Pain, Severe Magnesium Sulfate 1 dose 10/01/17 10:17 Protocol Magnesium IV 03/30/18 10:16 AD PRN Pt on Electrolyte Protocol Protocol Melatonin 3 mg 09/30/17 21:00 10/07/17 22:18 Melatonin PO 03/29/18 20:59 3 mg HS HITESH Administration Metoprolol Succinate 25 mg 10/05/17 13:30 10/07/17 10:00 Toprol Xl PO 04/03/18 13:29 Not Given DAILY [facility] Ondansetron HCl 4 mg 09/30/17 01:51 Zofran Odt PO 03/29/18 01:50 Q4HRS PRN Nausea/Vomiting, Use 1st Pantoprazole Sodium 40 mg 09/30/17 21:00 10/07/17 22:18 Protonix PO 03/29/18 20:59 40 mg BID HITESH Administration Potassium Chloride 30 meq 10/03/17 09:00 10/07/17 09:59 Klor-Con PO 04/01/18 08:59 30 meq DAILY HITESH Administration Pravastatin Sodium 20 mg 09/30/17 21:00 10/07/17 22:18 Pravachol PO 03/29/18 20:59 20 mg HS HITESH Administration Ropinirole HCl 0.5 mg 09/30/17 16:00 10/07/17 22:18 Requip PO 03/29/18 15:59 0.5 mg TID HITESH Administration Senna/Docusate Sodium 1 tab 09/30/17 10:41 10/06/17 21:31 Senokot-S PO 03/29/18 10:40 1 tab BID PRN Administration Constipation Discontinued Medications Generic Name Dose Route Start Last Admin Trade Name Ahmet PRN Reason Stop Dose Admin Albumin Human Confirm 09/30/17 08:37 09/30/17 10:14 Alburx 5 Administered 09/30/17 08:38 Not Given Dose 250 ml IV .STK-MED ONE Albuterol Confirm 09/30/17 08:35 Proventil Neb Administered 09/30/17 08:36 Dose 3 ml .ROUTE .STK-MED ONE Albuterol 3 ml 09/30/17 08:55 Proventil Neb IH 09/30/17 09:55 Q10M PRN PACU, Wheezing Albuterol 3 ml 10/01/17 13:19 Proventil Neb IH 10/01/17 14:19 Q10M PRN PACU, Wheezing Calcium Chloride Confirm 09/30/17 08:40 Calcium Chloride Administered 09/30/17 08:41 Dose 1 gm .ROUTE .STK-MED ONE Epinephrine HCl Confirm 09/30/17 08:31 Epinephrine Administered 09/30/17 08:32 Dose 1 mg .ROUTE .STK-MED ONE Epinephrine HCl Confirm 10/01/17 13:05 Epinephrine Administered 10/01/17 13:06 Dose 1 mg .ROUTE .STK-MED ONE Furosemide 20 mg 10/01/17 10:28 10/01/17 10:52 Lasix Injection IVP 10/01/17 10:29 20 mg ONCE ONE Administration Furosemide 40 mg 10/03/17 08:45 10/03/17 09:08 Lasix Injection IVP 10/03/17 08:46 40 mg ONCE ONE Administration Furosemide 40 mg 10/04/17 09:01 10/04/17 09:21 Lasix Injection IVP 10/04/17 09:02 40 mg ONCE ONE Administration Furosemide 40 mg 10/04/17 16:00 10/04/17 15:49 Lasix Injection IVP 10/04/17 16:01 40 mg ONCE ONE Administration Sodium Chloride 1,000 mls @ 0 mls/hr 09/30/17 00:47 09/30/17 01:01 Ns IV 09/30/17 00:48 1,000 mls EDNOW ONE Administration Protocol Wide Open Sodium Chloride 1,000 mls @ 125 mls/hr 09/30/17 02:00 10/01/17 07:54 Ns IV 03/29/18 01:59 1,000 mls CONT HITESH Administration Lactated Ringer's 1,000 mls @ 0 mls/hr 09/30/17 08:01 09/30/17 10:14 Lr IV 09/30/17 08:02 Not Given ONCE ONE Protocol TKO Lactated Ringer's 1,000 mls @ 0 mls/hr 09/30/17 08:22 09/30/17 08:39 Lr IV 09/30/17 08:23 1,000 mls ONCE ONE Administration As Directed Lactated Ringer's 500 mls @ 0 mls/hr 09/30/17 08:55 Lr IV 09/30/17 09:55 PRN PRN PACU, Nausea/Vomiting Post-Op Wide Open Potassium Chloride/Sodium Chloride 1,000 mls @ 100 mls/hr 10/01/17 10:30 10/15 01:58 Ns W/ 20 Kcl/L IV 03/30/18 10:29 1,000 mls CONT HITESH Administration Magnesium Sulfate 50 mls @ 50 mls/hr 10/01/17 10:20 10/01/17 19:32 Magnesium Sulf 2 Gm (Premix) IV 10/01/17 11:19 Not Given ONCE ONE Potassium Chloride 100 mls @ 100 mls/hr 10/01/17 10:30 10/02/17 03:18 Potassium Cl 10 Meq (Premix) IV 10/01/17 14:29 Not Given Q1H HITESH Magnesium Sulfate/Dextrose 100 mls @ 100 mls/hr 10/01/17 10:28 10/01/17 18:19 Magnesium Sulf 1 Gm (Premix) IV 10/01/17 11:27 100 mls ONCE ONE Administration Lactated Ringer's 1,000 mls @ 0 mls/hr 10/01/17 12:56 10/01/17 15:00 Lr IV 10/01/17 12:57 Not Given ONCE ONE Per Protocol Magnesium Sulfate/Dextrose 100 mls @ 100 mls/hr 10/02/17 07:33 10/02/17 07:51 Magnesium Sulf 1 Gm (Premix) IV 05/05/18 08:32 100 mls ONCE ONE Administration Magnesium Sulfate/Dextrose 100 mls @ 100 mls/hr 10/03/17 07:29 10/03/17 08:20 Magnesium Sulf 1 Gm (Premix) IV 10/03/17 08:28 100 mls ONCE ONE Administration Magnesium Sulfate/Dextrose 100 mls @ 100 mls/hr 10/04/17 08:04 10/04/17 08:51 Magnesium Sulf 1 Gm (Premix) IV 10/04/17 09:03 100 mls ONCE ONE Administration Magnesium Sulfate/Dextrose 100 mls @ 100 mls/hr 10/05/17 06:57 10/05/17 08:40 Magnesium Sulf 1 Gm (Premix) IV 10/05/17 07:56 100 mls ONCE ONE Administration Magnesium Sulfate/Dextrose 100 mls @ 100 mls/hr 10/06/17 08:14 10/06/17 10:08 Magnesium Sulf 1 Gm (Premix) IV 10/06/17 09:13 100 mls ONCE ONE Administration Magnesium Sulfate/Dextrose 100 mls @ 100 mls/hr 10/07/17 11:52 10/07/17 14:58 Magnesium Sulf 1 Gm (Premix) IV 10/07/17 12:51 100 mls ONCE ONE Administration Iopamidol Confirm 10/05/17 15:32 Isovue-370 Administered 10/05/17 15:33 Dose 100 ml IV .STK-MED ONE Iopamidol Confirm 10/05/17 16:08 Isovue-370 Administered 10/05/17 16:09 Dose 100 ml IV .STK-MED ONE Lidocaine HCl Confirm 09/30/17 08:40 Xylocaine-Mpf 2% Vial Administered 09/30/17 08:41 Dose 5 ml .ROUTE .STK-MED ONE Lorazepam 1 mg 10/03/17 08:44 10/03/17 09:07 Ativan Injection IVP 10/03/17 08:45 1 mg ONCE ONE Administration Magnesium Sulfate/Dextrose Confirm 10/07/17 14:56 Magnesium Sulf 1 Gm (Premix) Administered 10/07/17 14:57 Dose 1 gm IV .STK-MED ONE Miscellaneous Medication 1 each 10/01/17 09:00 Herbals/Supplements -Info Only PO 03/30/18 08:59 DAILY HITESH Naloxone HCl 0.1 mg 09/30/17 08:55 Narcan IVP 09/30/17 09:55 Q2M PRN PACU Resp Rate <10/min Naloxone HCl 0.1 mg 10/01/17 13:19 Narcan IVP 10/01/17 14:19 Q2M PRN PACU Resp Rate <10/min Ondansetron HCl 4 mg 09/30/17 01:51 Zofran IVP 03/29/18 01:50 Q4HRS PRN Nausea/Vomiting, Can't Take PO Pantoprazole Sodium 40 mg 09/30/17 01:19 09/30/17 01:27 Protonix IVP 09/30/17 01:20 40 mg EDNOW ONE Administration Pantoprazole Sodium 40 mg 09/30/17 01:30 09/30/17 01:48 Protonix IVP 09/30/17 01:31 40 mg EDNOW ONE Administration Pantoprazole Sodium 40 mg 09/30/17 08:00 09/30/17 07:51 Protonix IVP 03/29/18 07:59 40 mg Q6H HITESH Administration Pantoprazole Sodium 40 mg 09/30/17 10:45 09/30/17 11:59 Protonix PO 03/29/18 10:44 Not Given DAILY HITESH Phenylephrine HCl Confirm 09/30/17 08:40 Neosynephrine Administered 09/30/17 08:41 Dose 1,000 mcg .ROUTE .STK-MED ONE Polyethylene Glycol/Electrolytes 4,000 ml 09/30/17 09:12 09/30/17 15:49 Gavilyte - G PO 09/30/17 09:13 Not Given ONCE ONE Polyethylene Glycol/Electrolytes 4,000 ml 09/30/17 16:00 09/30/17 15:51 Gavilyte - G PO 09/30/17 16:01 4,000 ml ONCE ONE Administration Potassium Chloride 1 dose 10/01/17 10:17 Protocol Potassium MISC 03/30/18 10:16 AD PRN Pt on Electrolyte Protocol Protocol Potassium Chloride 20 meq 10/01/17 20:48 10/01/17 21:04 Klor-Con PO 10/01/17 20:49 20 meq ONCE ONE Administration Protocol Potassium Chloride 40 meq 10/02/17 07:32 10/02/17 07:52 Klor-Con PO 10/02/17 07:33 40 meq ONCE ONE Administration Protocol Potassium Chloride 10 meq 10/03/17 07:28 10/03/17 08:21 Klor-Con PO 10/03/17 07:29 10 meq ONCE ONE Administration Protocol Potassium Chloride 10 - 40 meq 10/04/17 08:03 10/04/17 08:52 Klor-Con PO 10/04/17 08:04 20 meq ONCE ONE Administration Protocol Potassium Chloride 10 - 40 meq 10/04/17 20:04 10/04/17 20:45 Klor-Con PO 10/04/17 20:05 30 meq ONCE ONE Administration Protocol Potassium Chloride 10 - 40 meq 10/05/17 06:57 10/05/17 09:10 Klor-Con PO 10/05/17 06:58 Not Given ONCE ONE Protocol Propofol Confirm 09/30/17 08:40 Diprivan Administered 09/30/17 08:41 Dose 200 mg .ROUTE .STK-MED ONE Propofol Confirm 10/01/17 12:53 Diprivan Administered 10/01/17 12:54 Dose 200 mg .ROUTE .STK-MED ONE Propofol Confirm 10/01/17 13:30 Diprivan Administered 10/01/17 13:31 Dose 200 mg .ROUTE .STK-MED ONE Physical Exam - Physical Exam General Appearance: alert, no apparent distress Respiratory: lungs clear Cardiac/Chest: regular rate, rhythm Abdomen: normal bowel sounds, non-tender, soft Skin: normal color, warm/dry Neuro/Psych: alert, normal mood/affect, oriented x 3 ICD10 Worksheet Patient Problems: Problems Problem Status Onset GI bleed Acute Venous stasis dermatitis of both lower extremities Acute
--- NOTE | 2017-10-08 10:22 | PDIAF ---
- Diagnosis Diagnosis: GIB Code Status: Full Code - Medication Management Discharge Medications: Medications to Continue on Transfer Aspirin [Aspirin 81mg (*)] 81 mg PO DAILY 09/30/17 [Last Taken Unknown] Clopidogrel Bisulfate [Plavix (*)] 75 mg PO DAILY 09/30/17 [Last Taken Unknown] Escitalopram Oxalate [Lexapro 10 MG] 10 mg PO HS 09/30/17 [Last Taken Unknown] Ferrous Sulfate [Ferrous Sulf 325 MG (*)] 325 mg PO HS 09/30/17 [Last Taken Unknown] Furosemide [Lasix 20 MG (*)] 20 mg PO DAILY@1730 09/30/17 [Last Taken Unknown] Furosemide [Lasix 40 MG (*)] 40 mg PO DAILY 09/30/17 [Last Taken Unknown] Herbals/Supplements -Info Only 1 ea PO DAILY 09/30/17 [Last Taken Unknown] Ipratropium/Albuterol [Duoneb (*)] 3 ml IH Q4H PRN 09/30/17 [Last Taken Unknown] Melatonin [Melatonin 3 MG (*)] 3 mg PO HS 09/30/17 [Last Taken Unknown] Polyethylene Glycol 3350 [Miralax 17 gm (*)] 17 gm PO DAILY PRN 09/30/17 [Last Taken Unknown] Potassium Cl [Klor-Con 20 meq (*)] 30 meq PO DAILY 09/30/17 [Last Taken Unknown] Pravastatin Sodium 20 mg PO HS 09/30/17 [Last Taken Unknown] Sennosides/Docusate Sodium [Senna-Docusate Sodium Tablet] 1 each PO BID PRN 08/15 [Last Taken Unknown] guaiFENesin/DEXTROMETHORPHAN [Robitussin Dm Oral Liquid (*)] 15 ml PO Q4H PRN [Last Taken Unknown] rOPINIRole HCL [Requip 1mg (*)] 0.5 mg PO TID 09/30/17 [Last Taken Unknown] Acetaminophen [Tylenol 325mg (*)] 650 mg PO Q4HRS PRN tab 10/08/17 [Last Taken Unknown] Metoprolol Succinate Xr [Toprol Xl 25 mg (*)] 25 mg PO DAILY tab 10/08/17 [ Last Taken Unknown] Discharge Medications: Refer to the Discharge Home Medication list for PRN reason. PICC Care - Routine: N/A - Orders Services needed: Registered Nurse, Physical Therapy, Occupational Therapy Isolation Type: None Diet Recommendation: no restrictions on diet - Follow Up Care Current Providers and Referrals: Patient,NotPresent [Unknown] - As per Instructions
--- NOTE | 2017-10-08 10:29 | ASMTLACE ---
LACE Length of stay for Answers: 7-13 days current admission Acuity / Level of Answers: Yes Care: Did the patient have an inpatient admission? Comorbidities - select Answers: Chronic pulmonary disease all that apply Coronary Artery Disease Peptic ulcer disease Peripheral vascular disease Previous myocardial infarction Other Notes: HTN, GERD # of Emergency department Answers: 1-2 visits in the last 6 months Social determinants Answers: Mental health diagnosis (anxiety, depression, pers onality disorders, etc.) Score: 21 Date Signed: 10/08/2017 10:29 AM Electronically Signed By:Diana Sandoval RN
[2017-10-08 12:19] VITALS: BP 116/72
--- NOTE | 2017-10-08 14:11 | GDS ---
[f rep st] DISCHARGE SUMMARY DISCHARGE DIAGNOSES: 1. Acute blood loss anemia. 2. Gastrointestinal bleeding. 3. Failure to thrive. 4. Weakness. 5. Acute hypoxemic respiratory failure. 6. Coronary artery disease with stent placement. 7. 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 8. Hypomagnesemia. 9. Ascending aortic aneurysm. 10. Cardiomyopathy. 11. Bilateral lower extremity wounds. 12. Urinary retention. CONSULTATIONS: Gastroenterology. PHYSICAL EXAM: GENERAL: The patient is alert VITAL SIGNS: Afebrile at 36.9, pulse 92, respiratory rate 16, blood pressure is 116/72 she is saturating 89% on 1 L. I have seen and evaluated the patie nt on the day of discharge. HOSPITAL COURSE: The patient is a 77-year-old female who presented to the emergency room with compla ints of weakness. She was evaluated and diagnosed with. 1. Gastrointestinal bleeding. During this hospitalization, she received a colonoscopy as well as an endoscopy. No source of bleeding was identified. The bleeding stopped on its own and she will foll ow up with a capsule study in the outpatient setting. 2. Acute blood loss anemia due to gastrointestinal bleed. During this hospitalization, she received transfusion of 3 units of packed red blood cells. Her H and H are stable today prior to disposition with no further signs of bleeding. 3. History of coronary artery disease with stent placement. The patient's aspirin and Plavix have b een held during this hospitalization. It is unclear if the patient will be able to tolerate both asp irin and Plavix in the future. She did receive a consultation from Cardiology during this hospitaliz ation. It is recommended that the patient reinitiate Plavix and, if bleeding should recur, we may olivas ve to consider discontinuing this medication in the future. 4. History of systolic and diastolic congestive heart failure. She responded well to diuretic thera py during this hospitalization. 5. Acute hypoxemic respiratory failure. This is in the setting of anemia as well as deconditioning. This is mild and improving. 6. Ascending aortic aneurysm. This is 5.4 cm. During this hospitalization, she did receive a consu ltation for potential intervention regarding this. She chooses not to have intervention at this time . Beta kalin has been initiated and she will continue this in the outside setting as well as follo w up with her primary computer systems technology instructor. 7. Peripheral vascular disease. Again, the patient has previously been on anti-platelet therapy, jayde worrell, this is on hold secondary to her bleeding. Anti-platelet therapy will be re-initiated in the future. 8. Aortic regurgitation. This is moderate to severe per echo. 9. Cardiomyopathy. Again, beta kalin has been initiated. 10. Skin breakdown with bilateral lower extremity wounds. These are chronic. 11. Urinary retention. The patient's Sierra catheter has been initiated during this hospitalization and should remain in. DISPOSITION: The patient will be discharged to [facility] for further rehabilitation and management. S he is a high risk for multiple complications and prognosis for remaining out of the hospital is low. However, we will continue to try therapies in the outpatient setting. I have reviewed her dispositi on with the case checker. FOLLOWUP: Followup will be with Dr. Rock as well as Dr. Jeannine Edward and the patient's primary care physician. PENDING STUDIES: There are no pending studies. DISCHARGE MEDICATIONS: Please refer to EMR form. TIME SPENT WITH PATIENT: I spent greater than 35 minutes in the care, coordination, and management o f patient's disposition. /[id number]/MODL
--- NOTE | 2017-10-13 13:41 | ASDISCHSUM ---
Discharge Information Plan Status:SNF Medically Cleared to Leave: Discharge Date:10/08/2017 12:56 PM CM D/C Disposition:[facility] ADT D/C Disposition:[facility] Facility Projected Discharge Date:10/04/2017 11:00 AM Transportation at D/C:ALS/BLS Discharge Delay Reason: Follow-Up Date:10/04/2017 11:00 AM Discharge Slot: Final Diagnosis: Placement Information Referral Type:*Mcfp/SNF Referral ID:[id number] Provider Name:[facility] Address 1:[address] Address 2: City:[place] Selection Factors: State:[place] Patient Contact Information Contact Name:MAKAYLA Relationship:Son Address:[address] Work Phone: City:[facility] Phone: State/Zip Code:[place] [address] Email: Financial Information Financial Class:Medicare Advantage Plans Primary Plan Desc:[employer]AGE Primary Plan Number:[id number] Secondary Plan Desc: Secondary Plan Number: Assessment Information LACE LACE Length of stay for Answers: 7-13 days current admission Acuity / Level of Answers: Yes Care: Did the patient have an inpatient admission? Comorbidities - select Answers: Chronic pulmonary disease all that apply Coronary Artery Disease Peptic ulcer disease Peripheral vascular disease Previous myocardial infarction Other Notes: HTN, GERD # of Emergency department Answers: 1-2 visits in the last 6 months Social determinants Answers: Mental health diagnosis (anxiety, depression, pers onality disorders, etc.) Score: 21 Date Signed: 10/08/2017 10:29 AM Electronically Signed By:Diana Sandoval RN [facility] CM Assessment Living Arrangements What is your living Answers: Alone arrangement? Who do you live with? Type Of Residence What kind of residence do Answers: Assisted Living you live in? Discharge Plan Comments Coordination Status Comments Notes: Patient is a 77yo female who [facility] and was admitted for an acute GI bleed, acute blood loss anemia, confusion, and hypoalbuminemia. Patient has a hx of CAD,restless legs syndrome, hyperlipidemia, gastroesophageal reflux disease, chronic heel ulcers, chronic obstructive pulmonary disease, neuropathy. No therapies have been ordered to date. Patient has a son, Yunier who lives in town and provides excellent support. Most likely patient will return to [facility] at D/C. D/C plan TBD. CM will follow. Date Signed: 09/30/2017 09:39 AM Electronically Signed By:Tatiana Vergara LCSW [facility] CM Progress Note CM Note CM Note Notes: Pt. is a 77-year-old woman admitted w/ anemia and melena. Hx. NE, CAD, stenting, heel ulcers, peptic ulcer disease, HTN, and COPD (does not use home O2 as of yet). Reportedly, Pt. is mostly wheelchair bound and has experienced deconditioning. Cristel called and confirmed that Pt. lives in [facility]. Pt. having a colonoscopy today. PT ordered to assist with d/c planning. Pt. has [employer] BC Medicare should Pt. need SNF placement. Son Yunier is involved. CM to follow for d/c POC. TBD. Date Signed: 10/01/2017 01:59 PM Electronically Signed By:Aminata Alberts LCSW [facility] CM Progress Note CM Note CM Note Notes: CM spoke with hospitalist, patient is presenting with heightened anxiety and is working with nurses to address anxiety. There is consideration to for IR consult when pt is more stable. PT consult 5/ rec is SNF Rehab. Possible discharge plan would be for patient to discharge back to [facility] within the next few days. CM available for any CM support needs. D/C Plan: TBD, likely early next week. Date Signed: 10/03/2017 02:45 PM Electronically Signed By:Uyen Price [facility] Progress Note CM Note CM Note Notes: CM spoke w/ AJAY Payne regarding d/c POC. CM met w/ pt for dispo planning. Pt would like to return back to [facility]. Pt reports that she is in the senior living portion of the building. Pt reports that a nurse dispenses her medications and she receives PT/OT 3x a week. CM and pt spoke briefly about her depression and anxiety. Pt reports that he sees a therapist once a week for an hour. CM spoke w/ pts son Earnest regarding d/c POC. Earnest reports that the plan is for pt to return to [facility]. Earnest reports that pt had a panic attack here at the hospital. Earnest reports that she is on Lexapro to help w/ her depression/anxiety. Earnest reports that he is working w/ his sister to get pt back to [place], where pt is from [facility]. ANATOLIY spoke w/ Rabia at [facility] and confirms that pt is residing at the senior living part of the facility. CM to follow. Plan: [facility] Date Signed: 10/04/2017 11:28 AM Electronically Signed By:Miriam Alyx, RIBBING MACHINE OPERATOR [facility] CM Progress Note CM Note CM Note Notes: Spoke w/Kaykay from [facility], pt can discharge back to [facility] when medically stable, possibly in 1-2 days. DC Plan: [facility] Date Signed: 10/06/2017 12:04 PM Electronically Signed By:Diana Sandoval RN Case Management Discharge Plan Note Case Management Discharge Discharge Order Complete? Answers: Yes Patient to Obtain Answers: Other Notes: [facility] Medications Transportation Arranged Answers: [facility] will Pick (Date 10/08/2017 12:30 PM & Time) Case Management Transport Answers: Yes Form Complete Faxed Final Orders Answers: Yes Agency/Facility Transfer Answers: Yes Report Printed & Faxed to Receiving Agency Family Notified Answers: Yes Discharge Comments Notes: D/w ASSISTED LIVING EXECUTIVE DIRECTOR, final orders faxed. Bree at [facility] notified, RN to call report. Pt and son very happy that pt is returning to [facility]. Date Signed: 10/08/2017 10:35 AM Electronically Signed By:Diana Sandoval RN Intervention Information Intervention Type:*IM-Signed Date of Service:10/08/2017 10:19 AM Patient Type:Inpatient Staff Member:Debby Hernandez Hours: Discipline: Severity: Comment:
== END 2017-10-08 12:56 | DRG 377 ==
LOC: EDUNIT# → F2N 02:05 → F3E 17:27
PROVIDERS: ADMIT Family Medicine; ATTEND Internal Medicine
DX: K92.2 Gastrointestinal hemorrhage, unspecified (principal); D62 Acute posthemorrhagic anemia; J96.01 Acute respiratory failure with hypoxia; D12.2 Benign neoplasm of ascending colon; D12.0 Benign neoplasm of cecum; Z87.11 Personal history of peptic ulcer disease; K22.70 Barrett's esophagus without dysplasia; I25.10 Atherosclerotic heart disease of native coronary artery without angina pectoris; I25.2 Old myocardial infarction; Z79.02 Long term (current) use of antithrombotics/antiplatelets; Z79.82 Long term (current) use of aspirin; I42.8 Other cardiomyopathies; I35.0 Nonrheumatic aortic (valve) stenosis; I71.2 Thoracic aortic aneurysm, without rupture; I11.0 Hypertensive heart disease with heart failure; I50.42 Chronic combined systolic (congestive) and diastolic (congestive) heart failure; I47.2 Ventricular tachycardia; I70.203 Unspecified atherosclerosis of native arteries of extremities, bilateral legs; Z95.820 Peripheral vascular angioplasty status with implants and grafts; E87.6 Hypokalemia; E83.42 Hypomagnesemia; I87.333 Chronic venous hypertension (idiopathic) with ulcer and inflammation of bilateral lower extremity; L97.211 Non-pressure chronic ulcer of right calf limited to breakdown of skin; L97.221 Non-pressure chronic ulcer of left calf limited to breakdown of skin; L89.151 Pressure ulcer of sacral region, stage 1; R33.9 Retention of urine, unspecified; K21.9 Gastro-esophageal reflux disease without esophagitis; K59.00 Constipation, unspecified; E78.5 Hyperlipidemia, unspecified; J44.9 Chronic obstructive pulmonary disease, unspecified; Z87.891 Personal history of nicotine dependence; G62.9 Polyneuropathy, unspecified
CPT/HCPCS: 97110-GP; 97161-GP; 97530-GP; J0171; J1940; J2060; J2370; J2704; J3475; J3480; J7613; P9016; P9021; P9041; Q9967

== ENCOUNTER 2018-02-10 12:02 | Inpatient (IN) | payer OTHER ==
--- NOTE | 2018-02-10 12:05 | EDPHY ---
HPI/HX/ROS/PE/MDM Narrative: CHIEF COMPLAINT: Hypoxic, fever. HPI: This patient is a 77 y/o female with past medical history significant for coronary artery disease, peripheral vascular disease, GERD, hypertension, hyperlipidemia, anemia,and COPD. She arrives today from [facility] via EMS for evaluation of hypoxemia and fever. This morning during her routine vitals check , staff at [facility] noted her to be hypoxic in the high 70s and low 80s. Additionally, her temperature was 100.4 degrees Fahrenheit. The patient is treated for chronic bilateral lower extremity wounds, these are bandaged. Per EMS report, [facility] staff reported a recent diagnosis of pneumonia, but also reported that the patient has not had any recent x-rays or laboratory studies. Denies vomiting, diarrhea, urinary complaints, or other associated symptoms. REVIEW OF SYSTEMS: A comprehensive 10 system review of systems is otherwise negative aside from elements mentioned in the history of present illness and medical decision making. PMH: Hypertension, hyperlipidemia, history of [place] 9 yrs ago, CHF, CAD s/p stent placement, GERD, COPD. SOCIAL HISTORY: Lives in [place]. Retired. PCP: Dr. Laurent. PHYSICAL EXAM: General:Patient is alert, in no acute distress. ENT:Eyes are normal to inspection. ENT inspection normal. Neck: Normal inspection. Full range of motion. Respiratory:No respiratory distress. Breath sounds normal bilaterally. Cardiovascular: Regular rate and rhythm. Strong peripheral pulses. Normal cap refill. Abdomen:The abdomen is nontender to palpation. There are no peritoneal signs. There are normal bowel sounds. Back: Normal to inspection. No tenderness to palpation. Skin: Normal color. No rash. Warm and dry. Extremities: Bandages to lower extremities bilaterally. Full range of motion. Neuro: Oriented x3. Normal motor function. Normal sensory function. ED Course: 12:02 Met EMS at bedside. 77 y/o female with complex medical history presents with hypoxemia and fever. Plan for chest x-ray, EKG, labs including CBC, chemistries, coag panel, d-dimer. EKG was ordered and interpreted by myself. Please see [employer] system for official reading. WBC elevated at 15,000. Plan for additional labs including troponin, lactic acid , blood cultures, UA. Reviewed chest x-ray. No acute processes. See radiologist report below. 12:[address] Spoke with [address]ist service. Dr. Gutiérrez accepts admission for fever, hypoxia. - Data Points Imaging Results: Imaging Impressions Chest X-Ray 02/10/18 12:07 Impression: 1. No failure. 2. Thoracic aortic aneurysm, small left pleural effusion and bibasilar atelectasis unchanged. Imaging: I viewed and interpreted images myself Laboratory Results: Laboratory Results 02/10/18 12:02 02/10/18 12:02 02/10/18 02/10/18 02/10/18 12:47 12:16 12:02 WBC RBC Hgb Hct MCV MCH MCHC RDW Plt Count MPV Neut % (Auto) Lymph % (Auto) Ralls % (Auto) Eos % (Auto) Baso % (Auto) Nucleat RBC Rel Count Absolute Neuts (auto) Absolute Lymphs (auto) Absolute Monos (auto) Absolute Eos (auto) Absolute Basos (auto) Absolute Nucleated RBC Immature Gran % Immature Gran # RBC/WBC/PLT Morphology Platelet Estimate PT INR APTT D-Dimer VBG Lactic Acid 1.1 mmol/L mmol/L (0.7-2.1) Sodium 139 mEq/L mEq/L (135-145) Potassium 4.3 mEq/L mEq/L (3.3-5.0) Chloride 97 mEq/L mEq/L (97-110) Carbon Dioxide 30 mEq/l mEq/l (22-31) Anion Gap 12 mEq/L mEq/L (8-16) BUN 17 mg/dL mg/dL (7-23) Creatinine 0.9 mg/dL mg/dL (0.6-1.0) Estimated GFR > 60 Glucose 151 mg/dL H mg/dL (70-100) Calcium 8.8 mg/dL mg/dL (8.5-10.4) POC Troponin I 0.03 ng/mL ng/mL (0.00-0.08) NT-Pro-B Natriuret Pep 4930 pg/mL H pg/mL (0-450) 02/10/18 02/10/18 12:02 12:02 WBC 15.70 10^3/uL H 10^3/uL (3.80-9.50) RBC 4.15 10^6/uL L 10^6/uL (4.18-5.33) Hgb 11.3 g/dL L g/dL (12.6-16.3) Hct 37.1 % L % (38.0-47.0) MCV 89.4 fL fL (81.5-99.8) MCH 27.2 pg L pg (27.9-34.1) MCHC 30.5 g/dL L g/dL (32.4-36.7) RDW 15.0 % % (11.5-15.2) Plt Count 308 10^3/uL 10^3/uL (150-400) MPV 9.3 fL fL (8.7-11.7) Neut % (Auto) 92.0 % H % (39.3-74.2) Lymph % (Auto) 3.4 % L % (15.0-45.0) Ralls % (Auto) 3.8 % L % (4.5-13.0) Eos % (Auto) 0.0 % L % (0.6-7.6) Baso % (Auto) 0.2 % L % (0.3-1.7) Nucleat RBC Rel Count 0.0 % % (0.0-0.2) Absolute Neuts (auto) 14.44 10^3/uL H 10^3/uL (1.70-6.50) Absolute Lymphs (auto) 0.53 10^3/uL L 10^3/uL (1.00-3.00) Absolute Monos (auto) 0.60 10^3/uL 10^3/uL (0.30-0.80) Absolute Eos (auto) 0.00 10^3/uL L 10^3/uL (0.03-0.40) Absolute Basos (auto) 0.03 10^3/uL 10^3/uL (0.02-0.10) Absolute Nucleated RBC 0.00 10^3/uL 10^3/uL (0-0.01) Immature Gran % 0.6 % % (0.0-1.1) Immature Gran # 0.09 10^3/uL 10^3/uL (0.00-0.10) RBC/WBC/PLT Morphology TNP Platelet Estimate TNP PT 17.8 SEC H SEC (12.0-15.0) INR 1.45 H (0.83-1.16) APTT 35.2 SEC SEC (23.0-38.0) D-Dimer 5.67 ug/mLFEU H ug/mLFEU (0.00-0.50) VBG Lactic Acid Sodium Potassium Chloride Carbon Dioxide Anion Gap BUN Creatinine Estimated GFR Glucose Calcium POC Troponin I NT-Pro-B Natriuret Pep Point of Care Test Results: Chemistry 02/10/18 12:16 POC Troponin I 0.03 ng/mL ng/mL (0.00-0.08) General Initial Vital Signs: Initial Vital Signs O2 Sat (%) 94 02/10/18 11:55 O2 Delivery Mode Room Air O2 (L/minute) 4 Allergies/Adverse Reactions: No Known Allergies Allergy (Verified 09/30/17 00:52) Home Medications: Medication Instructions Recorded Aspirin [Aspirin 81mg (*)] 81 mg PO DAILY 09/30/17 Clopidogrel Bisulfate [Plavix (*)] 75 mg PO HS 09/30/17 Escitalopram Oxalate [Lexapro 10 10 mg PO HS 09/30/17 MG] Furosemide [Lasix 40 MG (*)] 60 mg PO DAILY 09/30/17 Melatonin [Melatonin 3 MG (*)] 3 mg PO HS 09/30/17 Metoprolol Succinate Xr [Toprol Xl 25 mg PO DAILY tab 10/08/17 25 mg (*)] Lisinopril [Zestril 2.5 mg (*)] 2.5 mg PO DAILY 02/10/18 Pantoprazole Sodium [Protonix 40mg 40 mg PO DAILY 02/10/18 (*)] Departure - Departure Disposition: [facility] Acute Clinical Impression: Hypoxia Fever Qualifiers: Fever type: unspecified Qualified Code(s): R50.9 - Fever, unspecified Condition: Fair Report Scribed for: Raul Aguilar Report Scribed by: Delfina Stratton Date of Report: 02/10/18 Time of Report: 15:01 Physician Review and Approval Statement: Portions of this note were transcribed by an ED scribe. I personally performed the history, physical exam, and medical decision making; and confirm the accuracy of the information in the transcribed note.
[2018-02-10 12:18] LABS: PLATELET COUNT 308 10^3/uL (150-400)
[2018-02-10 12:25] LABS: INR 1.45 (0.83-1.16); PROTIME(PATIENT) 17.8 SEC (12.0-15.0)
--- NOTE | 2018-02-10 14:24 | CPEKG ---
Test Reason : OPEN Blood Pressure : / mmHG Vent. Rate : 117 BPM Atrial Rate : 118 BPM P-R Int : 153 ms QRS Dur : 090 ms QT Int : 354 ms P-R-T Axes : 047 -64 044 degrees QTc Int : 494 ms Sinus tachycardia Inferior infarct, old Confirmed by Raul Aguilar ([id number]) on 02/10/2018 2:23:48 PM Referred By: Confirmed By:Raul Aguilar
[2018-02-10] MEDS ORDERED: IOPAMIDOL (ISOVUE 370) 100 ML BTL IV ONE (14:35)
[2018-02-10] MEDS ORDERED: ZOLPIDEM TARTRATE 5 MG TAB PO PRN (17:44)
[2018-02-10] MEDS ORDERED: NS 1,000 ML IV ONE (17:44)
[2018-02-10] MEDS ORDERED: ACETAMINOPHEN 325 MG TAB PO PRN (17:44)
[2018-02-10] MEDS ORDERED: ONDANSETRON 4 MG/2 ML VIAL IVP PRN (17:44)
--- NOTE | 2018-02-10 17:44 | PDGENHP ---
History and Physical History and Physical: CC: Fever and tachycardia HISTORY: This patient with a long list of significant medical issues some ongoing, has been for the last 2 days at [facility] where she is now living. She was just transferred there from [facility]. She was at [facility] for care of ongoing skin wounds on her legs. Today at [facility] she was noticed to have fever hypoxemia and fast heart rate so was sent to the ER for further evaluation. The patient herself says she feels fine. She notices no pain or discomfort since new or different. She does not feel short of breath. She does not feel more weak or tired than usual though she is typically extremely weak and tired. Her daughter notices her being more sleepy today and says she woke up a bit later than usual. She denies any chills or sweats or feeling cold. No URI symptoms cough chest pain abdominal pain nausea vomiting bowel symptoms urinary symptoms joint symptoms headache or neurologic symptoms. Regarding the wounds on her legs they have been doing daily wound care with dressing changes for open wounds on both legs at both facilities. There has been no concern from the facilities regarding infection that they are aware of and the patient has no new pain at the wounds. 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 I have reviewed the list and ordered appropriate medicines. PHYSICAL EXAMINATION: Vital Signs: Sinus tachycardia 110-122, blood pressures a bit lower than her usual range but all greater than 100 systolic, respiratory rate elevated at 24 by my count now, temperature 38 degrees Senior Portfolio Analyst: Sinus tachycardia Oxygen monitor: Her oxygen saturation was 80% on room air at [facility] today has been okay on 4-5 L nasal cannula in the ER here so far Examination: General: alert, oriented, good mentation Skin: warm, dry, good color overall HEENT: normal Neck: no mass or jvd but obesity would preclude easy detection of these Resps: Labored at rest on oxygen Lungs: Very diminished breath sounds with poor expiration, slight expiratory wheeze Heart: regular, 1/6 systolic murmur at left sternal border Abdomen: soft, nondistended, nontender, +BS, no mass Lower Extremities: Little edema; on the right ankle there are 3 open wounds the largest is a 4 x 9 cm open wound with a dressing in place which I removed revealing some diffuse thick weeping that looks perhaps mildly purulent but there is no cellulitis necrosis or abscess. There are small noninfected full- thickness wounds on the anterior and medial ankle. On the left there is a again a large though smaller than the right open wound posteriorly with no evidence of abscess necrosis or cellulitis but again with diffuse exudate. No Bleeding or bruising Neurologic: normal speech/language, normal child nutrition director, no focal weakness IV site: looks normal LABORATORY DATA: White blood cell count 79233, normocytic anemia 11.7 Unremarkable metabolic panel BNP elevated and D-dimer is also elevated Urinalysis with 5-10 white blood cells otherwise unremarkable Normal serum lactate RADIOLOGY STUDIES: Ordered a CT scan of the chest and I reviewed the images with Dr. Victor Manuel Saleh. Her aneurysm is unchanged from September 2016. The pleural fluid at the left base is less than 2017. She has some small peripheral scars at the left lung base but there is no acute infiltrate or heart failure. There are no pulmonary emboli on angiographic images. 12 LEAD EKG: I reviewed the tracing from the ER study today, sinus tachycardia with probable left anterior fascicular block, nothing ischemic ASSESSMENT: * acute early sepsis without organ damage * acute febrile illness of uncertain origin her etiology * Main concern is for a bacteremia related to her multiple skin wounds on the legs but there is no cellulitis at these wounds * She does have acute respiratory dysfunction but I cannot find a specific respiratory infection * acute hypoxemic respiratory failure, suspect COPD exacerbation, likely triggered by above * No PE or pneumonia on her CT chest * multiple open wounds at both ankles present on admission, possibly some mild superficial infection without cellulitis at both ankles * stage II decubitus changes at the low sacral area present on admission without signs of infection * very large thoracic and abdominal aortic aneurysm with high risk for rupture but the patient is not a surgical candidate, stable since September 2016 * wheelchair-bound due to severe deconditioning weakness and obesity PLANS: * Blood cultures have been obtained in the ER will follow those closely * Will begin fluid resuscitation at this point * Begin empiric antibiotics at this point to cover skin infection * Check respiratory pathogen panel * Wound care nurse consult, I have given the floor nurses directions for wound care overnight * Bronchodilators and steroids for her respiratory status * After long discussion regarding cor status, the patient is undecided about how she would choose but does not want to have a no cor order in her chart at this time, she will have further conversation with her family and request further consultation as desired I have reviewed the patient's case in detail with Dr. Aguilar I have reviewed the patient's past medical records as part of this assessment, including previous hospital admission records here
[2018-02-10] MEDS: predniSONE 20 MG TAB PO SCH (18:23)
[2018-02-10] MEDS: IPRATROPIUM/ALBUTEROL 3 ML DEYVIAL IH SCH ×2 (19:49→21:15)
[2018-02-10] MEDS: VANCOMYCIN 1.5 GM in NS 250 ML IV SCH ×2 (20:19→20:20)
[2018-02-10] MEDS: NS 1,000 ML IV SCH (20:20)
[2018-02-10] MEDS: ESCITALOPRAM OXALATE 10 MG TAB PO SCH (20:26)
[2018-02-10] MEDS: CLOPIDOGREL BISULFATE 75 MG TAB PO SCH (20:26)
[2018-02-10] MEDS: MELATONIN 3 MG TAB PO SCH (23:33)
[2018-02-11 04:08] LABS: PLATELET COUNT 227 10^3/uL (150-400)
[2018-02-11] MEDS: IPRATROPIUM/ALBUTEROL 3 ML DEYVIAL IH SCH ×4 (05:55→20:51)
[2018-02-11] MEDS ORDERED: NS 1,000 ML IV ONE (07:35)
[2018-02-11] MEDS: ASPIRIN 81 MG CHEWABLE TAB PO SCH (08:28)
[2018-02-11] MEDS: ENOXAPARIN 40 MG/0.4 ML SYR SC SCH (08:28)
[2018-02-11] MEDS: PANTOPRAZOLE SODIUM 40 MG TAB PO SCH (08:28)
[2018-02-11] MEDS: predniSONE 20 MG TAB PO SCH (08:28)
[2018-02-11] MEDS ORDERED: LISINOPRIL 2.5 MG TAB PO SCH (09:00)
[2018-02-11] MEDS ORDERED: METOPROLOL SUCCINATE XR 25 MG TAB PO SCH (09:00)
[2018-02-11] MEDS ORDERED: FUROSEMIDE 40 MG TAB PO SCH (09:00)
--- NOTE | 2018-02-11 09:31 | WOCRNPDOC ---
[facility] Advanced Assessment Note - Skin Integrity Problem, Advanced Assess Right Heel Dressing Type: Allevyn Life Dressing Description: Clean/Dry, Intact Exudate Amount: Scant Exudate Characteristic(s): Serous Integumentary Issue Intervention: Dressing Removed Denise Wound Tissue: Blanching, Venous Dermatitis Denise Wound Swelling: None Wound Bed Color: [place], Yellow Wound Bed Constitution: Red/[place] - Non Granular Tissue (20%), Adhered Slough (80 %) Site Odor: None Site Measurement - Head-to-Toe Length X Width X Depth (cm): 2x1.6x0.3 Pulse Location & Description: Weakly palpable DP pulse Skin Integrity Problem Comment: Chronic wound that patient has been having treated at the facility she resides at. Patient states that they had been using honey dressings which seemed to be helping the wound. Will continue to use honey. Wound cleansed with NS and gauze. Dr. Gutiérrez and Cathleen MOSS in room and updated on plan of care. Wound care will round again next week. Right Anterior Lower Leg Dressing Type: Allevyn Life Dressing Description: Clean/Dry, Intact Exudate Amount: None Integumentary Issue Intervention: Dressing Removed Denise Wound Tissue: Venous Dermatitis Wound Bed Color: [place] Wound Bed Constitution: Red/[place] - Non Granular Tissue (100%) Wound Edges: Epithelizing, Attached Site Odor: None Site Measurement - Head-to-Toe Length X Width X Depth (cm): 1.4x1.4x0.2 Skin Integrity Problem Comment: Patient states this wound is from a scab that was removed. Patient receives wound care at the facility she resides at. Per discussion with Dr. Gutiérrez, patient has mixed venous and arterial disease. Will use Puracyn wound gel in wound bed. Per patient request, no adhesives will be used, instead the wound will be covered with Allevyn non-bordered foam and secured with kerlix and netting. Wound care will round again next week. Right Posterior Lower Leg Dressing Type: Allevyn Life Dressing Description: Clean/Dry, Intact Exudate Amount: Scant Exudate Characteristic(s): Serosanguinous Integumentary Issue Intervention: Dressing Removed Denise Wound Tissue: Venous Dermatitis Wound Bed Constitution: Granulation Tissue (40%), Red/[place] - Non Granular Tissue (50%), Adhered Slough (10%) Wound Edges: Attached Site Odor: None Site Measurement - Head-to-Toe Length X Width X Depth (cm): 10.8x7.8x0.3 Skin Integrity Problem Comment: Chronic wound that patient receives wound care for at the facility where she resides. Per Dr. Gutiérrez's assessment, wound looks improved since yesterday evening. Will begin using Puracyn wound gel and cover with a non-bordered foam to avoid the use of adhesives. Patient has extensive venous dermatitis so will also begin using Actratain moisturizer on lower legs. Wound care will round again next week. Cathleen MOSS updated on plan of care. Left Lower Lateral Leg Dressing Type: Allevyn Life Dressing Description: Clean/Dry, Intact Exudate Amount: Scant Exudate Characteristic(s): Serosanguinous Integumentary Issue Intervention: Dressing Removed Denise Wound Tissue: Venous Dermatitis Denise Wound Swelling: None Wound Bed Color: Red, Yellow Wound Bed Constitution: Granulation Tissue (90%), Adhered Slough (10%) Wound Edges: Attached Site Measurement - Head-to-Toe Length X Width X Depth (cm): 6.3x2.6x0.2 Skin Integrity Problem Comment: Chronic wound that patient receives wound care for at the facility where she resides. Dr. Gutiérrez in room and feels wound looks better than yesterday evening. Will use Puracyn wound gel and cover with non- bordered foam. Cathleen MOSS updated on plan of care. Wound care will round again next week. Left Ischial Tuberosity Pressure Injury Dressing Type: Allevyn Life Dressing Description: Soiled Exudate Amount: None Integumentary Issue Intervention: Dressing Removed Denise Wound Tissue: Blanching Wound Bed Color: [place] Wound Bed Constitution: Red/[place] - Non Granular Tissue (100%) Wound Edges: Attached Site Measurement - Head-to-Toe Length X Width X Depth (cm): 1.8x2.1x0.2 Pressure Injury Stage: Stage 2 Pressure Injury Present on Admit: Yes Skin Integrity Problem Comment: Stage 2 present on admission pressure injury. Patient was incontinent of stool. Patient was cleaned up and wounds were cleansed with NS and gauze. Patient has TAPS in use already. Wound care will round again next week. Right Ischial Tuberosity Pressure Injury Dressing Type: Allevyn Life Dressing Description: Soiled Exudate Amount: None Integumentary Issue Intervention: Dressing Removed Denise Wound Tissue: Blanching Denise Wound Swelling: None Wound Bed Color: [place] Wound Bed Constitution: Red/[place] - Non Granular Tissue (100%) Wound Edges: Attached Site Odor: None Pressure Injury Stage: Stage 2 Pressure Injury Present on Admit: Yes Skin Integrity Problem Comment: Stage 2 present on admission pressure injury. Patient was incontinent of stool. Patient was cleaned up and wounds were cleansed with NS and gauze. Patient has TAPS in use already. Wound care will round again next week.
--- NOTE | 2018-02-11 10:29 | HOSPPROG ---
Hospitalist Progress Note Assessment/Plan: DIAGNOSES: * acute early sepsis without organ damage * acute febrile illness of uncertain origin her etiology * Main concern is for a bacteremia related to her multiple skin wounds on the legs but there is no cellulitis at these wounds * She does have acute respiratory dysfunction but I cannot find a specific respiratory infection * acute hypoxemic respiratory failure, suspect COPD exacerbation, likely triggered by above * No PE or pneumonia on her CT chest * multiple open wounds at both ankles present on admission, possibly some mild superficial infection without cellulitis at both ankles * stage II decubitus changes at the low sacral area present on admission without signs of infection * acute worsening of chronic edema, could be delusional with IV fluids but will need to watch for bleeding, none seen so far * elevation of alk-phos and transaminases with bilirubin 2.5, uncertain etiology or relation to her acute febrile illness * very large thoracic and abdominal aortic aneurysm with high risk for rupture but the patient is not a surgical candidate, stable since September 2016 * wheelchair-bound due to severe deconditioning weakness and obesity PLANS: * Continue IV hydration with Bolus resuscitation at this time * Hold antihypertensive at this * Continue current antibiotics * Continue to follow cultures closely * Continue current treatment for COPD exacerbation and respiratory failure bronchodilators and prednisone * Continue wound care management with wound care nurse * Check abdominal ultrasound and follow liver enzymes and bilirubin * Repeat hemoglobin watch for any signs of blood Seen by me today on hospitalist rounds and multidisciplinary rounds SUBJECTIVE: Feels a little bit better but overall little change from yesterday Denies shortness of breath Denies subjective fever symptoms OBJECTIVE Vitals reviewed: T-max 38.5 degrees, has remained hypotensive to as small degree through some of the night; tachycardia resolved and respirations of slowed Junior Legal Secretary, my review: Sinus rhythm Exam: alert oriented looks a bit more relaxed today skin warm dry color ok resps not labored looks notably more relaxed today lungs diminished but clear BSs heart regular abd soft nondistended nontender, bowel sounds present limbs warm, no edema; the wounds on the posterior aspects of both ankles look much service cleaner today after good wound care overnight iv site ok Microbiology data: Blood cultures negative to date Laboratory data: White blood cell count a bit better at 14,000 today; slight decrease in hemoglobin overnight Mild elevation in hepatic transaminases and alkaline phosphatase with bilirubin 2.5 Objective: Vital Signs Temp Pulse Resp BP Pulse Ox 37.0 C 79 21 H 85/45 L 97 02/11/18 08:10 02/11/18 08:10 02/11/18 08:10 02/11/18 08:21 02/11/18 08:10 Laboratory Results 02/11/18 03:06 02/11/18 03:06 02/10/18 02/11/18 02/12/18 06:59 06:59 06:59 Intake Total 100 Output Total 200 Balance -100 PT 17.8 SEC (12.0-15.0) H 02/10/18 12:02 INR 1.45 (0.83-1.16) H 02/10/18 12:02 - Time Spent With Patient Time Spent with Patient: greater than 35 minutes Time Spent with Patient: Greater than 35 minutes spent on this patients care, greater than 50% of time spent counseling, educating, and coordinating care regarding the above mentioned plan. ICD10 Worksheet Patient Problems: Problems Problem Status Onset Fever Acute Hypoxia Acute GI bleed Acute Venous stasis dermatitis of both lower extremities Acute
--- NOTE | 2018-02-11 12:04 | PDMN ---
Medical Necessity Medical necessity: Pt meets inpt criteria per MD order and MCG M-160, Sepsis and Other Febrile Illness, without Focal Infection. 77 y/o admitted w/acute febrile illness of uncertain etiology, early sepsis, acute hypoxemic resp failure- possible COPD exac, tachycardia. Pt also presented w/multiple open wounds to bilat lower extremeities and stage 2 sacral decub. Blood cultures + for Gram Neg [place], E. Coli, hypotensive and febrile this AM, liver enzymes and bili elevated, H&H down from 11.3, 37.1 yesterday to 9.6, 31.1 today. Cont IV ABX's, IVF, 3L O2 via NC, wound care consult, dietary consult, PT/OT evals pending, abd US pending. Anticipate>2MN for further diagnostic evaluation and treatment.
--- NOTE | 2018-02-11 12:22 | ASMTCASEMG ---
Living Arrangements What is your living Answers: Alone arrangement? Who do you live with? Type Of Residence What kind of residence do Answers: [facility] live in? Type of Residence Facility Name Notes: [facility] Discharge Plan Comments Coordination Status Comments Notes: Pts case discussed in tx rounds. Pt is a 77 y/o female admitted for hypoxia and fever. Pt currently lives at [facility]. Pt was transferred from [facility]. Pt is wheelchair bound due to severe general deconditioning. Pt has ongoing wounds around both ankles with ongoing daily wound care. Wound care and therapies have been ordered. Blood cultures shows that pt is positive for e coli. Pt is being prescribed iv rocephin. Referral sent to [facility]. CM spoke to Boris at [facility]. He reports that pt is a [facility] Medicaid pt with them. CM to follow. Plan: Most likely return back to [facility] Date Signed: 02/11/2018 12:02 PM Electronically Signed By:ROBERTO Christine
[2018-02-11] MEDS: NS 1,000 ML IV SCH (12:31)
[2018-02-11] MEDS: CLOPIDOGREL BISULFATE 75 MG TAB PO SCH (22:38)
[2018-02-11] MEDS: MELATONIN 3 MG TAB PO SCH (22:38)
[2018-02-11] MEDS: ESCITALOPRAM OXALATE 10 MG TAB PO SCH (22:38)
[2018-02-12] MEDS: IPRATROPIUM/ALBUTEROL 3 ML DEYVIAL IH SCH ×4 (05:50→21:36)
[2018-02-12] MEDS: ENOXAPARIN 40 MG/0.4 ML SYR SC SCH (08:06)
[2018-02-12] MEDS: ASPIRIN 81 MG CHEWABLE TAB PO SCH (08:06)
[2018-02-12] MEDS: PANTOPRAZOLE SODIUM 40 MG TAB PO SCH (08:06)
[2018-02-12] MEDS: predniSONE 20 MG TAB PO SCH (08:06)
--- NOTE | 2018-02-12 13:01 | HOSPPROG ---
Hospitalist Progress Note Assessment/Plan: DIAGNOSES: * acute early sepsis without organ damage * acute E coli bacteremia, suspect urinary source but source uncertain at this time * acute hypoxemic respiratory failure, due to COPD exacerbation, possibly triggered by above * No PE or pneumonia on her CT chest * multiple open wounds at both ankles present on admission, these are chronic, currently improving nicely * stage II decubitus changes at the low sacral area present on admission without signs of infection * acute worsening of chronic edema * Resolved at this time * elevation of alk-phos and transaminases with bilirubin 2.5, uncertain etiology or relation to her acute febrile illness * Improving at this time * ? If this could be an indication of her febrile illness being biliary in origin * very large thoracic and abdominal aortic aneurysm with high risk for rupture but the patient is not a surgical candidate, stable since September 2016 * wheelchair-bound due to severe deconditioning weakness and obesity PLANS * Will discontinue IV fluids and resume antihypertensive at this time * Continue current antibiotics for E coli * Continue current treatment for COPD exacerbation and respiratory failure bronchodilators and prednisone * Continue wound care management with wound care nurse * Check abdominal ultrasound * Repeat hemoglobin watch for any signs of blood Seen by me today on hospitalist rounds and multidisciplinary rounds SUBJECTIVE: Feels a little bit better but overall little change from yesterday Denies shortness of breath Denies subjective fever symptoms OBJECTIVE Vitals reviewed: T-max 38.5 degrees, has remained hypotensive to as small degree through some of the night; tachycardia resolved and respirations of slowed Flumer, my review: Sinus rhythm Exam: alert oriented looks a bit more relaxed today skin warm dry color ok resps not labored looks notably more relaxed today lungs diminished but clear BSs heart regular abd soft nondistended nontender, bowel sounds present limbs warm, no edema; the wounds on the posterior aspects of both ankles look much white work cleaner today after good wound care overnight iv site ok Microbiology data: Blood cultures negative to date Laboratory data: Minimal change in hemoglobin overnight Liver enzymes and bilirubin all improved with bilirubin now in normal range Renal function improved since yesterday Objective: Vital Signs Temp Pulse Resp BP Pulse Ox 36.5 C 95 16 100/55 L 96 02/12/18 10:52 02/12/18 10:52 02/12/18 10:52 02/12/18 10:52 02/12/18 10:52 Laboratory Results 02/12/18 03:22 09/15/18 03:22 02/11/18 02/12/18 02/13/18 06:59 06:59 06:59 Intake Total 100 3565 Output Total 200 450 Balance -100 3115 PT 17.8 SEC (12.0-15.0) H 02/10/18 12:02 INR 1.45 (0.83-1.16) H 02/10/18 12:02 - Time Spent With Patient Time Spent with Patient: greater than 35 minutes Time Spent with Patient: Greater than 35 minutes spent on this patients care, greater than 50% of time spent counseling, educating, and coordinating care regarding the above mentioned plan. ICD10 Worksheet Patient Problems: Problems Problem Status Onset Fever Acute Hypoxia Acute GI bleed Acute Venous stasis dermatitis of both lower extremities Acute
[2018-02-12] MEDS ORDERED: LOPERAMIDE HCL 2 MG CAP PO PRN (14:02)
[2018-02-12] MEDS: CLOPIDOGREL BISULFATE 75 MG TAB PO SCH (21:13)
[2018-02-12] MEDS: MELATONIN 3 MG TAB PO SCH (21:13)
[2018-02-12] MEDS: ESCITALOPRAM OXALATE 10 MG TAB PO SCH (21:13)
[2018-02-13] MEDS: IPRATROPIUM/ALBUTEROL 3 ML DEYVIAL IH SCH ×4 (04:57→21:00)
[2018-02-13] MEDS: PANTOPRAZOLE SODIUM 40 MG TAB PO SCH (08:37)
[2018-02-13] MEDS: predniSONE 20 MG TAB PO SCH (08:37)
[2018-02-13] MEDS: ASPIRIN 81 MG CHEWABLE TAB PO SCH (08:37)
[2018-02-13] MEDS: ENOXAPARIN 40 MG/0.4 ML SYR SC SCH (08:38)
--- NOTE | 2018-02-13 12:29 | HOSPPROG ---
Hospitalist Progress Note Assessment/Plan: DIAGNOSES: * acute early sepsis without organ damage * acute E coli bacteremia, suspect urinary source but source uncertain at this time * acute hypoxemic respiratory failure, due to COPD exacerbation, possibly triggered by above * No PE or pneumonia on her CT chest * multiple open wounds at both ankles present on admission, these are chronic, currently improving nicely * stage II decubitus changes at the low sacral area present on admission without signs of infection * acute worsening of chronic edema, suspect right-sided heart failure related to COPD * Resolved at this time * elevation of liver enzymes and bilirubin * Suspect due to a combination of hepatic steatosis and acute sepsis; improving here with treatment * Do not suspect this is due to biliary disease as there is no symptom of cholecystitis and no suggestion of cholecystitis on the ultrasound * very large thoracic and abdominal aortic aneurysm with high risk for rupture but the patient is not a surgical candidate per thoracic surgery consultation at the time of discovery, stable since September 2016 * wheelchair-bound due to severe deconditioning weakness and obesity PLANS * Continue current antibiotics (Rocephin) for E coli, but plan to change to oral Levaquin at the time of discharge, to complete total of 10 days of antibiotic therapy including the Rocephin * As there is not clinical or imaging evidence of cholecystitis now, would not recommend surgical assessment. However due to the uncertainty as to the etiology or source of her E coli bacteremia, I have discussed with her and her daughter that if she has in the future any symptoms suggestive of cholecystitis or recurrent episodes of infection with appropriate organism, may need to consider cholecystectomy * Will resume her Lasix lisinopril and metoprolol now that sepsis is resolved * Continue current treatment for COPD exacerbation and respiratory failure bronchodilators and prednisone; plan to taper the prednisone over period of several days as she goes home * Will add a long-acting bronchodilator steroid combination inhaler at this time , she has never been on these in the past * She is up-to-date currently on this year's flu vaccine and on her pneumonia vaccines * Continue wound care management with wound care nurse here, and will need ongoing daily wound care at [facility] for her leg wounds and sacral erythema. I did discuss with her that if she has any trouble with these wounds at [facility] she can be referred for buy them back to our outpatient wound care clinic for further assistance Dispo: currently anticipate transfer back to [facility] tomorrow February 14 All of the above information was discussed at length in detail with the patient and her daughter in the room today and all of their questions answered Seen by me today on hospitalist rounds and multidisciplinary rounds SUBJECTIVE: Feels essentially back to baseline OBJECTIVE Vitals reviewed: Stable without fever Marine Biologist, my review: Sinus rhythm Exam: alert oriented looks a bit more relaxed today skin warm dry color ok resps not labored looks notably more relaxed today lungs diminished but clear BSs heart regular abd soft nondistended nontender, bowel sounds present limbs warm, no edema; the wounds on the posterior aspects of both ankles are still clean with evidence of ongoing healing, do not appear infected iv site ok Microbiology data: E coli bacteremia, sensitive Laboratory data: Minimal change in hemoglobin overnight Liver enzymes and bilirubin all improved with bilirubin now in normal range Renal function improved since yesterday Radiology (I reviewed the images and radiologist reports from all of the studies listed here): abdominal ultrasound showed gallstones but no evidence of cholecystitis, there is evidence of hepatic steatosis which is non alcoholic in her case CT scan chest: No evidence of PE, no change in chronic large aortic aneurysm, improvement in left lower lobe atelectasis and left pleural effusion from prior CT scans Objective: Vital Signs Temp Pulse Resp BP Pulse Ox 36.8 C 94 20 133/69 H 91 L 02/13/18 10:55 02/13/18 10:55 02/13/18 10:55 02/13/18 10:55 02/13/18 10:55 Laboratory Results 02/12/18 03:22 02/12/18 03:22 02/12/18 02/13/18 02/14/18 06:59 06:59 06:59 Intake Total 3565 1550 240 Output Total 450 1402 1200 Balance 3115 148 -960 PT 17.8 SEC (12.0-15.0) H 02/10/18 12:02 INR 1.45 (0.83-1.16) H 02/10/18 12:02 - Time Spent With Patient Time Spent with Patient: greater than 35 minutes Time Spent with Patient: Greater than 35 minutes spent on this patients care, greater than 50% of time spent counseling, educating, and coordinating care regarding the above mentioned plan. ICD10 Worksheet Patient Problems: Problems Problem Status Onset Fever Acute Hypoxia Acute GI bleed Acute Venous stasis dermatitis of both lower extremities Acute
[2018-02-13] MEDS: MELATONIN 3 MG TAB PO SCH (21:48)
[2018-02-13] MEDS: ESCITALOPRAM OXALATE 10 MG TAB PO SCH (21:48)
[2018-02-13] MEDS: CLOPIDOGREL BISULFATE 75 MG TAB PO SCH (21:48)
[2018-02-14 08:21] VITALS: BP 146/79
[2018-02-14] MEDS: ENOXAPARIN 40 MG/0.4 ML SYR SC SCH (08:22)
[2018-02-14] MEDS: PANTOPRAZOLE SODIUM 40 MG TAB PO SCH (08:22)
[2018-02-14] MEDS: predniSONE 20 MG TAB PO SCH (08:22)
[2018-02-14] MEDS: ASPIRIN 81 MG CHEWABLE TAB PO SCH (08:22)
--- NOTE | 2018-02-14 09:09 | PDHOMEO2F ---
Home Oxygen Face to Face Home Orders: I certify that a physician or a nurse practitioner or physician's transportation assistant has had a [id number] encounter with this patient on the date of this order due to the diagnosis listed, which relates to the primary reason the patient requires home oxygen. Alternative treatments have been tried, or considered, and deemed ineffective. It is anticipated that supplemental oxygen will result in improvement with treatment. Home oxygen qualifying diagnosis: copd SpO2 on room air (%): 85 Frequency of home oxygen needed: continuous Home oxygen liters per minute: 2 Home oxygen delivery device: nasal cannula Concentrator: Yes E-tanks for mobility and back up: Yes If ordering portable O2, is the patient mobile in the home?: Yes I certify that, based on these findings, the home oxygen is medically necessary for this patient for the following length of time. Length of time home oxygen needed: 1 month
[2018-02-14] MEDS: IPRATROPIUM/ALBUTEROL 3 ML DEYVIAL IH SCH (10:09)
--- NOTE | 2018-02-14 10:13 | PDIAF ---
- Diagnosis Code Status: Full Code - Medication Management Discharge Medications: Medications to Continue on Transfer Aspirin [Aspirin 81mg (*)] 81 mg PO DAILY 09/30/17 [Last Taken 02/10/18] Clopidogrel Bisulfate [Plavix (*)] 75 mg PO HS 09/30/17 [Last Taken 02/09/18] Escitalopram Oxalate [Lexapro 10 MG] 10 mg PO HS 09/30/17 [Last Taken 02/09/18] Furosemide [Lasix 40 MG (*)] 60 mg PO DAILY 09/30/17 [Last Taken 02/10/18] Metoprolol Succinate Xr [Toprol Xl 25 mg (*)] 25 mg PO DAILY tab 10/08/17 [ Last Taken 02/10/18] Lisinopril [Zestril 2.5 mg (*)] 2.5 mg PO DAILY 02/10/18 [Last Taken 02/10/18] Pantoprazole Sodium [Protonix 40mg (*)] 40 mg PO DAILY 02/10/18 [Last Taken ] Loperamide HCl [Imodium 2 mg (*)] 2 mg PO PRN PRN cap 02/14/18 [Last Taken Unknown] Melatonin [Melatonin 3 MG (*)] 3 mg PO HS tab 02/14/18 [Last Taken Unknown] cefTRIAXone 1 GM/DEXTROSE [Rocephin 1 gm (Premix)] 1 gm IV DAILY #5 bag [Last Taken Unknown] [facility] Antibiotic Stop Date: 02/18/18 Discharge Medications: Refer to the Discharge Home Medication list for PRN reason. - Orders Services needed: Registered Nurse, Certified [employer], Physical Therapy, Occupational Therapy Isolation Type: None Diet Recommendation: no restrictions on diet Additional Instructions: You have two stage 2 pressure injuries (also known as a bedsore) on your sit bones (ishiums.) To help heal this wound and avoid further injury please do the followin. Reposition yourself frequently, at least every 15 minutes when sitting. Try to stand for at least 3 min every hour so that the tissues fully reperfuse with blood. We recommend sitting on an air cushion. Please never use a doughnut. 2. When youre in bed, try to rest on your side as much as possible, and change position every two hours (for example, turn or tilt from your right side toward your left).~ If you sleep on a sleep number or medical bed, keep the head of the bed below 30 degrees and keep all pressure off your low back for at least 5 minutes at least every two hours.~ 3. As needed, you may use Calazime, dimethicone moisture barrier cream, or any zouo-wxr-[id number] diaper rash cream to help prevent or treat a moisture- related rash to your bottom area and buttocks. 4. Please contact [facility] outpatient [facility] for an appointment, at [phone], If your wounds re/open or dont improve, or if you have any further questions or concerns. Slime Zamora RN Wound Care Team - Labs/Radiology BMP Date: 02/16/18 CBC w/diff Date: 02/16/18 - Follow Up Care Current Providers and Referrals: SAKINA WELSH [Primary Care Provider] -
--- NOTE | 2018-02-14 12:32 | ASMTDCNOTE ---
Case Management Discharge Discharge Order Complete? Answers: Yes Patient to Obtain Answers: Other Notes: [facility] [place] Medications Transportation Arranged Answers: [facility] Transport will Pick (Date 02/14/2018 12:30 PM & Time) Case Management Transport Answers: Yes Form Complete Agency/Facility Transfer Answers: Yes Report Printed & Faxed to Receiving Agency Family Notified Answers: Yes Discharge Comments Notes: Pt returning to [facility] via [facility] stretcher. Son Yunier informed via phone. No further CM needs noted at this time. CM available should plan change. Date Signed: 02/14/2018 12:30 PM Electronically Signed By:Rabia Moreau
--- NOTE | 2018-02-14 12:35 | ASDISCHSUM ---
Discharge Information Plan Status:SNF Medically Cleared to Leave:02/14/2018 Discharge Date:02/14/2018 CM D/C Disposition:[facility]dc Facility ADT D/C Disposition:[facility]dc Facility Projected Discharge Date:02/11/2018 11:00 AM Transportation at D/C:ALS/BLS Discharge Delay Reason: Follow-Up Date:02/11/2018 11:00 AM Discharge Slot: Final Diagnosis:Bacteremia Placement Information Referral Type:*Intermediate/SNF Referral ID:[id number] Provider Name:Chel Gardner/Kristine [facility] Address 1:[address] Address 2: Fax Number: [facility]:[place] Selection Factors: State:[place] Patient Contact Information Contact Name:MAKAYLA Relationship:Son Address:[address] Work Phone: [facility]:[place] Alternate Phone: State/Zip Code:[place] [address] Email: Financial Information Financial Class:Medicare Advantage Plans Primary Plan Desc:[employer] Primary Plan Number:[id number] Secondary Plan Desc: Secondary Plan Number: Assessment Information [facility] Initial CM Assessment Living Arrangements What is your living Answers: Alone arrangement? Who do you live with? Type Of Residence What kind of residence do Answers: [facility]dc Facility you live in? Type of Residence Facility Name Notes: [facility] Discharge Plan Comments Coordination Status Comments Notes: Pts case discussed in tx rounds. Pt is a 77 y/o female admitted for hypoxia and fever. Pt currently lives at [facility]. Pt was transferred from [place]. Pt is wheelchair bound due to severe general deconditioning. Pt has ongoing wounds around both ankles with ongoing daily wound care. Wound care and therapies have been ordered. Blood cultures shows that pt is positive for e coli. Pt is being prescribed iv rocephin. Referral sent to [facility]. CM spoke to Boris at [facility]. He reports that pt is a [facility] Medicaid pt with them. CM to follow. Plan: Most likely return back to [facility] Date Signed: 02/11/2018 12:02 PM Electronically Signed By:ROBERTO Christine Case Management Discharge Plan Note Case Management Discharge Discharge Order Complete? Answers: Yes Patient to Obtain Answers: Other Notes: [facility] Transportation Arranged Answers: [employer] [facility] will Pick (Date 02/14/2018 12:30 PM & Time) Case Management Transport Answers: Yes Form Complete Agency/Facility Transfer Answers: Yes Report Printed & Faxed to Receiving Agency Family Notified Answers: Yes Discharge Comments Notes: Pt returning to via [employer] stretcher. Abhijeet Faye informed via phone. No further CM needs noted at this time. CM available should plan change. Date Signed: 02/14/2018 12:30 PM Electronically Signed By:Rabia Moreau Intervention Information Intervention Type:*IM-Signed Date of Service:02/14/2018 10:44 AM Patient Type:Inpatient Staff Member:Debby Hernandez Hours: Discipline: Severity: Comment:
== END 2018-02-14 13:43 | DRG 871 ==
LOC: EDUNIT# → F2W 16:13
PROVIDERS: ADMIT Internal Medicine; ATTEND Internal Medicine
DX: A41.51 Sepsis due to Escherichia coli [E. coli] (principal); J96.01 Acute respiratory failure with hypoxia; J44.1 Chronic obstructive pulmonary disease with (acute) exacerbation; L89.152 Pressure ulcer of sacral region, stage 2; I71.4 Abdominal aortic aneurysm, without rupture; I71.2 Thoracic aortic aneurysm, without rupture; E66.9 Obesity, unspecified; I25.10 Atherosclerotic heart disease of native coronary artery without angina pectoris; I73.9 Peripheral vascular disease, unspecified; K21.9 Gastro-esophageal reflux disease without esophagitis; I10 Essential (primary) hypertension; E78.5 Hyperlipidemia, unspecified; Z23 Encounter for immunization; Z99.3 Dependence on wheelchair
CPT/HCPCS: 84484-PO; 97161-GP; 97166-GO; 97530-GP; G0008; G8978-GP-CL; G8979-GP-CK; G8987-GO-CM; G8988-GO-CL; J0696; J1650; J3370; J7512; Q9967